=== PATIENT | female | born 1980 | race Caucasian/White ===

== ENCOUNTER 2020-03-31 10:48 | Emergency (ER) | payer MEDICARE, OTHER, SELFPAY ==
[2020-03-31 11:04] VITALS: BP 159/91; PULSE 77; RESP 16; TEMP 36.6; O2SAT 94; BMI 44.2
--- NOTE | 2020-03-31 11:07 | XR_ITS ---
EXAMINATION: XR KNEE, RIGHT CLINICAL INFORMATION: Pain COMPARISON: February 18, 2012 TECHNIQUE: Four views of the right knee. FINDINGS: There is no evidence of acute fracture or dislocation of the right knee. No right knee effusion. Right knee joint spaces are maintained. There is mild marginal spurring seen about the patellofemoral joint. XR/XR knee RT 4V IMPRESSION: Mild degenerative change patellofemoral joint.
--- NOTE | 2020-03-31 11:44 | ED.LOWEXIN ---
HPI - Extremity Injury (Lower) General Chief Complaint: Extremity Problem Stated Complaint: knee pain Time Seen by Provider: 03/31/20 11:07 Source: patient Mode of arrival: ambulatory Limitations: no limitations History of Present Illness HPI Narrative: Right knee pain for past couple of days denies any injury, redness or swelling. States it feels like an ?pebble in there? She called her primary care doctor has an appointment however the pain got worse so she came to emergency room. complaint: knee injury Injury: Right: knee Severity: mild Relieving factors: nothing Exacerbating factors: nothing Related Data Previous Rx's Medication Instructions Recorded ibuprofen 800 mg PO BID PRN #30 tab 03/31/20 Allergies Allergy/AdvReac Type Severity Reaction Status Date / Time gadobutrol [GADOBUTROL] Allergy Severe RASH, Verified 03/31/20 10:51 TONGUE SWELLING, SOB amoxicillin [Amoxicillin] Allergy Unknown RASH Verified 03/31/20 11:04 cinnamon [CINNAMON] Allergy Unknown TONGUE Verified 03/31/20 11:04 SWELLING Iodinated Contrast Media Allergy Unknown DIFFICULTY Verified 03/31/20 11:04 [IV CONTRAST] BREATHING peanut [PEANUT] Allergy Unknown ANAPHYLAXIS Verified 03/31/20 11:04 cinnamon and peanuts Allergy Unknown Unknown Uncoded 03/31/20 10:51 constrast dye Allergy Unknown Unknown Uncoded 03/31/20 10:51 Review of Systems Review of Systems: Constitutional: No Weight loss, No Fever, No Chills, No Night Sweats, No Fatigue, No Malaise ENT/Mouth: No Hearing loss, No Ear Pain, No Nasal Congestion Eyes: No Discharge Cardiovascular: No Chest Pain, No SOB, No Dyspnea on Exertion Respiratory: No Cough, No Sputum, No Wheezing, No Smoke Exposure, No Dyspnea Musculoskeletal: No joint pain, No Myalgias, No Joint Swelling Skin: No Skin Lesions, No rash Neuro: No Weakness, No Numbness Psych: No Anxiety/Panic, No Social Issues Heme/Lymph: No Bruising, No Bleeding,No Lymphadenopathy Endocrine: No Polyuria, No Polydipsia, No Temperature Intolerance Yes all other systems are reviewed and are negative [facility] Past Medical History Attestation statement: The following information was validated with the patient. Medical History (Updated 03/31/20 @ 12:06 by Andrew Melendez NP) Anxiety Back pain Brain lesion Depression Intercostal neuralgia Migraines Social History Social History Alcohol intake: never Smoking Status: Never smoker Smoked in Last 30 Days: No Use of substances other than those prescribed or required for medical reasons: No Advance Directives: No Advance Directives Information Provided: Yes Physical Exam Vital Signs: Vital Signs: Last Vital Signs Temp 97.8 F 03/31/20 11:04 Pulse 77 03/31/20 11:04 Resp 16 03/31/20 11:04 BP 159/91 H 03/31/20 11:04 Pulse Ox 94 03/31/20 11:04 Body Mass Index 44.2 Reviewed Const: General: cooperative and healthy appearing; No acute distress or intoxicated appearing Nutritional Appearance: average body habitus Orientation/consciousness: patient oriented x3 HENMT: Head: Yes normal to inspection Ears: hearing grossly normal bilaterally Chest: Chest palpation & inspection: normal inspection of the chest Resp: Effort & Inspection: normal respiratory effort Cardio: Jugular venous distension: no JVD Neuro: General: patient oriented x3 Extrem: Other: Right knee without effusion, negative Homans No erythema or swelling. Full range of motion. Negative drawer test. General: Yes normal to inspection MDM - Extremity Injury (Lower) Imaging Data Right knee x-ray: Radiologist's impression: [address] [address] XRay Report Signed Patient: Avain Velazquez#: [id number] : 1980Acct:[id number] Age/Sex: 39 / FADM Date: 03/31/20 Loc: HO.ED Attending Dr: Ordering Physician: Andrew Melendez NP Date of Service: 03/31/20 Procedure(s): XR knee RT 4V Accession Number(s): [id number] cc: Andrew Melendez INSTRUMENTATION AND CONTROLS TECHNICIAN~ EXAMINATION: XR KNEE, RIGHT CLINICAL INFORMATION: Pain COMPARISON: February 18, 2012 TECHNIQUE: Four views of the right knee. FINDINGS: There is no evidence of acute fracture or dislocation of the right knee. No right knee effusion. Right knee joint spaces are maintained. There is mild marginal spurring seen about the patellofemoral joint. XR/XR knee RT 4V IMPRESSION: Mild degenerative change patellofemoral joint. Dictated By:JA LITTLE MD Signed By:<Electronically signed by JA LITTLE MD in OV>03/31/20 1200 DD/ 1107 TD/TT: Counter Hand: KATERINA Discharge Plan Discharge Clinical Impression: Arthralgia of knee Qualifiers: Laterality: right Qualified Code(s): M25.561 - Pain in right knee Patient Disposition: Home, Self-Care Instructions: Knee Pain (ED), Arthralgia (ED) Prescriptions: New ibuprofen 800 mg tablet 800 mg PO BID PRN (Reason: pain) Qty: 30 RF: 0 Referrals: Radha Perez NP [Primary Care Provider] - 1 week
== END 2020-03-31 12:18 | disposition home or self-care (01) ==
PROVIDERS: Emergency Provider Emergency Medicine; PCP Emergency Medicine
DX: M25.561 Pain in right knee (principal)
CPT/HCPCS: 73564; 99283; 99284

== ENCOUNTER 2020-04-07 13:53 | Emergency (ER) | payer MEDICARE, OTHER, SELFPAY ==
--- NOTE | 2020-04-07 | XR_ITS ---
EXAMINATION: XR CHEST CLINICAL INFORMATION: Chest pain and dyspnea on exertion. COMPARISON: None TECHNIQUE: 2 views of the chest were obtained. FINDINGS: No significant abnormality is noted involving the heart, lungs, mediastinum, bony thorax or soft tissues. XR/XR chest 2V IMPRESSION: Unremarkable examination.
[2020-04-07 15:19] VITALS: BP 140/85; PULSE 77; RESP 18; TEMP 36.6; O2SAT 99; BMI 40.7
--- NOTE | 2020-04-07 16:03 | ECG_ITS ---
Test Reason : CHEST PAIN Blood Pressure : / mmHG Vent. Rate : 090 BPM Atrial Rate : 090 BPM P-R Int : 148 ms QRS Dur : 092 ms QT Int : 364 ms P-R-T Axes : 037 -13 038 degrees QTc Int : 445 ms Normal sinus rhythm Left axis deviation Otherwise normal ECG When compared with ECG of 11-DEC-2017 03:23, No significant changes seen Referred By: Dulce Mejia Electronically Signed By:ANAMARIA HERNANDEZ MD
--- NOTE | 2020-04-07 16:06 | ED_ITS ---
HPI - Chest Pain General Chief Complaint: Chest Pain Stated Complaint: chest pain Time Seen by Provider: 04/07/20 15:51 Source: patient Mode of arrival: ambulatory Limitations: no limitations History of Present Illness HPI narrative: Patient comes to emergency room complaining of substernal chest pain that started this morning while she was laying in bed. Patient states it hurts more with deep inspirations. Patient states she cannot lay flat because it hurts, she has to be sitting up, movement also makes The chest pain worse. Patient denies any cardiac history. Patient states she has had lung surgery in the past due to a nodule she had in her lungs. Related Data Previous Rx's Medication Instructions Recorded ibuprofen 800 mg PO BID PRN #30 tab 03/31/20 Allergies Allergy/AdvReac Type Severity Reaction Status Date / Time gadobutrol [GADOBUTROL] Allergy Severe RASH, Verified 03/31/20 10:51 TONGUE SWELLING, SOB amoxicillin [Amoxicillin] Allergy Unknown RASH Verified 03/31/20 11:04 cinnamon [CINNAMON] Allergy Unknown TONGUE Verified 03/31/20 11:04 SWELLING Iodinated Contrast Media Allergy Unknown DIFFICULTY Verified 03/31/20 11:04 [IV CONTRAST] BREATHING peanut [PEANUT] Allergy Unknown ANAPHYLAXIS Verified 03/31/20 11:04 cinnamon and peanuts Allergy Unknown Unknown Uncoded 03/31/20 10:51 constrast dye Allergy Unknown Unknown Uncoded 03/31/20 10:51 Review of Systems Review of Systems: Constitutional : No Weight loss, No Fever, No Chills, No Night Sweats, No Fatigue, No Malaise ENT/Mouth : No Hearing loss, No Ear Pain, No Nasal Congestion, No Sinus Pain, No Hoarseness, No sore throat, No Rhinorrhea, No Swallowing Difficulty Eyes: No Eye Pain, No Swelling, No Redness, No Foreign Body, No Discharge, No Vision Changes Cardiovascular : Substernal chest pain worse with lying flat deep inspirations Respiratory : No Cough, No Sputum, No Wheezing, No Smoke Exposure, No Dyspnea Gastrointestinal : No Nausea, No Vomiting, No Diarrhea, No Constipation, No abdominal Pain, No Hematochezia, No Melena Genitourinary : no irregular bleeding, No Dysuria, No Urinary Frequency, No Hematuria, No Urinary Incontinence, No Urgency, No Flank Pain, No Urinary Flow Changes, No Hesitancy Musculoskeletal : No joint pain, No Myalgias, No Joint Swelling Skin : No Skin Lesions, No rash Neuro : No Weakness, No Numbness, No Paresthesias, No Loss of Consciousness, No Dizziness, No Headache Psych : No Anxiety/Panic, No Depression, No SI/HI/AH/VH, No Social Issues, Heme/Lymph: No Bruising, No Bleeding,No Lymphadenopathy Endocrine : No Polyuria, No Polydipsia, No Temperature Intolerance PMFSH Past Medical History Medical History Anxiety Back pain Brain lesion Depression Intercostal neuralgia Migraines Social History Social History Alcohol intake: unknown Smoking Status: Never smoker Use of substances other than those prescribed or required for medical reasons: Unknown Advance Directives: No Advance Directives Information Provided: No Physical Exam Vital Signs: Vital Signs: Last Vital Signs Temp 98.5 F 04/07/20 20:00 Pulse 79 04/07/20 20:00 Resp 18 04/07/20 20:00 BP 138/84 04/07/20 20:00 Pulse Ox 97 04/07/20 20:00 Body Mass Index 40.7 Appearance: Alert. Oriented X3. No acute distress. Eyes: Pupils equal, round and reactive to light. ENT: Pharynx normal. Neck: Normal inspection. Neck supple. No lymph nodes noted. No crepitus CVS: Normal heart rate and rhythm. Pulses normal. Normal S1 and S2, reprodu cible chest pain with palpation over the sternum Respiratory: No respiratory distress. Breath sounds normal. No Wheezing. No rales Abdomen: Soft and nontender. No rigidity. No distention. good BS x4 Skin: Skin warm and dry. Normal skin color. Normal skin turgor. Extremities: No lower extremity edema. No lower extremity edema. No Lacerations. No Rash Neuro: Oriented X 3. No motor deficit. No sensory deficit. Moving all extermities. No slurred speech. Course Course Course Narrative: I discussed the labs with the patient, patient complaining of a headache, no longer having chest pain. Headache likely secondary to the sublingual nitroglycerin. labs were obtained for a 2nd troponin, there was no increase greater than 50 and a troponin. No EKG changes, patient is stable to go home. MDM - Chest Pain Lab Data Result diagrams: 04/07/20 16:38 04/07/20 17:27 Labs: Lab Results 04/07/20 04/07/20 04/07/20 Range/Units 16:38 16:38 16:38 WBC 10.7 (4.8-10.8) X10*3/uL RBC 4.94 (4.20-5.50) X10*6/uL Hgb 14.7 (12.0-16.0) g/dl Hct 44.9 (37-47) % MCV 90.9 (80-98) fL MCH 29.8 (27.0-33.0) pg MCHC 32.7 (31.0-35.0) g/dl RDW 14.1 (11.0-16.0) % Plt Count 365 (160-400) X10*3/uL MPV 9.3 L (9.4-12.3) fL Immature Gran % (Auto) 0.2 (0.0-0.4) % Neut % (Auto) 74.7 H (45-73) % Lymph % (Auto) 15.9 L (20-40) % [place] % (Auto) 7.8 (2-11) % Eos % (Auto) 1.1 (0-4) % Baso % (Auto) 0.3 (0-2) % Lymph # (Auto) 1.7 (1.2-4.9) X10*3/uL [place] # (Auto) 0.8 (0.1-1.2) X10*3/uL Eos # (Auto) 0.1 (0.0-0.4) X10*3/uL Baso # (Auto) 0.0 (0.0-0.2) X10*3/uL Abs Immat Gran (auto) 0.02 (0.00-0.03) X10*3/uL Absolute Neuts (auto) 8.0 (2.0-8.3) X10*3/uL Absolute Nucleated RBC 0.000 (0.0-0.012) X10*3/uL Nucleated RBC % (auto) 0.0 (0.0-0.2) /100WBC Sodium Cancelled Potassium Cancelled Chloride Cancelled Carbon Dioxide Cancelled Anion Gap Cancelled BUN Cancelled Creatinine Cancelled Estim Creat Clear Calc Cancelled Estimated GFR Cancelled Random Glucose Cancelled Calcium Cancelled Total Bilirubin Cancelled Direct Bilirubin Cancelled AST Cancelled ALT Cancelled Alkaline Phosphatase Cancelled Troponin I High Sens 10.7 (<3.5-17.0) ng/L Total Protein Cancelled Albumin Cancelled 04/07/20 04/07/20 Range/Units 17:27 20:05 WBC (4.8-10.8) X10*3/uL RBC (4.20-5.50) X10*6/uL Hgb (12.0-16.0) g/dl Hct (37-47) % MCV (80-98) fL MCH (27.0-33.0) pg MCHC (31.0-35.0) g/dl RDW (11.0-16.0) % Plt Count (160-400) X10*3/uL MPV (9.4-12.3) fL Immature Gran % (Auto) (0.0-0.4) % Neut % (Auto) (45-73) % Lymph % (Auto) (20-40) % [place] % (Auto) (2-11) % Eos % (Auto) (0-4) % Baso % (Auto) (0-2) % Lymph # (Auto) (1.2-4.9) X10*3/uL [place] # (Auto) (0.1-1.2) X10*3/uL Eos # (Auto) (0.0-0.4) X10*3/uL Baso # (Auto) (0.0-0.2) X10*3/uL Abs Immat Gran (auto) (0.00-0.03) X10*3/uL Absolute Neuts (auto) (2.0-8.3) X10*3/uL Absolute Nucleated RBC (0.0-0.012) X10*3/uL Nucleated RBC % (auto) (0.0-0.2) /100WBC Sodium 137 Potassium 3.9 Chloride 102 Carbon Dioxide 25 Anion Gap 14 BUN 11 Creatinine 0.73 Estim Creat Clear Calc 118.3 Estimated GFR > 60 Random Glucose 92 Calcium 8.8 Total Bilirubin 0.7 Direct Bilirubin 0.3 AST 13 ALT 26 Alkaline Phosphatase 83 Troponin I High Sens 10.0 (<3.5-17.0) ng/L Total Protein 7.2 Albumin 3.9 ECG Data ECG #1: Attestation: I personally reviewed and interpreted this ECG as follows: ( Heart rate 90, no ST segment depressions or elevations, no T-wave inversions, QTC 445) Scores Heart Score History: -0- slightly suspicious ECG: -0- normal Age: -1- >45 - <65 Risk factory: -1- 1 or 2 risk factors Troponin: -0- < or = normal limit Score: 2 Risk: 1.7% Discharge Plan Discharge Clinical Impression: Atypical chest pain Patient Disposition: Home, Self-Care Instructions: Chest Pain (ED) Additional Instructions: Please follow-up with your primary care physician tomorrow. If you have any worsening or new symptoms, please return to the emergency room or call 911 Prescriptions: No Action ibuprofen 800 mg tablet 800 mg PO BID PRN (Reason: pain) Qty: 30 RF: 0
[2020-04-07 16:44] LABS: MANUAL DIFF FLAG NO
[2020-04-07 16:45] LABS: Basophils Percent Auto 0.3 % (0-2); Eosinophils Absolute Auto 0.1 X10*3/uL (0.0-0.4); Eosinophils Percent Auto 1.1 % (0-4); Hematocrit 44.9 % (37-47); Hemoglobin 14.7 g/dl (12.0-16.0); Imm Gran Abs Auto 0.02 X10*3/uL (0.00-0.03); Imm Gran Pct Auto 0.2 % (0.0-0.4); Lymphocytes Absolute Auto 1.7 X10*3/uL (1.2-4.9); Lymphocytes Percent Auto 15.9 % (20-40); Mean Corpuscular HGB Conc 32.7 g/dl (31.0-35.0); Mean Corpuscular Hemoglobin 29.8 pg (27.0-33.0); Mean Corpuscular Volume 90.9 fL (80-98); Mean Platelet Volume 9.3 fL (9.4-12.3); Monocytes Absolute Auto 0.8 X10*3/uL (0.1-1.2); Monocytes Percent Auto 7.8 % (2-11); Neutrophils Percent Auto 74.7 % (45-73); Platelet Count 365 X10*3/uL (160-400); Red Blood Count 4.94 X10*6/uL (4.20-5.50); Red Cell Distribution Width 14.1 % (11.0-16.0); White Blood Count 10.7 X10*3/uL (4.8-10.8)
[2020-04-07 17:12] LABS: Troponin-I High Sensitivity 10.7 ng/L (<3.5-17.0)
[2020-04-07] MEDS: Nitroglycerin 0.4 MG TAB.SUBL SUBLINGUAL (17:32)
[2020-04-07] MEDS: Aspirin Enteric Coated 325 MG TABLET.DR PO (17:32)
[2020-04-07 17:34] VITALS: PULSE 77; RESP 12; O2SAT 7
[2020-04-07 17:36] VITALS: BP 123/69
[2020-04-07 17:56] LABS: Alanine Aminotransferase 26 U/L (0-31); Albumin Level 3.9 g/dL (3.5-5.0); Alkaline Phosphatase 83 U/L (39-117); Anion Gap 14 (12-20); Aspartate Amino Transferase 13 U/L (5-31); Bilirubin Direct 0.3 mg/dL (0.0-0.5); Bilirubin Total 0.7 mg/dL (0.0-1.0); Blood Urea Nitrogen 11 mg/dL (9-16); Calcium 8.8 mg/dL (8.4-10.2); Carbon Dioxide 25 mmol/L (22-29); Chloride 102 mmol/L (96-108); Creatinine Clr Calc Pharmacy 118.3; Estimated Glomerular Filt Rate > 60; Glucose Random 92 mg/dL (60-115); Potassium 3.9 mmol/l (3.3-5.1); Sodium 137 mmol/L (135-145); Total Protein 7.2 g/dL (6.5-8.0)
--- NOTE | 2020-04-07 18:28 | PC.NURSE ---
Asked patient if she would want me to ask provider for pain medication, pt states she does not wish to take any at this time. Pt informed of plan to repeat troponin at 1930. Agreeable to plan.
[2020-04-07 20:00] VITALS: BP 138/84; PULSE 79; RESP 18; TEMP 36.9; O2SAT 97
[2020-04-07] MEDS: Acetaminophen 325 MG TABLET 650 MG PO (21:27)
== END 2020-04-07 21:33 | disposition home or self-care (01) ==
PROVIDERS: Emergency Provider Emergency Medicine
DX: R07.89 Other chest pain (principal); Z79.899 Other long term (current) drug therapy
CPT/HCPCS: 36415; 71046; 80048; 80076; 84484; 85025; 93005; 99284

== ENCOUNTER → 2020-05-23 08:18 | Outpatient (BNVA) | payer MEDICARE, OTHER, SELFPAY | PROVIDERS: Visit Provider Anesthesiology | DX: M79.18 Myalgia, other site (principal); L40.50 Arthropathic psoriasis, unspecified; E66.01 Morbid (severe) obesity due to excess calories | CPT/HCPCS: 99202 ==

== ENCOUNTER 2020-10-02 17:39 | Emergency (ER) | payer MEDICARE, OTHER, SELFPAY ==
--- NOTE | ~2020-10-02 | US_ITS ---
EXAMINATION: US ABDOMEN LIMITED CLINICAL INFORMATION: Right upper quadrant pain with question of cholecystitis. COMPARISON: CT abdomen pelvis 10/25/2017 TECHNIQUE: Real-time imaging of the right upper quadrant abdominal viscera. FINDINGS: PANCREAS: Normal. LIVER: The liver is enlarged measuring over 17 cm in length The liver contour is normal. There is diffuse increased liver parenchymal echogenicity, consistent with hepatic steatosis. No focal hepatic lesion. There is no intrahepatic biliary duct dilatation seen. GALLBLADDER: The gallbladder is physiologically distended without evidence of stones, sludge, polyps, wall thickening or pericholecystic fluid. COMMON BILE DUCT: Normal in caliber measuring 0.3 cm in diameter. RIGHT KIDNEY: Normal. No hydronephrosis. No renal calculi or focal parenchymal lesions. The kidney measures 10.1 cm in maximum dimension. FREE FLUID: None. US/US abdomen limited IMPRESSION: Hepatic steatosis No evidence of gallstones or cholecystitis
[2020-10-02 18:08] VITALS: BP 166/84; PULSE 77; RESP 18; TEMP 36.6; O2SAT 99; BMI 46.0
--- NOTE | 2020-10-02 22:31 | ED.BACK ---
HPI - Back Pain/Injury General Chief Complaint: Back Pain/Injury Stated Complaint: R SIDE PAIN Time Seen by Provider: 10/02/20 22:31 Source: patient Mode of arrival: ambulatory Limitations: no limitations History of Present Illness HPI Narrative: Patient history of chronic back pain complaining of pain in the right upper quadrant and right flank area for last 4 days which is not usual for her see usually gets pain in the left side. Pain is sharp in character increases on movements noticed with the food no nausea no vomiting no abdominal bloatedness no urinary complaints no injury no fever or chills no urinary complaints Related Data Home Medications Medication Instructions Recorded Confirmed amlodipine 10 mg tablet 10 mg PO DAILY 05/23/20 05/23/20 carvedilol 25 mg tablet 25 mg PO BID 05/23/20 05/23/20 chlorthalidone 25 mg tablet 25 mg PO DAILY 05/23/20 05/23/20 nystatin 100,000 unit/gram topical TOPICAL 05/23/20 05/23/20 powder quetiapine 25 mg tablet 25 mg PO BEDTIME 05/23/20 05/23/20 Previous Rx's Medication Instructions Recorded gabapentin 800 mg tablet 800 mg PO TID 30 Days #90 tab 05/23/20 nortriptyline 10 mg capsule 10 mg PO BEDTIME 30 Days #30 cap 05/23/20 tramadol 50 mg PO Q6H PRN #20 tab 10/03/20 Allergies Allergy/AdvReac Type Severity Reaction Status Date / Time gadobutrol [GADOBUTROL] Allergy Severe RASH, Verified 10/02/20 23:14 TONGUE SWELLING, SOB amoxicillin [Amoxicillin] Allergy Unknown RASH Verified 10/02/20 23:14 cinnamon [CINNAMON] Allergy Unknown TONGUE Verified 10/02/20 23:14 SWELLING Iodinated Contrast Media Allergy Unknown DIFFICULTY Verified 10/02/20 23:14 [IV CONTRAST] BREATHING peanut [PEANUT] Allergy Unknown ANAPHYLAXIS Verified 10/02/20 23:14 morphine Allergy Anaphylaxis Verified 10/02/20 23:14 constrast dye Allergy Unknown Unknown Uncoded 10/02/20 23:14 Review of Systems Review of Systems: Constitutional : No Weight loss, No Fever, No Chills ENT/Mouth : No sore throat, No Rhinorrhea Eyes: No Eye Pain, No Swelling Cardiovascular : No Chest Pain, no palpitations Respiratory : No Cough, No Sputum, no shortness of breath Gastrointestinal : no Nausea, No Vomiting, No Diarrhea, No abdominal Pain, no black stools Genitourinary : No Dysuria, No Urinary Frequency Musculoskeletal : No joint pain, No Myalgias, No Joint Swelling Skin : No Skin Lesions, No rash Neuro : No Weakness, No Numbness, No Dizziness, No Headache Psych : No Anxiety/Panic, No Depression Heme/Lymph: No Bruising, No Lymphadenopathy Endocrine : No Polyuria, No Polydipsia All other systems reviewed and are negative [facility] Past Medical History Medical History Anxiety Back pain Brain lesion Depression Intercostal neuralgia Migraines Morbid obesity Myofascial pain on left side Psoriatic arthritis Social History Social History Alcohol intake: unknown Smoking Status: Never smoker Advance Directives: No Advance Directives Information Provided: No Patient : No Physical Exam Vital Signs: Vital Signs: Last Vital Signs Temp 98.1 F 10/02/20 23:09 Pulse 69 10/02/20 23:09 Resp 17 10/02/20 23:09 BP 146/86 H 10/02/20 23:09 Pulse Ox 98 10/02/20 23:09 Body Mass Index 46.0 Appearance: Alert. Oriented X3. No acute distress. Eyes: PERRLA, No Nystagmus ENT: Pharynx normal. Oral Mucosa moist Neck: Normal inspection. Neck supple. CVS: Normal heart rate and rhythm. Pulses normal. Respiratory: No respiratory distress. Equal air entry bilateral, no wheezing/rales/rhonchi Abdomen: Soft , deep tenderness right upper quadrant and right flank area no rebound tenderness or guarding. Bowel sounds are present, no mass palpable, Skin: Skin warm and dry. Normal skin color. Normal skin turgor. Extremities: No lower extremity edema. No calf tenderness no spinal tenderness SLR negative both sites Neuro: Oriented X 3. No motor deficit. No sensory deficit.No cerebellar signs , cranial nerves II-XII intact MDM - Back Pain/Injury MDM Narrative Medical decision making narrative: Patient nonspecific right upper quadrant pain right flank pain upper back pain no nausea no vomiting ultrasound negative lab stable no UTI will discharge patient home for likely musculoskeletal pain Differential Diagnosis Differential diagnosis: Likely strain of lumbar region Medical Records Attestation: I reviewed the patient's medical records. Lab Data Attestation: I reviewed the patient's lab results. Result diagrams: 10/02/20 23:04 10/02/20 23:51 Labs: Lab Results 10/02/20 10/02/20 10/02/20 Range/Units 22:56 23:04 23:51 WBC 9.0 (4.8-10.8) X10*3/uL RBC 4.80 (4.20-5.50) X10*6/uL Hgb 14.8 (12.0-16.0) g/dl Hct 43.2 (37-47) % MCV 90.0 (80-98) fL MCH 30.8 (27.0-33.0) pg MCHC 34.3 (31.0-35.0) g/dl RDW 13.5 (11.0-16.0) % Plt Count 341 (160-400) X10*3/uL MPV 9.6 (9.4-12.3) fL Immature Gran % (Auto) 0.3 (0.0-0.4) % Neut % (Auto) 52.3 (45-73) % Lymph % (Auto) 34.7 (20-40) % [place] % (Auto) 9.8 (2-11) % Eos % (Auto) 2.3 (0-4) % Baso % (Auto) 0.6 (0-2) % Lymph # (Auto) 3.1 (1.2-4.9) X10*3/uL [place] # (Auto) 0.9 (0.1-1.2) X10*3/uL Eos # (Auto) 0.2 (0.0-0.4) X10*3/uL Baso # (Auto) 0.1 (0.0-0.2) X10*3/uL Abs Immat Gran (auto) 0.03 (0.00-0.03) X10*3/uL Absolute Neuts (auto) 4.7 (2.0-8.3) X10*3/uL Absolute Nucleated RBC 0.000 (0.0-0.012) X10*3/uL Nucleated RBC % (auto) 0.0 (0.0-0.2) /100WBC Sodium 136 (135-145) mmol/L Potassium 3.3 (3.3-5.1) mmol/L Chloride 100 (96-108) mmol/L Carbon Dioxide 25 (22-29) mmol/L Anion Gap 14 (12-20) BUN 15 (9-16) mg/dL Creatinine 0.75 (0.5-1.4) mg/dL Estim Creat Clear Calc 122.5 Estimated GFR > 60 Random Glucose 113 (60-115) mg/dL Calcium 9.0 (8.4-10.2) mg/dL Total Bilirubin 0.3 (0.0-1.0) mg/dL Direct Bilirubin < 0.2 (0.0-0.5) mg/dL AST 15 (5-31) U/L ALT 28 (0-31) U/L Alkaline Phosphatase 66 D (39-117) U/L Total Protein 6.9 (6.5-8.0) g/dL Albumin 3.8 (3.5-5.0) g/dL Lipase (8-78) U/L Urine Color YELLOW Urine Appearance HAZY Urine pH 6.0 (5.0-8.0) Ur Specific [place] >= 1.030 H (1.005-1.025) Urine Protein NEG (NEG-TRACE) MG/DL Urine Glucose (UA) NEG (NEG) MG/DL Urine Ketones NEG (NEG) MG/DL Urine Blood NEG (NEG) Urine Nitrite NEG (NEG) Ur Leukocyte Esterase NEG (NEG) 10/02/20 Range/Units 23:51 WBC (4.8-10.8) X10*3/uL RBC (4.20-5.50) X10*6/uL Hgb (12.0-16.0) g/dl Hct (37-47) % MCV (80-98) fL MCH (27.0-33.0) pg MCHC (31.0-35.0) g/dl RDW (11.0-16.0) % Plt Count (160-400) X10*3/uL MPV (9.4-12.3) fL Immature Gran % (Auto) (0.0-0.4) % Neut % (Auto) (45-73) % Lymph % (Auto) (20-40) % [place] % (Auto) (2-11) % Eos % (Auto) (0-4) % Baso % (Auto) (0-2) % Lymph # (Auto) (1.2-4.9) X10*3/uL [place] # (Auto) (0.1-1.2) X10*3/uL Eos # (Auto) (0.0-0.4) X10*3/uL Baso # (Auto) (0.0-0.2) X10*3/uL Abs Immat Gran (auto) (0.00-0.03) X10*3/uL Absolute Neuts (auto) (2.0-8.3) X10*3/uL Absolute Nucleated RBC (0.0-0.012) X10*3/uL Nucleated RBC % (auto) (0.0-0.2) /100WBC Sodium (135-145) mmol/L Potassium (3.3-5.1) mmol/L Chloride (96-108) mmol/L Carbon Dioxide (22-29) mmol/L Anion Gap (12-20) BUN (9-16) mg/dL Creatinine (0.5-1.4) mg/dL Estim Creat Clear Calc Estimated GFR Random Glucose (60-115) mg/dL Calcium (8.4-10.2) mg/dL Total Bilirubin (0.0-1.0) mg/dL Direct Bilirubin (0.0-0.5) mg/dL AST (5-31) U/L ALT (0-31) U/L Alkaline Phosphatase (39-117) U/L Total Protein (6.5-8.0) g/dL Albumin (3.5-5.0) g/dL Lipase 18 (8-78) U/L Urine Color Urine Appearance Urine pH (5.0-8.0) Ur Specific [place] (1.005-1.025) Urine Protein (NEG-TRACE) MG/DL Urine Glucose (UA) (NEG) MG/DL Urine Ketones (NEG) MG/DL Urine Blood (NEG) Urine Nitrite (NEG) Ur Leukocyte Esterase (NEG) Discharge Plan Discharge Clinical Impression: Abdominal pain Qualifiers: Abdominal location: right upper quadrant Qualified Code(s): R10.11 - Right upper quadrant pain Patient Disposition: Home, Self-Care Instructions: Abdominal Pain (ED) Additional Instructions: the cause of abdominal pain is not very clear likely musculoskeletal. Her ultrasound of gallbladder is negative for stones, Take pain medication as advised. Follow with PCP if not better. Report to the ER if vomiting/fever/worsening of pain Prescriptions: New tramadol 50 mg tablet 50 mg PO Q6H PRN (Reason: pain) Qty: 20 RF: 0 No Action amlodipine 10 mg tablet 10 mg PO DAILY RF: 0 chlorthalidone 25 mg tablet 25 mg PO DAILY RF: 0 quetiapine 25 mg tablet 25 mg PO BEDTIME RF: 0 carvedilol 25 mg tablet 25 mg PO BID RF: 0 nystatin 100,000 unit/gram powder topical RF: 0 nortriptyline 10 mg capsule 10 mg PO BEDTIME 30 Days Qty: 30 RF: 10 gabapentin 800 mg tablet 800 mg PO TID 30 Days Qty: 90 RF: 11
[2020-10-02 23:09] VITALS: BP 146/86; PULSE 69; RESP 17; TEMP 36.7; O2SAT 98
[2020-10-02] MEDS: Ketorolac Tromethamine 30 MG/ML VIAL IVPUSH (23:11)
[2020-10-02 23:23] LABS: MANUAL DIFF FLAG NO
[2020-10-02 23:25] LABS: Glucose Urine UA NEG (NEG); Leukocyte Esterase Urine NEG (NEG); Nitrite Urine NEG (NEG); Specific Gravity - Urine >= 1.030 (1.005-1.025); Urine Blood NEG (NEG); Urine Ketones NEG (NEG); Urine Protein NEG (NEG-TRACE)
[2020-10-02 23:26] LABS: Basophils Absolute Auto 0.1 X10*3/uL (0.0-0.2); Basophils Percent Auto 0.6 % (0-2); Eosinophils Absolute Auto 0.2 X10*3/uL (0.0-0.4); Eosinophils Percent Auto 2.3 % (0-4); Hematocrit 43.2 % (37-47); Hemoglobin 14.8 g/dl (12.0-16.0); Imm Gran Abs Auto 0.03 X10*3/uL (0.00-0.03); Imm Gran Pct Auto 0.3 % (0.0-0.4); Lymphocytes Absolute Auto 3.1 X10*3/uL (1.2-4.9); Lymphocytes Percent Auto 34.7 % (20-40); Mean Corpuscular HGB Conc 34.3 g/dl (31.0-35.0); Mean Corpuscular Hemoglobin 30.8 pg (27.0-33.0); Mean Platelet Volume 9.6 fL (9.4-12.3); Monocytes Absolute Auto 0.9 X10*3/uL (0.1-1.2); Monocytes Percent Auto 9.8 % (2-11); Neutrophils Absolute Auto 4.7 X10*3/uL (2.0-8.3); Neutrophils Percent Auto 52.3 % (45-73); Platelet Count 341 X10*3/uL (160-400); Red Cell Distribution Width 13.5 % (11.0-16.0)
[2020-10-02 23:28] LABS: Appearance Urine HAZY; Color Urine YELLOW; UACC Culture Trigger NO
[2020-10-03 00:33] LABS: Lipase 18 U/L (8-78)
[2020-10-03 00:34] LABS: Alanine Aminotransferase 28 U/L (0-31); Albumin Level 3.8 g/dL (3.5-5.0); Alkaline Phosphatase 66 U/L (39-117); Anion Gap 14 (12-20); Aspartate Amino Transferase 15 U/L (5-31); Bilirubin Direct < 0.2 mg/dL (0.0-0.5); Bilirubin Total 0.3 mg/dL (0.0-1.0); Blood Urea Nitrogen 15 mg/dL (9-16); Carbon Dioxide 25 mmol/L (22-29); Chloride 100 mmol/L (96-108); Creatinine Clr Calc Pharmacy 122.5; Estimated Glomerular Filt Rate > 60; Glucose Random 113 mg/dL (60-115); Potassium 3.3 mmol/L (3.3-5.1); Sodium 136 mmol/L (135-145); Total Protein 6.9 g/dL (6.5-8.0)
[2020-10-03 01:10] VITALS: BP 126/61; PULSE 69; RESP 13; O2SAT 99
== END 2020-10-03 01:19 | disposition home or self-care (01) ==
PROVIDERS: Emergency Provider Internal Medicine
DX: R10.11 Right upper quadrant pain (principal); E66.01 Morbid (severe) obesity due to excess calories
CPT/HCPCS: 36415; 76705; 80048; 80076; 81003; 83690; 85025; 96374; 99284; J1885

== ENCOUNTER 2021-07-07 08:03 | Outpatient (REF) | payer OTHER, SELFPAY ==
[2021-07-07 09:46] LABS: COVID-19 Test Negative (Negative); IDNOW Serial# 16C4AD1C
== END 2021-07-07 08:04 | disposition home or self-care (01) ==
LOC: HO.LAB 08:03
PROVIDERS: Visit Provider Internal Medicine
DX: Z20.822 Contact with and (suspected) exposure to COVID-19 (principal)
CPT/HCPCS: 87635; C9803

== ENCOUNTER → 2021-10-02 09:57 | Outpatient (BNVA) | payer OTHER, SELFPAY | PROVIDERS: PCP Nurse Practitioner Family; Referring Provider Nurse Practitioner Family; Visit Provider Physician Assistant | DX: Z13.89 Encounter for screening for other disorder (principal) ==

== ENCOUNTER → 2021-10-16 17:00 | Outpatient (BNVA) | payer OTHER, SELFPAY | PROVIDERS: PCP Nurse Practitioner Family; Visit Provider Physician Assistant | DX: E66.01 Morbid (severe) obesity due to excess calories (principal); I10 Essential (primary) hypertension; G43.909 Migraine, unspecified, not intractable, without status migrainosus; F32.9 Major depressive disorder, single episode, unspecified; F41.9 Anxiety disorder, unspecified; Z68.43 Body mass index [BMI] 50.0-59.9, adult; Z79.899 Other long term (current) drug therapy; Z71.3 Dietary counseling and surveillance | CPT/HCPCS: 99215; Q3014 ==

== ENCOUNTER 2021-10-17 08:00 | Outpatient (REF) | payer OTHER, SELFPAY ==
--- NOTE | ~2021-10-17 | XR_ITS ---
EXAMINATION: XR CHEST CLINICAL INFORMATION: Essential hypertension COMPARISON: 04/07/2020 TECHNIQUE: 2 views of the chest were obtained. FINDINGS: The lungs are well expanded. There is no focal consolidation, edema, or effusion. No pneumothorax. The cardiomediastinal silhouette is within normal limits. No acute osseous abnormality. XR/XR chest 2V IMPRESSION: Clear lungs.
--- NOTE | ~2021-10-17 | MM_ITS ---
EXAMINATION: MM SCREENING DIGITAL BREAST TOMOSYNTHESIS, BILATERAL CLINICAL INFORMATION: Screening. Asymptomatic. No prior breast imaging. Age 41. No known family history breast cancer. The lifetime risk of breast cancer based on the Tyrer-Cuzick Model is 6%. COMPARISON: None (current study represents initial baseline exam). TECHNIQUE: Digital breast tomosynthesis is performed in both the craniocaudal and mediolateral oblique views along with computer-aided detection (CAD). Synthesized 2D images are generated from the tomosynthesis. Additional bilateral CC and additional bilateral MLO views are provided. FINDINGS: The breasts are almost entirely fatty (ACR BI-RADS breast composition Category a). There are no significant masses, abnormal calcifications, or other abnormalities. No architectural abnormality. The axilla and skin contours are unremarkable. MM/MM tomosynthesis screening BI IMPRESSION: No mammographic evidence of malignancy. ASSESSMENT: BI-RADS 1: Negative RECOMMENDATION: Routine annual mammography screening. This patient's information was entered into a reminder system with a target due date for their next mammogram.
[2021-10-17 08:26] LABS: MANUAL DIFF FLAG NO
--- NOTE | 2021-10-17 08:31 | ECG_ITS ---
Test Reason : htn Blood Pressure : / mmHG Vent. Rate : 079 BPM Atrial Rate : 079 BPM P-R Int : 160 ms QRS Dur : 094 ms QT Int : 400 ms P-R-T Axes : 040 -09 032 degrees QTc Int : 458 ms Normal sinus rhythm Minimal voltage criteria for LVH, may be normal variant ( Claude product ) Borderline ECG When compared with ECG of 07-APR-2020 13:57, No significant change was found Referred By: Shanika Schrader Electronically Signed By:Cristobal Coleman
[2021-10-17 08:39] LABS: Basophils Percent Auto 0.6 % (0-2); Eosinophils Absolute Auto 0.2 X10*3/uL (0.0-0.4); Eosinophils Percent Auto 3.3 % (0-4); Hematocrit 43.1 % (37.0-47.0); Hemoglobin 14.2 g/dl (12.0-16.0); Imm Gran Abs Auto 0.02 X10*3/uL (0.00-0.03); Imm Gran Pct Auto 0.3 % (0.0-0.4); Mean Corpuscular HGB Conc 32.9 g/dl (31.0-35.0); Mean Corpuscular Hemoglobin 29.5 pg (27.0-33.0); Mean Corpuscular Volume 89.4 fL (80.0-98.0); Mean Platelet Volume 9.5 fL (9.4-12.3); Monocytes Absolute Auto 0.5 X10*3/uL (0.1-1.2); Monocytes Percent Auto 8.2 % (2-11); Neutrophils Absolute Auto 3.6 x10*3/uL (2.0-8.3); Neutrophils Percent Auto 56.6 % (45-73); Platelet Count 336 X10*3/uL (160-400); Red Blood Count 4.82 X10*6/uL (4.20-5.50); Red Cell Distribution Width 13.9 % (11.0-16.0); White Blood Count 6.4 X10*3/uL (4.8-10.8)
[2021-10-17 09:07] LABS: Estimated Average Glucose 134 mg/dL; Hemoglobin A1c % 6.3 %
[2021-10-17 09:16] LABS: Alanine Aminotransferase 36 U/L (0-31); Albumin Level 3.7 g/dL (3.5-5.0); Alkaline Phosphatase 79 U/L (39-117); Anion Gap 13 (12-20); Aspartate Amino Transferase 19 U/L (5-31); Bilirubin Total 0.6 mg/dL (0.0-1.0); Blood Urea Nitrogen 13 mg/dL (9-16); C Reactive Protein 1.03 mg/dL (< or = 0.50); Calcium 9.5 mg/dL (8.4-10.2); Carbon Dioxide 26 mmol/L (22-29); Chloride 102 mmol/L (96-108); Cholesterol 188 mg/dL; Estimated Glomerular Filt Rate > 60; Glucose Random 173 mg/dL (60-115); HDL Cholesterol 39 mg/dL; Iron 83 mcg/dL (30-160); LDL Cholesterol Calculated 128 mg/dl; Percent Iron Saturation 28 % (15-50); Potassium 3.5 mmol/L (3.3-5.1); Sodium 137 mmol/L (135-145); Total Iron Binding Capacity 299 mcg/dL (228-428); Triglycerides 106 mg/dL; Unsaturated Iron Binding 216 ug/dL
[2021-10-17 09:42] LABS: Ferritin 117 ng/mL (10-250); Vitamin D 25-OH Total 15.2 ng/mL (>30)
[2021-10-17 09:45] LABS: Insulin 55 uU/mL (2-29)
[2021-10-17 09:52] LABS: Folate 15.2 ng/mL (> or = 4.0); Vitamin B12 443 pg/mL (200-900)
[2021-10-21 13:41] LABS: Calcium (PTHI) 9.3 mg/dL (8.6-10.2); PTHI 114 pg/mL (16-77)
[2021-10-22 06:05] LABS: Zinc 80 mcg/dL (60-130)
[2021-10-22 20:42] LABS: Vitamin A 27 mcg/dL (38-98)
[2021-10-23 14:55] LABS: Vitamin B1 14 nmol/L (8-30)
== END 2021-10-17 08:01 | disposition home or self-care (01) ==
LOC: HO.MAMMO 08:00
PROVIDERS: Absent Provider Physician Assistant; PCP Nurse Practitioner; Visit Provider Nurse Practitioner
DX: Z12.31 Encounter for screening mammogram for malignant neoplasm of breast (principal); I10 Essential (primary) hypertension; E66.01 Morbid (severe) obesity due to excess calories; Z68.43 Body mass index [BMI] 50.0-59.9, adult
CPT/HCPCS: 36415; 71046; 77063; 77067; 80053; 80061; 82306; 82607; 82728; 82746; 83036; 83525; 83540; 83970; 84425; 84590; 84630; 85025; 86140; 93005

== ENCOUNTER → 2021-10-22 13:05 | Outpatient (BNVA) | payer OTHER, SELFPAY | PROVIDERS: PCP Nurse Practitioner; Visit Provider Internal Medicine | DX: R06.02 Shortness of breath (principal); R06.00 Dyspnea, unspecified; E66.01 Morbid (severe) obesity due to excess calories; Z68.43 Body mass index [BMI] 50.0-59.9, adult; G47.33 Obstructive sleep apnea (adult) (pediatric) | CPT/HCPCS: 99202 ==

== ENCOUNTER → 2021-10-27 08:00 | Outpatient (BNVA) | payer OTHER, SELFPAY | PROVIDERS: PCP Nurse Practitioner Family; Visit Provider Counselor Mental Health | DX: F33.1 Major depressive disorder, recurrent, moderate (principal); E66.01 Morbid (severe) obesity due to excess calories; Z68.43 Body mass index [BMI] 50.0-59.9, adult | CPT/HCPCS: 90791 ==

== ENCOUNTER → 2021-11-10 08:06 | Outpatient (BNVA) | payer OTHER, SELFPAY | PROVIDERS: PCP Nurse Practitioner Family; Visit Provider Counselor Mental Health | DX: F33.1 Major depressive disorder, recurrent, moderate (principal); E66.01 Morbid (severe) obesity due to excess calories; Z68.43 Body mass index [BMI] 50.0-59.9, adult | CPT/HCPCS: 90834 ==

== ENCOUNTER → 2021-11-14 09:39 | Outpatient (BNVA) | payer OTHER, SELFPAY | PROVIDERS: PCP Nurse Practitioner Family; Visit Provider Physician Assistant | DX: E66.01 Morbid (severe) obesity due to excess calories (principal); Z68.43 Body mass index [BMI] 50.0-59.9, adult | CPT/HCPCS: 99211; 99212 ==

== ENCOUNTER 2021-11-14 14:07 | Outpatient (REF) | payer OTHER, SELFPAY ==
[2021-11-16 15:45] LABS: H Pylori Breath Test Negative (Negative)
== END 2021-11-14 14:08 | disposition home or self-care (01) ==
LOC: HO.LNP 14:07
PROVIDERS: Visit Provider Physician Assistant
DX: E66.01 Morbid (severe) obesity due to excess calories (principal); Z68.43 Body mass index [BMI] 50.0-59.9, adult; I10 Essential (primary) hypertension
CPT/HCPCS: 83013

== ENCOUNTER 2021-11-26 12:56 | Outpatient (REF) | payer OTHER, SELFPAY ==
--- NOTE | 2021-11-26 13:50 | PFT_ITS ---
FLOWS: FEV1 86% of predicted at 2.49 L. FVC 83% of predicted at 2.89 L. FEV1 to FVC ratio of 0.86. No bronchodilator response. LUNG VOLUMES: Total lung capacity 90% of predicted at 4.46 L. Residual volume 84% of predicted at 1.34 L. Slow vital capacity 93% of predicted at 3.12 L. Expiratory reserve volume 41% predicted at 0.46 L. Diffusion capacity is normal. IMPRESSION: No obstructive or restrictive ventilatory defect. No bronchodilator response. Decreased expiratory reserve volume suggests extrathoracic restriction likely secondary to abdominal obesity. Randy Edwards MD AP/MODL / [id number]
== END 2021-11-26 12:57 | disposition home or self-care (01) ==
LOC: HO.RESP 12:56
PROVIDERS: Visit Provider Internal Medicine
DX: R06.00 Dyspnea, unspecified (principal); E66.01 Morbid (severe) obesity due to excess calories; Z68.43 Body mass index [BMI] 50.0-59.9, adult
CPT/HCPCS: 90834; 94060; 94727; 94729

== ENCOUNTER → 2021-11-28 08:21 | Outpatient (BNVA) | payer OTHER, SELFPAY | PROVIDERS: PCP Nurse Practitioner Family; Visit Provider Dietitian, Registered | DX: E66.01 Morbid (severe) obesity due to excess calories (principal); Z68.42 Body mass index [BMI] 45.0-49.9, adult | CPT/HCPCS: 97802 ==

== ENCOUNTER → 2021-12-01 08:21 | Outpatient (BNVA) | payer OTHER, SELFPAY | PROVIDERS: PCP Nurse Practitioner Family; Visit Provider Physician Assistant | DX: E66.01 Morbid (severe) obesity due to excess calories (principal); Z68.43 Body mass index [BMI] 50.0-59.9, adult | CPT/HCPCS: 99212 ==

== ENCOUNTER 2021-12-02 08:23 | Outpatient (REF) | payer OTHER, SELFPAY ==
--- NOTE | ~2021-12-02 | US_ITS ---
EXAMINATION: US COMPLETE ABDOMEN WITH LIVER ELASTOGRAPHY CLINICAL INFORMATION: Primary hypertension. COMPARISON: None. TECHNIQUE: Real-time imaging of the abdominal viscera. Noninvasive ultrasound liver fibrosis assessment is performed using Gregorio ElastPQ point quantification shear wave elastography (2D-SWE) with a C5-2 MHz transducer. Multiple elastography samples are obtained. FINDINGS: PANCREAS: The visualized pancreatic head and body are normal in appearance. The remainder of the pancreas is obscured from visualization by the overlying bowel gas. ABDOMINAL AORTA: The proximal, middle, and distal aortic segments are normal in caliber. INFERIOR VENA CAVA: Visualized portions are normal. LIVER: Normal. The liver demonstrates normal size, contour and echogenicity. No focal lesion or intrahepatic biliary duct dilatation. The right lobe measures 18.8 cm in length. The left lobe measures 11.4 cm in length. Portal flow is hepatopedal Shear wave liver elastography median stiffness is 1.33 m/s (reference: normal median stiffness is 1.3 m/s or less). IQR/median stiffness to assess sampling precision is 0.15 (reference: good quality data set is IQR/median stiffness of 0.15 or less). GALLBLADDER: The bladder wall thickness measures 0.2 cm. The gallbladder is physiologically distended without evidence of stones, sludge, polyps, wall thickening or pericholecystic fluid. COMMON BILE DUCT: Normal in caliber measuring 0.3 cm in diameter. RIGHT KIDNEY: Normal. No hydronephrosis. No renal calculi or focal parenchymal lesions. The kidney measures 12.0 cm in maximum dimension. LEFT KIDNEY: Normal. No hydronephrosis. No renal calculi or focal parenchymal lesions. The kidney measures 12.5 cm in maximum dimension. SPLEEN: Normal. The spleen measures 9.6 cm in maximum dimension. FREE FLUID: None. US/US abdomen comp w elastography IMPRESSION: 1. Hepatic steatosis without focal lesion. Rest of the abdominal ultrasound is unremarkable. 2. Liver elastography: Median liver stiffness 1.33 m/s suggestive of high probability normal. REFERENCE: Society of Radiologists in Ultrasound Liver Stiffness Thresholds (2019): LIVER STIFFNESS THRESHOLDS: *Liver Stiffness equal or less than 1.3 m/s: High probability of being normal. *Liver Stiffness less than 1.7 m/s: In the absence of other known clinical signs, rules out compensated advanced chronic liver disease. *Liver Stiffness 1.7-2.1 m/s: Suggestive of compensated advanced chronic liver disease but need further test for confirmation. *Liver Stiffness over 2.1 m/s: Rules in compensated advanced chronic liver disease. *Liver Stiffness over 2.4 m/s: Suggestive of clinically significant portal hypertension. QUALITY OF DATA SET: *IQR/Median value equal or less than 0.15 implies a quality data set. *IQR/Median value over 0.15 implies a poor quality data set. SIGNIFICANT CHANGE FROM PRIOR EXAM: Significant change if liver stiffness measurement is 10% or greater from prior exam. OTHER CONSIDERATIONS: The stage of liver fibrosis may be overestimated in the setting of acute hepatitis, liver inflammation, elevated liver function tests, hepatic vascular congestion, obstructive cholestasis, non-fasting state, and infiltrative diseases such as amyloidosis and lymphoma. In some patients with NAFLD, the liver stiffness thresholds for compensated advanced chronic liver disease may be lower. In causes other than viral hepatitis and NAFLD, liver stiffness thresholds are not well established.
--- NOTE | ~2021-12-02 | FL_ITS ---
EXAMINATION: XR FLUOROSCOPY UPPER GI WITH AIR CLINICAL INFORMATION: Obesity. Preop. COMPARISON: None TECHNIQUE: Upper GI was performed using thin and thick barium and effervescent granules. FINDINGS: Esophageal motility is normal. No hernia or reflux is seen. The stomach and duodenum are normal-appearing. No fold thickening, mass, stricture or ulcer is seen. FLUOROSCOPY TIME: 0.6 minutes DOSE AREA PRODUCT: 10 verduzco per centimeter squared. 22 saved fluoroscopic images. FL/FL upper GI w air IMPRESSION: Unremarkable examination.
== END 2021-12-02 08:24 | disposition home or self-care (01) ==
LOC: HO.US 08:23
PROVIDERS: Visit Provider Physician Assistant
DX: E66.01 Morbid (severe) obesity due to excess calories (principal); I10 Essential (primary) hypertension; Z68.43 Body mass index [BMI] 50.0-59.9, adult
CPT/HCPCS: 74246; 76705; 76981

== ENCOUNTER → 2021-12-29 10:04 | Outpatient (BNVA) | payer OTHER, SELFPAY | PROVIDERS: PCP Nurse Practitioner Family; Referring Provider Nurse Practitioner Family; Visit Provider Physician Assistant | DX: E66.01 Morbid (severe) obesity due to excess calories (principal); I10 Essential (primary) hypertension; G43.909 Migraine, unspecified, not intractable, without status migrainosus; G47.33 Obstructive sleep apnea (adult) (pediatric); Z68.42 Body mass index [BMI] 45.0-49.9, adult; Z98.890 Other specified postprocedural states | CPT/HCPCS: 99212 ==

== ENCOUNTER → 2022-01-21 13:46 | Outpatient (BNVA) | payer OTHER, SELFPAY | PROVIDERS: PCP Nurse Practitioner Family; Visit Provider Physician Assistant | DX: E66.01 Morbid (severe) obesity due to excess calories (principal); Z68.41 Body mass index [BMI] 40.0-44.9, adult | CPT/HCPCS: 99212 ==

== ENCOUNTER → 2022-01-30 15:06 | Outpatient (BNVA) | payer OTHER, SELFPAY | PROVIDERS: PCP Nurse Practitioner Family; Visit Provider Surgery | DX: E66.01 Morbid (severe) obesity due to excess calories (principal); Z68.41 Body mass index [BMI] 40.0-44.9, adult; R73.03 Prediabetes; R79.89 Other specified abnormal findings of blood chemistry; R06.00 Dyspnea, unspecified; I10 Essential (primary) hypertension | CPT/HCPCS: 99202 ==

== ENCOUNTER → 2022-02-02 15:19 | Outpatient (BNVA) | payer OTHER, SELFPAY | PROVIDERS: PCP Nurse Practitioner Family; Visit Provider Internal Medicine | DX: Z01.818 Encounter for other preprocedural examination (principal); E66.01 Morbid (severe) obesity due to excess calories; R06.00 Dyspnea, unspecified; G47.33 Obstructive sleep apnea (adult) (pediatric); Z68.41 Body mass index [BMI] 40.0-44.9, adult | CPT/HCPCS: 99212 ==

== ENCOUNTER 2022-02-04 | Outpatient (REF) | payer OTHER, SELFPAY ==
[2022-01-27 09:08] VITALS: BMI 43.5
[2022-02-02 13:04] LABS: MANUAL DIFF FLAG NO
[2022-02-02 13:18] LABS: Basophils Absolute Auto 0.1 X10*3/uL (0.0-0.2); Basophils Percent Auto 0.9 % (0-2); Eosinophils Absolute Auto 0.3 X10*3/uL (0.0-0.4); Eosinophils Percent Auto 4.3 % (0-4); Hematocrit 40.7 % (37.0-47.0); Hemoglobin 14.5 g/dl (12.0-16.0); Imm Gran Abs Auto 0.01 X10*3/uL (0.00-0.03); Imm Gran Pct Auto 0.2 % (0.0-0.4); Lymphocytes Absolute Auto 2.2 X10*3/uL (1.2-4.9); Lymphocytes Percent Auto 37.9 % (20-40); Mean Corpuscular HGB Conc 35.6 g/dl (31.0-35.0); Mean Corpuscular Hemoglobin 29.4 pg (27.0-33.0); Mean Corpuscular Volume 82.6 fL (80.0-98.0); Mean Platelet Volume 10.5 fL (9.4-12.3); Monocytes Absolute Auto 0.8 X10*3/uL (0.1-1.2); Neutrophils Absolute Auto 2.5 x10*3/uL (2.0-8.3); Neutrophils Percent Auto 42.7 % (45-73); Platelet Count 347 X10*3/uL (160-400); Red Blood Count 4.93 X10*6/uL (4.20-5.50); Red Cell Distribution Width 14.1 % (11.0-16.0); White Blood Count 5.9 X10*3/uL (4.8-10.8)
[2022-02-02 13:39] LABS: INTERNATIONAL NORM RATIO 1.2 (0.9-1.1); Prothrombin Time 13.4 SEC (10.0-13.1)
[2022-02-02 13:42] LABS: Partial Thromboplastin Time 29.2 SEC (26.0-36.4)
[2022-02-02 13:50] LABS: Alanine Aminotransferase 21 U/L (0-31); Albumin Level 4.1 g/dL (3.5-5.0); Alkaline Phosphatase 64 U/L (39-117); Anion Gap 21 (12-20); Aspartate Amino Transferase 15 U/L (5-31); Bilirubin Total 0.7 mg/dL (0.0-1.0); Blood Urea Nitrogen 8 mg/dL (9-16); C Reactive Protein 1.49 mg/dL (< or = 0.50); Calcium 9.4 mg/dL (8.4-10.2); Carbon Dioxide 21 mmol/L (22-29); Chloride 100 mmol/L (96-108); Cholesterol 202 mg/dL; Creatinine Clr Calc Pharmacy 93.1; Estimated Glomerular Filt Rate > 60; Glucose Random 96 mg/dL (60-115); HDL Cholesterol 24 mg/dL; LDL Cholesterol Calculated 159 mg/dl; Sodium 139 mmol/L (135-145); Total Protein 7.4 g/dL (6.5-8.0); Triglycerides 98 mg/dL
[2022-02-02 13:52] LABS: Estimated Average Glucose 94 mg/dL; Hemoglobin A1c % 4.9 %
[2022-02-02 14:11] LABS: TSH reflex Free T4 1.28 uIU/mL (0.32-4.0)
[2022-02-03 12:49] LABS: COVID-19 Test Positive (Negative)
== END 2022-02-04 00:01 | disposition home or self-care (01) ==
LOC: HO.PAT
PROVIDERS: Physician Assistant Surgical; PCP Nurse Practitioner Family; Visit Provider Surgery
DX: Z01.818 Encounter for other preprocedural examination (principal); Z20.822 Contact with and (suspected) exposure to COVID-19; E66.01 Morbid (severe) obesity due to excess calories; Z68.41 Body mass index [BMI] 40.0-44.9, adult; R73.03 Prediabetes; I10 Essential (primary) hypertension; G47.33 Obstructive sleep apnea (adult) (pediatric); R79.1 Abnormal coagulation profile; K75.81 Nonalcoholic steatohepatitis (NASH)
CPT/HCPCS: 36415; 80053; 80061; 83036; 84443; 85025; 85610; 85730; 86140; 86850; 87635

== ENCOUNTER 2022-02-18 06:02 | Inpatient (IN) | payer OTHER, SELFPAY ==
--- NOTE | 2022-02-17 10:32 | HO.ANESPROP2 ---
Documented by User: Zakiya Horton NP 02/17/22 10:35 HPI - Anesthesia Eval Consult details Narrative: 41yo F for Gastrectomy Sleeve, EGD, Poss Diaphragmatic hernia, poss ventral hernia, poss open Pulmo cleared PMFSH Active Problems Active Problems: All Active Problems (Updated 02/02/22 @ 15:46 by Colin Bocanegra MD) Morbid obesity (Acute) Hypertension (Acute) Psoriasis (Acute) Intercostal neuralgia (Acute) Prediabetes (Acute) Low vitamin D level (Acute) Adult general medical exam (Acute) Major depressive disorder, recurrent, moderate (Acute) Neck pain (Acute) Morbid obesity with BMI of 40.0-44.9, adult (Acute) MICHAEL (obstructive sleep apnea) (Acute) DEGROOT (dyspnea on exertion) (Acute) History of lung surgery (Acute) Migraines (Acute) Depression (Acute) Brain lesion (Acute) Anxiety (Acute) Psoriatic arthritis (Acute) Myofascial pain on left side (Acute) Past Medical History Medical History Anxiety Back pain Brain lesion Depression DEGROOT (dyspnea on exertion) Encounter to establish care Intercostal neuralgia Migraines Morbid obesity with body mass index (BMI) of 50.0 to 59.9 in adult Myofascial pain on left side MICHAEL (obstructive sleep apnea) Psoriatic arthritis Family History Family History Mother Hypertension Osteoporosis Back problem Father Hypertension Anxiety Depression Back problem Brother No problems noted. Sister Depression Anxiety Son Anxiety Depression Tourette syndrome Son Depression Anxiety ADHD Daughter Anxiety Depression Surgical History Surgical History H/O total hysterectomy History of carpal tunnel surgery History of endometrial ablation History of lung surgery Hx of tubal ligation Social History Social History Housing: House Are you a primary health care marketing specialist to a significant other at home: No Do you presently have visiting nurse or other home services: No Alcohol intake: never Patient Tobacco Use Status: Never used Tobacco e-Cigarette/Vaping Use: Never Used Second Hand Smoke Exposure: No Use of substances other than those prescribed or required for medical reasons: No Are you DNR?: No Advance Directives: No Patient : No (hysterectomy) service: No Current occupational status: disabled Cognitive needs: No Hearing needs: No Vision needs: No Meds Allergies Allergy/AdvReac Type Severity Reaction Status Date / Time gadobutrol [GADOBUTROL] Allergy Severe RASH, Verified 02/02/22 15:32 TONGUE SWELLING, SOB Iodinated Contrast Media Allergy Severe DIFFICULTY Verified 02/02/22 15:32 [IV CONTRAST] BREATHING morphine Allergy Severe Anaphylaxis Verified 02/02/22 15:32 peanut [PEANUT] Allergy Severe ANAPHYLAXIS Verified 02/02/22 15:32 amoxicillin [Amoxicillin] Allergy Intermediate RASH Verified 02/02/22 15:32 cinnamon [CINNAMON] Allergy Intermediate TONGUE Verified 02/02/22 15:32 SWELLING Home Medications Medication Instructions Recorded Confirmed Last Taken Type amlodipine 10 mg tablet 10 mg PO DAILY 05/23/20 01/30/22 10/02/20 History carvedilol 25 mg tablet 25 mg PO BID 05/23/20 01/30/22 10/02/20 History chlorthalidone 25 mg tablet 25 mg PO DAILY 05/23/20 01/30/22 10/02/20 History nystatin 100,000 unit/gram topical topical 05/23/20 01/30/22 10/02/20 History powder gabapentin 600 mg tablet 600 mg PO BID 01/21/22 01/30/22 Unknown History Exam Exam Date and Time: February 17, 2022 1032 Pertinent Lab Results Pertinent Lab Results: Laboratory Tests 02/02/22 02/02/22 12:55 12:55 WBC 5.9 Hgb 14.5 Hct 40.7 Plt Count 347 Sodium 139 Potassium 3.0 L Chloride 100 Carbon Dioxide 21 L BUN 8 L Creatinine 0.91 Narrative Narrative: EKG 09/2021 Vent. Rate : 079 BPM ? ? Atrial Rate : 079 BPM ?? P-R Int : 160 ms? QRS Dur : 094 ms ? ? QT Int : 400 ms ? ? ? P-R-T Axes : 040 -09 032 degrees ?? QTc Int : 458 ms ? Normal sinus rhythm Minimal voltage criteria for LVH, may be normal variant ( Claude product ) Borderline ECG When compared with ECG of 07-APR-2020 13:57, No significant change was found PFT 11/2021 IMPRESSION:? No obstructive or restrictive ventilatory defect.? No bronchodilator response. Decreased expiratory reserve volume suggests extrathoracic restriction likely secondary to abdominal obesity. Assessment and Plan Assessment Anesthesia Assessment: Chart Reviewed Documented by User: Ileana Méndez MD 02/18/22 07:09 [facility] Past Medical History Medical History Anxiety Back pain Brain lesion Depression DEGROOT (dyspnea on exertion) Encounter to establish care Intercostal neuralgia Migraines Morbid obesity with body mass index (BMI) of 50.0 to 59.9 in adult Myofascial pain on left side MICHAEL (obstructive sleep apnea) Psoriatic arthritis Family History Family History Mother Hypertension Osteoporosis Back problem Father Hypertension Anxiety Depression Back problem Brother No problems noted. Sister Depression Anxiety Son Anxiety Depression Tourette syndrome Son Depression Anxiety ADHD Daughter Anxiety Depression Family history of problems with anesthesia: No Surgical History Surgical History H/O total hysterectomy History of carpal tunnel surgery History of endometrial ablation History of lung surgery Hx of tubal ligation History of Problems with Anesthesia: No Social History Social History Housing: House Are you a primary health care marketing specialist to a significant other at home: No Do you presently have visiting nurse or other home services: No Alcohol intake: never Patient Tobacco Use Status: Never used Tobacco e-Cigarette/Vaping Use: Never Used Second Hand Smoke Exposure: No Use of substances other than those prescribed or required for medical reasons: No Are you DNR?: No Advance Directives: No Patient : No (hysterectomy) service: No Current occupational status: disabled Cognitive needs: No Hearing needs: No Vision needs: No Meds Allergies Allergy/AdvReac Type Severity Reaction Status Date / Time gadobutrol [GADOBUTROL] Allergy Severe RASH, Verified 02/02/22 15:32 TONGUE SWELLING, SOB Iodinated Contrast Media Allergy Severe DIFFICULTY Verified 02/02/22 15:32 [IV CONTRAST] BREATHING morphine Allergy Severe Anaphylaxis Verified 02/02/22 15:32 peanut [PEANUT] Allergy Severe ANAPHYLAXIS Verified 02/02/22 15:32 amoxicillin [Amoxicillin] Allergy Intermediate RASH Verified 02/02/22 15:32 cinnamon [CINNAMON] Allergy Intermediate TONGUE Verified 02/02/22 15:32 SWELLING Home Medications Medication Instructions Recorded Confirmed Last Taken Type amlodipine 10 mg tablet 10 mg PO DAILY 05/23/20 01/30/22 10/02/20 History carvedilol 25 mg tablet 25 mg PO BID 05/23/20 01/30/22 10/02/20 History chlorthalidone 25 mg tablet 25 mg PO DAILY 05/23/20 01/30/22 10/02/20 History nystatin 100,000 unit/gram topical topical 05/23/20 01/30/22 10/02/20 History powder gabapentin 600 mg tablet 600 mg PO BID 01/21/22 01/30/22 Unknown History Exam Airway Mallampati Class: II (Chipped upper tooth on right) TM Dist: >3cm Neck ROM: Full Heart: rrr Lungs: cta Assessment and Plan Assessment Anesthesia Assessment: Anesthesia Plan Discussed Final Anesthetic Review Family History of Problems with Anesthesia: No History of Problems with Anesthesia: No NPO: Yes ASA Class: III Final Preanesthetic Review: No Changes in Pt Med Stat, Meds/Allgs Chart Reviewed and Consent Obtained/Reviewed Patient Risk: Intermediate Procedure Risk: Intermediate Anesthetic Plan Anesthetic Plan: GA Disposition: Standard PACU
[2022-02-17 11:23] LABS: COVID-19 Test Negative (Negative); IDNOW Serial# 55D5AD1C
[2022-02-18] VITALS (21 sets, daily range): BP systolic 122–170; BP diastolic 62–107; PULSE 65–85; RESP 16–19; TEMP 36.1–37; O2SAT 98–100; BMI 40.6
--- NOTE | 2022-02-18 07:03 | MHC.SHP ---
Pre-Procedural Eval Section A Date of Service: 02/18/22 The patient is an INPATIENT: Yes The History & Physical has been completed within 30 days and I have reviewed it.: Yes Section B Chief Complaint: Obesity Allergies: Allergies Allergy/AdvReac Type Severity Reaction Status Date / Time gadobutrol [GADOBUTROL] Allergy Severe RASH, Verified 02/02/22 15:32 TONGUE SWELLING, SOB Iodinated Contrast Media Allergy Severe DIFFICULTY Verified 02/02/22 15:32 [IV CONTRAST] BREATHING morphine Allergy Severe Anaphylaxis Verified 02/02/22 15:32 peanut [PEANUT] Allergy Severe ANAPHYLAXIS Verified 02/02/22 15:32 amoxicillin [Amoxicillin] Allergy Intermediate RASH Verified 02/02/22 15:32 cinnamon [CINNAMON] Allergy Intermediate TONGUE Verified 02/02/22 15:32 SWELLING Plan I have reviewed the history and physical and performed a pertinent physical examination on my patient. No changes have occurred unless specified.
[2022-02-18] MEDS: Lactated Ringers 1,000 ML 100 ML IVCONT ×4 (07:11→17:46)
[2022-02-18] MEDS: Scopolamine 1.5 MG PATCH.TD.3 TRANSDERMA (07:12)
[2022-02-18 07:23] LABS: Anion Gap 27 (12-20); Carbon Dioxide 13 mmol/L (22-29); Chloride 102 mmol/L (96-108); Potassium 3.7 mmol/L (3.3-5.1); Sodium 138 mmol/L (135-145)
--- NOTE | 2022-02-18 07:40 | PC.NURSE ---
Surgical consent with incorrect surgeon (Dr Catalan) listed as provider, signed/verified at office visit by both patient & provider Dr Kelley. DOS - patient prepped, verified own signature on consent form with LOPEZ Lemus, medicated by Anesthesia with IV Versed. Patient alert, oriented & verbally confirmed surgeon doing procedure today was Dr Kelley. Dario Wilkes wallpaper scraper, made aware, per her instructions name to be amended with single line cross out and Dr Kelley's name to be added and initialled by the patient prior to procedure. Antoine Lemus & Sandra & Dr Kelley aware of amendment, okay to proceed with such correction.
--- NOTE | 2022-02-18 10:19 | W.PM.OPN ---
Operative Note Operative Note Date of Service: 02/18/22 Narrative: Preop diagnosis: [Morbid obesity, obstructive sleep apnea, hypertension, prediabetes] Postop diagnosis: [Same] Procedure: Laparoscopic sleeve gastrectomy, intraoperative upper endoscopy, gastropexy Surgeon: Lex Kelley MD Assist: [Shanika Schrader PA-C] Anesthesia: [General endotracheal] Estimated blood loss: [3cc] Specimen: [Portion of stomach with fundal] Intraoperative findings: [FERRELL, grossly normal liver, stomach and spleen] Indications: [The patient is a 41-year-old woman with a lifelong struggle with obesity in the related comorbidities of obstructive sleep apnea, hypertension and prediabetes. After failing medical management on multiple occasions, she joined our surgical weight loss program and on learned healthy lifestyle changes to optimize her for surgical weight loss. After medical clearance and demonstration of healthy lifestyle changes and weight loss, the patient was consented for laparoscopic sleeve gastrectomy, intraoperative upper endoscopy and gastropexy with a possible hiatal hernia repair. The inherent risks of this procedure which include, but are not limited to: Bleeding that could require another operation or blood transfusion; the inherent risks of transfusion reaction infectious disease from blood transfusions; the risk of staple line leaks that could cause sepsis, multi-system organ failure and ; the risk of mesenteric or deep vein thrombosis of the lower extremities that could cause a fatal pulmonary embolism was reviewed; the risk of GERD that could require conversion to gastric bypass was discussed; the risk of recurrent hiatal hernia, especially in the setting of weight regain was reviewed. The risk of weight regain if maladaptive eating and sedentary behavior continue was discussed. The importance of proper diet and increased activity to augment surgical weight loss and the fact that no operation would result in weight loss of poor dietary decisions and sedentary behavior are resumed were discussed at length and apparently understood. The patient had the option of having a director of real estate present and declined this option. The option of a 2nd opinion or continued medical management was offered but declined. Procedure: [The patient was identified in the preoperative holding area by myself and again in the operating suite by myself and the team. Patient was placed supine on the operating table. Safety straps were utilized and a footboard utilized. The patient was induced in general endotracheal anesthesia administered with excellent effect. An appropriate time-out was performed. The patient's abdomen was then widely prepped and draped in the usual manner for surgery using chlorhexidine. Antibiotics (Levaquin, 500 mg IV due to her penicillin allergy) per protocol were administered by Anesthesia. After infiltrating preemptive local in the skin and subcutaneous tissues in the epigastrium approximately 10cm from the xiphoid and the midline of the epigastrium, a stab incision was made sharply in the left subcostal abdomen and the Veress needle inserted without incident. An appropriate drop test was performed then a pneumoperitoneum of 15 mmHg was obtained using carbon dioxide. Opening pressures were 7 mmHg. Next, a 5 mm 0 degree scope over a 5 mm Optiview trocar was used to access the abdomen via the epigastric incision in the midline. Once the abdomen was entered, the the trocar obturator was removed and the laparoscope was used to confirm there was no injury from the Veress needle nor trocar insertion injury to the bowel or mesentery, then the scope was switched to a 5 mm 45 degree laparoscope. Next, using preemptive local, additional 5 mm trocars were placed under direct laparoscopic vision on the patient's left abdomen, then right and the 5 mm midline trocar upsized to a 12 mm to accommodate the stapler. The patient was then positioned in reverse Trendelenburg and the liver retractor deployed through the right lateral 5 mm trocar and secured. A 40 [place]ese ViSiGi bougie was inserted by Anesthesia per os and advanced to the stomach to decompress. It was then withdrawn to the GE junction all under direct laparoscopic vision. Dissection was begun along the greater curvature using the 5 mm [place] LigaSure for hemostasis and continued to the left audra of the diaphragm. Dissection was then carried towards the pylorus to 3-4 cm from the pylorus and retro gastric adhesions lysed. The gastroesophageal fat pad was carefully mobilized taking care to avoid injury to the esophagus and stomach and dissection carried towards the short gastrics taking care to avoid injury to the spleen and splenic artery. The diaphragmatic hiatus was carefully examined for a hernia. Next, the 40 Fr ViSiGi bougie was advanced by anesthesia under direct vision and laparoscopic guidance and positioned in the antrum using laparoscopic graspers to serve as a guide for a stapled sleeve gastrectomy. Stapling was performed with [employer] End[employer]-ROBERTO CARLOS stapler with a purple 45 and then orange 45 and 60 loads. The bougie served as a guide to maintain the same sleeve caliber to avoid stricture & sleeve istortion. The 10 mm clip dispatch lead was used to apply additional clips to the staple line. Care was taken to be sure that the sleeve laid flat and was without stricture. Once the sleeve was complete, the portion of stomach was placed in the lower abdomen to be sent for permanent section. The staple line, gastrocolic omentum, spleen and short gastric areas were all inspected for hemostasis which was found to be good. The 40 Fr ViSiGi bougie was then used to demonstrate a leak test by 1 L of oxygen as per Anesthesia while the patient was in supine position and sterile normal saline was instilled to assess the staple line. Once this was completed in the was no evidence of leak, the bougie was withdrawn under laparoscopic vision. Next, I broke scrub perform an on-table upper endoscopy to assess the sleeve and the esophagus and stomach. The patient was returned to neutral position and the Olympus 160 gastroscope was advanced taking care to preserve the endotracheal tube. The esophagus was intubated without incident. Minimal air was insufflated and the scope advanced into the newly formed sleeve. The staple line was inspected for hemostasis and the morphology of the sleeve appeared straight with a uniform diameter. Intraoperatively, there was no evidence of staple line leak seen during laparoscopy as air was insufflated via endoscope. The scope was then used to aspirate the air from the sleeve withdrawn and removed. I then rescrubbed to return to the operative field and again inspected the field for hemostasis. The patient was again placed in reverse Trendelenburg. A gastropexy was performed using 2-0 Polysorb suture to secure the sleeve gastrectomy to the gastrocolic omentum. After final assessment for hemostasis, the patient was returned to neutral position, a Sumeet used to withdraw the stomach which was sent for permanent section. The fascia of the 12 mm midline was closed using an 0 Polysorb on a suture Passer under direct laparoscopic vision. The abdomen was then deflated and all trocars removed. The suture was then tied and the skin closed with 4-0 Monocryl subcuticular sutures. The abdomen was then washed and dried, benzoin and Steri-Strips applied followed by Band-Aids. The patient tolerated the procedure well was then extubated the recover in stable condition. All sponge needle and instrument counts were correct x2. At the patient's request, I contacted her son, Bertrand at [phone] by telephone to apprise him of the operation, findings and plan. His questions seemed to be satisfactorily answered.]
[2022-02-18] MEDS: Famotidine/PF 20 MG/2 ML VIAL IVPUSH ×2 (10:41→20:08)
[2022-02-18] MEDS: fentaNYL citrate/PF 100 MCG/2 ML VIAL 50 MCG IVPUSH ×2 (10:43→12:51)
[2022-02-18 10:56] LABS: Hematocrit 44.5 % (37.0-47.0); Hemoglobin 14.7 g/dl (12.0-16.0)
[2022-02-18 11:13] LABS: Anion Gap 24 (12-20); Blood Urea Nitrogen 5 mg/dL (9-16); Calcium 8.9 mg/dL (8.4-10.2); Carbon Dioxide 13 mmol/L (22-29); Chloride 104 mmol/L (96-108); Creatinine Clr Calc Pharmacy 99.2; Estimated Glomerular Filt Rate > 60; Glucose Random 132 mg/dL (60-115); Potassium 3.7 mmol/L (3.3-5.1); Sodium 137 mmol/L (135-145)
--- NOTE | 2022-02-18 11:59 | P.PNGS_ITS ---
Subjective Subjective Date of Service: 02/18/22 Patient reports: still having pain and nausea Interval history: The patient is just received some fentanyl and Raglan and is more comfortable. She has been up to urinate and is been having a fair amount of belching and nausea but no vomiting. Her pain is adequately controlled with the current regime. Physical Exam Vital Signs: Vital Signs: Last Vital Signs Temp 97.7 F 02/18/22 10:20 Pulse 74 02/18/22 11:35 Resp 16 02/18/22 11:35 BP 162/89 H 02/18/22 11:35 Pulse Ox 100 02/18/22 11:35 O2 Del Method 02/18/22 11:35 O2 Flow Rate 2 02/18/22 11:35 BMI result Body Mass Index 40.6 The patient is resting comfortably Per nursing staff, dressings are C/D/I Objective Data Active Medications Famotidine (Famotidine/Pf 20 Mg/2 Ml Vial) 20 mg IVPUSH BID [facility] Last Admin: 02/18/22 10:41 Dose: 20 mg Documented By: KHOA Fentanyl (Fentanyl Citrate/Pf 100 Mcg/2 Ml Vial) 50 mcg IVPUSH Q5M PRN; Protocol PRN Reason: Pain, Severe (Pain Scale 7-10) Last Admin: 02/18/22 10:43 Dose: 50 mcg Documented By: KHOA Lactated Ringer's (Lr) 1,000 mls @ 100 mls/hr IVCONT .Q10H [facility] Last Infusion: 02/18/22 10:56 Dose: 100 mls/hr Documented By: BAM Lactated Ringer's (Lr) 1,000 mls @ 150 mls/hr IVCONT .Q6H40M [facility] Lactated Ringer's (Lr) 1,000 mls @ 100 mls/hr IVCONT .Q10H [facility] Last Admin: 02/18/22 10:55 Dose: 100 mls/hr Documented By: BAM Metoclopramide HCl (Metoclopramide Hcl 10 Mg/2 Ml Vial) 10 mg IVPUSH Q6H PRN PRN Reason: Nausea Labs CBC & Chem 7: 02/18/22 10:43 02/18/22 10:43 Labs: Laboratory Results - last 24 hr 02/18/22 02/18/22 02/18/22 06:27 06:27 10:43 Anion Gap 27 H 24 H Estim Creat Clear Calc 99.2 Estimated GFR > 60 Random Glucose 132 H Calcium 8.9 Blood Type A Positive Antibody Screen NEGATIVE Procedures Date of Service Date of Service: 02/18/22 Progress Note: A&P Assessment and plan (1) S/P laparoscopic sleeve gastrectomy: Status: Acute (2) Morbid obesity: Status: Acute (3) Hypertension: Status: Acute (4) Prediabetes: Status: Acute (5) Major depressive disorder, recurrent, moderate: Status: Acute (6) Morbid obesity with BMI of 40.0-44.9, adult: Status: Acute (7) MICHAEL (obstructive sleep apnea): Status: Acute Plan Bariatric phase 1 when nausea resolves Out of bed/ambulate See orders Time Spent With Patient Time: Total time spent is greater than 50% in coordination of care (as documented) at patient's floor/unit and/or counseling patient: Quality Stroke Does the patient have a stroke diagnosis?: No VTE Prior VTE?: No VTE Risk Level:: Surgical - low VTE Device Contraindication: N/A - Device Ordered VTE Drug Contraindication: Treatment Not Indicated
[2022-02-18] MEDS: Metoclopramide HCl 10 MG/2 ML VIAL IVPUSH (12:51)
--- NOTE | 2022-02-18 13:09 | PHA.MEDREC ---
Pharmacy Consult ? Medication Reconciliation Pharmacy has completed the medication reconciliation. Patient confirmed all medications. Reports she was told to stop the vitamin d3 tablets. Mary Donaldson, LoboD
[2022-02-18] MEDS: Lactated Ringers 1,000 ML 150 ML IVCONT (13:55)
[2022-02-18] MEDS: ondansetron HCL 4 MG/2 ML VIAL IVPUSH ×2 (14:51→20:10)
[2022-02-18] MEDS: HYDROmorphone HCl 0.5 MG/0.5 ML SYRINGE 0.25 MG IVPUSH (15:34)
[2022-02-18] MEDS: Gabapentin 600 MG TABLET PO ×2 (15:34→20:08)
[2022-02-18] MEDS: PARoxetine HCL 20 MG TABLET PO (20:08)
[2022-02-18] MEDS: carvediloL 25 MG TABLET PO (20:08)
[2022-02-18] MEDS: 0.9 % Sodium Chloride Flush 3 ML SYRINGE IVFLUSH (20:10)
[2022-02-19] VITALS: BP 113/61; PULSE 63; RESP 18; TEMP 36.6; O2SAT 96
[2022-02-19 03:27] VITALS: BP 102/62; PULSE 71; RESP 18; TEMP 36.3; O2SAT 97
[2022-02-19] MEDS: ondansetron HCL 4 MG/2 ML VIAL IVPUSH (05:33)
[2022-02-19] MEDS: Lactated Ringers 1,000 ML 100 ML IVCONT (05:34)
[2022-02-19 06:13] LABS: MANUAL DIFF FLAG NO
[2022-02-19 06:21] LABS: Basophils Percent Auto 0.1 % (0-2); Hematocrit 38.6 % (37.0-47.0); Hemoglobin 13.1 g/dl (12.0-16.0); Imm Gran Abs Auto 0.04 X10*3/uL (0.00-0.03); Imm Gran Pct Auto 0.4 % (0.0-0.4); Mean Corpuscular HGB Conc 33.9 g/dl (31.0-35.0); Mean Corpuscular Hemoglobin 30.3 pg (27.0-33.0); Mean Corpuscular Volume 89.4 fL (80.0-98.0); Mean Platelet Volume 10.6 fL (9.4-12.3); Monocytes Absolute Auto 0.7 X10*3/uL (0.1-1.2); Monocytes Percent Auto 7.9 % (2-11); Neutrophils Absolute Auto 7.2 x10*3/uL (2.0-8.3); Neutrophils Percent Auto 80.6 % (45-73); Platelet Count 334 X10*3/uL (160-400); Red Blood Count 4.32 X10*6/uL (4.20-5.50); Red Cell Distribution Width 15.8 % (11.0-16.0); White Blood Count 8.9 X10*3/uL (4.8-10.8)
[2022-02-19 06:36] LABS: Anion Gap 20 (12-20); Blood Urea Nitrogen 4 mg/dL (9-16); Calcium 9.3 mg/dL (8.4-10.2); Carbon Dioxide 14 mmol/L (22-29); Chloride 107 mmol/L (96-108); Creatinine Clr Calc Pharmacy 85.6; Estimated Glomerular Filt Rate > 60; Glucose Random 106 mg/dL (60-115); Potassium 3.6 mmol/L (3.3-5.1); Sodium 137 mmol/L (135-145)
--- NOTE | 2022-02-19 06:50 | PM.PNGS ---
Subjective Subjective Date of Service: 02/19/22 Patient reports: no new complaints, feels better, pain is less, tolerating liquids well and voiding w/o difficulty Interval history: The patient is pleased with how she feels at this point. She reports some mild incisional pain and pain in her shoulders but denies any dysphagia, odynophagia, regurgitation, hematemesis or unexplained weight loss. She is tolerating phase 1 diet and hopeful for discharge later. She otherwise denies interval change. Physical Exam Vital Signs: Vital Signs: Last Vital Signs Temp 97.4 F 02/19/22 03:27 Pulse 71 02/19/22 03:27 Resp 18 02/19/22 03:27 BP 102/62 02/19/22 03:27 Pulse Ox 97 02/19/22 03:27 O2 Del Method 02/19/22 03:27 O2 Flow Rate 98 02/18/22 16:00 BMI result Body Mass Index 40.6 Patient is is nontoxic and is in good spirits Sclera anicteric Abdomen is obese and soft with appropriate incisional tenderness Dressings are clean dry and intact Lower extremities are free of tenderness, edema or palpable cords Objective Data Active Medications Amlodipine Besylate (Amlodipine Besylate 10 Mg Tablet) 10 mg PO DAILY [facility]; Protocol Carvedilol (Carvedilol 25 Mg Tablet) 25 mg PO BID [facility]; Protocol Last Admin: 02/18/22 20:08 Dose: 25 mg Documented By: DIANA Famotidine (Famotidine/Pf 20 Mg/2 Ml Vial) 20 mg IVPUSH BID [facility] Last Admin: 02/18/22 20:08 Dose: 20 mg Documented By: DIANA Fentanyl (Fentanyl Citrate/Pf 100 Mcg/2 Ml Vial) 50 mcg IVPUSH Q5M PRN; Protocol PRN Reason: Pain, Severe (Pain Scale 7-10) Last Admin: 02/18/22 12:51 Dose: 50 mcg Documented By: KHOA Gabapentin (Gabapentin 600 Mg Tablet) 600 mg PO TID [facility] Last Admin: 02/18/22 20:08 Dose: 600 mg Documented By: DIANA Hydromorphone HCl (Hydromorphone Hcl 0.5 Mg/0.5 Ml Syringe) 0.25 mg IVPUSH Q4H PRN; Protocol PRN Reason: Pain, Moderate (Pain Scale 4-6 Last Admin: 02/18/22 15:34 Dose: 0.25 mg Documented By: PALLAVI Lactated Ringer's (Lr) 1,000 mls @ 100 mls/hr IVCONT .Q10H [facility] Last Admin: 02/19/22 05:34 Dose: 100 mls/hr Documented By: DIANA Acetaminophen (Ofirmev) 1,000 mg in 100 mls @ 16.7 mls/hr IV .Q6H [facility] Last Admin: 02/19/22 02:33 Dose: 16.7 mls/hr Documented By: DIANA Metoclopramide HCl (Metoclopramide Hcl 10 Mg/2 Ml Vial) 10 mg IVPUSH Q6H PRN PRN Reason: Nausea Last Admin: 02/18/22 12:51 Dose: 10 mg Documented By: KHOA Ondansetron HCl (Ondansetron Hcl 4 Mg/2 Ml Vial) 4 mg IVPUSH Q8H [facility] Last Admin: 02/19/22 05:33 Dose: 4 mg Documented By: DIANA Paroxetine HCl (Paroxetine Hcl 20 Mg Tablet) 20 mg PO BEDTIME [facility] Last Admin: 02/18/22 20:08 Dose: 20 mg Documented By: DIANA Sodium Chloride (0.9 % Sodium Chloride Flush 3 Ml Syringe) 3 ml IVFLUSH QSHIFT [facility] Last Admin: 02/18/22 20:10 Dose: 3 ml Documented By: DIANA Labs CBC & Chem 7: 02/19/22 05:31 02/19/22 05:31 Labs: Laboratory Results - last 24 hr 02/18/22 02/18/22 02/18/22 06:27 06:27 10:43 MCV MCH MCHC RDW Plt Count MPV Immature Gran % (Auto) Neut % (Auto) Lymph % (Auto) [place] % (Auto) Eos % (Auto) Baso % (Auto) Lymph # (Auto) [place] # (Auto) Eos # (Auto) Baso # (Auto) Abs Immat Gran (auto) Absolute Neuts (auto) Absolute Nucleated RBC Nucleated RBC % (auto) Anion Gap 27 H 24 H Estim Creat Clear Calc 99.2 Estimated GFR > 60 Random Glucose 132 H Calcium 8.9 Blood Type A Positive Antibody Screen NEGATIVE 02/19/22 02/19/22 05:31 05:31 MCV 89.4 MCH 30.3 MCHC 33.9 RDW 15.8 Plt Count 334 MPV 10.6 Immature Gran % (Auto) 0.4 Neut % (Auto) 80.6 H Lymph % (Auto) 11.0 L [place] % (Auto) 7.9 Eos % (Auto) 0.0 Baso % (Auto) 0.1 Lymph # (Auto) 1.0 L [place] # (Auto) 0.7 Eos # (Auto) 0.0 Baso # (Auto) 0.0 Abs Immat Gran (auto) 0.04 H Absolute Neuts (auto) 7.2 Absolute Nucleated RBC 0.000 Nucleated RBC % (auto) 0.0 Anion Gap 20 Estim Creat Clear Calc 85.6 Estimated GFR > 60 Random Glucose 106 Calcium 9.3 Blood Type Antibody Screen Procedures Date of Service Date of Service: 02/19/22 Progress Note: A&P Assessment and plan (1) S/P laparoscopic sleeve gastrectomy: Status: Acute (2) Morbid obesity: Status: Acute (3) Hypertension: Status: Acute (4) Prediabetes: Status: Acute (5) Low vitamin D level: Status: Acute (6) Morbid obesity with BMI of 40.0-44.9, adult: Status: Acute (7) MICHAEL (obstructive sleep apnea): Status: Acute Plan Hemoglobin is stable Advanced to bariatric phase 2 Plan for discharge later this morning when the patient is ready. See discharge instructions Follow-up in Bariatric Clinic in 1 week. Time Spent With Patient Time: Total time spent is greater than 50% in coordination of care (as documented) at patient's floor/unit and/or counseling patient: Quality Stroke Does the patient have a stroke diagnosis?: No VTE Prior VTE?: No VTE Risk Level:: Surgical - low VTE Device Contraindication: N/A - Device Ordered VTE Drug Contraindication: Treatment Not Indicated
[2022-02-19 06:52] VITALS: BP 135/73; PULSE 64; RESP 18; TEMP 36.1; O2SAT 97
[2022-02-19] MEDS: carvediloL 25 MG TABLET PO (08:02)
[2022-02-19] MEDS: amLODIPine Besylate 10 MG TABLET PO (08:02)
[2022-02-19] MEDS: Gabapentin 600 MG TABLET PO (08:02)
[2022-02-19] MEDS: Famotidine/PF 20 MG/2 ML VIAL IVPUSH (08:02)
--- NOTE | 2022-02-19 08:46 | P.DS_ITS ---
DS: Providers Provider Date of Service: 02/19/22 Date of admission: 02/18/22 06:02 Primary care physician: JOMAR Romero DS: Diagnosis Discharge Diagnosis (1) S/P laparoscopic sleeve gastrectomy: Status: Acute (2) Morbid obesity: Status: Acute (3) Hypertension: Status: Acute (4) Prediabetes: Status: Acute (5) Low vitamin D level: Status: Acute (6) Morbid obesity with BMI of 40.0-44.9, adult: Status: Acute (7) MICHAEL (obstructive sleep apnea): Status: Acute DS: Summary Hospital Course Hospital Course: ADMITTING DIAGNOSIS: morbid obesity, MICHAEL, HTN DISCHARGE DIAGNOSIS: same, s/p laparoscopic sleeve gastrectomy PAST SURGICAL HISTORY: none PROCEDURE: upper endoscopy, laparoscopic sleeve gastrectomy DISCHARGE SUMMARY: History of Present Illness: The patient is a 41 year-old woman with a BMI of 52.7 kg/m2 and associated co- morbidities as described above. The patient had extensive work-up,lost 61 lbs preoperatively and was electively scheduled for laparoscopic, possible open sleeve gastrectomy and gastropexy. Risks and complications of the surgery were discussed with the patient in advance, particularly the possibility of , pulmonary embolism, anastomotic leak, bleeding, bowel injury, GERD, cardiac, renal or pulmonary complications. The patient understood all the risks and was in agreement with the surgical plan. Hospital Course: The patient underwent an uneventful laparoscopic sleeve gastrectomy with gastropexy and repair of diaphragmatic hernia on the day of admission. Postoperatively, the patient was transferred to the surgical floor. The patient received IV Acetaminophen and IV dilaudid for pain control. Patient was started on bariatric phase 1 diet POD #0. On postoperative day one, the patient was feeling well without nausea, vomiting, fevers, or tachycardia. The patient had some mild incisional pain and the abdomen was soft. On the morning of postoperative day one, the patient was continued on 1 ounce of water or ice every half hour. During the day, the patient did fairly well, having some incisional pain, but able to ambulate adequately and to tolerate liquids well. Since the patient is doing well, we decided that the patient was ready to be discharged. The patient was given instructions to follow-up with me next week and to call my office for any fever over 101, persistent abdominal pain, nausea, vomiting, GERD, symptoms of DVT such as calf tenderness, or leg swelling, or pulmonary embolism such as chest pain or shortness of breath. The patient was also instructed to drink 40-60 ounces of liquids per day using the 1-ounce cups. The patient had been given prescriptions for Tylenol for pain, Zofran prn for nausea, and pantoprazole and carafate previously. The patient was encouraged to ambulate and use the incentive spirometer. The patient was allowed to shower, but no baths, and encouraged to stay active at home. All of these instructions were given to the patient personally. All questions were answered and the patient understood all instructions, the instructions were also given to the patient in print. Time Spent with Patient Time attestation: Total time spent providing and/or coordinating discharge services: Discharge coordination time: Less than 30 minutes Quality: Safe Use of Opioids Does Pt have an Active Cancer Diagnosis on the Problem List?: No Quality: Stroke Does the patient have a stroke diagnosis?: No Physical Exam Vital Signs: Vital Signs: Last Vital Signs Temp 97 F 02/19/22 06:52 Pulse 64 02/19/22 06:52 Resp 18 02/19/22 06:52 BP 135/73 02/19/22 06:52 Pulse Ox 97 02/19/22 06:52 O2 Del Method 02/19/22 06:52 O2 Flow Rate 98 02/18/22 16:00 BMI result Body Mass Index 40.6 DS: Data Data Completed and Pending Pending studies at discharge: Pending at discharge 02/18/22 09:48 Surgical [PTH] Routine Labs on day of discharge: Laboratory Results - last 24 hr 02/18/22 02/18/22 02/19/22 10:43 10:43 05:31 WBC 8.9 RBC 4.32 Hgb 14.7 13.1 Hct 44.5 38.6 MCV 89.4 MCH 30.3 MCHC 33.9 RDW 15.8 Plt Count 334 MPV 10.6 Immature Gran % (Auto) 0.4 Neut % (Auto) 80.6 H Lymph % (Auto) 11.0 L [place] % (Auto) 7.9 Eos % (Auto) 0.0 Baso % (Auto) 0.1 Lymph # (Auto) 1.0 L [place] # (Auto) 0.7 Eos # (Auto) 0.0 Baso # (Auto) 0.0 Abs Immat Gran (auto) 0.04 H Absolute Neuts (auto) 7.2 Absolute Nucleated RBC 0.000 Nucleated RBC % (auto) 0.0 Sodium 137 Potassium 3.7 Chloride 104 Carbon Dioxide 13 L Anion Gap 24 H BUN 5 L Creatinine 0.82 Estim Creat Clear Calc 99.2 Estimated GFR > 60 Random Glucose 132 H Calcium 8.9 02/19/22 05:31 WBC RBC Hgb Hct MCV MCH MCHC RDW Plt Count MPV Immature Gran % (Auto) Neut % (Auto) Lymph % (Auto) [place] % (Auto) Eos % (Auto) Baso % (Auto) Lymph # (Auto) [place] # (Auto) Eos # (Auto) Baso # (Auto) Abs Immat Gran (auto) Absolute Neuts (auto) Absolute Nucleated RBC Nucleated RBC % (auto) Sodium 137 Potassium 3.6 Chloride 107 Carbon Dioxide 14 L Anion Gap 20 BUN 4 L Creatinine 0.95 Estim Creat Clear Calc 85.6 Estimated GFR > 60 Random Glucose 106 Calcium 9.3 Discharge Plan Discharge Anticipated Discharge Date/Time: 02/19/22 10:22 Patient Disposition: Home, Self-Care Discharge Diagnosis: s/p sleeve gastrectomy Referrals: Rosemarie Yeung FNP [Primary Care Provider] - 1 Week Lex Kelley MD [Physician] - 1 Week Discharge Medications: Continued triamcinolone acetonide 0.1 % cream 1 appl topical DAILY 14 Days Qty: 15 0RF paroxetine HCl 20 mg tablet 1 tab PO QPM amlodipine 10 mg tablet 10 mg PO DAILY carvedilol 25 mg tablet 25 mg PO BID nystatin 100,000 unit/gram powder 1 appl topical BID PRN (Reason: Rash) gabapentin 600 mg tablet 600 mg PO TID pantoprazole 40 mg tablet,delayed release (DR/EC) 40 mg PO DAILY Qty: 30 2RF sucralfate [Carafate] 100 mg/mL suspension 10 ml PO BID Qty: 414 0RF ondansetron HCl 4 mg tablet 4 mg PO Q6-8H PRN (Reason: nausea and vomiting) Qty: 20 0RF Discontinued vitamin A palmitate 10,000 unit tablet 10,000 unit PO DAILY Qty: 30 5RF polyethylene glycol 3350 [Miralax] 17 gram powder in packet 17 g PO DAILY Qty: 14 0RF Rx Instructions: Mix each packet with 8oz of water and drink 7 packets 2 days before surgery; Mix and drink the other another 7 packets the day before surgery diclofenac sodium [Arthritis Pain (diclofenac)] 1 % gel 2 g topical QID PRN (Reason: pain) Qty: 100 0RF Rx Instructions: apply to single elbow, wrist or hand; for hand includes palm/fingers/back of hand chlorthalidone 25 mg tablet 25 mg PO DAILY Discharge Orders: Discharge Order (Routine); Ordered 02/19/22 Ordered By: Lex Kelley Diet: bariatric phase 2 Activity on Discharge: No heavy lifting Stand Alone Forms: Patient Portal Discharge page Care Plan Goals: weight loss Health Concerns: morbid obesity Plan of Treatment: No tub baths, sex or returning to work until discussed at first post op appointment. No exercise, alcohol, tobacco or illegal drug use. Continue to use incentive spirometer hourly while awake. Walk in home for 5- 10 minutes every 2 hours during the first week. Continue phase 1 diet today and start phase 2 diet tomorrow morning. Follow all instructions in the bariatric handbook and call with any questions. 1. Please call your doctor or come back to the emergency room should any new symptoms arise. 2. You will receive a courtesy call from [facility] 24-48 hours after discharge. 3. Activity: abstain from alcohol, practice limited stair climbing, no bending, no driving, no exercise, no illicit substances, no lifting, no sex, no tub bath, no work. 4. Diet: continue as discussed with bariatric team.. 5. Dressing Change/Wound Care: Do not change or remove surgical dressings unless they are wet or soiled. 6. Call your doctor if: - Your temperature exceeds 101.5 F - You experience excessive pain or swelling - You have an unexpected reaction to medication - You have excessive bleeding - You experience continued vomiting/nausea - Your incision begins to separate - Your incision shows signs of infection such as increased redness, swelling, excessive pain, heat, or drainage (light blood or clear fluid is normal) 7. General instructions: No lifting greater than 5 lbs for the next 4 weeks[address] within 24 hours of taking narcotic pain medications. If you do not move your bowels in the next 2 days, please take milk of magnesia over the counter. Please follow the post op diet and do not advance your diet until you are seen in the office in about 2 weeks. Please walk around your home every hour or two to prevent blood clots from forming in your legs. You do not need to wake from sleeping to walk. Please sleep in a bed or couch to prevent kinking at the hips and knees. Please take your incentive spirometer (your lung re dye hand) home with you and use it for the next few days to prevent pneumonias. You may shower, no hot tubs, baths or swimming pools. Please call the office with any questions or concerns such as increasing abdominal pain, fever, chills, shortness of breath, chest pain, leg pain or swelling, or redness or drainage from your incisions. Do not hesitate to contact the office with any questions at . The patient's medical history has been reviewed and they are considered low risk for post op DVT and therefore DVT prophylaxis is not considered necessary. Travel after surgery was reviewed. The patient has not disclosed any travel plans during the first 30 days after surgery and they have been advised that within the first 30 days after surgery any bus, plane, train or car travel over 2 hours in duration is contraindicated due to the possibility of developing blood clots from immobility. Any travel, needs to include periods of ambulation of 10 minutes in duration every 2 hours. The patient was instructed to discuss any plans for travel during this period with their bariatric surgeon. Assessment: stable post op sleeve gastrectomy
[2022-02-19 10:26] VITALS: O2SAT 97
[2022-02-19 11:08] VITALS: BP 122/64; PULSE 68; RESP 18; TEMP 36.6; O2SAT 98
--- NOTE | 2022-02-19 11:28 | MHC.CM.PN ---
IMM DELIVERED 02/19 CM MET WITH PATIENT WHO WILL BE STAYING AT PATENTS HOME WHILE SHE RECOVERS A ONE LEVEL HOME. INDEPENDENT AT BASELINE, NO DME OR SERVICES. NO HCP AND DECLINES TO COMPLETE ONE AT THIS TIME. LINDA ESTEBAN X 2 WITH [employer] DC PLAN: PATIENT MEDICALLY CLEARED FOR DC TODAY, NO SERVICES. PARENTS WILL TRANSPORT HOME.
== END 2022-02-19 13:47 | disposition home or self-care (01) | DRG 620 ==
LOC: HO.SSSA 10:25 → HO.S3 13:03
PROVIDERS: Nurse Practitioner; Physician Assistant; Physician Assistant Surgical; Admitting Provider Surgery; PCP Nurse Practitioner Family; Visit Provider Surgery
PROC: 0DB64Z3 Excision of Stomach, Percutaneous Endoscopic Approach, Vertical (ICD-10-PCS; CPT 43845; principal; 2022-02-18 07:30)
DX: E66.01 Morbid (severe) obesity due to excess calories (principal); F33.1 Major depressive disorder, recurrent, moderate; G47.33 Obstructive sleep apnea (adult) (pediatric); G43.909 Migraine, unspecified, not intractable, without status migrainosus; Z20.822 Contact with and (suspected) exposure to COVID-19; I10 Essential (primary) hypertension; R73.03 Prediabetes; E55.9 Vitamin D deficiency, unspecified; Z98.51 Tubal ligation status; Z90.2 Acquired absence of lung [part of]; Z68.41 Body mass index [BMI] 40.0-44.9, adult; Z90.710 Acquired absence of both cervix and uterus; Z91.041 Radiographic dye allergy status; Z91.010 Allergy to peanuts; Z88.0 Allergy status to penicillin; Z88.5 Allergy status to narcotic agent; Z79.899 Other long term (current) drug therapy
CPT/HCPCS: 36415; 80048; 80051; 85014; 85018; 85025; 86850; 86900; 86901; 87635; 88307; 88342; C9088; J0131; J0330; J1100; J1170; J1956; J2250; J2405; J2550; J2765; J2795; J3010

== ENCOUNTER 2022-03-01 10:46 | Inpatient (IN) | payer OTHER, SELFPAY ==
--- NOTE | ~2022-03-01 | CT_ITS ---
EXAMINATION: CT ABDOMEN AND PELVIS WITHOUT CONTRAST CLINICAL INFORMATION: Nausea and vomiting status post gastric surgery COMPARISON: CT abdomen pelvis 10/25/2017 TECHNIQUE: Multidetector volumetric imaging was performed from the superior aspect of the liver through the pubic symphysis. Sagittal and coronal reformatted images were obtained on the technologist's workstation. Oral contrast was administered. This CT examination was performed using dose optimization techniques as appropriate, variously including the following: *Automated exposure control *Adjustment of mA and/or kV according to patient size (this includes techniques or standardized protocols for targeted exams where dose is matched to indication/reason for exam; i.e. extremities or head) *Use of iterative reconstruction technique DLP: 817 mGy-cm FINDINGS: LUNG BASES: Minimal lingular subsegmental atelectasis. LIVER, GALLBLADDER, AND BILIARY TREE: Diffuse hepatic hypoattenuation consistent with steatosis. No liver lesion. No biliary ductal dilation. The gallbladder is unremarkable with no evidence of radiopaque
[2022-03-01 11:20] VITALS: BP 144/91; PULSE 90; RESP 18; TEMP 37.2; O2SAT 99; BMI 37.0
[2022-03-01 11:40] LABS: MANUAL DIFF FLAG NO
[2022-03-01 11:41] LABS: Basophils Absolute Auto 0.1 X10*3/uL (0.0-0.2); Basophils Percent Auto 0.6 % (0-2); Eosinophils Percent Auto 0.5 % (0-4); Hematocrit 45.3 % (37.0-47.0); Hemoglobin 16.1 g/dl (12.0-16.0); Imm Gran Abs Auto 0.01 X10*3/uL (0.00-0.03); Imm Gran Pct Auto 0.1 % (0.0-0.4); Lymphocytes Absolute Auto 1.7 X10*3/uL (1.2-4.9); Lymphocytes Percent Auto 19.5 % (20-40); Mean Corpuscular HGB Conc 35.5 g/dl (31.0-35.0); Mean Corpuscular Hemoglobin 30.7 pg (27.0-33.0); Mean Corpuscular Volume 86.3 fL (80.0-98.0); Mean Platelet Volume 10.5 fL (9.4-12.3); Monocytes Absolute Auto 1.1 X10*3/uL (0.1-1.2); Monocytes Percent Auto 12.2 % (2-11); Neutrophils Absolute Auto 5.8 x10*3/uL (2.0-8.3); Neutrophils Percent Auto 67.1 % (45-73); Platelet Count 409 X10*3/uL (160-400); Red Blood Count 5.25 X10*6/uL (4.20-5.50); Red Cell Distribution Width 16.6 % (11.0-16.0); White Blood Count 8.6 X10*3/uL (4.8-10.8)
--- NOTE | 2022-03-01 12:21 | ED.ABDPAIN ---
HPI - Abdominal Pain General Chief Complaint: Abdominal Pain <WESLEY Moreno Last Filed: 03/01/22 22:19> Stated Complaint: Dehydrated/Gastric Surg 02/18 <WESLEY Moreno - Last Filed: 03/01/22 22:19> Time Seen by Provider: 03/01/22 12:17 <WESLEY Moreno Last Filed: 03/01/22 22:19> Source: patient <WESLEY Moreno Last Filed: 03/01/22 22:19> Mode of arrival: ambulatory <WESLEY Moreno Last Filed: 03/01/22 22:19> Limitations: other (poor historian ) <WESLEY Moreno Last Filed: 03/01/22 22:19> History of Present Illness HPI narrative: 41-year-old female history of anxiety, brain lesion, depression, intercostal neuralgia, migraines, morbid obesity, myofascial pain, psoriatic arthritis presenting to the emergency department complaints of nausea, vomiting, abdominal discomfort x2 weeks. Patient had a laparoscopic sleeve gastrectomy done by on 02/10/2022, patient reports that she went to his office afterwards for postop were she was given a diet, patient tells me she has not been following the diet as prescribed, she tells me she has not been able to tolerate anything by mouth, she tells me she is continuously having nausea, vomiting and is dry heaving. Patient tells me she feels weak. Denies chest pain, shortness of breath, fevers, chills, headache, dizziness, vision changes. <WESLEY Moreno Last Filed: 03/01/22 22:19> Related Data Home Medications: Home Medications Medication Instructions Recorded Confirmed amlodipine 10 mg tablet 10 mg PO DAILY 05/23/20 02/24/22 carvedilol 25 mg tablet 25 mg PO BID 05/23/20 02/24/22 nystatin 100,000 unit/gram topical 1 appl topical BID PRN Rash 05/23/20 02/24/22 powder gabapentin 600 mg tablet 600 mg PO TID 01/21/22 02/24/22 paroxetine HCl 20 mg tablet 1 tab PO QPM depressive disorder 02/18/22 02/24/22 Previous Rx's Medication Instructions Recorded triamcinolone acetonide 0.1 % 1 appl topical DAILY 14 days #15 12/16/21 topical cream grams pantoprazole 40 mg tablet,delayed 40 mg PO DAILY #30 tabs 01/30/22 release sucralfate 100 mg/mL oral 10 ml PO BID #414 mL 01/30/22 suspension (Carafate) ondansetron HCl 4 mg tablet 4 mg PO Q6-8H PRN nausea and 02/28/22 vomiting #20 tabs scopolamine base 1 mg over 3 days 1 patch transdermal Q72H PRN 02/28/22 transdermal patch nausea and vomiting #4 ea <WESLEY Moreno - Last Filed: 03/01/22 22:19> Allergies/Adverse Reactions: Allergies Allergy/AdvReac Type Severity Reaction Status Date / Time gadobutrol [GADOBUTROL] Allergy Severe RASH, Verified 02/24/22 08:16 TONGUE SWELLING, SOB Iodinated Contrast Media Allergy Severe DIFFICULTY Verified 02/24/22 08:16 [IV CONTRAST] BREATHING morphine Allergy Severe Anaphylaxis Verified 02/24/22 08:16 peanut [PEANUT] Allergy Severe ANAPHYLAXIS Verified 02/24/22 08:16 amoxicillin [Amoxicillin] Allergy Intermediate RASH Verified 02/24/22 08:16 cinnamon [CINNAMON] Allergy Intermediate TONGUE Verified 02/24/22 08:16 SWELLING <WESLEY Moreno - Last Filed: 03/01/22 22:19> Review of Systems Review of Systems Constitutional : No Weight loss, No Fever, No Chills, + Fatigue, + Malaise ENT/Mouth : No sore throat, No Rhinorrhea Eyes: No Eye Pain, No Swelling, No Redness Cardiovascular : No Chest Pain, No SOB, No Dyspnea on Exertion, No Orthopnea, No Edema, No Palpitations Respiratory : No Cough, No Sputum, No Wheezing Gastrointestinal : + Nausea, + Vomiting, No Diarrhea, No Constipation, No abdominal Pain, No Hematochezia, No Melena Genitourinary : No Dysuria, No Urinary Frequency, No Hematuria, Musculoskeletal : No joint pain, No Myalgias, No Joint Swelling Skin : No Skin Lesions, No rash Neuro : No Weakness, No Numbness, No Dizziness, No Headache Psych : No Anxiety/Panic, No Depression All other systems reviewed and are negative <WESLEY Moreno - Last Filed: 03/01/22 22:19> Yes all other systems are reviewed and are negative <WESLEY Moreno - Last Filed: 03/01/22 22:19> [facility] Past Medical History Attestation statement: The following information was validated with the patient. <WESLEY Moreno - Last Filed: 03/01/22 22:19> Source: old records reviewed and nursing notes reviewed <WESLEY Moreno - Last Filed: 03/01/22 22:19> Medical History: Medical History Adult general medical exam Anxiety Back pain Brain lesion Depression DEGROOT (dyspnea on exertion) Encounter to establish care Intercostal neuralgia Intercostal neuralgia Migraines Morbid obesity with body mass index (BMI) of 50.0 to 59.9 in adult Myofascial pain on left side Neck pain MICHAEL (obstructive sleep apnea) Psoriasis Psoriatic arthritis <WESLEY Moreno - Last Filed: 03/01/22 22:19> Surgical History: Surgical History H/O total hysterectomy History of carpal tunnel surgery History of endometrial ablation History of lung surgery Hx of tubal ligation S/P laparoscopic sleeve gastrectomy <WESLEY Moreno - Last Filed: 03/01/22 22:19> Family History Family History: Family History Mother Hypertension Osteoporosis Back problem Father Hypertension Anxiety Depression Back problem Brother No problems noted. Sister Depression Anxiety Son Anxiety Depression Tourette syndrome Son Depression Anxiety ADHD Daughter Anxiety Depression Other S/P laparoscopic sleeve gastrectomy <WESLEY Moreno - Last Filed: 03/01/22 22:19> Social History Social History: Social History Housing: House Are you a primary skin care instructor to a significant other at home: No Do you presently have visiting nurse or other home services: No Alcohol intake: never Patient Tobacco Use Status: Never used Tobacco Smoked in Last 30 Days: No e-Cigarette/Vaping Use: Never Used Second Hand Smoke Exposure: No Use of substances other than those prescribed or required for medical reasons: No Advance Directives: No Advance Directives Information Provided: Yes Patient : No service: No Current occupational status: disabled Cognitive needs: No Hearing needs: No Vision needs: No <WESLEY Moreno - Last Filed: 03/01/22 22:19> Physical Exam ED Vital Signs: Vital Signs - 24 hr 03/01/22 11:20 03/01/22 12:23 03/01/22 13:06 Temperature 98.9 F 98.6 F 98.5 F Pulse Rate 90 98 86 Respiratory Rate 18 16 15 Blood Pressure 144/91 H 139/93 H 131/77 Pulse Oximetry 99 100 97 Oxygen Delivery Method Room Air Room Air Room Air 03/01/22 16:54 03/01/22 18:31 03/01/22 22:00 Temperature 98.7 F Pulse Rate 85 87 82 Respiratory Rate 16 16 Blood Pressure 139/80 145/92 H 145/92 H Pulse Oximetry 98 99 98 Oxygen Delivery Method Room Air Room Air Room Air BMI result Body Mass Index 37.0 Vital signs stable <WESLEY Moreno - Last Filed: 03/01/22 22:19> Vital Signs - 24 hr 03/01/22 11:20 03/01/22 12:23 03/01/22 13:06 Temperature 98.9 F 98.6 F 98.5 F Pulse Rate 90 98 86 Respiratory Rate 18 16 15 Blood Pressure 144/91 H 139/93 H 131/77 Pulse Oximetry 99 100 97 Oxygen Delivery Method Room Air Room Air Room Air 03/01/22 16:54 03/01/22 18:31 03/01/22 22:00 Temperature 98.7 F Pulse Rate 85 87 82 Respiratory Rate 16 16 Blood Pressure 139/80 145/92 H 145/92 H Pulse Oximetry 98 99 98 Oxygen Delivery Method Room Air Room Air Room Air BMI result Body Mass Index 37.0 <Dulce Mejia MD - Last Filed: 03/02/22 06:54> Appearance: Alert.? Oriented X3.? No acute distress.? Patient with rigors. Appears uncomfortable. Head: Normocephalic, atraumatic, no step-offs or deformities Eyes: Pupils equal, round and reactive to light.? ENT: Pharynx normal.? Neck: Normal inspection.? Neck supple.? CVS: Normal heart rate and rhythm.? Pulses normal.? Respiratory: No respiratory distress.? Breath sounds normal.? Abdomen: Soft and + tenderness to epigastric and LUQ + BS however hypoactive .? Skin: Skin warm and dry.? Normal skin color.? Normal skin turgor.? Extremities: No lower extremity edema.? No calf ttp. Global weakness Back: No midline tenderness, no C-spine tenderness, full range of motion, no CVA tenderness bilaterally Neuro: Oriented X 3.? No motor deficit.? No sensory deficit. CN 2-12 intact <WESLEY Moreno - Last Filed: 03/01/22 22:19> Course Course Course Narrative: I did speak initially to Dr. Stinson who wanted a CT of the abdomen and pelvis with oral contrast, wanted to 100 cc oral contrast administered just prior to the scan. This was done after patient was able to tolerate p.o.. Later touch base with his PA Arely Merritt, reports of patient is tolerating p.o. and her labs come back okay then she is comfortable with patient being discharged home, PA will call her to check in with her tomorrow. Imaging was reviewed by Dr. Kelley and according to his PA he stated there is no sleeve leak. Also on board with plan according to GERRI <WESLEY Moreno - Last Filed: 03/01/22 22:19> Reevaluation(s) Reevaluation #1: CBC with slightly elevated hemoglobin likely secondary to hemoconcentration, poor p.o. intake. Chemistry with a low potassium, currently being repleted at this time through IV, lactic acid negative, unlikely ischemic process, anion gap seems to be chronically elevated, lipase within normal limits. Urine without infection, likely contaminated. CT of the abdomen and pelvis with sleep gastrectomy and minimal fat stranding above the suture line and within the upper ventral abdominal wall that likely represents postsurgical changes. No evidence of bowel obstruction or other acute intra-abdominal processes, small hiatal hernia noted, hepatic steatosis. Patient continues to complain of nausea, will be given Reglan and Benadryl at this time. Abdominal pain slightly improved. <WESLEY Moreno - Last Filed: 03/01/22 22:19> Time: 17:53 <WESLEY Moreno - Last Filed: 03/01/22 22:19> Reevaluation #2: Upon re-evaluation patient no longer tender to palpation of abdomen. Tolerating sips of water. Appears better. Speaking in full sentences, not as sluggish as she was before. I did speak to bariatric stool feels comfortable with discharge home as long as repeat laboratory studies are okay and re-evaluation is all right. At this time patient will be signed out pending, repeat labs, reevaluation, ambulation. <WESLEY Moreno - Last Filed: 03/01/22 22:19> Time: 21:45 <WESLEY Moreno - Last Filed: 03/01/22 22:19> MDM - Abdominal Pain MDM Narrative Medical decision making narrative: 0024 41-year-old female status post laparoscopic sleeve gastrectomy done by Dr. Kelley presents with persistent N & V and abd discomfort at site of surgery X2 weeks. Not compliant with diet. According to chart review patient's diet is currently supposed to be: 10am - Celebrate 4:1 2 scoops? 16 oz almond milk - over 4 hours, 4pm - same shake, 8pm- third shake Premier shake with 8 oz almond milk. Physical examination significant for tenderness to epigastric, left upper quadrant region. Abdomen is noted to be soft, with hypoactive bowel sounds. No peritonitis. Patient with rigors. RRR. Lungs clear. Neuro nonfocal. Patient appears uncomfortable. Plan at this time is to obtain basic labs, imaging, urine. <WESLEY Moreno - Last Filed: 03/01/22 22:19> 0024 41-year-old female status post laparoscopic sleeve gastrectomy done by Dr. Kelley presents with persistent N & V and abd discomfort at site of surgery X2 weeks. Not compliant with diet. According to chart review patient's diet is currently supposed to be: 10am - Celebrate 4:1 2 scoops? 16 oz almond milk - over 4 hours, 4pm - same shake, 8pm- third shake Premier shake with 8 oz almond milk. Physical examination significant for tenderness to epigastric, left upper quadrant region. Abdomen is noted to be soft, with hypoactive bowel sounds. No peritonitis. Patient with rigors. RRR. Lungs clear. Neuro nonfocal. Patient appears uncomfortable. Plan at this time is to obtain basic labs, imaging, urine. I discussed the patient with nurse practitioner Arely Merritt from bariatric surgery. Per her request, potassium was repeated, which was 2.8. Patient was admitted. <Dulce Mejia MD - Last Filed: 03/02/22 06:54> Medical Records Attestation: I reviewed the patient's medical records. <WESLEY Moreno - Last Filed: 03/01/22 22:19> Lab Data Attestation: I reviewed the patient's lab results. <WESLEY Moreno - Last Filed: 03/01/22 22:19> Result diagrams: : 03/01/22 22:35 03/01/22 23:52 <WESLEY Moreno - Last Filed: 03/01/22 22:19> Labs: Lab Results 03/01/22 03/01/22 03/01/22 Range/Units 11:31 11:31 12:49 WBC 8.6 (4.8-10.8) X10*3/uL RBC 5.25 D (4.20-5.50) X10*6/uL Hgb 16.1 H D (12.0-16.0) g/dl Hct 45.3 (37.0-47.0) % MCV 86.3 (80.0-98.0) fL MCH 30.7 (27.0-33.0) pg MCHC 35.5 H (31.0-35.0) g/dl RDW 16.6 H (11.0-16.0) % Plt Count 409 H (160-400) X10*3/uL MPV 10.5 (9.4-12.3) fL Immature Gran % (Auto) 0.1 (0.0-0.4) % Neut % (Auto) 67.1 (45-73) % Lymph % (Auto) 19.5 L (20-40) % Harlan % (Auto) 12.2 H (2-11) % Eos % (Auto) 0.5 (0-4) % Baso % (Auto) 0.6 (0-2) % Lymph # (Auto) 1.7 (1.2-4.9) X10*3/uL Harlan # (Auto) 1.1 (0.1-1.2) X10*3/uL Eos # (Auto) 0.0 (0.0-0.4) X10*3/uL Baso # (Auto) 0.1 (0.0-0.2) X10*3/uL Abs Immat Gran (auto) 0.01 (0.00-0.03) X10*3/uL Absolute Neuts (auto) 5.8 (2.0-8.3) x10*3/uL Absolute Nucleated RBC 0.000 (0.0-0.012) X10*3/uL Nucleated RBC % (auto) 0.0 (0.0-0.2) /100WBC Sodium 139 (135-145) mmol/L Potassium 3.1 L (3.3-5.1) mmol/L Chloride 98 (96-108) mmol/L Carbon Dioxide 18 L (22-29) mmol/L Anion Gap 26 H (12-20) BUN 10 D (9-16) mg/dL Creatinine 1.11 (0.5-1.4) mg/dL Estim Creat Clear Calc 72.3 Estimated GFR 54 Random Glucose 110 (60-115) mg/dL Lactic Acid 1.1 (0.5-2.0) mmol/L Calcium 10.6 H D (8.4-10.2) mg/dL Total Bilirubin 0.8 (0.0-1.0) mg/dL AST 17 (5-31) U/L ALT 27 (0-31) U/L Alkaline Phosphatase 97 D (39-117) U/L Troponin I High Sens (<3.5-17.0) ng/L Total Protein 8.4 H (6.5-8.0) g/dL Albumin 4.6 (3.5-5.0) g/dL Lipase 71 (8-78) U/L Urine Color Urine Appearance Urine pH (5.0-9.0) Ur Specific [place] (1.005-1.025) Urine Protein (Neg-Trace) mg/dL Urine Glucose (UA) (Negative) mg/dL Urine Ketones (Negative) mg/dL Urine Blood (Negative) Urine Nitrite (Negative) Ur Leukocyte Esterase (Negative) Urine RBC (0-2) /HPF Urine WBC (0-5) /HPF Ur Squamous Epith Cells (0-2) /HPF Urine Bacteria (None Seen) Hyaline Casts (0-2) /LPF Urine Test (NEGATIVE) 03/01/22 03/01/22 03/01/22 Range/Units 13:29 13:29 22:35 WBC 7.7 (4.8-10.8) X10*3/uL RBC 4.66 (4.20-5.50) X10*6/uL Hgb 14.1 (12.0-16.0) g/dl Hct 39.7 (37.0-47.0) % MCV 85.2 (80.0-98.0) fL MCH 30.3 (27.0-33.0) pg MCHC 35.5 H (31.0-35.0) g/dl RDW 16.5 H (11.0-16.0) % Plt Count 384 (160-400) X10*3/uL MPV 10.6 (9.4-12.3) fL Immature Gran % (Auto) 0.1 (0.0-0.4) % Neut % (Auto) 60.4 (45-73) % Lymph % (Auto) 26.9 (20-40) % Harlan % (Auto) 11.2 H (2-11) % Eos % (Auto) 0.7 (0-4) % Baso % (Auto) 0.7 (0-2) % Lymph # (Auto) 2.1 (1.2-4.9) X10*3/uL Harlan # (Auto) 0.9 (0.1-1.2) X10*3/uL Eos # (Auto) 0.1 (0.0-0.4) X10*3/uL Baso # (Auto) 0.1 (0.0-0.2) X10*3/uL Abs Immat Gran (auto) 0.01 (0.00-0.03) X10*3/uL Absolute Neuts (auto) 4.6 (2.0-8.3) x10*3/uL Absolute Nucleated RBC 0.000 (0.0-0.012) X10*3/uL Nucleated RBC % (auto) 0.0 (0.0-0.2) /100WBC Sodium (135-145) mmol/L Potassium (3.3-5.1) mmol/L Chloride (96-108) mmol/L Carbon Dioxide (22-29) mmol/L Anion Gap (12-20) BUN (9-16) mg/dL Creatinine (0.5-1.4) mg/dL Estim Creat Clear Calc Estimated GFR Random Glucose (60-115) mg/dL Lactic Acid (0.5-2.0) mmol/L Calcium (8.4-10.2) mg/dL Total Bilirubin (0.0-1.0) mg/dL AST (5-31) U/L ALT (0-31) U/L Alkaline Phosphatase (39-117) U/L Troponin I High Sens (<3.5-17.0) ng/L Total Protein (6.5-8.0) g/dL Albumin (3.5-5.0) g/dL Lipase (8-78) U/L Urine Color Yellow Urine Appearance Cloudy Urine pH 6.0 (5.0-9.0) Ur Specific [place] 1.020 (1.005-1.025) Urine Protein 100 (2+) H (Neg-Trace) mg/dL Urine Glucose (UA) Negative (Negative) mg/dL Urine Ketones >=160 (Negative) mg/dL Urine Blood Negative (Negative) Urine Nitrite Negative (Negative) Ur Leukocyte Esterase Trace H (Negative) Urine RBC 0-2 (0-2) /HPF Urine WBC 0-5 (0-5) /HPF Ur Squamous Epith Cells >20 (0-2) /HPF Urine Bacteria 2+ (None Seen) Hyaline Casts 3-5 (0-2) /LPF Urine Test NEGATIVE (NEGATIVE) 03/01/22 03/01/22 03/01/22 Range/Units 22:35 22:35 23:52 WBC (4.8-10.8) X10*3/uL RBC (4.20-5.50) X10*6/uL Hgb (12.0-16.0) g/dl Hct (37.0-47.0) % MCV (80.0-98.0) fL MCH (27.0-33.0) pg MCHC (31.0-35.0) g/dl RDW (11.0-16.0) % Plt Count (160-400) X10*3/uL MPV (9.4-12.3) fL Immature Gran % (Auto) (0.0-0.4) % Neut % (Auto) (45-73) % Lymph % (Auto) (20-40) % Harlan % (Auto) (2-11) % Eos % (Auto) (0-4) % Baso % (Auto) (0-2) % Lymph # (Auto) (1.2-4.9) X10*3/uL Harlan # (Auto) (0.1-1.2) X10*3/uL Eos # (Auto) (0.0-0.4) X10*3/uL Baso # (Auto) (0.0-0.2) X10*3/uL Abs Immat Gran (auto) (0.00-0.03) X10*3/uL Absolute Neuts (auto) (2.0-8.3) x10*3/uL Absolute Nucleated RBC (0.0-0.012) X10*3/uL Nucleated RBC % (auto) (0.0-0.2) /100WBC Sodium 140 (135-145) mmol/L Potassium 2.8 L 2.8 L (3.3-5.1) mmol/L Chloride 103 (96-108) mmol/L Carbon Dioxide 16 L (22-29) mmol/L Anion Gap 24 H (12-20) BUN 8 L (9-16) mg/dL Creatinine 0.96 (0.5-1.4) mg/dL Estim Creat Clear Calc 83.6 Estimated GFR > 60 Random Glucose 93 (60-115) mg/dL Lactic Acid (0.5-2.0) mmol/L Calcium 9.4 D (8.4-10.2) mg/dL Total Bilirubin 1.1 H (0.0-1.0) mg/dL AST 17 (5-31) U/L ALT 23 (0-31) U/L Alkaline Phosphatase 83 (39-117) U/L Troponin I High Sens 24.0 H (<3.5-17.0) ng/L Total Protein 7.3 (6.5-8.0) g/dL Albumin 4.1 (3.5-5.0) g/dL Lipase (8-78) U/L Urine Color Urine Appearance Urine pH (5.0-9.0) Ur Specific [place] (1.005-1.025) Urine Protein (Neg-Trace) mg/dL Urine Glucose (UA) (Negative) mg/dL Urine Ketones (Negative) mg/dL Urine Blood (Negative) Urine Nitrite (Negative) Ur Leukocyte Esterase (Negative) Urine RBC (0-2) /HPF Urine WBC (0-5) /HPF Ur Squamous Epith Cells (0-2) /HPF Urine Bacteria (None Seen) Hyaline Casts (0-2) /LPF Urine Test (NEGATIVE) <WESLEY Moreno - Last Filed: 03/01/22 22:19> Lab Results 03/01/22 03/01/22 03/01/22 Range/Units 11:31 11:31 12:49 WBC 8.6 (4.8-10.8) X10*3/uL RBC 5.25 D (4.20-5.50) X10*6/uL Hgb 16.1 H D (12.0-16.0) g/dl Hct 45.3 (37.0-47.0) % MCV 86.3 (80.0-98.0) fL MCH 30.7 (27.0-33.0) pg MCHC 35.5 H (31.0-35.0) g/dl RDW 16.6 H (11.0-16.0) % Plt Count 409 H (160-400) X10*3/uL MPV 10.5 (9.4-12.3) fL Immature Gran % (Auto) 0.1 (0.0-0.4) % Neut % (Auto) 67.1 (45-73) % Lymph % (Auto) 19.5 L (20-40) % Harlan % (Auto) 12.2 H (2-11) % Eos % (Auto) 0.5 (0-4) % Baso % (Auto) 0.6 (0-2) % Lymph # (Auto) 1.7 (1.2-4.9) X10*3/uL Harlan # (Auto) 1.1 (0.1-1.2) X10*3/uL Eos # (Auto) 0.0 (0.0-0.4) X10*3/uL Baso # (Auto) 0.1 (0.0-0.2) X10*3/uL Abs Immat Gran (auto) 0.01 (0.00-0.03) X10*3/uL Absolute Neuts (auto) 5.8 (2.0-8.3) x10*3/uL Absolute Nucleated RBC 0.000 (0.0-0.012) X10*3/uL Nucleated RBC % (auto) 0.0 (0.0-0.2) /100WBC Sodium 139 (135-145) mmol/L Potassium 3.1 L (3.3-5.1) mmol/L Chloride 98 (96-108) mmol/L Carbon Dioxide 18 L (22-29) mmol/L Anion Gap 26 H (12-20) BUN 10 D (9-16) mg/dL Creatinine 1.11 (0.5-1.4) mg/dL Estim Creat Clear Calc 72.3 Estimated GFR 54 Random Glucose 110 (60-115) mg/dL Lactic Acid 1.1 (0.5-2.0) mmol/L Calcium 10.6 H D (8.4-10.2) mg/dL Total Bilirubin 0.8 (0.0-1.0) mg/dL AST 17 (5-31) U/L ALT 27 (0-31) U/L Alkaline Phosphatase 97 D (39-117) U/L Troponin I High Sens (<3.5-17.0) ng/L Total Protein 8.4 H (6.5-8.0) g/dL Albumin 4.6 (3.5-5.0) g/dL Lipase 71 (8-78) U/L Urine Color Urine Appearance Urine pH (5.0-9.0) Ur Specific [place] (1.005-1.025) Urine Protein (Neg-Trace) mg/dL Urine Glucose (UA) (Negative) mg/dL Urine Ketones (Negative) mg/dL Urine Blood (Negative) Urine Nitrite (Negative) Ur Leukocyte Esterase (Negative) Urine RBC (0-2) /HPF Urine WBC (0-5) /HPF Ur Squamous Epith Cells (0-2) /HPF Urine Bacteria (None Seen) Hyaline Casts (0-2) /LPF Urine Test (NEGATIVE) 03/01/22 03/01/22 03/01/22 Range/Units 13:29 13:29 22:35 WBC 7.7 (4.8-10.8) X10*3/uL RBC 4.66 (4.20-5.50) X10*6/uL Hgb 14.1 (12.0-16.0) g/dl Hct 39.7 (37.0-47.0) % MCV 85.2 (80.0-98.0) fL MCH 30.3 (27.0-33.0) pg MCHC 35.5 H (31.0-35.0) g/dl RDW 16.5 H (11.0-16.0) % Plt Count 384 (160-400) X10*3/uL MPV 10.6 (9.4-12.3) fL Immature Gran % (Auto) 0.1 (0.0-0.4) % Neut % (Auto) 60.4 (45-73) % Lymph % (Auto) 26.9 (20-40) % Harlan % (Auto) 11.2 H (2-11) % Eos % (Auto) 0.7 (0-4) % Baso % (Auto) 0.7 (0-2) % Lymph # (Auto) 2.1 (1.2-4.9) X10*3/uL Harlan # (Auto) 0.9 (0.1-1.2) X10*3/uL Eos # (Auto) 0.1 (0.0-0.4) X10*3/uL Baso # (Auto) 0.1 (0.0-0.2) X10*3/uL Abs Immat Gran (auto) 0.01 (0.00-0.03) X10*3/uL Absolute Neuts (auto) 4.6 (2.0-8.3) x10*3/uL Absolute Nucleated RBC 0.000 (0.0-0.012) X10*3/uL Nucleated RBC % (auto) 0.0 (0.0-0.2) /100WBC Sodium (135-145) mmol/L Potassium (3.3-5.1) mmol/L Chloride (96-108) mmol/L Carbon Dioxide (22-29) mmol/L Anion Gap (12-20) BUN (9-16) mg/dL Creatinine (0.5-1.4) mg/dL Estim Creat Clear Calc Estimated GFR Random Glucose (60-115) mg/dL Lactic Acid (0.5-2.0) mmol/L Calcium (8.4-10.2) mg/dL Total Bilirubin (0.0-1.0) mg/dL AST (5-31) U/L ALT (0-31) U/L Alkaline Phosphatase (39-117) U/L Troponin I High Sens (<3.5-17.0) ng/L Total Protein (6.5-8.0) g/dL Albumin (3.5-5.0) g/dL Lipase (8-78) U/L Urine Color Yellow Urine Appearance Cloudy Urine pH 6.0 (5.0-9.0) Ur Specific [place] 1.020 (1.005-1.025) Urine Protein 100 (2+) H (Neg-Trace) mg/dL Urine Glucose (UA) Negative (Negative) mg/dL Urine Ketones >=160 (Negative) mg/dL Urine Blood Negative (Negative) Urine Nitrite Negative (Negative) Ur Leukocyte Esterase Trace H (Negative) Urine RBC 0-2 (0-2) /HPF Urine WBC 0-5 (0-5) /HPF Ur Squamous Epith Cells >20 (0-2) /HPF Urine Bacteria 2+ (None Seen) Hyaline Casts 3-5 (0-2) /LPF Urine Test NEGATIVE (NEGATIVE) 03/01/22 03/01/22 03/01/22 Range/Units 22:35 22:35 23:52 WBC (4.8-10.8) X10*3/uL RBC (4.20-5.50) X10*6/uL Hgb (12.0-16.0) g/dl Hct (37.0-47.0) % MCV (80.0-98.0) fL MCH (27.0-33.0) pg MCHC (31.0-35.0) g/dl RDW (11.0-16.0) % Plt Count (160-400) X10*3/uL MPV (9.4-12.3) fL Immature Gran % (Auto) (0.0-0.4) % Neut % (Auto) (45-73) % Lymph % (Auto) (20-40) % [place] % (Auto) (2-11) % Eos % (Auto) (0-4) % Baso % (Auto) (0-2) % Lymph # (Auto) (1.2-4.9) X10*3/uL [place]lan # (Auto) (0.1-1.2) X10*3/uL Eos # (Auto) (0.0-0.4) X10*3/uL Baso # (Auto) (0.0-0.2) X10*3/uL Abs Immat Gran (auto) (0.00-0.03) X10*3/uL Absolute Neuts (auto) (2.0-8.3) x10*3/uL Absolute Nucleated RBC (0.0-0.012) X10*3/uL Nucleated RBC % (auto) (0.0-0.2) /100WBC Sodium 140 (135-145) mmol/L Potassium 2.8 L 2.8 L (3.3-5.1) mmol/L Chloride 103 (96-108) mmol/L Carbon Dioxide 16 L (22-29) mmol/L Anion Gap 24 H (12-20) BUN 8 L (9-16) mg/dL Creatinine 0.96 (0.5-1.4) mg/dL Estim Creat Clear Calc 83.6 Estimated GFR > 60 Random Glucose 93 (60-115) mg/dL Lactic Acid (0.5-2.0) mmol/L Calcium 9.4 D (8.4-10.2) mg/dL Total Bilirubin 1.1 H (0.0-1.0) mg/dL AST 17 (5-31) U/L ALT 23 (0-31) U/L Alkaline Phosphatase 83 (39-117) U/L Troponin I High Sens 24.0 H (<3.5-17.0) ng/L Total Protein 7.3 (6.5-8.0) g/dL Albumin 4.1 (3.5-5.0) g/dL Lipase (8-78) U/L Urine Color Urine Appearance Urine pH (5.0-9.0) Ur Specific [place] (1.005-1.025) Urine Protein (Neg-Trace) mg/dL Urine Glucose (UA) (Negative) mg/dL Urine Ketones (Negative) mg/dL Urine Blood (Negative) Urine Nitrite (Negative) Ur Leukocyte Esterase (Negative) Urine RBC (0-2) /HPF Urine WBC (0-5) /HPF Ur Squamous Epith Cells (0-2) /HPF Urine Bacteria (None Seen) Hyaline Casts (0-2) /LPF Urine Test (NEGATIVE) <Dulce Mejia MD - Last Filed: 03/02/22 06:54> Critical Care Time Critical Care Time Critical Care Time: Yes <WESLEY Moreno - Last Filed: 03/01/22 22:19> Total Critical Care Time: 35 <WESLEY Moreno - Last Filed: 03/01/22 22:19> Attestation: I attest to this time spent taking care of the patient, obtaining history, physical, reviewing labs, imaging, speaking to my attending, speaking to specialist. <WESLEY Moreno - Last Filed: 03/01/22 22:19> Discharge Plan Discharge Clinical Impression: Nausea & vomiting, Weakness, Hypokalemia <WESLEY Moreno - Last Filed: 03/01/22 22:19> Patient Disposition: Admitted As Inpatient <WESLEY Moreno - Last Filed: 03/01/22 22:19>
[2022-03-01 12:23] VITALS: BP 139/93; PULSE 98; RESP 16; TEMP 37; O2SAT 100
[2022-03-01 12:25] LABS: Alanine Aminotransferase 27 U/L (0-31); Albumin Level 4.6 g/dL (3.5-5.0); Alkaline Phosphatase 97 U/L (39-117); Anion Gap 26 (12-20); Aspartate Amino Transferase 17 U/L (5-31); Bilirubin Total 0.8 mg/dL (0.0-1.0); Blood Urea Nitrogen 10 mg/dL (9-16); Calcium 10.6 mg/dL (8.4-10.2); Carbon Dioxide 18 mmol/L (22-29); Chloride 98 mmol/L (96-108); Creatinine Clr Calc Pharmacy 72.3; Estimated Glomerular Filt Rate 54; Glucose Random 110 mg/dL (60-115); Lipase 71 U/L (8-78); Potassium 3.1 mmol/L (3.3-5.1); Sodium 139 mmol/L (135-145); Total Protein 8.4 g/dL (6.5-8.0)
[2022-03-01 13:04] LABS: Lactic Acid 1.1 mmol/L (0.5-2.0)
[2022-03-01 13:06] VITALS: BP 131/77; PULSE 86; RESP 15; TEMP 36.9; O2SAT 97
[2022-03-01] MEDS: 0.9 % Sodium Chloride 1,000 ML 999 ML IV (13:21)
[2022-03-01] MEDS: Potassium Chloride/H20 10 MEQ/100 ML PIGGYBACK 100 MEQ IV ×2 (13:21→16:21)
[2022-03-01] MEDS: ondansetron HCL 4 MG/2 ML VIAL IVPUSH (13:21)
[2022-03-01 13:36] LABS: Appearance Urine Cloudy; Color Urine Yellow; Glucose Urine UA Negative (Negative); Leukocyte Esterase Urine Trace (Negative); Nitrite Urine Negative (Negative); UMIC TRIGGER UACC YES; Urine Blood Negative (Negative); Urine Ketones >=160 mg/dL (Negative); Urine Protein 100 (2+) mg/dL (Neg-Trace)
[2022-03-01 13:38] LABS: UPreg QC Valid YES; Urine Pregnancy NEGATIVE (NEGATIVE)
[2022-03-01 13:40] LABS: Bacteria Urine 2+ (None Seen); RBC Urine 0-2 /HPF (0-2); Squamous Epithelial Cell Urine >20 /HPF (0-2); WBC Urine 0-5 /HPF (0-5)
[2022-03-01] MEDS: Diatrizoate Meglumine, Sodium 30 ML SOLUTION PO (16:04)
[2022-03-01 16:54] VITALS: BP 139/80; PULSE 85; RESP 16; O2SAT 98
[2022-03-01] MEDS: diphenhydrAMINE HCL 50 MG/ML VIAL 25 MG IVPUSH (18:29)
[2022-03-01] MEDS: Metoclopramide HCl 10 MG/2 ML VIAL IVPUSH (18:29)
[2022-03-01 18:31] VITALS: BP 145/92; PULSE 87; RESP 16; TEMP 37.1; O2SAT 99
--- NOTE | 2022-03-01 21:49 | ECG_ITS ---
Test Reason : ABDOMINAL PAIN Blood Pressure : / mmHG Vent. Rate : 081 BPM Atrial Rate : 081 BPM P-R Int : 166 ms QRS Dur : 096 ms QT Int : 384 ms P-R-T Axes : 012 -10 -44 degrees QTc Int : 446 ms Normal sinus rhythm Moderate voltage criteria for LVH, may be normal variant ( R in aVL , [place] product ) ST & T wave abnormality, consider inferolateral ischemia Abnormal ECG When compared with ECG of 17-OCT-2021 08:30, T wave inversion now evident in Inferior leads T wave inversion now evident in Lateral leads Referred By: Lucien William Electronically Signed By:ANAMARIA HERNANDEZ MD
[2022-03-01 22:00] VITALS: BP 145/92; PULSE 82; O2SAT 98
[2022-03-01 22:43] LABS: MANUAL DIFF FLAG NO
[2022-03-01 22:44] LABS: Basophils Absolute Auto 0.1 X10*3/uL (0.0-0.2); Basophils Percent Auto 0.7 % (0-2); Eosinophils Absolute Auto 0.1 X10*3/uL (0.0-0.4); Eosinophils Percent Auto 0.7 % (0-4); Hematocrit 39.7 % (37.0-47.0); Hemoglobin 14.1 g/dl (12.0-16.0); Imm Gran Abs Auto 0.01 X10*3/uL (0.00-0.03); Imm Gran Pct Auto 0.1 % (0.0-0.4); Lymphocytes Absolute Auto 2.1 X10*3/uL (1.2-4.9); Lymphocytes Percent Auto 26.9 % (20-40); Mean Corpuscular HGB Conc 35.5 g/dl (31.0-35.0); Mean Corpuscular Hemoglobin 30.3 pg (27.0-33.0); Mean Corpuscular Volume 85.2 fL (80.0-98.0); Mean Platelet Volume 10.6 fL (9.4-12.3); Monocytes Absolute Auto 0.9 X10*3/uL (0.1-1.2); Monocytes Percent Auto 11.2 % (2-11); Neutrophils Absolute Auto 4.6 x10*3/uL (2.0-8.3); Neutrophils Percent Auto 60.4 % (45-73); Platelet Count 384 X10*3/uL (160-400); Red Blood Count 4.66 X10*6/uL (4.20-5.50); Red Cell Distribution Width 16.5 % (11.0-16.0); White Blood Count 7.7 X10*3/uL (4.8-10.8)
[2022-03-01 23:01] LABS: Alanine Aminotransferase 23 U/L (0-31); Albumin Level 4.1 g/dL (3.5-5.0); Alkaline Phosphatase 83 U/L (39-117); Anion Gap 24 (12-20); Aspartate Amino Transferase 17 U/L (5-31); Bilirubin Total 1.1 mg/dL (0.0-1.0); Blood Urea Nitrogen 8 mg/dL (9-16); Calcium 9.4 mg/dL (8.4-10.2); Carbon Dioxide 16 mmol/L (22-29); Chloride 103 mmol/L (96-108); Creatinine Clr Calc Pharmacy 83.6; Estimated Glomerular Filt Rate > 60; Glucose Random 93 mg/dL (60-115); Potassium 2.8 mmol/L (3.3-5.1); Sodium 140 mmol/L (135-145); Total Protein 7.3 g/dL (6.5-8.0)
[2022-03-02 00:55] LABS: Potassium 2.8 mmol/L (3.3-5.1)
[2022-03-02] MEDS: Acetaminophen 325 MG TABLET 650 MG PO (02:05)
--- NOTE | 2022-03-02 02:09 | PC.NURSE ---
pt reporting 5/10 headache, medicated per provider order.
[2022-03-02] MEDS: Metoclopramide HCl 10 MG/2 ML VIAL IVPUSH (04:35)
[2022-03-02] MEDS: Lactated Ringers 1,000 ML 100 ML IVCONT ×3 (04:50→22:12)
[2022-03-02] MEDS: Potassium Chloride/H20 10 MEQ/100 ML PIGGYBACK 100 MEQ IV ×4 (04:51→22:12)
[2022-03-02 05:43] VITALS: BP 142/87; PULSE 73; RESP 17; O2SAT 97
--- NOTE | 2022-03-02 07:10 | PC.NURSE ---
Pt asleep. Reports relief s/p Reglan. Unable to tolerate KCL at 10MEQ/hr, d/t burning, Running over 2 hours. NSR on tele.
[2022-03-02 08:56] LABS: Magnesium 1.9 mg/dL (1.6-2.6)
[2022-03-02 09:00] LABS: Alanine Aminotransferase 22 U/L (0-31); Albumin Level 3.6 g/dL (3.5-5.0); Alkaline Phosphatase 77 U/L (39-117); Anion Gap 20 (12-20); Aspartate Amino Transferase 18 U/L (5-31); Bilirubin Total 1.1 mg/dL (0.0-1.0); Blood Urea Nitrogen 8 mg/dL (9-16); Calcium 9.1 mg/dL (8.4-10.2); Carbon Dioxide 18 mmol/L (22-29); Chloride 103 mmol/L (96-108); Creatinine Clr Calc Pharmacy 84.5; Estimated Glomerular Filt Rate > 60; Glucose Random 86 mg/dL (60-115); Potassium 2.7 mmol/L (3.3-5.1); Sodium 138 mmol/L (135-145); Total Protein 6.4 g/dL (6.5-8.0)
[2022-03-02] MEDS: Sucralfate Oral Suspension 1 GM/10 ML ORAL.SUSP PO ×2 (09:36→22:13)
[2022-03-02] MEDS: carvediloL 25 MG TABLET PO ×2 (09:37→21:30)
[2022-03-02] MEDS: Pantoprazole Sodium 40 MG/10 ML VIAL IVPUSH (09:38)
[2022-03-02] MEDS: amLODIPine Besylate 10 MG TABLET PO (09:38)
[2022-03-02] MEDS: ondansetron HCL 4 MG/2 ML VIAL IVPUSH ×2 (09:38→21:31)
[2022-03-02] MEDS: Potassium Chloride ER 20 MEQ TAB.ER.PRT PO (09:38)
[2022-03-02 09:41] VITALS: BP 139/83; PULSE 77; RESP 18; O2SAT 99
[2022-03-02] MEDS: Magnesium Sulfate/H2O 2 GM/50 ML PIGGYBACK IV (09:44)
--- NOTE | 2022-03-02 10:31 | PC.NURSE ---
Pt Mg and KCL infusing as ordered. Another 40MEQ IV ordered, however KCL from overnight ordered not completed d/t prolonged infusion time, WESLEY Merritt aware, plan to continue to infuse KCL until repeat labs at 1500 resulted.
--- NOTE | 2022-03-02 10:44 | PHA.MEDREC ---
Addendum entered by Radha Newton jeannine 03/02/22 10:46: patient prescribed scopolamine patch but has not picked up at pharmacy yet Original Note: Pharmacy Consult ? Medication Reconciliation Pharmacy has completed the medication reconciliation. Spoke with patient in the ED. Patient states chlorthalidone was stopped along with vitamin a and vitamin d. She takes her gabapentin BID (instead of TID). Last took medications 2 days ago.
--- NOTE | 2022-03-02 10:52 | PM.PNGS ---
Subjective Subjective Date of Service: 03/02/22 Patient reports: no new complaints, feels better and tolerating liquids well Interval history: Patient denies any pain, regurgitation, nausea or vomiting at this point. She has requested her diet be advanced to pureed. She otherwise denies chest pain, difficulty breathing, shortness of breath or lower extremity pain Physical Exam Vital Signs: Vital Signs: Last Vital Signs Temp 98.7 F 03/01/22 18:31 Pulse 77 03/02/22 09:41 Resp 18 03/02/22 09:41 BP 139/83 03/02/22 09:41 Pulse Ox 99 03/02/22 09:41 O2 Del Method 03/02/22 09:41 BMI result Body Mass Index 37.0 Patient is nontoxic and in good spirits Abdomen is obese, soft and nontender Objective Data Active Medications Acetaminophen (Acetaminophen 325 Mg Tablet) 650 mg PO Q4H PRN PRN Reason: Pain, Mild (Pain Scale 1-3) Amlodipine Besylate (Amlodipine Besylate 10 Mg Tablet) 10 mg PO DAILY [facility]; Protocol Last Admin: 03/02/22 09:38 Dose: 10 mg Documented By: VIJAY Carvedilol (Carvedilol 25 Mg Tablet) 25 mg PO BID [facility]; Protocol Last Admin: 03/02/22 09:37 Dose: 25 mg Documented By: VIJAY Lactated Ringer's (Lr) 1,000 mls @ 100 mls/hr IVCONT .Q10H [facility]UL Last Admin: 03/02/22 04:50 Dose: 100 mls/hr Documented By: CARMITA Magnesium Sulfate (Magnesium Sulfate/H2o) 2 gm in 50 mls @ 25 mls/hr IV ONCE ONE Stop: 03/02/22 11:05 Last Admin: 03/02/22 09:44 Dose: 25 mls/hr Documented By: VIJAY Potassium Chloride (Potassium Chloride/H20) 10 meq in 100 mls @ 100 mls/hr IV Q1H [facility] Stop: 03/02/22 13:14 Metoclopramide HCl (Metoclopramide Hcl 10 Mg/2 Ml Vial) 10 mg IVPUSH Q6H PRN PRN Reason: Nausea Last Admin: 03/02/22 04:35 Dose: 10 mg Documented By: CARMITA Ondansetron HCl (Ondansetron Hcl 4 Mg/2 Ml Vial) 4 mg IVPUSH Q8H [facility] Last Admin: 03/02/22 09:38 Dose: 4 mg Documented By: VIJAY Pantoprazole Sodium (Pantoprazole Sodium 40 Mg/10 Ml Vial) 40 mg IVPUSH DAILY [facility] Last Admin: 03/02/22 09:38 Dose: 40 mg Documented By: VIJAY Paroxetine HCl (Paroxetine Hcl 20 Mg Tablet) 20 mg PO DAILY [facility] Sodium Chloride (0.9 % Sodium Chloride Flush 3 Ml Syringe) 3 ml IVFLUSH QSHIFT [facility] Last Admin: 03/02/22 07:02 Dose: Not Given Documented By: PILO Non-Admin Reason: IV Running Sucralfate (Sucralfate Oral Suspension 1 Gm/10 Ml Oral.Susp) 1 gm PO BID [facility] Last Admin: 03/02/22 09:36 Dose: 1 gm Documented By: VIJAY Labs CBC & Chem 7: 03/01/22 22:35 03/02/22 07:57 Labs: Laboratory Results - last 24 hr 03/01/22 03/01/22 03/01/22 11:31 11:31 12:49 MCV 86.3 MCH 30.7 MCHC 35.5 H RDW 16.6 H Plt Count 409 H MPV 10.5 Immature Gran % (Auto) 0.1 Neut % (Auto) 67.1 Lymph % (Auto) 19.5 L Dane % (Auto) 12.2 H Eos % (Auto) 0.5 Baso % (Auto) 0.6 Lymph # (Auto) 1.7 Dane # (Auto) 1.1 Eos # (Auto) 0.0 Baso # (Auto) 0.1 Abs Immat Gran (auto) 0.01 Absolute Neuts (auto) 5.8 Absolute Nucleated RBC 0.000 Nucleated RBC % (auto) 0.0 Anion Gap 26 H Estim Creat Clear Calc 72.3 Estimated GFR 54 Random Glucose 110 Lactic Acid 1.1 Calcium 10.6 H D Magnesium Total Bilirubin 0.8 AST 17 ALT 27 Alkaline Phosphatase 97 D Troponin I High Sens Total Protein 8.4 H Albumin 4.6 Lipase 71 Urine Color Urine Appearance Urine pH Ur Specific [place] Urine Protein Urine Glucose (UA) Urine Ketones Urine Blood Urine Nitrite Ur Leukocyte Esterase Urine RBC Urine WBC Ur Squamous Epith Cells Urine Bacteria Hyaline Casts Urine Test 03/01/22 03/01/22 03/01/22 13:29 13:29 22:35 MCV 85.2 MCH 30.3 MCHC 35.5 H RDW 16.5 H Plt Count 384 MPV 10.6 Immature Gran % (Auto) 0.1 Neut % (Auto) 60.4 Lymph % (Auto) 26.9 Dane % (Auto) 11.2 H Eos % (Auto) 0.7 Baso % (Auto) 0.7 Lymph # (Auto) 2.1 Dane # (Auto) 0.9 Eos # (Auto) 0.1 Baso # (Auto) 0.1 Abs Immat Gran (auto) 0.01 Absolute Neuts (auto) 4.6 Absolute Nucleated RBC 0.000 Nucleated RBC % (auto) 0.0 Anion Gap Estim Creat Clear Calc Estimated GFR Random Glucose Lactic Acid Calcium Magnesium Total Bilirubin AST ALT Alkaline Phosphatase Troponin I High Sens Total Protein Albumin Lipase Urine Color Yellow Urine Appearance Cloudy Urine pH 6.0 Ur Specific [place] 1.020 Urine Protein 100 (2+) H Urine Glucose (UA) Negative Urine Ketones >=160 Urine Blood Negative Urine Nitrite Negative Ur Leukocyte Esterase Trace H Urine RBC 0-2 Urine WBC 0-5 Ur Squamous Epith Cells >20 Urine Bacteria 2+ Hyaline Casts 3-5 Urine Test NEGATIVE 03/01/22 03/01/22 03/02/22 22:35 22:35 07:57 MCV MCH MCHC RDW Plt Count MPV Immature Gran % (Auto) Neut % (Auto) Lymph % (Auto) Dane % (Auto) Eos % (Auto) Baso % (Auto) Lymph # (Auto) Dane # (Auto) Eos # (Auto) Baso # (Auto) Abs Immat Gran (auto) Absolute Neuts (auto) Absolute Nucleated RBC Nucleated RBC % (auto) Anion Gap 24 H 20 Estim Creat Clear Calc 83.6 84.5 Estimated GFR > 60 > 60 Random Glucose 93 86 Lactic Acid Calcium 9.4 D 9.1 Magnesium Total Bilirubin 1.1 H 1.1 H AST 17 18 ALT 23 22 Alkaline Phosphatase 83 77 Troponin I High Sens 24.0 H Total Protein 7.3 6.4 L Albumin 4.1 3.6 Lipase Urine Color Urine Appearance Urine pH Ur Specific [place] Urine Protein Urine Glucose (UA) Urine Ketones Urine Blood Urine Nitrite Ur Leukocyte Esterase Urine RBC Urine WBC Ur Squamous Epith Cells Urine Bacteria Hyaline Casts Urine Test 03/02/22 07:57 MCV MCH MCHC RDW Plt Count MPV Immature Gran % (Auto) Neut % (Auto) Lymph % (Auto) Dane % (Auto) Eos % (Auto) Baso % (Auto) Lymph # (Auto) Dane # (Auto) Eos # (Auto) Baso # (Auto) Abs Immat Gran (auto) Absolute Neuts (auto) Absolute Nucleated RBC Nucleated RBC % (auto) Anion Gap Estim Creat Clear Calc Estimated GFR Random Glucose Lactic Acid Calcium Magnesium 1.9 Total Bilirubin AST ALT Alkaline Phosphatase Troponin I High Sens Total Protein Albumin Lipase Urine Color Urine Appearance Urine pH Ur Specific [place] Urine Protein Urine Glucose (UA) Urine Ketones Urine Blood Urine Nitrite Ur Leukocyte Esterase Urine RBC Urine WBC Ur Squamous Epith Cells Urine Bacteria Hyaline Casts Urine Test Procedures Date of Service Date of Service: 03/02/22 Progress Note: A&P Assessment and plan (1) Nausea & vomiting: Status: Acute (2) Weakness: Status: Acute (3) Hypokalemia: Status: Acute (4) S/P laparoscopic sleeve gastrectomy: Status: Acute (5) Morbid obesity: Status: Acute (6) Hypertension: Status: Acute (7) Prediabetes: Status: Acute Plan Replace electrolytes IV fluid Continue clear liquids Arely Merritt, will continue to coordinate care. Plan reviewed with the patient and her questions seemed to be satisfactorily answered. Time Spent With Patient Time: Total time spent is greater than 50% in coordination of care (as documented) at patient's floor/unit and/or counseling patient: Quality Stroke Does the patient have a stroke diagnosis?: No VTE Prior VTE?: No VTE Risk Level:: Surgical - moderate VTE Device Contraindication: N/A - Device Ordered VTE Drug Contraindication: Treatment Not Indicated
[2022-03-02] MEDS: Potassium Chloride/H20 10 MEQ/100 ML PIGGYBACK 50 MEQ IV (11:56)
--- NOTE | 2022-03-02 13:05 | PC.NURSE ---
Report to overflow
[2022-03-02 14:20] LABS: COVID-19 Test Negative (Negative)
[2022-03-02 15:44] VITALS: BP 120/67; PULSE 64; RESP 16; TEMP 36.3; O2SAT 98
[2022-03-02 16:38] LABS: Alanine Aminotransferase 29 U/L (0-31); Albumin Level 3.6 g/dL (3.5-5.0); Alkaline Phosphatase 75 U/L (39-117); Anion Gap 21 (12-20); Aspartate Amino Transferase 23 U/L (5-31); Bilirubin Total 1.2 mg/dL (0.0-1.0); Blood Urea Nitrogen 8 mg/dL (9-16); Calcium 8.7 mg/dL (8.4-10.2); Carbon Dioxide 19 mmol/L (22-29); Chloride 101 mmol/L (96-108); Creatinine Clr Calc Pharmacy 92.2; Estimated Glomerular Filt Rate > 60; Glucose Random 97 mg/dL (60-115); Magnesium 2.1 mg/dL (1.6-2.6); Phosphorus 2.5 mg/dL (2.7-4.5); Potassium 2.8 mmol/L (3.3-5.1); Sodium 138 mmol/L (135-145); Total Protein 6.4 g/dL (6.5-8.0)
[2022-03-02] MEDS: Potassium Phosphate/NS 15 MMOL/250 ML PLAST..BAG 62.5 MMOL IV (17:43)
[2022-03-02 20:06] VITALS: BP 104/62; PULSE 69; RESP 16; TEMP 36.3; O2SAT 98
--- NOTE | 2022-03-02 21:01 | PC.NURSE ---
Verified orders for Potassium Chloride with Dr. Silverio, 4 bags of 10 meq of potassium should be administered after potassium Phosphate is infused
--- NOTE | 2022-03-02 21:49 | PC.NURSE ---
report given to LOPEZ Pleitez,patient will be transported to [id number]
[2022-03-02 22:12] LABS: Alanine Aminotransferase 27 U/L (0-31); Albumin Level 3.3 g/dL (3.5-5.0); Alkaline Phosphatase 70 U/L (39-117); Anion Gap 21 (12-20); Aspartate Amino Transferase 25 U/L (5-31); Blood Urea Nitrogen 8 mg/dL (9-16); Calcium 8.4 mg/dL (8.4-10.2); Carbon Dioxide 17 mmol/L (22-29); Chloride 103 mmol/L (96-108); Creatinine Clr Calc Pharmacy 101.6; Estimated Glomerular Filt Rate > 60; Glucose Random 84 mg/dL (60-115); Phosphorus 3.6 mg/dL (2.7-4.5); Potassium 3.3 mmol/L (3.3-5.1); Sodium 138 mmol/L (135-145)
[2022-03-02] MEDS: PARoxetine HCL 20 MG TABLET PO (22:13)
[2022-03-02 22:29] VITALS: BMI 38.5
[2022-03-02 22:59] VITALS: BP 129/76; PULSE 67; RESP 18; TEMP 36.3; O2SAT 99
--- NOTE | 2022-03-03 | ECG_ITS ---
Test Reason : ekg changes Blood Pressure : / mmHG Vent. Rate : 064 BPM Atrial Rate : 064 BPM P-R Int : 176 ms QRS Dur : 096 ms QT Int : 436 ms P-R-T Axes : 032 -05 002 degrees QTc Int : 449 ms Normal sinus rhythm Normal ECG When compared with ECG of 01-MAR-2022 22:04, ST no longer depressed in Lateral leads Referred By: Scott Alcantar Electronically Signed By:ANAMARIA HERNANDEZ MD
[2022-03-03] MEDS: Potassium Chloride/H20 10 MEQ/100 ML PIGGYBACK 100 MEQ IV ×7 (00:05→12:50)
[2022-03-03] MEDS: Potassium Chloride ER 20 MEQ TAB.ER.PRT PO (00:05)
[2022-03-03] MEDS: ondansetron HCL 4 MG/2 ML VIAL IVPUSH ×3 (00:05→18:11)
[2022-03-03 00:13] VITALS: BP 126/76; PULSE 65; RESP 16; TEMP 36.6; O2SAT 98
[2022-03-03 03:54] VITALS: BP 137/75; PULSE 71; RESP 16; TEMP 36.5; O2SAT 97
[2022-03-03 07:15] LABS: Alanine Aminotransferase 28 U/L (0-31); Albumin Level 3.7 g/dL (3.5-5.0); Alkaline Phosphatase 79 U/L (39-117); Anion Gap 20 (12-20); Aspartate Amino Transferase 21 U/L (5-31); Bilirubin Total 1.1 mg/dL (0.0-1.0); Blood Urea Nitrogen 6 mg/dL (9-16); Carbon Dioxide 19 mmol/L (22-29); Chloride 103 mmol/L (96-108); Creatinine Clr Calc Pharmacy 95.4; Estimated Glomerular Filt Rate > 60; Glucose Random 92 mg/dL (60-115); Phosphorus 3.2 mg/dL (2.7-4.5); Potassium 3.2 mmol/L (3.3-5.1); Sodium 139 mmol/L (135-145); Total Protein 6.5 g/dL (6.5-8.0)
[2022-03-03] MEDS: Lactated Ringers 1,000 ML 100 ML IVCONT (07:44)
[2022-03-03] MEDS: Metoclopramide HCl 10 MG/2 ML VIAL IVPUSH ×3 (07:44→22:55)
[2022-03-03 08:00] VITALS: BP 128/72; PULSE 65; RESP 18; TEMP 36.7; O2SAT 98
[2022-03-03] MEDS: Pantoprazole Sodium 40 MG/10 ML VIAL IVPUSH (08:36)
[2022-03-03] MEDS: carvediloL 25 MG TABLET PO ×2 (08:36→19:39)
[2022-03-03] MEDS: amLODIPine Besylate 10 MG TABLET PO (08:36)
[2022-03-03] MEDS: PARoxetine HCL 20 MG TABLET PO (08:38)
--- NOTE | 2022-03-03 09:41 | PM.PNGS ---
Subjective Subjective Date of Service: 03/03/22 <WESLEY Little - Last Filed: 03/03/22 09:52> 03/03/22 <Lex Kelley MD - Last Filed: 03/03/22 10:54> Interval history: Patient denies any pain this morning. She continues to have nausea which was made worse when trying PO potassium. Able to tolerate some sips of water, but does not want protein shakes. Ambulating to bathroom. Only able to run IV K+ at 10meq q2h due to burning at IV site. <WESLEY Little - Last Filed: 03/03/22 09:52> Physical Exam Vital Signs: Vital Signs: Last Vital Signs Temp 98.0 F 03/03/22 08:00 Pulse 65 03/03/22 08:00 Resp 18 03/03/22 08:00 BP 128/72 03/03/22 08:00 Pulse Ox 98 03/03/22 08:00 O2 Del Method 03/03/22 08:00 BMI result Body Mass Index 38.5 <WESLEY Little - Last Filed: 03/03/22 09:52> Const: General: cooperative and no acute distress <WESLEY Little - Last Filed: 03/03/22 09:52> GI: Other: soft, nontender, nondistended, incisions C/D/I without erythema or drainage <WESLEY Little - Last Filed: 03/03/22 09:52> Objective Data Active Medications Acetaminophen (Acetaminophen 325 Mg Tablet) 650 mg PO Q4H PRN PRN Reason: Pain, Mild (Pain Scale 1-3) Amlodipine Besylate (Amlodipine Besylate 10 Mg Tablet) 10 mg PO DAILY [facility]; Protocol Last Admin: 03/03/22 08:36 Dose: 10 mg Documented By: PALLAVI Carvedilol (Carvedilol 25 Mg Tablet) 25 mg PO BID [facility]; Protocol Last Admin: 03/03/22 08:36 Dose: 25 mg Documented By: PALLAVI Lactated Ringer's (Lr) 1,000 mls @ 100 mls/hr IVCONT .Q10H [facility] Last Admin: 03/03/22 07:44 Dose: 100 mls/hr Documented By: PALLAVI Potassium Chloride (Potassium Chloride/H20) 10 meq in 100 mls @ 100 mls/hr IV Q1H [facility] Stop: 03/03/22 11:59 Last Admin: 03/03/22 09:02 Dose: 100 mls/hr Documented By: PALLAVI Metoclopramide HCl (Metoclopramide Hcl 10 Mg/2 Ml Vial) 10 mg IVPUSH Q6H PRN PRN Reason: Nausea Last Admin: 03/03/22 07:44 Dose: 10 mg Documented By: PALLAVI Ondansetron HCl (Ondansetron Hcl 4 Mg/2 Ml Vial) 4 mg IVPUSH Q8H [facility] Last Admin: 03/03/22 00:05 Dose: 4 mg Documented By: LUCY Pantoprazole Sodium (Pantoprazole Sodium 40 Mg/10 Ml Vial) 40 mg IVPUSH DAILY [facility] Last Admin: 03/03/22 08:36 Dose: 40 mg Documented By: PALLAVI Paroxetine HCl (Paroxetine Hcl 20 Mg Tablet) 20 mg PO DAILY [facility] Last Admin: 03/03/22 08:38 Dose: 20 mg Documented By: PALLAVI Potassium Chloride (Potassium Chloride Er 20 Meq Tab.Er.Prt) 20 meq PO BID [facility] Last Admin: 03/03/22 08:52 Dose: Not Given Documented By: PALLAVI Non-Admin Reason: refused, unable to tolerate Sodium Chloride (0.9 % Sodium Chloride Flush 3 Ml Syringe) 3 ml IVFLUSH QSHIFT [facility] Last Admin: 03/03/22 07:32 Dose: Not Given Documented By: PALLAVI Non-Admin Reason: IV Running Sucralfate (Sucralfate Oral Suspension 1 Gm/10 Ml Oral.Susp) 1 gm PO BID [facility] Last Admin: 03/03/22 08:52 Dose: Not Given Documented By: PALLAVI Non-Admin Reason: refused, unable to tolerate PO <WESLEY Little - Last Filed: 03/03/22 09:52> Labs CBC & Chem 7: : 03/01/22 22:35 03/03/22 05:46 <WESLEY Little - Last Filed: 03/03/22 09:52> Labs: Laboratory Results - last 24 hr 03/02/22 03/02/2203/02/22 13:53 16:02 21:38 Anion Gap 21 H 21 H Estim Creat Clear Calc 92.2 101.6 Estimated GFR > 60 > 60 Random Glucose 97 84 Calcium 8.7 8.4 Phosphorus 2.5 L 3.6 Magnesium 2.1 2.0 Total Bilirubin 1.2 H 1.0 AST 23 25 ALT 29 27 Alkaline Phosphatase 75 70 Total Protein 6.4 L 6.0 L Albumin 3.6 3.3 L COVID-19 ([facility]) Negative COVID-19 Clin Com See Note 03/03/22 05:46 Anion Gap 20 Estim Creat Clear Calc 95.4 Estimated GFR > 60 Random Glucose 92 Calcium 9.0 D Phosphorus 3.2 Magnesium 2.0 Total Bilirubin 1.1 H AST 21 ALT 28 Alkaline Phosphatase 79 Total Protein 6.5 Albumin 3.7 COVID-19 ([facility]) COVID-19 Clin Com <WESLEY Little - Last Filed: 03/03/22 09:52> Procedures Date of Service Date of Service: 03/03/22 <WESLEY Little - Last Filed: 03/03/22 09:52> Progress Note: A&P Assessment and plan (1) Dehydration: Status: Acute <WESLEY Little - Last Filed: 03/03/22 09:52> (2) Hypokalemia: Status: Acute <WESLEY Little - Last Filed: 03/03/22 09:52> (3) Nausea & vomiting: Status: Acute <WESLEY Little - Last Filed: 03/03/22 09:52> (4) S/P laparoscopic sleeve gastrectomy: Status: Acute <WESLEY Little - Last Filed: 03/03/22 09:52> Assessment and Plan: Pt with persistent hypokalemia despite ongoing replacement. Likely related to excessive losses due to vomiting; pt is equilibrating very slowly, complicated by slow rate of replacement at only 10meq q2h. Will consult hospitalist service for assistance with management. Continue bariatric stage 3 diet (clear liquids and protein shakes, 1oz q15min) IVF resuscitation at 100cc/hr Nausea control- Zofran, Reglan, scopolamine PPI, carafate Home meds Pt encouraged to ambulate Discussed with Dr. Kelley <WESLEY Little - Last Filed: 03/03/22 09:52> Pt with persistent hypokalemia despite ongoing replacement. Likely related to excessive losses due to vomiting; pt is equilibrating very slowly, complicated by slow rate of replacement at only 10meq q2h. Will consult hospitalist service for assistance with management. Continue bariatric stage 3 diet (clear liquids and protein shakes, 1oz q15min) IVF resuscitation at 100cc/hr Nausea control- Zofran, Reglan, scopolamine PPI, carafate Home meds Pt encouraged to ambulate Discussed with Dr. Kelley Agree with above <Lex Kelley MD - Last Filed: 03/03/22 10:54> Time Spent With Patient Time: Total time spent is greater than 50% in coordination of care (as documented) at patient's floor/unit and/or counseling patient: <WESLEY Little - Last Filed: 03/03/22 09:52> Quality Stroke Does the patient have a stroke diagnosis?: No <WESLEY Little - Last Filed: 03/03/22 09:52> VTE Prior VTE?: No <WESLEY Little - Last Filed: 03/03/22 09:52> VTE Risk Level:: Surgical - moderate <WESLEY Little - Last Filed: 03/03/22 09:52> VTE Device Contraindication: N/A - Device Ordered <WESLEY Little - Last Filed: 03/03/22 09:52> VTE Drug Contraindication: Treatment Not Indicated <WESLEY Little - Last Filed: 03/03/22 09:52>
[2022-03-03] MEDS: KCl 20 mEq in 5 % Dex/Lact Rin 20 MEQ/1,000 ML IV.SOLN 100 MEQ IVCONT ×2 (11:24→22:56)
--- NOTE | 2022-03-03 11:26 | P.CONHOSP_ITS ---
History of Present Illness Data of Consult Service Date: 03/03/22 Primary Care Provider: JOMAR Romero HPI Reason for consult: persistent hypokalemia The patient is a 41 y/o F with a PMH as outlined below who is s/p LSG on 02/18/22. She presented to the ED on 03/01/2022 with complaints of nausea/vomiting and unable to keep anything PO down. She was noted to be hyopkalemic. She has been admitted by bariatric surgery. Medical consult was requested today due to persistent hypokalemia. D/w WESLEY Johnston about the case this AM. The patient has been intolerant to IV K due to pain and PO K due to nausea. The patient is seen and examined in her room. She reports persistent nausea worsening by KCl tabs. The patient has had her KCl run this AM wih saline and endorses less pain. The patient reports she follows up with Dr. Mendoza from nephrology for kidney disease. She reports no issues with hypoK in the past. Review of Systems Review of Systems: negative except [facility] Medical History Adult general medical exam Anxiety Back pain Brain lesion Depression DEGROOT (dyspnea on exertion) Encounter to establish care Intercostal neuralgia Intercostal neuralgia Migraines Morbid obesity with body mass index (BMI) of 50.0 to 59.9 in adult Myofascial pain on left side Neck pain MICHAEL (obstructive sleep apnea) Psoriasis Psoriatic arthritis Family History Mother Hypertension Osteoporosis Back problem Father Hypertension Anxiety Depression Back problem Brother No problems noted. Sister Depression Anxiety Son Anxiety Depression Tourette syndrome Son Depression Anxiety ADHD Daughter Anxiety Depression Other S/P laparoscopic sleeve gastrectomy Surgical History H/O total hysterectomy History of carpal tunnel surgery History of endometrial ablation History of lung surgery Hx of tubal ligation S/P laparoscopic sleeve gastrectomy Social History Household Members: Spouse, Family and Children Housing: House Are you a primary residential care facility manager to a significant other at home: No Do you presently have visiting nurse or other home services: No Alcohol intake: never Patient Tobacco Use Status: Never used Tobacco e-Cigarette/Vaping Use: Never Used Second Hand Smoke Exposure: No service: No Current occupational status: disabled Cognitive needs: No Hearing needs: No Vision needs: No Meds Allergies Allergy/AdvReac Type Severity Reaction Status Date / Time gadobutrol [GADOBUTROL] Allergy Severe RASH, Verified 02/24/22 08:16 TONGUE SWELLING, SOB Iodinated Contrast Media Allergy Severe DIFFICULTY Verified 02/24/22 08:16 [IV CONTRAST] BREATHING morphine Allergy Severe Anaphylaxis Verified 02/24/22 08:16 peanut [PEANUT] Allergy Severe ANAPHYLAXIS Verified 02/24/22 08:16 amoxicillin [Amoxicillin] Allergy Intermediate RASH Verified 02/24/22 08:16 cinnamon [CINNAMON] Allergy Intermediate TONGUE Verified 02/24/22 08:16 SWELLING Active Medications: Current Medications Acetaminophen (Acetaminophen 325 Mg Tablet) 650 mg PO Q4H PRN PRN Reason: Pain, Mild (Pain Scale 1-3) Amlodipine Besylate (Amlodipine Besylate 10 Mg Tablet) 10 mg PO DAILY [facility]; Protocol Last Admin: 03/03/22 08:36 Dose: 10 mg Carvedilol (Carvedilol 25 Mg Tablet) 25 mg PO BID [facility]; Protocol Last Admin: 03/03/22 08:36 Dose: 25 mg Potassium Chloride (Potassium Chloride/H20) 10 meq in 100 mls @ 100 mls/hr IV Q1H [facility] Stop: 03/03/22 11:59 Last Admin: 03/03/22 10:40 Dose: 100 mls/hr Potassium Cl/Dextrose/Lact Ringer's (Kcl 20 Meq In 5 % Dex/Lact Rin) 20 meq in 1,000 mls @ 100 mls/hr IVCONT .Q10H [facility] Last Admin: 03/03/22 11:24 Dose: 100 mls/hr Metoclopramide HCl (Metoclopramide Hcl 10 Mg/2 Ml Vial) 10 mg IVPUSH Q6H [facility] Last Admin: 03/03/22 11:25 Dose: Not Given Ondansetron HCl (Ondansetron Hcl 4 Mg/2 Ml Vial) 4 mg IVPUSH Q8H [facility] Last Admin: 03/03/22 11:24 Dose: 4 mg Pantoprazole Sodium (Pantoprazole Sodium 40 Mg/10 Ml Vial) 40 mg IVPUSH DAILY [facility] Last Admin: 03/03/22 08:36 Dose: 40 mg Paroxetine HCl (Paroxetine Hcl 20 Mg Tablet) 20 mg PO DAILY [facility] Last Admin: 03/03/22 08:38 Dose: 20 mg Sodium Chloride (0.9 % Sodium Chloride Flush 3 Ml Syringe) 3 ml IVFLUSH QSHIFT [facility] Last Admin: 03/03/22 07:32 Dose: Not Given Sucralfate (Sucralfate Oral Suspension 1 Gm/10 Ml Oral.Susp) 1 gm PO BID [facility] Last Admin: 03/03/22 08:52 Dose: Not Given Home Medications Medication Instructions Recorded Confirmed Last Taken Type amlodipine 10 mg tablet 10 mg PO DAILY 05/23/20 03/02/22 02/28/22 History carvedilol 25 mg tablet 25 mg PO BID 05/23/20 03/02/22 02/28/22 History gabapentin 600 mg tablet 600 mg PO BID 01/21/22 03/02/22 02/28/22 History paroxetine HCl 20 mg tablet 1 tab PO BEDTIME depressive 02/18/22 03/02/22 02/28/22 History disorder triamcinolone acetonide 0.1 % 1 appl topical DAILY PRN psoriasis 03/02/22 03/02/22 Unknown History topical cream Physical Exam Vital Signs and Narrative: Vital Signs: Last Vital Signs Temp 98.0 F 03/03/22 08:00 Pulse 65 03/03/22 08:00 Resp 18 03/03/22 08:00 BP 128/72 03/03/22 08:00 Pulse Ox 98 03/03/22 08:00 O2 Del Method 03/03/22 08:00 BMI result Body Mass Index 38.5 Const: Other: General - appears unwell, nauseous Cardiovascular - regular rate and rhythm, S1-S2 Lungs - normal respiratory effort, clear to auscultation bilaterally, no wheezing Extremities - no edema bilaterally Neuro - awake and alert, no focal deficits Results Labs CBC and Chem 7: 03/01/22 22:35 03/03/22 11:21 Labs: Laboratory Results - last 24 hr 03/02/22 03/02/22 03/02/22 13:53 16:02 21:38 Anion Gap 21 H 21 H Estim Creat Clear Calc 92.2 101.6 Estimated GFR > 60 > 60 Random Glucose 97 84 Calcium 8.7 8.4 Phosphorus 2.5 L 3.6 Magnesium 2.1 2.0 Total Bilirubin 1.2 H 1.0 AST 23 25 ALT 29 27 Alkaline Phosphatase 75 70 Total Protein 6.4 L 6.0 L Albumin 3.6 3.3 L COVID-19 (ALEJANDRO) Negative COVID-19 Clin Com See Note 03/03/22 05:46 Anion Gap 20 Estim Creat Clear Calc 95.4 Estimated GFR > 60 Random Glucose 92 Calcium 9.0 D Phosphorus 3.2 Magnesium 2.0 Total Bilirubin 1.1 H AST 21 ALT 28 Alkaline Phosphatase 79 Total Protein 6.5 Albumin 3.7 COVID-19 (ALEJANDRO) COVID-19 Clin Com Assessment and Plan (1) Hypokalemia: Status: Acute Plan The patient is a 41 y/o F with a PMH as outlined below who is s/p LSG on 02/18/22. She is admitted for intractable nausea and vomiting with resultant hypoK. Medical consult requested for mgmt of her hyopK. 1. Hypokalemia likely due to decreased oral intake; Mag is >2 EKG changes seen on initial EKG; will repeat EKG now and place on tele d/w the patient and primary team -- will attempt potassium chloride packet to see if she tolerates this better additionally -- IVF to include KCl in them (20meq KCL per bag); the patient also tolerated IV potassium better when running with saline, so this can also be used if we need to give IV K. Repeat K daily If continues to be problematic, may need to get nephrology involved (she follows with Dr. Mendoza as an outpatient). 2. EKG changes with elevated HS trop-I pt denying chest pain no repeat trop check, will check now repeat EKG and place on tele Will follow with you.
[2022-03-03 11:38] LABS: Potassium 3.2 mmol/L (3.3-5.1)
[2022-03-03 11:58] VITALS: BP 103/67; PULSE 68; RESP 18; TEMP 36.6; O2SAT 98
--- NOTE | 2022-03-03 12:48 | P.HPGS_ITS ---
History of Present Illness History of Present Illness Date of Service: 03/03/22 Chief complaint: postop dehydration Narrative: Darius Velazquez is a 41 year old female who recently underwent sleeve gastrectomy by Dr. Kelley 02/18/2022. She was seen in the office postoperatively where she reported frequent burping and difficulty tolerating protein shakes. She was instructed to slow the pace of her drinking. Over the weekend she reported vomiting and weakness so she was asked to come to the ED. In ED, she was resuscitated with IV fluids and had labs drawn which showed hypokalemia. She was given IV potassium but levels did not improve. Review of Systems Constitutional: Constitutional: Reports as per [facility] Past Medical History Medical History Adult general medical exam Anxiety Back pain Brain lesion Depression DEGROOT (dyspnea on exertion) Encounter to establish care Intercostal neuralgia Intercostal neuralgia Migraines Morbid obesity with body mass index (BMI) of 50.0 to 59.9 in adult Myofascial pain on left side Neck pain MICHAEL (obstructive sleep apnea) Psoriasis Psoriatic arthritis Family History Family History Mother Hypertension Osteoporosis Back problem Father Hypertension Anxiety Depression Back problem Brother No problems noted. Sister Depression Anxiety Son Anxiety Depression Tourette syndrome Son Depression Anxiety ADHD Daughter Anxiety Depression Other S/P laparoscopic sleeve gastrectomy Surgical History Surgical History H/O total hysterectomy History of carpal tunnel surgery History of endometrial ablation History of lung surgery Hx of tubal ligation S/P laparoscopic sleeve gastrectomy Social History Social History Household Members: Spouse, Family and Children Housing: House Are you a primary rn intensive care unit to a significant other at home: No Do you presently have visiting nurse or other home services: No Alcohol intake: never Patient Tobacco Use Status: Never used Tobacco e-Cigarette/Vaping Use: Never Used Second Hand Smoke Exposure: No service: No Current occupational status: disabled Cognitive needs: No Hearing needs: No Vision needs: No Meds Allergies Allergy/AdvReac Type Severity Reaction Status Date / Time gadobutrol [GADOBUTROL] Allergy Severe RASH, Verified 02/24/22 08:16 TONGUE SWELLING, SOB Iodinated Contrast Media Allergy Severe DIFFICULTY Verified 02/24/22 08:16 [IV CONTRAST] BREATHING morphine Allergy Severe Anaphylaxis Verified 02/24/22 08:16 peanut [PEANUT] Allergy Severe ANAPHYLAXIS Verified 02/24/22 08:16 amoxicillin [Amoxicillin] Allergy Intermediate RASH Verified 02/24/22 08:16 cinnamon [CINNAMON] Allergy Intermediate TONGUE Verified 02/24/22 08:16 SWELLING Active Medications: Current Medications Acetaminophen (Acetaminophen 325 Mg Tablet) 650 mg PO Q4H PRN PRN Reason: Pain, Mild (Pain Scale 1-3) Amlodipine Besylate (Amlodipine Besylate 10 Mg Tablet) 10 mg PO DAILY [facility]; Protocol Last Admin: 03/03/22 08:36 Dose: 10 mg Carvedilol (Carvedilol 25 Mg Tablet) 25 mg PO BID [facility]; Protocol Last Admin: 03/03/22 08:36 Dose: 25 mg Potassium Cl/Dextrose/Lact Ringer's (Kcl 20 Meq In 5 % Dex/Lact Rin) 20 meq in 1,000 mls @ 100 mls/hr IVCONT .Q10H [facility] Last Infusion: 03/03/22 11:26 Dose: 0 mls/hr Metoclopramide HCl (Metoclopramide Hcl 10 Mg/2 Ml Vial) 10 mg IVPUSH Q6H [facility] Last Admin: 03/03/22 11:25 Dose: Not Given Ondansetron HCl (Ondansetron Hcl 4 Mg/2 Ml Vial) 4 mg IVPUSH Q8H [facility] Last Admin: 03/03/22 11:24 Dose: 4 mg Pantoprazole Sodium (Pantoprazole Sodium 40 Mg/10 Ml Vial) 40 mg IVPUSH DAILY [facility] Last Admin: 03/03/22 08:36 Dose: 40 mg Paroxetine HCl (Paroxetine Hcl 20 Mg Tablet) 20 mg PO DAILY [facility] Last Admin: 03/03/22 08:38 Dose: 20 mg Sodium Chloride (0.9 % Sodium Chloride Flush 3 Ml Syringe) 3 ml IVFLUSH QSHIFT [facility] Last Admin: 03/03/22 07:32 Dose: Not Given Sucralfate (Sucralfate Oral Suspension 1 Gm/10 Ml Oral.Susp) 1 gm PO BID [facility] Last Admin: 03/03/22 08:52 Dose: Not Given Home Medications Medication Instructions Recorded Confirmed Last Taken Type amlodipine 10 mg tablet 10 mg PO DAILY 05/23/20 03/02/22 02/28/22 History carvedilol 25 mg tablet 25 mg PO BID 05/23/20 03/02/22 02/28/22 History gabapentin 600 mg tablet 600 mg PO BID 01/21/22 03/02/22 02/28/22 History paroxetine HCl 20 mg tablet 1 tab PO BEDTIME depressive 02/18/22 03/02/22 02/28/22 History disorder triamcinolone acetonide 0.1 % 1 appl topical DAILY PRN psoriasis 03/02/22 03/02/22 Unknown History topical cream Physical Exam Vital Signs: Vital Signs: Last Vital Signs Temp 97.9 F 03/03/22 11:58 Pulse 68 03/03/22 11:58 Resp 18 03/03/22 11:58 BP 103/67 03/03/22 11:58 Pulse Ox 98 03/03/22 11:58 O2 Del Method 03/03/22 11:58 BMI result Body Mass Index 38.5 Results Results Labs: BMP 03/02/22 03/02/22 03/03/22 16:02 21:38 05:46 Sodium 138 138 139 Potassium 2.8 L 3.3 3.2 L Chloride 101 103 103 Carbon Dioxide 19 L 17 L 19 L BUN 8 L 8 L 6 L Creatinine 0.87 0.79 0.86 Calcium 8.7 8.4 9.0 D 03/03/22 11:21 Sodium Potassium 3.2 L Chloride Carbon Dioxide BUN Creatinine Calcium Liver Function 03/02/22 03/02/22 03/03/22 Range/Units 16:02 21:38 05:46 Total Bilirubin 1.2 H 1.0 1.1 H (0.0-1.0) mg/dL AST 23 25 21 (5-31) U/L ALT 29 27 28 (0-31) U/L Alkaline Phosphatase 75 70 79 (39-117) U/L Albumin 3.6 3.3 L 3.7 (3.5-5.0) g/dL Urine 03/01/22 03/01/22 Range/Units 13:29 13:29 Urine Color Yellow Urine Appearance Cloudy Urine pH 6.0 (5.0-9.0) Ur Specific [place] 1.020 (1.005-1.025) Urine Protein 100 (2+) H (Neg-Trace) mg/dL Urine Glucose (UA) Negative (Negative) mg/dL Urine Test NEGATIVE (NEGATIVE) Assessment and Plan (1) Dehydration: Status: Acute (2) Nausea & vomiting: Status: Acute (3) Hypokalemia: Status: Acute (4) S/P laparoscopic sleeve gastrectomy: Status: Acute Plan Pt with persistent hypokalemia despite IV replacement. Labs redrawn to ensure accuracy and K+ remains low. Will admit pt for observation, IVF resuscitation, continue IV K+ and recheck labs in AM. Quality Stroke Does the patient have a stroke diagnosis?: No VTE Prior VTE?: No VTE Risk Level:: Surgical - moderate VTE Device Contraindication: N/A - Device Ordered VTE Drug Contraindication: Treatment Not Indicated Procedures Date of Service Date of Service: 03/02/22
--- NOTE | 2022-03-03 15:27 | MHC.CM.PN ---
GUALBERTO DELIVERED CM MET WITH PT, STAYING WITH HER PARENTS SINCE BARIATRIC SURGERY, SINGLE FAMILY HOME. NO SERVICES OR DME. NO HCP ON FILE, DECLINES TO FILL ONE OUT AT THIS TIME. COVJYOTHI VALENTE X2 PCP [place] NGUYỄN. CM TO FOLLOW FOR DC NEEDS. FAMILY WILL TRANSPORT HOME WHEN READY TO DC
[2022-03-03 15:42] LABS: Magnesium 1.8 mg/dL (1.6-2.6); Phosphorus 2.6 mg/dL (2.7-4.5)
[2022-03-03 16:00] VITALS: BP 115/71; PULSE 60; RESP 18; TEMP 36.6; O2SAT 99
[2022-03-03 19:37] VITALS: BP 141/85; PULSE 65
[2022-03-03] MEDS: Sucralfate Oral Suspension 1 GM/10 ML ORAL.SUSP PO (19:39)
[2022-03-04] VITALS: BP 128/79; PULSE 68; RESP 18; TEMP 36.7; O2SAT 97
[2022-03-04] MEDS: ondansetron HCL 4 MG/2 ML VIAL IVPUSH ×3 (02:28→18:50)
--- NOTE | 2022-03-04 03:00 | PC.NURSE ---
Pt has a new order for Phos IV x1 at start of shift, still with on gong IVF of D5LR with 20 meq KCL, irina CARDENAS if med can be given together, Dr. Silverio called and said to hold the Kphos IV order and just cont with the present IVF.
[2022-03-04 03:35] VITALS: BP 131/71; PULSE 66; RESP 18; TEMP 36.8; O2SAT 97
[2022-03-04] MEDS: Metoclopramide HCl 10 MG/2 ML VIAL IVPUSH ×4 (04:52→21:39)
[2022-03-04 07:04] LABS: Anion Gap 18 (12-20); Blood Urea Nitrogen 3 mg/dL (9-16); Calcium 9.3 mg/dL (8.4-10.2); Carbon Dioxide 23 mmol/L (22-29); Chloride 101 mmol/L (96-108); Creatinine Clr Calc Pharmacy 101.2; Estimated Glomerular Filt Rate > 60; Glucose Random 151 mg/dL (60-115); Potassium 3.1 mmol/L (3.3-5.1); Sodium 139 mmol/L (135-145)
[2022-03-04 07:23] VITALS: BP 164/93; PULSE 72; RESP 20; TEMP 36.2; O2SAT 97
--- NOTE | 2022-03-04 07:55 | P.PNGS_ITS ---
Subjective Subjective Date of Service: 03/04/22 Patient reports: tolerating liquids well Interval history: The patient seems a little down today. We reviewed the difficulties in adjusting her electrolyte anomalies due to her dehydration. We also reviewed her new anatomy and physiology and she continues to endorse that she is tolerating liquids, has no issues with regurgitation or odynophagia, there is no delayed swallowing that is occurring. She does voice some to stain at the dietary monotony but understands the dietary progression for safety reasons. Sh hallie otherwise denies pain in her chest, trouble breathing, nausea or vomiting. Overnight, there was a concern about tremulousness in the patient's hands, but in evaluating her this morning, she has no tremor. Physical Exam Vital Signs: Vital Signs: Last Vital Signs Temp 97.1 F 03/04/22 07:23 Pulse 72 03/04/22 07:23 Resp 20 03/04/22 07:23 BP 164/93 H 03/04/22 07:23 Pulse Ox 97 03/04/22 07:23 O2 Del Method 03/04/22 07:23 BMI result Body Mass Index 38.5 Patient appears tired but is nontoxic Sclera are anicteric Abdomen is obese and nontender. Incisions are clean dry and intact Objective Data Active Medications Acetaminophen (Acetaminophen 325 Mg Tablet) 650 mg PO Q4H PRN PRN Reason: Pain, Mild (Pain Scale 1-3) Amlodipine Besylate (Amlodipine Besylate 10 Mg Tablet) 10 mg PO DAILY [facility]; Protocol Last Admin: 03/03/22 08:36 Dose: 10 mg Documented By: PALLAVI Carvedilol (Carvedilol 25 Mg Tablet) 25 mg PO BID [facility]; Protocol Last Admin: 03/03/22 19:39 Dose: 25 mg Documented By: VIVEK Comments: OA=628/85 H=65 Potassium Cl/Dextrose/Lact Ringer's (Kcl 20 Meq In 5 % Dex/Lact Rin) 20 meq in 1,000 mls @ 50 mls/hr IVCONT .Q20H [facility] Last Admin: 03/03/22 22:56 Dose: 100 mls/hr Documented By: VIVEK Potassium Phosphate (Kphos) 15 mmol in 250 mls @ 62.5 mls/hr IV ONCE ONE Stop: 03/04/22 11:48 Metoclopramide HCl (Metoclopramide Hcl 10 Mg/2 Ml Vial) 10 mg IVPUSH Q6H [facility] Last Admin: 03/04/22 04:52 Dose: 10 mg Documented By: VIVEK Ondansetron HCl (Ondansetron Hcl 4 Mg/2 Ml Vial) 4 mg IVPUSH Q8H [facility] Last Admin: 03/04/22 02:28 Dose: 4 mg Documented By: VIVEK Pantoprazole Sodium (Pantoprazole Sodium 40 Mg/10 Ml Vial) 40 mg IVPUSH DAILY [facility] Last Admin: 03/03/22 08:36 Dose: 40 mg Documented By: PALLAVI Paroxetine HCl (Paroxetine Hcl 20 Mg Tablet) 20 mg PO DAILY [facility] Last Admin: 03/03/22 08:38 Dose: 20 mg Documented By: PALLAVI Sodium Chloride (0.9 % Sodium Chloride Flush 3 Ml Syringe) 3 ml IVFLUSH QSHIFT [facility] Last Admin: 03/04/22 07:11 Dose: Not Given Documented By: PALLAVI Non-Admin Reason: IV Running Sucralfate (Sucralfate Oral Suspension 1 Gm/10 Ml Oral.Susp) 1 gm PO BID [facility] Last Admin: 03/03/22 19:39 Dose: 1 gm Documented By: VIVEK Labs CBC & Chem 7: 03/01/22 22:35 03/04/22 05:24 Labs: Laboratory Results - last 24 hr 03/03/22 03/03/22 03/04/22 13:29 15:08 05:24 Anion Gap 18 Estim Creat Clear Calc 101.2 Estimated GFR > 60 Random Glucose 151 H Calcium 9.3 Phosphorus 2.6 L 2.0 L Magnesium 1.8 Troponin I High Sens 23.0 H Procedures Date of Service Date of Service: 03/04/22 Progress Note: A&P Assessment and plan (1) Dehydration: Status: Acute (2) Nausea & vomiting: Status: Acute (3) Weakness: Status: Acute (4) Hypokalemia: Status: Acute (5) S/P laparoscopic sleeve gastrectomy: Status: Acute (6) Morbid obesity: Status: Acute (7) Hypertension: Status: Acute (8) Prediabetes: Status: Acute (9) Major depressive disorder, recurrent, moderate: Status: Acute Plan The patient's BUN is dropped to 3, suggesting volume overload with water. This may be causing a dilutional hypokalemia. The discuss the case with our spitalist and he will review the chart and make recommendations later this morning. Continue present diet. Stop IV fluid for now. Will reassess patient psych/mental state later. She continues to deny any swallowing or abdominal pain symptoms that are worrisome for complication. The need to medically optimize before discharge. Time Spent With Patient Time: Total time spent is greater than 50% in coordination of care (as documented) at patient's floor/unit and/or counseling patient: Quality Stroke Does the patient have a stroke diagnosis?: No VTE Prior VTE?: No VTE Risk Level:: Surgical - moderate VTE Device Contraindication: N/A - Device Ordered VTE Drug Contraindication: Treatment Not Indicated
[2022-03-04 08:11] LABS: Magnesium 1.9 mg/dL (1.6-2.6)
--- NOTE | 2022-03-04 09:13 | HO.PM.IMPN ---
Subjective Subjective Date of Service: 03/04/22 Interval History: tolerating liquids + minimal clear protein shakes with some nausea diarrhea resolved no muscle weakness no chest pain Review of Systems Review of Systems: Yes all other systems are reviewed and are negative Physical Exam Vital Signs: Vital Signs: Last Vital Signs Temp 97.1 F 03/04/22 07:23 Pulse 72 03/04/22 07:23 Resp 20 03/04/22 07:23 BP 164/93 H 03/04/22 07:23 Pulse Ox 97 03/04/22 07:23 O2 Del Method 03/04/22 07:23 BMI result Body Mass Index 38.5 Gen: in no acute distress HEENT: sclera anicteric, moist mucus membranes Neck: supple Lungs: clear to auscultation bilaterally Heart: regular rate and rhythm, no murmurs Abd: soft, non-tender, non-distended, obese Ext: no edema Skin: warm/well-perfused Neuro: alert and oriented x3, no focal findings Psych: appropriate affect Objective Data Active Medications Acetaminophen (Acetaminophen 325 Mg Tablet) 650 mg PO Q4H PRN PRN Reason: Pain, Mild (Pain Scale 1-3) Amlodipine Besylate (Amlodipine Besylate 10 Mg Tablet) 10 mg PO DAILY [facility]; Protocol Last Admin: 03/03/22 08:36 Dose: 10 mg Documented By: PALLAVI Carvedilol (Carvedilol 25 Mg Tablet) 25 mg PO BID [facility]; Protocol Last Admin: 03/03/22 19:39 Dose: 25 mg Documented By: VIVEK Comments: BU=785/85 H=65 Potassium Cl/Dextrose/Lact Ringer's (Kcl 20 Meq In 5 % Dex/Lact Rin) 20 meq in 1,000 mls @ 50 mls/hr IVCONT .Q20H [facility] Last Admin: 03/03/22 22:56 Dose: 100 mls/hr Documented By: VIVEK Potassium Phosphate (Kphos) 15 mmol in 250 mls @ 62.5 mls/hr IV ONCE ONE Stop: 03/04/22 11:48 Metoclopramide HCl (Metoclopramide Hcl 10 Mg/2 Ml Vial) 10 mg IVPUSH Q6H [facility] Last Admin: 03/04/22 04:52 Dose: 10 mg Documented By: VIVEK Ondansetron HCl (Ondansetron Hcl 4 Mg/2 Ml Vial) 4 mg IVPUSH Q8H [facility] Last Admin: 03/04/22 02:28 Dose: 4 mg Documented By: VIVEK Pantoprazole Sodium (Pantoprazole Sodium 40 Mg/10 Ml Vial) 40 mg IVPUSH DAILY [facility] Last Admin: 03/03/22 08:36 Dose: 40 mg Documented By: PALLAVI Paroxetine HCl (Paroxetine Hcl 20 Mg Tablet) 20 mg PO DAILY [facility] Last Admin: 03/03/22 08:38 Dose: 20 mg Documented By: PALLAVI Sodium Chloride (0.9 % Sodium Chloride Flush 3 Ml Syringe) 3 ml IVFLUSH QSHIFT [facility] Last Admin: 03/04/22 07:11 Dose: Not Given Documented By: PALLAVI Non-Admin Reason: IV Running Sucralfate (Sucralfate Oral Suspension 1 Gm/10 Ml Oral.Susp) 1 gm PO BID [facility] Last Admin: 03/03/22 19:39 Dose: 1 gm Documented By: VIVEK Labs CBC & Chem 7: 03/01/22 22:35 03/04/22 05:24 Labs: Laboratory Results - last 24 hr 03/03/22 03/03/22 03/04/22 13:29 15:08 05:24 Anion Gap 18 Estim Creat Clear Calc 101.2 Estimated GFR > 60 Random Glucose 151 H Calcium 9.3 Phosphorus 2.6 L 2.0 L Magnesium 1.8 1.9 Troponin I High Sens 23.0 H Assessment and Plan (1) Hypokalemia: Status: Acute Plan hospital d#3 41yo F s/p LSG 02/18/22 admitted to Bariatrics service with intractable N/V causing hypoK, prompting hospitalist consultation # hypoK # hypoPO4 - replete with IV Kphos x 15 mmol + recheck levels in AM - d/c maintenance IV fluids; she is tolerating oral fluids and is not dehydrated - TWIs on EKG resolved - notably, pt seen by Dr Mendoza as outpt for hx HTN-related CKD though SCr now is normal # elevated hs-Tn-I - no angina and Tn-I flat; doubt ACS # HTN - continue carvedilol + amlodipine # mood disorder - continue paroxetine # VTE ppx: SCDs Quality Stroke Does the patient have a stroke diagnosis?: No VTE Prior VTE?: No VTE Risk Level:: Surgical - moderate VTE Device Contraindication: N/A - Device Ordered VTE Drug Contraindication: Treatment Not Indicated
[2022-03-04] MEDS: Pantoprazole Sodium 40 MG/10 ML VIAL IVPUSH (09:14)
[2022-03-04] MEDS: carvediloL 25 MG TABLET PO ×2 (09:14→21:39)
[2022-03-04] MEDS: amLODIPine Besylate 10 MG TABLET PO (09:14)
[2022-03-04] MEDS: Potassium Phosphate/NS 15 MMOL/250 ML PLAST..BAG 62.5 MMOL IV ×2 (09:14→15:24)
[2022-03-04] MEDS: PARoxetine HCL 20 MG TABLET PO (09:14)
[2022-03-04 11:12] VITALS: BP 126/74; PULSE 64; RESP 16; TEMP 36.9; O2SAT 98
[2022-03-04] MEDS: Multivitamin TABLET 1 TAB PO (15:24)
[2022-03-04] MEDS: Folic Acid 1 MG in 0.9 % Sodium Chloride 50 ML 100.4 MG IV (15:24)
[2022-03-04 16:00] VITALS: BP 126/69; PULSE 62; RESP 18; TEMP 36.5; O2SAT 95
[2022-03-04] MEDS: Thiamine HCL 100 MG in 0.9 % Sodium Chloride 100 ML 202 MG IV (16:56)
[2022-03-04 19:32] VITALS: BP 140/77; PULSE 69; RESP 18; TEMP 36.7; O2SAT 97
[2022-03-04] MEDS: Gabapentin 600 MG TABLET PO (21:38)
[2022-03-05] VITALS (7 sets, daily range): BP systolic 106–130; BP diastolic 58–76; PULSE 59–68; RESP 14–18; TEMP 35.8–37.2; O2SAT 96–97
[2022-03-05] MEDS: 0.9 % Sodium Chloride Flush 3 ML SYRINGE IVFLUSH ×4 (00:28→23:19)
[2022-03-05] MEDS: ondansetron HCL 4 MG/2 ML VIAL IVPUSH ×3 (04:27→18:54)
[2022-03-05] MEDS: Metoclopramide HCl 10 MG/2 ML VIAL IVPUSH ×4 (04:27→22:17)
[2022-03-05 05:57] LABS: Anion Gap 19 (12-20); Blood Urea Nitrogen 4 mg/dL (9-16); Carbon Dioxide 25 mmol/L (22-29); Chloride 100 mmol/L (96-108); Creatinine Clr Calc Pharmacy 105.1; Estimated Glomerular Filt Rate > 60; Glucose Random 92 mg/dL (60-115); Phosphorus 4.4 mg/dL (2.7-4.5); Potassium 2.7 mmol/L (3.3-5.1); Sodium 141 mmol/L (135-145)
[2022-03-05 08:14] LABS: Magnesium 1.6 mg/dL (1.6-2.6)
[2022-03-05] MEDS: Pantoprazole Sodium 40 MG/10 ML VIAL IVPUSH (09:09)
[2022-03-05] MEDS: Thiamine HCL 100 MG in 0.9 % Sodium Chloride 100 ML 202 MG IV (09:10)
[2022-03-05] MEDS: carvediloL 25 MG TABLET PO ×2 (09:11→20:46)
[2022-03-05] MEDS: amLODIPine Besylate 10 MG TABLET PO (09:11)
[2022-03-05] MEDS: Gabapentin 600 MG TABLET PO ×2 (09:11→20:46)
[2022-03-05] MEDS: Multivitamin TABLET 1 TAB PO (09:11)
[2022-03-05] MEDS: Folic Acid 1 MG in 0.9 % Sodium Chloride 50 ML 100.4 MG IV (09:11)
[2022-03-05] MEDS: PARoxetine HCL 20 MG TABLET PO (09:11)
[2022-03-05] MEDS: Potassium Chloride/H20 20 MEQ/100 ML PIGGYBACK 100 MEQ IV (10:35)
[2022-03-05] MEDS: Potassium Chloride/H20 10 MEQ/100 ML PIGGYBACK 100 MEQ IV ×4 (10:58→15:07)
--- NOTE | 2022-03-05 11:04 | PM.CNNEP ---
History of Present Illness Reason for Consult Consult date: 03/05/22 Reason for consult: Hypokalemia Chief Complaint Chief complaint: postop dehydration History of Present Illness Narrative: Darius is a pleasant 41-year-old woman with a history of morbid obesity and hypertension. She was on spironolactone and the blood pressure was reasonably well controlled. She had workup for secondary causes 2 years ago at which time serum aldosterone and plasma renin activity were normal with a normal PA/PRA ratio In January 2022 she underwent laparoscopic sleeve gastrectomy. she lost 61 lbs preoperatively Her renal function has been reasonably stable with a baseline creatinine of 0.7-0.8 mg/dL. The peak creatinine was 1.1 which improved with some hydration. She has been persistently hypokalemic for almost a month. Prior to the surgery she was on chlorthalidone and she has not taking chlorthalidone for the last few weeks. This consultation has been requested for the management of hypokalemia. Review of Systems Constitutional: Denies body ache(s), Denies fatigue and Denies weakness Eyes: Denies loss of vision Denies dizziness Cardiovascular: Denies Abdominal Cramping after Meds, Denies chest pain, Denies syncope, Denies leg edema and Denies dyspnea Respiratory: Denies chest congestion, Denies hemoptysis, Denies pain with cough and Denies dyspnea Gastrointestinal: Denies abdominal pain, Denies change in stool character, Denies GI cramping, Denies dyspepsia, Denies diarrhea and Denies vomiting Genitourinary: Denies urinary incontinence and Denies urinary urgency Musculoskeletal: Denies numbness and Denies tingling Denies confusion, Denies dizziness, Denies syncope, Denies loss of vision, Denies numbness, Denies tingling, Denies paresthesias and Denies weakness Psychiatric: Denies confusion Endocrine: Denies cold intolerance, Denies fatigue and Denies flushing PMFSH Past Medical History Medical History Adult general medical exam Anxiety Back pain Brain lesion Depression DEGROOT (dyspnea on exertion) Encounter to establish care Intercostal neuralgia Intercostal neuralgia Migraines Morbid obesity with body mass index (BMI) of 50.0 to 59.9 in adult Myofascial pain on left side Neck pain MICHAEL (obstructive sleep apnea) Psoriasis Psoriatic arthritis Family History Family History Mother Hypertension Osteoporosis Back problem Father Hypertension Anxiety Depression Back problem Brother No problems noted. Sister Depression Anxiety Son Anxiety Depression Tourette syndrome Son Depression Anxiety ADHD Daughter Anxiety Depression Other S/P laparoscopic sleeve gastrectomy Surgical History Surgical History H/O total hysterectomy History of carpal tunnel surgery History of endometrial ablation History of lung surgery Hx of tubal ligation S/P laparoscopic sleeve gastrectomy Social History Social History Household Members: Spouse, Family and Children Housing: House Are you a primary foster care therapist to a significant other at home: No Do you presently have visiting nurse or other home services: No Alcohol intake: never Patient Tobacco Use Status: Never used Tobacco e-Cigarette/Vaping Use: Never Used Second Hand Smoke Exposure: No service: No Current occupational status: disabled Cognitive needs: No Hearing needs: No Vision needs: No Meds Allergies Allergy/AdvReac Type Severity Reaction Status Date / Time gadobutrol [GADOBUTROL] Allergy Severe RASH, Verified 03/10/22 10:57 TONGUE SWELLING, SOB Iodinated Contrast Media Allergy Severe DIFFICULTY Verified 03/10/22 10:57 [IV CONTRAST] BREATHING morphine Allergy Severe Anaphylaxis Verified 03/10/22 10:57 peanut [PEANUT] Allergy Severe ANAPHYLAXIS Verified 03/10/22 10:57 amoxicillin [Amoxicillin] Allergy Intermediate RASH Verified 03/10/22 10:57 cinnamon [CINNAMON] Allergy Intermediate TONGUE Verified 03/10/22 10:57 SWELLING Active Medications: Current Medications Acetaminophen (Acetaminophen 325 Mg Tablet) 650 mg PO Q4H PRN PRN Reason: Pain, Mild (Pain Scale 1-3) Amlodipine Besylate (Amlodipine Besylate 10 Mg Tablet) 10 mg PO DAILY [facility]; Protocol Last Admin: 03/05/22 09:11 Dose: 10 mg Carvedilol (Carvedilol 25 Mg Tablet) 25 mg PO BID [facility]; Protocol Last Admin: 03/05/22 09:11 Dose: 25 mg Gabapentin (Gabapentin 600 Mg Tablet) 600 mg PO BID [facility] Last Admin: 03/05/22 09:11 Dose: 600 mg Thiamine HCl 100 mg/ Sodium (Chloride) 101 mls @ 202 mls/hr IV DAILY [facility] Last Infusion: 03/05/22 09:43 Dose: Infused Folic Acid 1 mg/ Sodium (Chloride) 50.2 mls @ 100.4 mls/hr IV DAILY [facility] Last Infusion: 03/05/22 10:22 Dose: Infused Potassium Chloride (Potassium Chloride/H20) 10 meq in 100 mls @ 100 mls/hr IV Q1H [facility] Stop: 03/05/22 11:59 Last Admin: 03/05/22 10:58 Dose: 100 mls/hr Metoclopramide HCl (Metoclopramide Hcl 10 Mg/2 Ml Vial) 10 mg IVPUSH Q6H [facility] Last Admin: 03/05/22 10:42 Dose: 10 mg Multivitamins/Vitamin C (Multivitamin Tablet) 1 tab PO DAILY [facility] Last Admin: 03/05/22 09:11 Dose: 1 tab Ondansetron HCl (Ondansetron Hcl 4 Mg/2 Ml Vial) 4 mg IVPUSH Q8H [facility] Last Admin: 03/05/22 09:11 Dose: 4 mg Paroxetine HCl (Paroxetine Hcl 20 Mg Tablet) 20 mg PO DAILY [facility] Last Admin: 03/05/22 09:11 Dose: 20 mg Potassium Bicarbonate (Potassium Bicarbonate/Cit Ac 25 Meq Tablet.Eff) 25 meq PO BID [facility] Sodium Chloride (0.9 % Sodium Chloride Flush 3 Ml Syringe) 3 ml IVFLUSH QSHIFT [facility] Last Admin: 03/05/22 09:12 Dose: 3 ml Sucralfate (Sucralfate Oral Suspension 1 Gm/10 Ml Oral.Susp) 1 gm PO BID [facility] Last Admin: 03/05/22 09:12 Dose: Not Given Home Medications Medication Instructions Recorded Confirmed Last Taken Type carvedilol 25 mg tablet 25 mg PO BID 05/23/20 03/10/22 02/28/22 History paroxetine HCl 20 mg tablet 1 tab PO BEDTIME depressive 02/18/22 03/10/22 02/28/22 History disorder triamcinolone acetonide 0.1 % 1 appl topical DAILY PRN psoriasis 03/02/22 03/10/22 Unknown History topical cream gabapentin 600 mg tablet 600 mg PO DAILY 03/10/22 03/10/22 Unknown History Physical Exam Vital Signs: Last Vital Signs Temp 96.4 F L 03/05/22 07:50 Pulse 64 03/05/22 07:50 Resp 18 03/05/22 07:50 BP 116/76 03/05/22 07:50 Pulse Ox 97 03/05/22 07:50 O2 Del Method 03/05/22 07:50 BMI result Body Mass Index 38.5 Const General: comfortable; No no acute distress or confusion Nutritional Appearance: obese Orientation/consciousness: oriented to person, oriented to place and No confusion HEENT Head: Yes normal to inspection Neck Neck: Yes full ROM, Yes supple and Yes no JVD Resp Effort & Inspection: normal respiratory effort Auscultation: clear to auscultation bilaterally, no crackles and no rales Percussion: no dullness to percussion Cardio Jugular venous distension: no JVD Palpation: no palpable S3 Heart sounds: S1 normal heart sound present, S2 normal heart sound present, no murmurs and no rubs GI Inspection: Yes normal to inspection Palpation (GI): Soft to palpation and nontender Auscultation: normal bowel sounds General: Yes no CVA tenderness Back/Spine/Pelvis Back: no CVA tenderness Skin General skin exam: elasticity normal and skin not dry Lesions: no lesions Neuro General: oriented to person, oriented to place and No confusion Motor exam (neuro): no asterixis and no tremors Extrem General: Yes normal to inspection and No edema Results Lab Results Result Diagrams: 03/01/22 22:35 03/07/22 07:43 Lab results: Chemistry 03/02/22 03/02/22 03/03/22 16:02 21:38 05:46 Sodium 138 138 139 Potassium 2.8 L 3.3 3.2 L Carbon Dioxide 19 L 17 L 19 L BUN 8 L 8 L 6 L Creatinine 0.87 0.79 0.86 Calcium 8.7 8.4 9.0 D Phosphorus 2.5 L 3.6 3.2 03/03/22 03/03/22 03/04/22 11:21 15:08 05:24 Sodium 139 Potassium 3.2 L 3.1 L Carbon Dioxide 23 BUN 3 L Creatinine 0.81 Calcium 9.3 Phosphorus 2.6 L 2.0 L 03/05/22 05:24 Sodium 141 Potassium 2.7 L Carbon Dioxide 25 BUN 4 L Creatinine 0.78 Calcium 9.0 Phosphorus 4.4 Assessment and Plan (1) Hypokalemia: Status: Acute Plan 41-year-old woman with morbid obesity and hypertension with persistent hypokalemia without alkalosis and essentially normal renal function. Hypokalemia is most likely due to GI versus urinary losses of potassium. Hyper aldosteronism is a remote possibility which needs to be ruled out. Recommendations Check urine for sodium, chloride, creatinine, osmolarity and potassium, serum osmolality. Replace potassium intravenously since she is unable to take p.o.. Continue to hold all diuretics. Watch for diarrhea. Check serum aldosterone, plasma renin activity.(ordered) Decrease amlodipine to 5 mg q.d. and watch blood pressure. If systolic blood pressure is above 140 mm I will restart spironolactone at 25 mg and watch blood pressure We will follow closely along with the team. Thank you Procedures Date of Service Date of Service: 03/05/22
--- NOTE | 2022-03-05 12:09 | P.PNGS_ITS ---
Subjective Subjective Date of Service: 03/05/22 Interval history: 41 yo woman HC # 6 for hypokalemia and dehydation 2 weeks s/p LSG. Pt states she slept better last night and feels more like her self today. She is not feeling nauseated this am and has no emesis. She is tolerating sips of wter Crystal Light and minimal protein water. She is ambulating in room only. Physical Exam Vital Signs: Vital Signs: Last Vital Signs Temp 96.4 F L 03/05/22 07:50 Pulse 64 03/05/22 07:50 Resp 18 03/05/22 07:50 BP 116/76 03/05/22 07:50 Pulse Ox 97 03/05/22 07:50 O2 Del Method 03/05/22 07:50 BMI result Body Mass Index 38.5 Const: General: cooperative, comfortable, no acute distress and alert GI: Inspection: Yes incision (c/d/i) Palpation (GI): Soft to palpation, nontender and no guarding Objective Data Active Medications Acetaminophen (Acetaminophen 325 Mg Tablet) 650 mg PO Q4H PRN PRN Reason: Pain, Mild (Pain Scale 1-3) Amlodipine Besylate (Amlodipine Besylate 10 Mg Tablet) 10 mg PO DAILY [facility]; Protocol Last Admin: 03/05/22 09:11 Dose: 10 mg Documented By: TAMAR Carvedilol (Carvedilol 25 Mg Tablet) 25 mg PO BID [facility]; Protocol Last Admin: 03/05/22 09:11 Dose: 25 mg Documented By: TAMAR Gabapentin (Gabapentin 600 Mg Tablet) 600 mg PO BID [facility] Last Admin: 03/05/22 09:11 Dose: 600 mg Documented By: TAMAR Thiamine HCl 100 mg/ Sodium (Chloride) 101 mls @ 202 mls/hr IV DAILY [facility] Last Infusion: 03/05/22 09:43 Dose: 0 mls/hr Documented By: TAMAR Folic Acid 1 mg/ Sodium (Chloride) 50.2 mls @ 100.4 mls/hr IV DAILY [facility] Last Infusion: 03/05/22 10:22 Dose: 0 mls/hr Documented By: TAMAR Metoclopramide HCl (Metoclopramide Hcl 10 Mg/2 Ml Vial) 10 mg IVPUSH Q6H [facility] Last Admin: 03/05/22 10:42 Dose: 10 mg Documented By: TAMAR Multivitamins/Vitamin C (Multivitamin Tablet) 1 tab PO DAILY [facility] Last Admin: 03/05/22 09:11 Dose: 1 tab Documented By: TAMAR Ondansetron HCl (Ondansetron Hcl 4 Mg/2 Ml Vial) 4 mg IVPUSH Q8H [facility] Last Admin: 03/05/22 09:11 Dose: 4 mg Documented By: TAMAR Paroxetine HCl (Paroxetine Hcl 20 Mg Tablet) 20 mg PO DAILY [facility] Last Admin: 03/05/22 09:11 Dose: 20 mg Documented By: TAMAR Potassium Bicarbonate (Potassium Bicarbonate/Cit Ac 25 Meq Tablet.Eff) 25 meq PO BID [facility] Sodium Chloride (0.9 % Sodium Chloride Flush 3 Ml Syringe) 3 ml IVFLUSH QSHIFT [facility] Last Admin: 03/05/22 09:12 Dose: 3 ml Documented By: TAMAR Sucralfate (Sucralfate Oral Suspension 1 Gm/10 Ml Oral.Susp) 1 gm PO BID [facility] Last Admin: 03/05/22 09:12 Dose: Not Given Documented By: TAMAR Non-Admin Reason: Patient Refused Labs CBC & Chem 7: 03/01/22 22:35 03/05/22 05:24 Labs: Laboratory Results - last 24 hr 03/05/22 05:24 Anion Gap 19 Estim Creat Clear Calc 105.1 Estimated GFR > 60 Random Glucose 92 Calcium 9.0 Phosphorus 4.4 Magnesium 1.6 Procedures Date of Service Date of Service: 03/05/22 Progress Note: A&P Assessment and plan (1) S/P laparoscopic sleeve gastrectomy: Status: Acute Assessment and Plan: Pt is still unable to tolerate bariatric diet, but today she feels better and is able to sip on protien water. She completed 1 bottle yesterday and will attempt to finish 2 bottles today. Will ambulate in hallways titd - qid. (2) Hypokalemia: Status: Acute Assessment and Plan: Potassium in once again 2.7 today despite aggressive supplementation. 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 She will once again receive po and IV potassium supplements today, will add bicarb potassium today. Discussed with Dr Kelley and Nephrology has been consulted to help us determine the etiology of her persistent hypokalemia. (3) Hypophosphatemia: Status: Acute Assessment and Plan: resolved (4) Morbid obesity: Status: Acute (5) Hypertension: Status: Acute Assessment and Plan: Continue home medications, in good control. Time Spent With Patient Time: Total time spent is greater than 50% in coordination of care (as documented) at patient's floor/unit and/or counseling patient: Quality Stroke Does the patient have a stroke diagnosis?: No VTE Prior VTE?: No VTE Risk Level:: Surgical - moderate VTE Device Contraindication: N/A - Device Ordered VTE Drug Contraindication: Treatment Not Indicated
--- NOTE | 2022-03-05 13:30 | PC.NURSE ---
to infuse a 20 meq potassium IV bag patient require to have a central line per pharmacy. Amt waisted, infusing 4 bags of 10 meq potassium at this time.
--- NOTE | 2022-03-05 13:48 | HO.PM.IMPN ---
Subjective Subjective Date of Service: 03/05/22 Interval History: seen and examined this morning follow up consult for hypokalemia, hypophosphatemia no other specific complaints this am Review of Systems Review of Systems: Yes all other systems are reviewed and are negative Constitutional Constitutional: Denies chills and Denies fever(s) ENT Ears, Nose, Mouth, and Throat: Denies dizziness Cardiovascular Cardiovascular: Denies chest pain, Denies palpitations and Denies dyspnea Respiratory Respiratory: Denies cough and Denies dyspnea Gastrointestinal Gastrointestinal: Denies abdominal pain, Denies nausea and Denies vomiting Neurologic Neurologic: Denies dizziness Endocrine Endocrine: Denies palpitations Physical Exam Vital Signs: Vital Signs: Last Vital Signs Temp 97.0 F 03/05/22 12:00 Pulse 60 03/05/22 12:00 Resp 18 03/05/22 12:00 BP 106/58 L 03/05/22 12:00 Pulse Ox 97 03/05/22 12:00 O2 Del Method 03/05/22 12:00 BMI result Body Mass Index 38.5 Const: General: cooperative, comfortable, alert and awake Resp: Effort & Inspection: normal respiratory effort and able to speak in complete sentences Auscultation: clear to auscultation bilaterally Cardio: Rate: regular rate Heart sounds: S1 normal heart sound present and S2 normal heart sound present GI: Inspection: No distended Palpation (GI): Soft to palpation Neuro: General: CN's II-XI intact bilaterally Extrem: General: Yes no pedal edema Objective Data Active Medications Acetaminophen (Acetaminophen 325 Mg Tablet) 650 mg PO Q4H PRN PRN Reason: Pain, Mild (Pain Scale 1-3) Amlodipine Besylate (Amlodipine Besylate 10 Mg Tablet) 10 mg PO DAILY [facility]; Protocol Last Admin: 03/05/22 09:11 Dose: 10 mg Documented By: TAMAR Carvedilol (Carvedilol 25 Mg Tablet) 25 mg PO BID [facility]; Protocol Last Admin: 03/05/22 09:11 Dose: 25 mg Documented By: TAMAR Gabapentin (Gabapentin 600 Mg Tablet) 600 mg PO BID [facility] Last Admin: 03/05/22 09:11 Dose: 600 mg Documented By: TAMAR Thiamine HCl 100 mg/ Sodium (Chloride) 101 mls @ 202 mls/hr IV DAILY [facility] Last Infusion: 03/05/22 09:43 Dose: 0 mls/hr Documented By: TAMAR Folic Acid 1 mg/ Sodium (Chloride) 50.2 mls @ 100.4 mls/hr IV DAILY [facility] Last Infusion: 03/05/22 10:22 Dose: 0 mls/hr Documented By: TAMAR Magnesium Sulfate (Magnesium Sulfate/H2o) 2 gm in 50 mls @ 25 mls/hr IV ONCE ONE Stop: 03/05/22 15:46 Metoclopramide HCl (Metoclopramide Hcl 10 Mg/2 Ml Vial) 10 mg IVPUSH Q6H [facility] Last Admin: 03/05/22 10:42 Dose: 10 mg Documented By: TAMAR Multivitamins/Vitamin C (Multivitamin Tablet) 1 tab PO DAILY [facility] Last Admin: 03/05/22 09:11 Dose: 1 tab Documented By: TAMAR Ondansetron HCl (Ondansetron Hcl 4 Mg/2 Ml Vial) 4 mg IVPUSH Q8H [facility] Last Admin: 03/05/22 09:11 Dose: 4 mg Documented By: TAMAR Paroxetine HCl (Paroxetine Hcl 20 Mg Tablet) 20 mg PO DAILY [facility] Last Admin: 03/05/22 09:11 Dose: 20 mg Documented By: TAMAR Potassium Bicarbonate (Potassium Bicarbonate/Cit Ac 25 Meq Tablet.Eff) 25 meq PO BID [facility] Sodium Chloride (0.9 % Sodium Chloride Flush 3 Ml Syringe) 3 ml IVFLUSH QSHIFT [facility] Last Admin: 03/05/22 09:12 Dose: 3 ml Documented By: TAMAR Sucralfate (Sucralfate Oral Suspension 1 Gm/10 Ml Oral.Susp) 1 gm PO BID [facility] Last Admin: 03/05/22 09:12 Dose: Not Given Documented By: TAMAR Non-Admin Reason: Patient Refused Labs CBC & Chem 7: 03/01/22 22:35 03/05/22 05:24 Labs: Laboratory Results - last 24 hr 03/05/22 05:24 Anion Gap 19 Estim Creat Clear Calc 105.1 Estimated GFR > 60 Random Glucose 92 Calcium 9.0 Phosphorus 4.4 Magnesium 1.6 Assessment and Plan (1) Hypokalemia: Status: Acute [facility] d#3 41yo F s/p LSG 02/18/22 admitted to Bariatrics service with intractable N/V causing hypoK, prompting hospitalist consultation # hypoK # hypoPO4 - phos level improved, K still low, mag 1.6, will replace - TWIs on EKG resolved - notably, pt seen by Dr Mendoza as outpt for hx HTN-related CKD though SCr now is normal - nephrology now consulted - would consider repeating K level this afternoon - follow k and mag daily # elevated hs-Tn-I - no angina and Tn-I flat; doubt ACS # HTN - continue carvedilol + amlodipine # mood disorder - continue paroxetine # VTE ppx: SCDs attending - dr. lui as nephrology has been consulted for low potassium, will sign off. Thank you for allowing us to participate in the care of this patient. Quality Stroke Does the patient have a stroke diagnosis?: No VTE Prior VTE?: No VTE Risk Level:: Surgical - moderate VTE Device Contraindication: N/A - Device Ordered VTE Drug Contraindication: Treatment Not Indicated
[2022-03-05] MEDS: Potassium Bicarbonate/Cit AC 25 MEQ TABLET.EFF PO (13:50)
--- NOTE | 2022-03-05 15:00 | MHC.CM.PN ---
STILL W/ ELECTROLYTE IMBALANCE. POSSIBLE DC WEDNESDAY TO PARENTS' HOME
[2022-03-05] MEDS: Magnesium Sulfate/H2O 2 GM/50 ML PIGGYBACK IV (16:29)
[2022-03-05] MEDS: Sucralfate Oral Suspension 1 GM/10 ML ORAL.SUSP PO (20:46)
--- NOTE | 2022-03-05 20:57 | PC.NURSE ---
Patient refused Potassium Bicarbonate,stating she is unable to tolerate it,Dr. Silverio made aware
--- NOTE | 2022-03-05 22:04 | PC.NURSE ---
patient bladder scanned at 1600 for 345 ml,bladder scanned 2100 for 410 ml,str cath 300 ml at 2130 ,DTV # 1 at 0330
[2022-03-05 23:48] LABS: Potassium Urine Random 7.4 mmol/L
[2022-03-06 00:01] LABS: Osmolality Urine 220 mosm/kg (373-1093)
[2022-03-06] MEDS: ondansetron HCL 4 MG/2 ML VIAL IVPUSH ×3 (01:49→17:19)
[2022-03-06 03:52] VITALS: BP 121/68; PULSE 67; RESP 18; TEMP 36.8; O2SAT 97
[2022-03-06] MEDS: Metoclopramide HCl 10 MG/2 ML VIAL IVPUSH ×4 (04:42→21:28)
[2022-03-06 07:21] LABS: Anion Gap 19 (12-20); Blood Urea Nitrogen 9 mg/dL (9-16); Calcium 8.8 mg/dL (8.4-10.2); Carbon Dioxide 24 mmol/L (22-29); Chloride 101 mmol/L (96-108); Creatinine Clr Calc Pharmacy 110.8; Estimated Glomerular Filt Rate > 60; Glucose Random 76 mg/dL (60-115); Magnesium 1.9 mg/dL (1.6-2.6); Phosphorus 4.3 mg/dL (2.7-4.5); Potassium 2.8 mmol/L (3.3-5.1); Sodium 141 mmol/L (135-145)
--- NOTE | 2022-03-06 07:55 | PM.PNGS ---
Subjective Subjective Date of Service: 03/06/22 Interval history: Pt states she feels much better today, nausea and emesis have resolved. She completed one bottle of 32 gram protein water yesterday withour complaints. Ambulating, slept well over night and voiding well. Physical Exam Vital Signs: Vital Signs: Last Vital Signs Temp 98.2 F 03/06/22 03:52 Pulse 67 03/06/22 03:52 Resp 18 03/06/22 03:52 BP 121/68 03/06/22 03:52 Pulse Ox 97 03/06/22 03:52 O2 Del Method 03/06/22 03:52 BMI result Body Mass Index 38.5 Const: General: cooperative, healthy appearing and no acute distress Nutritional Appearance: obese Orientation/consciousness: patient oriented x3 Limitations: no limitations GI: Inspection: Yes scar (healing well) Palpation (GI): Soft to palpation and nontender Neuro: General: patient oriented x3 Objective Data Active Medications Acetaminophen (Acetaminophen 325 Mg Tablet) 650 mg PO Q4H PRN PRN Reason: Pain, Mild (Pain Scale 1-3) Amlodipine Besylate (Amlodipine Besylate 10 Mg Tablet) 10 mg PO DAILY [facility]; Protocol Last Admin: 03/05/22 09:11 Dose: 10 mg Documented By: TAMAR Carvedilol (Carvedilol 25 Mg Tablet) 25 mg PO BID [facility]; Protocol Last Admin: 03/05/22 20:46 Dose: 25 mg Documented By: ORSY Gabapentin (Gabapentin 600 Mg Tablet) 600 mg PO BID [facility] Last Admin: 03/05/22 20:46 Dose: 600 mg Documented By: ROSY Thiamine HCl 100 mg/ Sodium (Chloride) 101 mls @ 202 mls/hr IV DAILY [facility] Last Infusion: 03/05/22 09:43 Dose: 0 mls/hr Documented By: TAMAR Folic Acid 1 mg/ Sodium (Chloride) 50.2 mls @ 100.4 mls/hr IV DAILY [facility] Last Infusion: 03/05/22 10:22 Dose: 0 mls/hr Documented By: TAMAR Metoclopramide HCl (Metoclopramide Hcl 10 Mg/2 Ml Vial) 10 mg IVPUSH Q6H [facility] Last Admin: 03/06/22 04:42 Dose: 10 mg Documented By: NICOLASAORALB Multivitamins/Vitamin C (Multivitamin Tablet) 1 tab PO DAILY [facility] Last Admin: 03/05/22 09:11 Dose: 1 tab Documented By: TAMAR Ondansetron HCl (Ondansetron Hcl 4 Mg/2 Ml Vial) 4 mg IVPUSH Q8H [facility] Last Admin: 03/06/22 01:49 Dose: 4 mg Documented By: WEST Paroxetine HCl (Paroxetine Hcl 20 Mg Tablet) 20 mg PO DAILY [facility] Last Admin: 03/05/22 09:11 Dose: 20 mg Documented By: TAMAR Potassium Bicarbonate (Potassium Bicarbonate/Cit Ac 25 Meq Tablet.Eff) 25 meq PO BID [facility] Last Admin: 03/05/22 20:47 Dose: Not Given Documented By: ROSY Non-Admin Reason: Patient Refused Sodium Chloride (0.9 % Sodium Chloride Flush 3 Ml Syringe) 3 ml IVFLUSH QSHIFT [facility] Last Admin: 03/05/22 23:19 Dose: 3 ml Documented By: WEST Sucralfate (Sucralfate Oral Suspension 1 Gm/10 Ml Oral.Susp) 1 gm PO BID [facility] Last Admin: 03/05/22 20:46 Dose: 1 gm Documented By: ROSY Labs CBC & Chem 7: 03/01/22 22:35 03/06/22 05:39 Labs: Laboratory Results - last 24 hr 03/02/22 03/05/22 03/05/22 16:02 05:24 23:29 Anion Gap Estim Creat Clear Calc Estimated GFR Random Glucose Calcium Ionized Calcium 5.0 Phosphorus Magnesium 1.6 Urine Osmolality 220 L Ur Random Sodium Ur Random Potassium Ur Random Chloride 03/05/22 03/06/22 23:29 05:39 Anion Gap 19 Estim Creat Clear Calc 110.8 Estimated GFR > 60 Random Glucose 76 Calcium 8.8 Ionized Calcium Phosphorus 4.3 Magnesium 1.9 Urine Osmolality Ur Random Sodium 28.0 Ur Random Potassium 7.4 Ur Random Chloride 34.0 Procedures Date of Service Date of Service: 03/06/22 Progress Note: A&P Assessment and plan (1) S/P laparoscopic sleeve gastrectomy: Status: Acute Assessment and Plan: Pt is now HD #7 16d s/p LSG who was admitted for hypokalemia with ECG changes and intolerance to bariatric diet. Her nausea and emesis have resolved and she is now tolerating her protein beach, she will drink at least 2 bottles today and is stable for discharge from this perspective. Will await recommendations form nephrology team. (2) Hypokalemia: Status: Acute Assessment and Plan: Hypokalemia persists despite aggressive supplementation and holding IVF. Nephrology was consulted yesterday and will follow up with lab results and recommendations today. (3) Hypophosphatemia: Status: Acute Assessment and Plan: resolved (4) Nausea & vomiting: Status: Acute Assessment and Plan: resolved Time Spent With Patient Time: Total time spent is greater than 50% in coordination of care (as documented) at patient's floor/unit and/or counseling patient: Quality Stroke Does the patient have a stroke diagnosis?: No VTE Prior VTE?: No VTE Risk Level:: Surgical - moderate VTE Device Contraindication: N/A - Device Ordered VTE Drug Contraindication: Treatment Not Indicated
[2022-03-06 08:00] VITALS: BP 114/70; PULSE 63; RESP 18; TEMP 36.8; O2SAT 97
[2022-03-06] MEDS: Thiamine HCL 100 MG in 0.9 % Sodium Chloride 100 ML 202 MG IV (08:33)
[2022-03-06] MEDS: 0.9 % Sodium Chloride Flush 3 ML SYRINGE IVFLUSH ×2 (08:34→16:20)
[2022-03-06] MEDS: PARoxetine HCL 20 MG TABLET PO (08:34)
[2022-03-06] MEDS: Sucralfate Oral Suspension 1 GM/10 ML ORAL.SUSP PO (08:34)
[2022-03-06] MEDS: Multivitamin TABLET 1 TAB PO (08:34)
[2022-03-06] MEDS: amLODIPine Besylate 10 MG TABLET PO (08:34)
[2022-03-06] MEDS: Gabapentin 600 MG TABLET PO ×2 (08:34→21:28)
[2022-03-06] MEDS: carvediloL 25 MG TABLET PO ×2 (08:34→21:28)
[2022-03-06] MEDS: Folic Acid 1 MG in 0.9 % Sodium Chloride 50 ML 100.4 MG IV (08:35)
[2022-03-06] MEDS: Potassium Chloride/H20 10 MEQ/100 ML PIGGYBACK 100 MEQ IV ×4 (09:40→14:07)
[2022-03-06] MEDS: Potassium Chloride ER 20 MEQ TAB.ER.PRT PO ×2 (09:40→21:28)
[2022-03-06] MEDS: KCl 40 mEq in 0.9 % Sodium Chl 40 MEQ/1,000 ML IV.SOLN 250 MEQ IV (10:51)
[2022-03-06 12:00] VITALS: BP 125/73; PULSE 59; RESP 18; TEMP 36.1; O2SAT 99
--- NOTE | 2022-03-06 13:11 | PM.PNNEP ---
Subjective Subjective Date of Service: 03/06/22 Interval history: seen and examined complains of diarrhea Physical Exam Vital Signs: Vital Signs: Last Vital Signs Temp 96.9 F 03/06/22 12:00 Pulse 59 03/06/22 12:00 Resp 18 03/06/22 12:00 BP 125/73 03/06/22 12:00 Pulse Ox 99 03/06/22 12:00 O2 Del Method 03/06/22 12:00 BMI result Body Mass Index 38.5 Const: General: no acute distress HEENT: Head: Yes normocephalic and Yes atraumatic Neck: Neck: Yes supple Resp: Auscultation: clear to auscultation bilaterally and diminished lung sounds Cardio: Heart sounds: S1 normal heart sound present and S2 normal heart sound present GI: Palpation (GI): Soft to palpation and nontender Extrem: General: No edema Objective Data Labs CBC & Chem 7: 03/01/22 22:35 03/06/22 05:39 Labs: Laboratory Results - last 24 hr 03/02/22 03/05/22 03/05/22 16:02 23:29 23:29 Sodium Potassium Chloride Carbon Dioxide Anion Gap BUN Creatinine Estim Creat Clear Calc Estimated GFR Random Glucose Calcium Ionized Calcium 5.0 Phosphorus Magnesium Urine Osmolality 220 L Ur Random Sodium 28.0 Ur Random Potassium 7.4 Ur Random Chloride 34.0 03/06/22 05:39 Sodium 141 Potassium 2.8 L Chloride 101 Carbon Dioxide 24 Anion Gap 19 BUN 9 D Creatinine 0.74 Estim Creat Clear Calc 110.8 Estimated GFR > 60 Random Glucose 76 Calcium 8.8 Ionized Calcium Phosphorus 4.3 Magnesium 1.9 Urine Osmolality Ur Random Sodium Ur Random Potassium Ur Random Chloride Procedures Date of Service Date of Service: 03/06/22 Assessment & Plan Assessment and plan (1) Hypokalemia: Status: Acute Assessment and Plan: probably due to GI losses normal magnesium low urine potassium suggests adequate renal handling of potassium in the setting of hypokalemia REC replace potassium follow electrolytes Time Spent With Patient Time: Total time spent is greater than 50% in coordination of care (as documented) at patient's floor/unit and/or counseling patient: Progress Note: Quality Stroke Does the patient have a stroke diagnosis?: No
[2022-03-06] MEDS: KCl 20 mEq in 5% Dex/0.45% Sod 20 MEQ/1,000 ML IV.SOLN 150 MEQ IVCONT ×2 (14:08→21:41)
[2022-03-06 15:53] VITALS: BP 107/63; PULSE 61; RESP 16; TEMP 36.3; O2SAT 98
[2022-03-06 19:03] LABS: Blood Urea Nitrogen 12 mg/dL (9-16); Calcium 8.5 mg/dL (8.4-10.2); Creatinine Clr Calc Pharmacy 109.4; Estimated Glomerular Filt Rate > 60; Glucose Random 120 mg/dL (60-115)
[2022-03-06 19:12] LABS: Anion Gap 19 (12-20); Carbon Dioxide 18 mmol/L (22-29); Chloride 105 mmol/L (96-108); Potassium 3.9 mmol/L (3.3-5.1); Sodium 138 mmol/L (135-145)
[2022-03-06 20:00] VITALS: BP 124/74; PULSE 61; RESP 16; TEMP 36.1; O2SAT 97
[2022-03-07] VITALS: BP 119/64; PULSE 63; RESP 16; TEMP 36.8; O2SAT 97
[2022-03-07 03:53] VITALS: BP 102/56; PULSE 60; RESP 16; TEMP 36.7; O2SAT 96
[2022-03-07] MEDS: Metoclopramide HCl 10 MG/2 ML VIAL IVPUSH (04:03)
[2022-03-07] MEDS: ondansetron HCL 4 MG/2 ML VIAL IVPUSH (04:03)
[2022-03-07] MEDS: KCl 20 mEq in 5% Dex/0.45% Sod 20 MEQ/1,000 ML IV.SOLN 150 MEQ IVCONT (04:03)
[2022-03-07 08:00] VITALS: BP 114/75; PULSE 69; RESP 16; TEMP 37.3; O2SAT 97
[2022-03-07 08:12] LABS: Potassium 3.7 mmol/L (3.3-5.1)
[2022-03-07] MEDS: Multivitamin TABLET 1 TAB PO (08:59)
[2022-03-07] MEDS: Potassium Chloride ER 20 MEQ TAB.ER.PRT PO (08:59)
[2022-03-07] MEDS: carvediloL 25 MG TABLET PO (08:59)
[2022-03-07] MEDS: PARoxetine HCL 20 MG TABLET PO (09:00)
[2022-03-07] MEDS: amLODIPine Besylate 5 MG TABLET PO (09:00)
[2022-03-07] MEDS: Thiamine HCL 100 MG in 0.9 % Sodium Chloride 100 ML 202 MG IV (09:00)
[2022-03-07] MEDS: Folic Acid 1 MG in 0.9 % Sodium Chloride 50 ML 100.4 MG IV (09:01)
--- NOTE | 2022-03-07 10:13 | P.PNGS_ITS ---
Subjective Subjective Date of Service: 03/07/22 Patient reports: no new complaints, feels better, tolerating liquids well and voiding w/o difficulty Interval history: 41 yo woman now now 2.5 weeks s/p sleeve gastrectomy. Pt was admitted 7 days ago for nasuea, emesis, intolerance to bariatric diet and significant hypokalemia with ECG changes. These signs and symptoms ahve all resolved and she is now tolerating 2 bottles of protein water yesterday and her potassium level has been normal since last pm. She agrees that she is ready for discharge home today. Physical Exam Vital Signs: Vital Signs: Last Vital Signs Temp 99.1 F 03/07/22 08:00 Pulse 69 03/07/22 08:00 Resp 16 03/07/22 08:00 BP 114/75 03/07/22 08:00 Pulse Ox 97 03/07/22 08:00 O2 Del Method 03/07/22 08:00 BMI result Body Mass Index 38.5 Const: General: cooperative, healthy appearing, comfortable and no acute distress Nutritional Appearance: obese GI: Inspection: Yes incision (all healing well, clean dry and intact) Palpation (GI): Soft to palpation, not firm, nontender and no guarding Objective Data Active Medications Acetaminophen (Acetaminophen 325 Mg Tablet) 650 mg PO Q4H PRN PRN Reason: Pain, Mild (Pain Scale 1-3) Amlodipine Besylate (Amlodipine Besylate 5 Mg Tablet) 5 mg PO DAILY [facility]; Protocol Last Admin: 03/07/22 09:00 Dose: 5 mg Documented By: NEELIMA Carvedilol (Carvedilol 25 Mg Tablet) 25 mg PO BID [facility]; Protocol Last Admin: 03/07/22 08:59 Dose: 25 mg Documented By: NEELIMA Gabapentin (Gabapentin 600 Mg Tablet) 600 mg PO BID [facility] Last Admin: 03/07/22 09:00 Dose: Not Given Documented By: NEELIMA Non-Admin Reason: Patient Refused Thiamine HCl 100 mg/ Sodium (Chloride) 101 mls @ 202 mls/hr IV DAILY [facility] Last Infusion: 03/07/22 09:54 Dose: 0 mls/hr Documented By: NEELIMA Folic Acid 1 mg/ Sodium (Chloride) 50.2 mls @ 100.4 mls/hr IV DAILY [facility] Last Admin: 03/07/22 09:01 Dose: 100.4 mls/hr Documented By: NEELIMA Potassium Chloride/Dextrose/Sod Cl (Kcl 20 Meq In 5% Dex/0.45% Sod) 20 meq in 1,000 mls @ 150 mls/hr IVCONT .Q6H40M [facility] Last Infusion: 03/07/22 09:11 Dose: 0 mls/hr Documented By: NEELIMA Metoclopramide HCl (Metoclopramide Hcl 10 Mg/2 Ml Vial) 10 mg IVPUSH Q6H [facility] Last Admin: 03/07/22 04:03 Dose: 10 mg Documented By: LUCY Multivitamins/Vitamin C (Multivitamin Tablet) 1 tab PO DAILY [facility] Last Admin: 03/07/22 08:59 Dose: 1 tab Documented By: NEELIMA Ondansetron HCl (Ondansetron Hcl 4 Mg/2 Ml Vial) 4 mg IVPUSH Q8H [facility] Last Admin: 03/07/22 04:03 Dose: 4 mg Documented By: LUCY Paroxetine HCl (Paroxetine Hcl 20 Mg Tablet) 20 mg PO DAILY [facility] Last Admin: 03/07/22 09:00 Dose: 20 mg Documented By: NEELIMA Potassium Chloride (Potassium Chloride Er 20 Meq Tab.Er.Prt) 20 meq PO BID [facility] Last Admin: 03/07/22 08:59 Dose: 20 meq Documented By: NEELIMA Sodium Chloride (0.9 % Sodium Chloride Flush 3 Ml Syringe) 3 ml IVFLUSH QSHIFT [facility] Last Admin: 03/07/22 08:59 Dose: Not Given Documented By: NEELIMA Non-Admin Reason: IV Running Sucralfate (Sucralfate Oral Suspension 1 Gm/10 Ml Oral.Susp) 1 gm PO BID [facility] Last Admin: 03/07/22 09:00 Dose: Not Given Documented By: NEELIMA Non-Admin Reason: Patient Refused Labs CBC & Chem 7: 03/01/22 22:35 03/07/22 07:43 Labs: Laboratory Results - last 24 hr 03/06/22 18:21 Anion Gap 19 Estim Creat Clear Calc 109.4 Estimated GFR > 60 Random Glucose 120 H Calcium 8.5 Procedures Date of Service Date of Service: 03/07/22 Progress Note: A&P Assessment and plan (1) Nausea & vomiting: Status: Acute Assessment and Plan: Resolved, now with adequate po intake (2) Hypokalemia: Status: Acute Assessment and Plan: Resolved, will have potassium level drawn on 03/11. (3) S/P laparoscopic sleeve gastrectomy: Status: Acute Assessment and Plan: HD # 7 for admission 10 d s/p LSG for dehydration, n/v with resultant hypok alemia and hypophosphatemia. Pt is now tolerating protien beach, potassium level has normalized after agressive supplementaion and she will be discharged home today. (4) Hypophosphatemia: Status: Acute Assessment and Plan: resolved Time Spent With Patient Time: Total time spent is greater than 50% in coordination of care (as documented) at patient's floor/unit and/or counseling patient: Quality Stroke Does the patient have a stroke diagnosis?: No VTE Prior VTE?: No VTE Risk Level:: Surgical - moderate VTE Device Contraindication: N/A - Device Ordered VTE Drug Contraindication: Treatment Not Indicated
--- NOTE | 2022-03-07 10:20 | PM.DS ---
DS: Providers Provider Date of Service: 03/07/22 Date of admission: 03/05/22 13:30 Primary care physician: JOMAR Romero Consults: 03/02/22 16:54 Consult to Hospitalist Routine Consulting Provider: Hospitalist Reason For Exam: persistent hypokalemia despite replacement 03/05/22 10:26 Consult to Nephrology Routine Consulting Provider: Casey Mendoza Reason for consultation: persistent hypokalemia despite agressive supplementaion Has provider been notified: Yes DS: Diagnosis Discharge Diagnosis (1) Nausea & vomiting: Status: Acute (2) Hypokalemia: Status: Acute (3) S/P laparoscopic sleeve gastrectomy: Status: Acute (4) Hypophosphatemia: Status: Acute DS: Summary Hospital Course Hospital Course: 41 yo woman s/p sleeve gastrectomy on 02/18/22 was admitted on 02/28/22 for nausea, emesis, intolerance to bariatric diet and significant hypokalemia with ECG changes. initial troponin was elevated and stabliized, ECG normalized after hydration and potassium, phos and magnesium replacements. Pt needed significant potassium replacements over 7 days to acheive stable levels. Nephrology was consulted and stated that her kidney function was normal and hypokalemia was most likely due to GI losses. Her amlodipine was decreased to 5 mg po daily. The above signs and symptoms have all resolved and she is now tolerating 2 bottles of protein water yesterday and her potassium level has been normal since last pm. She agrees that she is ready for discharge home today. She will have potassium level drawn on 03/11 and will be seen in bariatric office that day. Time spent discussing smoking cessation with patient: more than 10 minutes Status at Discharge Functional status at discharge: independent ambulation Overall status at discharge: patient is back to baseline Time Spent with Patient Time attestation: Total time spent providing and/or coordinating discharge services: Discharge coordination time: Less than 30 minutes Quality: Safe Use of Opioids Does Pt have an Active Cancer Diagnosis on the Problem List?: No Quality: Stroke Does the patient have a stroke diagnosis?: No Physical Exam Vital Signs: Vital Signs: Last Vital Signs Temp 99.1 F 03/07/22 08:00 Pulse 69 03/07/22 08:00 Resp 16 03/07/22 08:00 BP 114/75 03/07/22 08:00 Pulse Ox 97 03/07/22 08:00 O2 Del Method 03/07/22 08:00 BMI result Body Mass Index 38.5 DS: Data Data Completed and Pending Completed studies during hospitalization [Text1]: Procedures Excision of Stomach, Percutaneous Endoscopic Approach, Vertical (02/18/22) Labs on day of discharge: Laboratory Results - last 24 hr 03/06/22 03/07/22 18:21 07:43 Sodium 138 Potassium 3.9 D 3.7 Chloride 105 Carbon Dioxide 18 L Anion Gap 19 BUN 12 Creatinine 0.75 Estim Creat Clear Calc 109.4 Estimated GFR > 60 Random Glucose 120 H Calcium 8.5 Discharge Plan Discharge Anticipated Discharge Date/Time: 03/07/22 10:58 Patient Disposition: Home, Self-Care Discharge Diagnosis: s/p sleeve gastrectomy, nausea emesis resolved Referrals: Rosemarie Yeung FNP [Primary Care Provider] - 2 days Lex Kelley MD [Physician] - 1 day Discharge Medications: New amlodipine 5 mg Tablet 5 mg PO DAILY Qty: 30 3RF Protocol: Hold for SBP< HOLD for SBP < : 90 Continued triamcinolone acetonide 0.1 % cream 1 appl topical DAILY PRN (Reason: psoriasis) paroxetine HCl 20 mg tablet 1 tab PO BEDTIME carvedilol 25 mg tablet 25 mg PO BID gabapentin 600 mg tablet 600 mg PO BID ondansetron HCl 4 mg tablet 4 mg PO Q6-8H PRN (Reason: nausea and vomiting) Qty: 20 0RF pantoprazole 40 mg tablet,delayed release (DR/EC) 40 mg PO DAILY Qty: 30 2RF sucralfate [Carafate] 100 mg/mL suspension 10 ml PO BID Qty: 414 0RF Discontinued amlodipine 10 mg tablet 10 mg PO DAILY scopolamine base 1 mg over 3 days patch 3 day 1 patch transdermal Q72H PRN (Reason: nausea and vomiting) Qty: 4 1RF Discharge Orders: Discharge Order (Routine); Ordered 03/07/22 Ordered By: Shanika Schrader Activity on Discharge: No Restrictions Stand Alone Forms: Patient Portal Discharge page, Work/School Release Other Ambulatory Orders: Potassium (Routine) Timeframe: 3 Days Facility: [facility] - Location: Laboratory Ordered By: Shanika Schrader Activity Restrictions/Additional Instructions: Take your medications as prescribed. If you were prescribed antibiotics today, it is important that you take your medication to their entirety, do not skip any doses, do not finish them early. Follow-up with your primary care provider this week. Call bariatric and schedule an appointment with them tomorrow Return to the emergency department with new or worsening symptoms. Such as fevers, chills, chest pain, shortness of breath, nausea, vomiting, dizziness, headache, vision changes, lethargy In case of emergency call 911 Please follow the diet provided by bariatric. Care Plan Goals: weight loss Health Concerns: obesity Plan of Treatment: Follow all meal plan instructions for phase 3 diet. Will have 3 bottles of 32 gram protein water and 8 oz homemade unsalted chicken broth per day. Will have potassium level drawn on 03/11 before her next office visit in bariatric office. Assessment: hypokalemia resolved Patient Instructions: Hypokalemia (ED), Acute Nausea and Vomiting (ED), Weakness (ED)
--- NOTE | 2022-03-07 10:21 | MHC.CM.PN ---
PT WILL DC HOME TODAY WITH NO SERVICES PT TO ARRANGE TRANSPORT
[2022-03-16 10:37] LABS: Plasma Renin Activity 0.37 ng/mL/h (0.25-5.82)
--- NOTE | 2022-03-26 16:43 | CONS_ITS ---
DATE OF SERVICE: 03/26/2022 REASON FOR CONSULTATION: The patient is being seen on March 26 for evaluation and assistance in the management of her hypokalemia, which is a recurrent problem. HISTORY OF PRESENT ILLNESS: In summary, she is a 41-year-old patient with a history of multiple chronic medical problems including hypertension and episodes of hypokalemia in the past, who is status post gastric sleeve surgery on February 18 and has had recurrent hospitalizations for nausea, vomiting, unable to keep anything down. She now re-presented with the same nausea, vomiting, unable to keep anything down and was again very hypokalemic with potassium of 2.5. The patient was seen by my partner, Dr. Brand as an outpatient and was placed on spironolactone trying to keep her potassium in the normal range, but she has not started as of yet. On her last admission in February, she had a workup including a urine studies done, which showed low urine potassium and therefore it was felt that she did not have a urinary potassium leak problem, but rather was due to poor absorption of potassium. I do see some old records of hypokalemia that predated her gastric bypass surgery. The patient is being seen by the GI Surgical team in terms of management of her inability to take p.o. PAST MEDICAL HISTORY: Includes hypertension, anxiety disorder, chronic back pain, depression, migraines, morbid obesity, and now gastric sleeve bypass surgery in January, osteoarthritis. MEDICATIONS: Her medications on admission noted in the admitting notes. At one point, she was on amlodipine and she is supposed to be switched over to spironolactone. We are trying to get update of her current medications. FAMILY HISTORY: Known for hypertension. PAST SURGICAL HISTORY: In reviewing the records, there is mention made of prior surgeries including hysterectomy, carpal tunnel surgery. There is mention made of lung surgery. The details are unclear and again she had a gastric sleeve surgery. SOCIAL HISTORY: She is nonsmoker, nondrinker. No illicit drug use. ALLERGIES: SHE HAS MULTIPLE ALLERGIES LISTED IN THE ELECTRONIC MEDICAL RECORD. We are trying to get updated list of her medications as mentioned above. At one point, she was on amlodipine and then recently switched over to spironolactone, though she has not started as of yet. PHYSICAL EXAMINATION: VITAL SIGNS: Blood pressure of 130/80 with a heart rate in the 60s. HEENT: Head is atraumatic, normocephalic. Mucous membranes are dry. NECK: Supple. There is no JVD. LUNGS: Breath sounds bilaterally. CARDIAC: Regular rate and rhythm. ABDOMEN: Soft. EXTREMITIES: Shows no edema. LABORATORY DATA: Hemoglobin 14.6, hematocrit 41.8, white count of 4.6. On admission, her sodium was 135, potassium 3.1, chloride 95, bicarb 13, BUN 8, creatinine 1.14. This morning with IV bicarb infusion, her potassium gone down to 2.5. Sodium 135, chloride 95, bicarb 17, BUN 9, creatinine 1.14. On reviewing her potassiums back in February 02, her potassium of 3.0, and in February when she was hospitalized, potassium was low was 2.7. She had urine studies done during her February hospitalization showed urine potassium 7.4. IMPRESSION: A 41-YEAR-OLD HYPERTENSIVE PATIENT WITH RECENT GASTRIC BYPASS SURGERY, READMITTED TO THE HOSPITAL WITH NAUSEA, VOMITING, AND RECURRENCE OF HYPOKALEMIA, AND ANION GAP METABOLIC ACIDOSIS. 1. Hypokalemia. This is most likely due to poor gut absorption of her nutrition and perhaps inappropriate urinary potassium loss. Her metabolic acidosis and correction thereof with IV sodium bicarb is probably contributing a role of potassium moving into the cells. Other considerations such as a primary urinary leak seems unlikely given that she has underlying hypertension. 2. Anion gap metabolic acidosis. I suspect she has a ketosis from poor p.o. intake. The bicarb is improved. I would recommend checking ketones as she is likely has starvation ketosis. 3. Hypertension. Blood pressure is under adequate control presently. We will need to monitor this. SUGGESTIONS: At this time include continue with both IV and p.o. potassium replacement. We will place her on sodium bicarbonate orally if she can tolerate. Continue with IV hydration. Follow her potassium and bicarb. We will check ketones. We will follow the patient closely with the team. At some point, we can check an bob-renin ratio and also rule out renal artery stenosis as a cause of hypertension and hypokalemia, but this seems less likely. Lastly, we could consider checking her for genetic abnormality in the form of Gitelman's but again I find it unlikely given Gitelman's, patients have normotension with hypokalemia and she has history of hypertension. We will follow the patient with the team. MD ARGENIS Washburn/ANDRÉS / [phone]
== END 2022-03-07 12:04 | disposition home or self-care (01) | DRG 392 ==
LOC: HO.ED 20:31 → HO.EDOVER 03-02 06:29 → HO.S3 03-02 19:36
PROVIDERS: Emergency Medicine; Family Medicine; Internal Medicine Hypertension Specialist; Physician Assistant; Physician Assistant Medical; Surgery; Admitting Provider Physician Assistant Surgical; Emergency Provider Emergency Medicine; PCP Nurse Practitioner Family; Visit Provider Surgery
DX: K91.0 Vomiting following gastrointestinal surgery (principal); F33.1 Major depressive disorder, recurrent, moderate; E86.0 Dehydration; I10 Essential (primary) hypertension; E87.6 Hypokalemia; E83.42 Hypomagnesemia; E66.01 Morbid (severe) obesity due to excess calories; Z68.38 Body mass index [BMI] 38.0-38.9, adult; Z20.822 Contact with and (suspected) exposure to COVID-19; Z98.51 Tubal ligation status; Z79.899 Other long term (current) drug therapy
CPT/HCPCS: 36415; 74176; 80048; 80053; 81001; 81025; 82088; 82330; 82436; 83605; 83690; 83735; 83935; 84100; 84132; 84133; 84300; 84484; 85025; 87635; 93005; 99218; 99285; J1200; J2405; J2765; J3411; J3475

== ENCOUNTER 2022-03-10 10:28 | Outpatient (REF) | payer OTHER, SELFPAY ==
[2022-03-10 12:02] LABS: Potassium 3.3 mmol/L (3.3-5.1)
== END 2022-03-10 10:29 | disposition home or self-care (01) ==
LOC: HO.LAB 10:28
PROVIDERS: PCP Nurse Practitioner Family; Visit Provider Physician Assistant
DX: E87.6 Hypokalemia (principal)
CPT/HCPCS: 36415; 84132

== ENCOUNTER 2022-03-19 10:59 | Outpatient (REF) | payer OTHER, SELFPAY ==
[2022-03-19 11:41] LABS: Potassium 3.1 mmol/L (3.3-5.1)
== END 2022-03-19 11:00 | disposition home or self-care (01) ==
LOC: HO.LAB 10:59
PROVIDERS: Visit Provider Physician Assistant
DX: E87.6 Hypokalemia (principal)
CPT/HCPCS: 36415; 84132

== ENCOUNTER 2022-03-25 14:02 | Outpatient (REF) | payer OTHER, SELFPAY | END 2022-03-25 14:03 | disposition home or self-care (01) | LOC: HO.LAB 14:02 | PROVIDERS: Visit Provider Physician Assistant | DX: E87.6 Hypokalemia (principal) | CPT/HCPCS: 36415; 84132 ==

== ENCOUNTER 2022-03-25 16:45 | Inpatient (IN) | payer OTHER, SELFPAY ==
--- NOTE | ~2022-03-25 | CT_ITS ---
EXAMINATION: CT ABDOMEN AND PELVIS WITHOUT CONTRAST CLINICAL INFORMATION: Abdominal pain, history of gastric sleeve COMPARISON: 03/01/2022 TECHNIQUE: Multidetector volumetric imaging was performed from the superior aspect of the liver through the pubic symphysis. Sagittal and coronal reformatted images were obtained on the technologist's workstation. This CT examination was performed using dose optimization techniques as appropriate, variously including the following: *Automated exposure control *Adjustment of mA and/or kV according to patient size (this includes techniques or standardized protocols for targeted exams where dose is matched to indication/reason for exam; i.e. extremities or head) *Use of iterative reconstruction technique DLP: 741 mGy-cm FINDINGS: LUNG BASES: The visualized lung bases are unremarkable. LIVER, GALLBLADDER, AND BILIARY TREE: The liver demonstrates mild hypoattenuation suggesting steatosis. No focal hepatic lesion or biliary ductal dilatation is identified. The gallbladder is unremarkable with no evidence of radiopaque gallstones, gallbladder wall thickening, or obvious pericholecystic inflammatory changes. PANCREAS: Unremarkable. SPLEEN: Unremarkable. ADRENAL GLANDS: Unremarkable. KIDNEYS AND URETERS: The kidneys are normal in size, shape, and attenuation. No hydronephrosis, hydroureter, or calculi seen. No perinephric stranding. BLADDER: Unremarkable. GASTROINTESTINAL TRACT: Postoperative changes of the stomach from prior sleeve gastrectomy. No evidence of bowel obstruction. Oral contrast material is present in the stomach, small bowel, and proximal colon. No significant bowel wall thickening is seen. The appendix is unremarkable. No free fluid or free air is seen. ABDOMINAL WALL: No significant hernia is appreciated. LYMPH NODES: Normal. VASCULAR: Mild scattered atherosclerotic calcification. PELVIC VISCERA: Status post hysterectomy. OSSEOUS STRUCTURES: Unremarkable. CT/CT abdomen pelvis wo IV con IMPRESSION: No acute findings identified in the abdomen/pelvis. Postoperative changes from prior sleeve gastrectomy.
[2022-03-25 17:22] VITALS: BP 124/75; PULSE 59; RESP 16; TEMP 36.7; O2SAT 100; BMI 33.6
[2022-03-25 17:40] LABS: MANUAL DIFF FLAG NO
[2022-03-25 17:44] LABS: Basophils Percent Auto 0.4 % (0-2); Hematocrit 41.8 % (37.0-47.0); Hemoglobin 14.6 g/dl (12.0-16.0); Lymphocytes Absolute Auto 0.9 X10*3/uL (1.2-4.9); Lymphocytes Percent Auto 20.3 % (20-40); Mean Corpuscular HGB Conc 34.9 g/dl (31.0-35.0); Mean Corpuscular Volume 88.7 fL (80.0-98.0); Mean Platelet Volume 11.6 fL (9.4-12.3); Monocytes Absolute Auto 0.6 X10*3/uL (0.1-1.2); Monocytes Percent Auto 12.6 % (2-11); Neutrophils Absolute Auto 3.1 x10*3/uL (2.0-8.3); Neutrophils Percent Auto 66.7 % (45-73); Platelet Count 265 X10*3/uL (160-400); Red Blood Count 4.71 X10*6/uL (4.20-5.50); Red Cell Distribution Width 16.1 % (11.0-16.0); White Blood Count 4.6 X10*3/uL (4.8-10.8)
[2022-03-25 18:01] LABS: COVID-19 Test Negative (Negative); IDNOW Serial# 16C4AD1C
[2022-03-25 18:10] LABS: Alanine Aminotransferase 27 U/L (0-31); Albumin Level 4.1 g/dL (3.5-5.0); Alkaline Phosphatase 84 U/L (39-117); Anion Gap 30 (12-20); Aspartate Amino Transferase 25 U/L (5-31); Bilirubin Total 0.9 mg/dL (0.0-1.0); Blood Urea Nitrogen 8 mg/dL (9-16); Calcium 9.7 mg/dL (8.4-10.2); Carbon Dioxide 13 mmol/L (22-29); Chloride 95 mmol/L (96-108); Creatinine Clr Calc Pharmacy 66.8; Estimated Glomerular Filt Rate 52; Glucose Random 110 mg/dL (60-115); Magnesium 1.9 mg/dL (1.6-2.6); Potassium 3.1 mmol/L (3.3-5.1); Sodium 135 mmol/L (135-145); Total Protein 7.8 g/dL (6.5-8.0)
[2022-03-25 19:38] VITALS: BP 147/98; PULSE 85; TEMP 36.4; O2SAT 98
[2022-03-25 22:41] VITALS: BP 148/93; PULSE 61; RESP 18; TEMP 36.6; O2SAT 98
[2022-03-25 23:07] LABS: Appearance Urine Cloudy; Color Urine Dark Yellow; Glucose Urine UA Negative (Negative); Leukocyte Esterase Urine Trace (Negative); Nitrite Urine Negative (Negative); PH 6.5 (5.0-9.0); Specific Gravity - Urine 1.025 (1.005-1.025); UMIC TRIGGER UACC YES; Urine Blood Negative (Negative); Urine Ketones >=160 mg/dL (Negative); Urine Protein 100 (2+) mg/dL (Neg-Trace)
[2022-03-25 23:12] LABS: Bacteria Urine Trace (None Seen); RBC Urine 0-2 /HPF (0-2); WBC Urine 0-5 /HPF (0-5)
--- NOTE | 2022-03-26 02:01 | ED_ITS ---
HPI - General Adult General Chief complaint: Weakness Stated complaint: nausea, poor po intake,abnormal labs Time Seen by Provider: 03/26/22 01:51 History of Present Illness HPI narrative: This is a 41-year-old female with history of gastric sleeve surgery February 18, who has had dehydration and hypokalemia intermittently since then. The patient states that she is unable to tolerate much in the way of p.o. fluids including shakes. She has not had a bowel movement in a week. She denies any fever. She has some upper abdominal discomfort. She also suffers from anxiety and depression and has feeling more anxious recently. She denies any suicidal ideation. Related Data Home Medications Medication Instructions Recorded Confirmed carvedilol 25 mg tablet 25 mg PO BID 05/23/20 03/10/22 paroxetine HCl 20 mg tablet 1 tab PO BEDTIME depressive 02/18/22 03/10/22 disorder triamcinolone acetonide 0.1 % 1 appl topical DAILY PRN psoriasis 03/02/22 03/10/22 topical cream gabapentin 600 mg tablet 600 mg PO DAILY 03/10/22 03/10/22 Previous Rx's Medication Instructions Recorded pantoprazole 40 mg tablet,delayed 40 mg PO DAILY #30 tabs 01/30/22 release sucralfate 100 mg/mL oral 10 ml PO BID #414 mL 01/30/22 suspension (Carafate) amlodipine 5 mg tablet 5 mg PO DAILY #30 tabs 03/07/22 potassium chloride 20 mEq 20 meq PO DAILY #30 tabs 03/19/22 tablet,extended release inulin 2 gram chewable tablet 2 g PO BID #60 tabs 03/25/22 (Fiber Gummies) polyethylene glycol 3350 17 17 g PO DAILY #238 grams 03/25/22 gram/dose oral powder (Miralax) Allergies Allergy/AdvReac Type Severity Reaction Status Date / Time gadobutrol [GADOBUTROL] Allergy Severe RASH, Verified 03/25/22 15:35 TONGUE SWELLING, SOB Iodinated Contrast Media Allergy Severe DIFFICULTY Verified 03/25/22 15:35 [IV CONTRAST] BREATHING morphine Allergy Severe Anaphylaxis Verified 03/25/22 15:35 peanut [PEANUT] Allergy Severe ANAPHYLAXIS Verified 03/25/22 15:35 amoxicillin [Amoxicillin] Allergy Intermediate RASH Verified 03/25/22 15:35 cinnamon [CINNAMON] Allergy Intermediate TONGUE Verified 03/25/22 15:35 SWELLING Review of Systems Review of Systems: Yes all other systems are reviewed and are negative Constitutional: Constitutional: Reports as per HPI and Denies fever(s) Eyes: Eyes: Reports as per HPI and Reports no additional eye complaints ENT: Reports system reviewed and no additional complaints, except as documented, Reports as per HPI, Denies nasal congestion, Denies nasal discharge and Denies sore throat Cardiovascular: Cardiovascular: Reports as per HPI, Denies chest pain and Denies dyspnea Respiratory: Respiratory: Reports as per HPI, Denies cough and Denies dyspnea Gastrointestinal: Gastrointestinal: Reports as per HPI, Denies abdominal pain, Reports belching, Reports constipation (No bowel movement for a week), Denies diarrhea and Reports vomiting Genitourinary: Genitourinary: Reports as per HPI, Denies hematuria, Denies urinary frequency and Denies dysuria Musculoskeletal: Musculoskeletal: Reports no additional musculoskeletal complaints and Denies numbness Integumentary/Breasts: Skin/Breast: Reports as per HPI and Denies rash Neurologic: Reports as per HPI, Denies focal weakness and Denies numbness Psychiatric: Psychiatric: Reports no additional psychiatric complaints and Reports as per HPI Endocrine: Endocrine: Reports no additional endocrine complaints and Reports as per HPI Hematologic/Lymphatic: Hematologic/Lymphatic: Reports no additional hematologic/lymphatic complaints, Reports as per HPI and Reports other (No peripheral edema) [facility] Past Medical History Medical History Adult general medical exam Anxiety Back pain Brain lesion Depression DEGROOT (dyspnea on exertion) Encounter to establish care Intercostal neuralgia Intercostal neuralgia Major depressive disorder, recurrent, moderate Migraines Morbid obesity with body mass index (BMI) of 50.0 to 59.9 in adult Myofascial pain on left side Neck pain MICHAEL (obstructive sleep apnea) Prediabetes Psoriasis Psoriatic arthritis Surgical History H/O total hysterectomy History of carpal tunnel surgery History of endometrial ablation History of lung surgery Hx of tubal ligation S/P laparoscopic sleeve gastrectomy Family History Family History Mother Hypertension Osteoporosis Back problem Father Hypertension Anxiety Depression Back problem Brother No problems noted. Sister Depression Anxiety Son Anxiety Depression Tourette syndrome Son Depression Anxiety ADHD Daughter Anxiety Depression Other S/P laparoscopic sleeve gastrectomy Social History Social History Household Members: Spouse, Family and Children Housing: House Are you a primary director critical care to a significant other at home: No Do you presently have visiting nurse or other home services: No Alcohol intake: never Patient Tobacco Use Status: Never used Tobacco e-Cigarette/Vaping Use: Never Used Second Hand Smoke Exposure: No Advance Directives: No service: No Current occupational status: disabled Cognitive needs: No Hearing needs: No Vision needs: No Physical Exam ED Vital Signs: Vital Signs - 24 hr 03/25/22 17:22 03/25/22 19:38 03/25/22 22:41 Temperature 98.0 F 97.6 F 97.8 F Pulse Rate 59 85 61 Respiratory Rate 16 18 Blood Pressure 124/75 147/98 H 148/93 H Pulse Oximetry 100 98 98 Oxygen Delivery Method Room Air Room Air Room Air 03/26/22 02:43 Temperature 98.1 F Pulse Rate 72 Respiratory Rate 14 Blood Pressure 144/73 H Pulse Oximetry 100 Oxygen Delivery Method Room Air BMI result Body Mass Index 33.6 Const Other: Depressed affect General: no acute distress Orientation/consciousness: patient oriented x3 HENMT Head: Yes normal to inspection General nose exam: Normal external nose present Mouth: moist mucous membranes Throat: Yes posterior oropharynx normal, Yes tonsils normal and Yes uvula midline Eyes Eyelids: Yes eyelids normal Conjunctivae: conjunctivae normal Pupils: Equal, round and reactive pupils present Neck Neck: Yes supple Resp Effort & Inspection: normal respiratory effort Auscultation: clear to auscultation bilaterally Cardio Rate: regular rate Rhythm: regular rhythm Heart sounds: S1 normal heart sound present, S2 normal heart sound present, no gallops, no murmurs and no rubs GI Inspection: No distended Palpation (GI): Soft to palpation and nontender Auscultation: normal bowel sounds Skin General skin exam: other (Warm and dry) Neuro General: patient oriented x3 and CN's II-XI intact bilaterally Cranial nerves: Yes Equal, round and reactive pupils present Extrem General: Yes no pedal edema Psych Affect: normal affect Attitude: cooperative Medical Decision Making MDM Narrative Medical decision making narrative: Patient with a gastric sleeve procedure just over a month ago, has had difficulty holding down fluids and has had dehydration and hypokalemia. Labs reveal evidence of mild dehydration and and hypokalemia with a potassium of 3.0. Patient was sent in by bariatric PA Song boland. CT protocol to evaluate the gastric sleeve has been ordered and is pending. The patient does appear to have an element of depression anxiety, has a depressed affect. Patient was treated with potassium chloride 20 mEq in 1 L normal saline at 150 mL/hour, as well as 10 mEq IV over an hour. Patient is being signed out to Dr. Resendiz at 05:40 and Lab Data Lab results reviewed: Yes I reviewed the patient's lab results. Result diagrams: 03/25/22 17:35 03/25/22 17:35 Labs: Lab Results 03/25/22 03/25/22 03/25/22 Range/Units 17:35 17:35 17:35 WBC 4.6 L (4.8-10.8) X10*3/uL RBC 4.71 (4.20-5.50) X10*6/uL Hgb 14.6 (12.0-16.0) g/dl Hct 41.8 (37.0-47.0) % MCV 88.7 (80.0-98.0) fL MCH 31.0 (27.0-33.0) pg MCHC 34.9 (31.0-35.0) g/dl RDW 16.1 H (11.0-16.0) % Plt Count 265 D (160-400) X10*3/uL MPV 11.6 (9.4-12.3) fL Immature Gran % (Auto) 0.0 (0.0-0.4) % Neut % (Auto) 66.7 (45-73) % Lymph % (Auto) 20.3 (20-40) % [place] % (Auto) 12.6 H (2-11) % Eos % (Auto) 0.0 (0-4) % Baso % (Auto) 0.4 (0-2) % Lymph # (Auto) 0.9 L (1.2-4.9) X10*3/uL [place] # (Auto) 0.6 (0.1-1.2) X10*3/uL Eos # (Auto) 0.0 (0.0-0.4) X10*3/uL Baso # (Auto) 0.0 (0.0-0.2) X10*3/uL Abs Immat Gran (auto) 0.00 (0.00-0.03) X10*3/uL Absolute Neuts (auto) 3.1 (2.0-8.3) x10*3/uL Absolute Nucleated RBC 0.000 (0.0-0.012) X10*3/uL Nucleated RBC % (auto) 0.0 (0.0-0.2) /100WBC Sodium 135 (135-145) mmol/L Potassium 3.1 L (3.3-5.1) mmol/L Chloride 95 L (96-108) mmol/L Carbon Dioxide 13 L (22-29) mmol/L Anion Gap 30 H (12-20) BUN 8 L (9-16) mg/dL Creatinine 1.14 (0.5-1.4) mg/dL Estim Creat Clear Calc 66.8 Estimated GFR 52 Random Glucose 110 (60-115) mg/dL Calcium 9.7 D (8.4-10.2) mg/dL Phosphorus 2.0 L (2.7-4.5) mg/dL Magnesium 1.9 (1.6-2.6) mg/dL Total Bilirubin 0.9 (0.0-1.0) mg/dL AST 25 (5-31) U/L ALT 27 (0-31) U/L Alkaline Phosphatase 84 (39-117) U/L Total Protein 7.8 (6.5-8.0) g/dL Albumin 4.1 (3.5-5.0) g/dL Urine Color Urine Appearance Urine pH (5.0-9.0) Ur Specific [place] (1.005-1.025) Urine Protein (Neg-Trace) mg/dL Urine Glucose (UA) (Negative) mg/dL Urine Ketones (Negative) mg/dL Urine Blood (Negative) Urine Nitrite (Negative) Ur Leukocyte Esterase (Negative) Urine RBC (0-2) /HPF Urine WBC (0-5) /HPF Ur Squamous Epith Cells (0-2) /HPF Urine Bacteria (None Seen) Hyaline Casts (0-2) /LPF COVID-19 (ALEJANDRO) Negative (Negative) COVID-19 Clin Com See Note 03/25/22 Range/Units 22:56 WBC (4.8-10.8) X10*3/uL RBC (4.20-5.50) X10*6/uL Hgb (12.0-16.0) g/dl Hct (37.0-47.0) % MCV (80.0-98.0) fL MCH (27.0-33.0) pg MCHC (31.0-35.0) g/dl RDW (11.0-16.0) % Plt Count (160-400) X10*3/uL MPV (9.4-12.3) fL Immature Gran % (Auto) (0.0-0.4) % Neut % (Auto) (45-73) % Lymph % (Auto) (20-40) % [place] % (Auto) (2-11) % Eos % (Auto) (0-4) % Baso % (Auto) (0-2) % Lymph # (Auto) (1.2-4.9) X10*3/uL [place] # (Auto) (0.1-1.2) X10*3/uL Eos # (Auto) (0.0-0.4) X10*3/uL Baso # (Auto) (0.0-0.2) X10*3/uL Abs Immat Gran (auto) (0.00-0.03) X10*3/uL Absolute Neuts (auto) (2.0-8.3) x10*3/uL Absolute Nucleated RBC (0.0-0.012) X10*3/uL Nucleated RBC % (auto) (0.0-0.2) /100WBC Sodium (135-145) mmol/L Potassium (3.3-5.1) mmol/L Chloride (96-108) mmol/L Carbon Dioxide (22-29) mmol/L Anion Gap (12-20) BUN (9-16) mg/dL Creatinine (0.5-1.4) mg/dL Estim Creat Clear Calc Estimated GFR Random Glucose (60-115) mg/dL Calcium (8.4-10.2) mg/dL Phosphorus (2.7-4.5) mg/dL Magnesium (1.6-2.6) mg/dL Total Bilirubin (0.0-1.0) mg/dL AST (5-31) U/L ALT (0-31) U/L Alkaline Phosphatase (39-117) U/L Total Protein (6.5-8.0) g/dL Albumin (3.5-5.0) g/dL Urine Color Dark Yellow Urine Appearance Cloudy Urine pH 6.5 (5.0-9.0) Ur Specific [place] 1.025 (1.005-1.025) Urine Protein 100 (2+) H (Neg-Trace) mg/dL Urine Glucose (UA) Negative (Negative) mg/dL Urine Ketones >=160 (Negative) mg/dL Urine Blood Negative (Negative) Urine Nitrite Negative (Negative) Ur Leukocyte Esterase Trace H (Negative) Urine RBC 0-2 (0-2) /HPF Urine WBC 0-5 (0-5) /HPF Ur Squamous Epith Cells 11-20 (0-2) /HPF Urine Bacteria Trace (None Seen) Hyaline Casts 3-5 (0-2) /LPF COVID-19 (ALEJANDRO) (Negative) COVID-19 Clin Com Discharge Plan Discharge Clinical Impression: Hypokalemia, Nausea & vomiting, Dehydration Patient Disposition: Still a Patient Prescriptions: No Action potassium chloride 20 mEq tablet extended release 20 meq PO DAILY Qty: 30 1RF Fiber Gummies 2 gram tablet,chewable 2 g PO BID Qty: 60 5RF polyethylene glycol 3350 [Miralax] 17 gram/dose powder 17 g PO DAILY Qty: 238 2RF triamcinolone acetonide 0.1 % cream 1 appl topical DAILY PRN (Reason: psoriasis) amlodipine 5 mg Tablet 5 mg PO DAILY Qty: 30 3RF Protocol: Hold for SBP< HOLD for SBP < : 90 paroxetine HCl 20 mg tablet 1 tab PO BEDTIME carvedilol 25 mg tablet 25 mg PO BID gabapentin 600 mg tablet 600 mg PO DAILY pantoprazole 40 mg tablet,delayed release (DR/EC) 40 mg PO DAILY Qty: 30 2RF sucralfate [Carafate] 100 mg/mL suspension 10 ml PO BID Qty: 414 0RF
[2022-03-26 02:43] VITALS: BP 144/73; PULSE 72; RESP 14; TEMP 36.7; O2SAT 100
[2022-03-26] MEDS: LORazepam 1 MG TABLET PO (04:13)
[2022-03-26] MEDS: KCl 20 mEq in 0.9 % Sodium ChL 20 MEQ/1,000 ML IV.SOLN 150 MEQ IVCONT (04:13)
[2022-03-26] MEDS: ondansetron HCL 4 MG/2 ML VIAL IVPUSH (04:13)
--- NOTE | 2022-03-26 04:29 | PC.NURSE ---
pt complains of burping and denies pain. pt is drinking the contrast at this time.
--- NOTE | 2022-03-26 04:33 | PC.NURSE ---
pt is attempting to drink the contrast. she states it is hot when it is cold. pt encourage to drink. ativan given po. and zofran iv.
[2022-03-26] MEDS: Diatrizoate Meglumine, Sodium 30 ML SOLUTION PO (05:37)
[2022-03-26 05:47] VITALS: PULSE 71; RESP 14; TEMP 36.6; O2SAT 99
--- NOTE | 2022-03-26 07:34 | P.HPGS_ITS ---
History of Present Illness History of Present Illness Date of Service: 03/26/22 Chief complaint: Dehydration, anxiety Narrative: Darius Velazquez is a 41 year old female presented to the office 03/25/22 with intolerance to liquids and feeling unwell. She reported constipation of one week, belching and mild back pain. She alos reports sig increase in anxiety. She was hospitalized with hypokalemia early in February and seen in consultation w nephrology hwo follows the patient in th outpt setting. The patient reports that she is able to initiate swallowing, denies any hesitation of swallowing any type of solid or liquid food bolus but she is having foamy vomit when she drinks the protein shakes.? Given this, she and her family report that she has been up at night some vomiting, consequently, she has been avoiding this product.? She is tolerating a eggs and tuna.? There has been no hematemesis. In the patient notes a prior history of depression and anxiety and has noted that her anxiety is higher than usual.? She has been tearful and shaking and hyperventilating here in the office. As a result of her presentation and concern over dehydration, she was sent to the ER for further evaluatin. In the ER she was found to have significant electrolyte abnormality. Low K+, lo w Phos, normal Mag and mild JOSSELIN. Pos AG 30. CT was neg for acute pathology. SHe was given IVF w K+ and KCl with a decrease in her K. She is being admitted for further care, evaluation by Nephrology, Psychiatry, IV potassium replacement and IV Phosphorus replacement. Review of Systems Review of Systems: Yes all other systems are reviewed and are negative PMFSH Past Medical History Medical History Adult general medical exam Anxiety Back pain Brain lesion Depression DEGROOT (dyspnea on exertion) Encounter to establish care Intercostal neuralgia Intercostal neuralgia Major depressive disorder, recurrent, moderate Migraines Morbid obesity with body mass index (BMI) of 50.0 to 59.9 in adult Myofascial pain on left side Neck pain MICHAEL (obstructive sleep apnea) Prediabetes Psoriasis Psoriatic arthritis Family History Family History Mother Hypertension Osteoporosis Back problem Father Hypertension Anxiety Depression Back problem Brother No problems noted. Sister Depression Anxiety Son Anxiety Depression Tourette syndrome Son Depression Anxiety ADHD Daughter Anxiety Depression Other S/P laparoscopic sleeve gastrectomy Surgical History Surgical History H/O total hysterectomy History of carpal tunnel surgery History of endometrial ablation History of lung surgery Hx of tubal ligation S/P laparoscopic sleeve gastrectomy Social History Social History Household Members: Spouse, Family and Children Housing: House Are you a primary memory care director to a significant other at home: No Do you presently have visiting nurse or other home services: No Alcohol intake: never Patient Tobacco Use Status: Never used Tobacco e-Cigarette/Vaping Use: Never Used Second Hand Smoke Exposure: No Advance Directives: No service: No Current occupational status: disabled Cognitive needs: No Hearing needs: No Vision needs: No Meds Allergies Allergy/AdvReac Type Severity Reaction Status Date / Time gadobutrol [GADOBUTROL] Allergy Severe RASH, Verified 03/25/22 15:35 TONGUE SWELLING, SOB Iodinated Contrast Media Allergy Severe DIFFICULTY Verified 03/25/22 15:35 [IV CONTRAST] BREATHING morphine Allergy Severe Anaphylaxis Verified 03/25/22 15:35 peanut [PEANUT] Allergy Severe ANAPHYLAXIS Verified 03/25/22 15:35 amoxicillin [Amoxicillin] Allergy Intermediate RASH Verified 03/25/22 15:35 cinnamon [CINNAMON] Allergy Intermediate TONGUE Verified 03/25/22 15:35 SWELLING Active Medications: Current Medications Potassium Chloride/Sodium Chloride (Kcl 20 Meq In 0.9 % Sodium Chl) 20 meq in 1,000 mls @ 150 mls/hr IVCONT .[id number] LUL Last Admin: 03/26/22 04:13 Dose: 150 mls/hr Pharmacy Consult (Consult Rx Perform Med Rec) 1 each MISCELLANE ONCE PRN PRN Reason: Consult order Home Medications Medication Instructions Recorded Confirmed Last Taken Type carvedilol 25 mg tablet 25 mg PO BID 05/23/20 03/26/22 03/25/22 History paroxetine HCl 20 mg tablet 1 tab PO BEDTIME depressive 02/18/22 03/26/22 1 05/25/21 History disorder triamcinolone acetonide 0.1 % 1 appl topical DAILY PRN psoriasis 03/02/22 03/26/22 Unknown History topical cream gabapentin 600 mg tablet 600 mg PO DAILY@1300 03/10/22 03/26/22 03/25/22 History amlodipine 5 mg tablet 1 tab PO DAILY 03/26/22 03/26/22 03/25/22 History cholecalciferol (vitamin D3) 50 1 cap PO DAILY 03/26/22 03/26/22 03/25/22 History mcg (2,000 unit) capsule scopolamine base 1 mg over 3 days 1 patch transdermal Q3D PRN 03/26/22 03/26/22 03/23/22 History transdermal patch nausea/vomiting Physical Exam Vital Signs: Vital Signs: Last Vital Signs Temp 97.8 F 03/26/22 05:47 Pulse 71 03/26/22 05:47 Resp 14 03/26/22 05:47 BP 144/73 H 03/26/22 02:43 Pulse Ox 99 03/26/22 05:47 O2 Del Method 03/26/22 05:47 BMI result Body Mass Index 33.6 Const: General: cooperative, no acute distress, anxious and ill appearing Orientation/consciousness: patient oriented x3 Limitations: no limitations HEENT: Head: Yes normal to inspection Ears: hearing grossly normal bilaterally General nose exam: Normal external nose present Face and sinus: Yes normal facial exam Eyes: General: appearance normal, both eyes and all related structures Resp: Effort & Inspection: normal respiratory effort Auscultation: clear to auscultation bilaterally Cardio: Rate: regular rate Rhythm: regular rhythm Heart sounds: S1 normal heart sound present and S2 normal heart sound present GI: Inspection: Yes normal to inspection, No distended and Yes obesity Palpation (GI): Soft to palpation, nontender and no guarding Auscultation: normal bowel sounds Skin: General skin exam: no rashes or lesions noted Neuro: General: patient oriented x3 Extrem: General: No edema Psych: Appearance: grossly normal Mental Status: mental status grossly normal Speech and movement: Normal speech and movement present Affect: normal affect Attitude: cooperative Results Results Labs: Short CBC 03/25/22 Range/Units 17:35 WBC 4.6 L (4.8-10.8) X10*3/uL Hgb 14.6 (12.0-16.0) g/dl Hct 41.8 (37.0-47.0) % Plt Count 265 D (160-400) X10*3/uL BMP 03/25/22 17:35 Sodium 135 Potassium 3.1 L Chloride 95 L Carbon Dioxide 13 L BUN 8 L Creatinine 1.14 Calcium 9.7 D Liver Function 03/25/22 Range/Units 17:35 Total Bilirubin 0.9 (0.0-1.0) mg/dL AST 25 (5-31) U/L ALT 27 (0-31) U/L Alkaline Phosphatase 84 (39-117) U/L Albumin 4.1 (3.5-5.0) g/dL Urine 03/25/22 Range/Units 22:56 Urine Color Dark Yellow Urine Appearance Cloudy Urine pH 6.5 (5.0-9.0) Ur Specific [place] 1.025 (1.005-1.025) Urine Protein 100 (2+) H (Neg-Trace) mg/dL Urine Glucose (UA) Negative (Negative) mg/dL Assessment and Plan (1) S/P laparoscopic sleeve gastrectomy: Status: Acute s/p LSG, uneventfully 02/18/22. She has had postoperative dehydration and hypokalemia requiring hospitalization in early February. No identifiable surgical etiology for decompensation by CT in February and again today. She may be on Bariatric phase 4. (2) Dehydration: Status: Acute IVf, D5 NS w 40 K+, consult with nephrology given mild JOSSELIN, repeat labs in am. may have PO as tolerated as above (3) Acute anxiety: Status: Acute longstanding hx of anxiety and depression. Now on monotherapy w Paxil, consult to psychiatry given significant deterioration since surgery (4) Electrolyte abnormality: Status: Acute Replace K+ and Phos. D5 NS w 40 meq K added, add KPhos x one, repeat labs in am. Plan Discussed case in full with Dr Kelley Quality Stroke Does the patient have a stroke diagnosis?: No VTE Prior VTE?: No VTE Risk Level:: Medical - low VTE Device Contraindication: N/A - Device Ordered VTE Drug Contraindication: N/A - Med Ordered Procedures Date of Service Date of Service: 03/26/22
[2022-03-26 07:39] LABS: Anion Gap 25 (12-20); Blood Urea Nitrogen 9 mg/dL (9-16); Calcium 9.8 mg/dL (8.4-10.2); Carbon Dioxide 17 mmol/L (22-29); Chloride 95 mmol/L (96-108); Creatinine Clr Calc Pharmacy 66.8; Estimated Glomerular Filt Rate 52; Glucose Random 97 mg/dL (60-115); Magnesium 1.9 mg/dL (1.6-2.6); Phosphorus 2.9 mg/dL (2.7-4.5); Potassium 2.5 mmol/L (3.3-5.1); Sodium 135 mmol/L (135-145)
[2022-03-26 08:02] LABS: VBG Base Excess -4.5 mmol/L; VBG HCO3 17 mmol/L (22-26); VBG pCO2 23 mmHg; VBG pH 7.46 (7.32-7.43); VBG pO2 88 mmHg
[2022-03-26 08:03] LABS: Venous Blood Gas Refer to POC result
[2022-03-26 08:08] VITALS: BP 130/78; PULSE 60; RESP 16; O2SAT 99
[2022-03-26] MEDS: Potassium Phosphate/NS 15 MMOL/250 ML PLAST..BAG 62.5 MMOL IV (08:47)
[2022-03-26] MEDS: 0.9 % Sodium Chloride Flush 3 ML SYRINGE IVFLUSH (08:49)
[2022-03-26] MEDS: Potassium Chloride ER 20 MEQ TAB.ER.PRT PO (09:05)
--- NOTE | 2022-03-26 09:09 | PHA.MEDREC ---
Pharmacy Consult ? Medication Reconciliation Pharmacy has completed the medication reconciliation.
--- NOTE | 2022-03-26 10:52 | PC.NURSE ---
pt a difficult poke, another RN took a look and attempted to place a second line - unable to obtain a second access point to run Kcl 40 mEq. med late administered due to limited access.
[2022-03-26] MEDS: KCl 40 mEq in 5% Dex/0.9% Sod 40 MEQ/1,000 ML IV.SOLN 125 MEQ IVCONT ×2 (11:19→19:42)
--- NOTE | 2022-03-26 13:30 | PM.PSYCN ---
History of Present Illness Date of Service: 03/26/2022 Chief Complaint: Dehydration, anxiety Reason for Consult: Significant increase in anxiety. Requesting physician: Song Palencia Discussed with referring provider: Yes Sources of Information: patient interviewed and chart reviewed HPI Narrative: Patient is a 41-year-old female with history of gastric sleeve surgery 02/18/2022. Has had dehydration and hypokalemia intermittently since that time. Patient has been admitted for further care and treatment. Psychiatry consult placed due to increased anxiety. I met with patient today in the ED. She was resting in bed, appeared comfortable. At that time patient was minimizing any sx. I later returned to see her again several hours later, and she was much more open to discussing sx. She reports that she has a long history of anxiety and depression. Symptoms have appeared to increase in frequency and duration since gastric sleeve surgery 6 weeks ago. Received care at [facility] outpatient clinic in past, when her children were little. Has 3 children, all now adults in their 20's. Was in hospital several times as a child, due to history of epileptic symptoms. Denies any symptoms of epilepsy as an adult. No current psych providers. Paxil prescribed through a medical provider. Reports continued nightmares at times, of . Says she was prescribed medication in past for this, but does not recall name of it. Denies any SI/HI, says feels safe. Reports that Paxil works well and help managing the anxiety. Stated that she was anxious when she came into the ER due to concern for her health. She states that today she feels much less anxious, and that describes her mood as ?calm ?. Reports that she does have moods that go up and down, but not in relation to bipolar sx, but more in the moment , which she describes more as symptoms of feeling overwhelmed, panic. She has taken seroquel in the past for mood, but describes an adverse reaction to the med, as having no strength in my body . Reports she took lamotrigine in the past, as an adult, for mood. States she believes it was effective, and does not recall any adverse reactions / side effects. she does not recall why she stopped taking it. She is agreeable at this time to trying this medication again. She is also open to a referral to [facility]. Past Psychiatric History: Carries diagnosis of depression and anxiety. Previous providers through [facility] (years ago) No current providers Med trials: seroquel (adv reaction), a med for nightmares, does not recall Medical Evaluation Reviewed: Yes Personal & Social History: has spouse, 3 adult children, house. Review of Systems Review of Systems A full review of systems was completed and was negative with the exception of pertinent positives noted in history of the presenting illness (HPI). Constitutional: Reports as per HPI [facility] Medical History Adult general medical exam Anxiety Back pain Brain lesion Depression DEGROOT (dyspnea on exertion) Encounter to establish care Intercostal neuralgia Intercostal neuralgia Major depressive disorder, recurrent, moderate Migraines Morbid obesity with body mass index (BMI) of 50.0 to 59.9 in adult Myofascial pain on left side Neck pain MICHAEL (obstructive sleep apnea) Prediabetes Psoriasis Psoriatic arthritis Surgical History H/O total hysterectomy History of carpal tunnel surgery History of endometrial ablation History of lung surgery Hx of tubal ligation S/P laparoscopic sleeve gastrectomy Family History: Father: anxiety, depression Sister: anxiety, depression Substance History: none reported Trauma History: none reported, states she was hospitalized several times as a child r/t epileptic symtoms (seizure?) Diagnostics Vital Signs (24Hr): Vital Signs - 24 hr 03/25/22 17:22 03/25/22 19:38 03/25/22 22:41 Temperature 98.0 F 97.6 F 97.8 F Pulse Rate 59 85 61 Respiratory Rate 16 18 Blood Pressure 124/75 147/98 H 148/93 H Pulse Oximetry 100 98 98 Oxygen Delivery Method Room Air Room Air Room Air 03/26/22 02:43 03/26/22 05:47 03/26/22 08:08 Temperature 98.1 F 97.8 F Pulse Rate 72 71 60 Respiratory Rate 14 14 16 Blood Pressure 144/73 H 130/78 Pulse Oximetry 100 99 99 Oxygen Delivery Method Room Air Room Air Room Air BMI result Body Mass Index 33.6 Labs Results: 03/25/22 17:35 03/26/22 14:10 Labs: Laboratory Results - last 48 hr 03/25/22 03/25/22 03/25/22 17:35 17:35 17:35 WBC 4.6 L RBC 4.71 Hgb 14.6 Hct 41.8 MCV 88.7 MCH 31.0 MCHC 34.9 RDW 16.1 H Plt Count 265 D MPV 11.6 Immature Gran % (Auto) 0.0 Neut % (Auto) 66.7 Lymph % (Auto) 20.3 O'Brien % (Auto) 12.6 H Eos % (Auto) 0.0 Baso % (Auto) 0.4 Lymph # (Auto) 0.9 L O'Brien # (Auto) 0.6 Eos # (Auto) 0.0 Baso # (Auto) 0.0 Abs Immat Gran (auto) 0.00 Absolute Neuts (auto) 3.1 Absolute Nucleated RBC 0.000 Nucleated RBC % (auto) 0.0 VBG pH VBG pCO2 VBG pO2 VBG HCO3 VBG O2 Saturation VBG Base Excess Sodium 135 Potassium 3.1 L Chloride 95 L Carbon Dioxide 13 L Anion Gap 30 H BUN 8 L Creatinine 1.14 Estim Creat Clear Calc 66.8 Estimated GFR 52 Random Glucose 110 Calcium 9.7 D Phosphorus 2.0 L Magnesium 1.9 Total Bilirubin 0.9 AST 25 ALT 27 Alkaline Phosphatase 84 Total Protein 7.8 Albumin 4.1 Urine Color Urine Appearance Urine pH Ur Specific [place] Urine Protein Urine Glucose (UA) Urine Ketones Urine Blood Urine Nitrite Ur Leukocyte Esterase Urine RBC Urine WBC Ur Squamous Epith Cells Urine Bacteria Hyaline Casts COVID-19 (ALEJANDRO) Negative COVID-19 Clin Com See Note 03/25/22 03/26/22 03/26/22 22:56 07:04 07:56 WBC RBC Hgb Hct MCV MCH MCHC RDW Plt Count MPV Immature Gran % (Auto) Neut % (Auto) Lymph % (Auto) O'Brien % (Auto) Eos % (Auto) Baso % (Auto) Lymph # (Auto) O'Brien # (Auto) Eos # (Auto) Baso # (Auto) Abs Immat Gran (auto) Absolute Neuts (auto) Absolute Nucleated RBC Nucleated RBC % (auto) VBG pH 7.46 H VBG pCO2 23 VBG pO2 88 VBG HCO3 17 L VBG O2 Saturation 98.0 VBG Base Excess -4.5 Sodium 135 Potassium 2.5 L* Chloride 95 L Carbon Dioxide 17 L Anion Gap 25 H BUN 9 Creatinine 1.14 Estim Creat Clear Calc 66.8 Estimated GFR 52 Random Glucose 97 Calcium 9.8 Phosphorus 2.9 Magnesium 1.9 Total Bilirubin AST ALT Alkaline Phosphatase Total Protein Albumin Urine Color Dark Yellow Urine Appearance Cloudy Urine pH 6.5 Ur Specific [place] 1.025 Urine Protein 100 (2+) H Urine Glucose (UA) Negative Urine Ketones >=160 Urine Blood Negative Urine Nitrite Negative Ur Leukocyte Esterase Trace H Urine RBC 0-2 Urine WBC 0-5 Ur Squamous Epith Cells 11-20 Urine Bacteria Trace Hyaline Casts 3-5 COVID-19 (ALEJANDRO) COVID-19 Clin Com Imaging Radiology Impressions: ITS Impressions Abdomen/Pelvis CT 03/26/22 05:48 IMPRESSION: No acute findings identified in the abdomen/pelvis. Postoperative changes from prior sleeve gastrectomy. Mental Status Exam Mental Status Exam Narrative: Well-developed, well-nourished, in NAD. General appearance, well groomed, wearing hospital garb. Musculoskeletal: No involuntary movements noted, motor activity calm. Manner/behavior: Calm, cooperative. Speech: Fluent, unimpaired, normal rate volume and rhythm. Mood: slightly anxious. Affect: Mood congruent. Thought process/associations: Linear, goal directed. Thought content: Normal, future oriented. Delusions: None. Hallucinations: None. Suicidality/self destructive behavior: None. Homicidality/violence: none. Reliability: Good Judgment: good Insight: good MSK exam: ambulation not observed Patient Appearance: Appropriate Medications Medications Current Medications Amlodipine Besylate (Amlodipine Besylate 5 Mg Tablet) 5 mg PO DAILY [facility]; Protocol Carvedilol (Carvedilol 25 Mg Tablet) 25 mg PO BID [facility]; Protocol Gabapentin (Gabapentin 600 Mg Tablet) 600 mg PO BEDTIME [facility] Potassium Chloride/Dextrose/Sod Cl (Kcl 40 Meq In 5% Dex/0.9% Sod) 40 meq in 1,000 mls @ 125 mls/hr IVCONT .Q8H [facility] Last Admin: 03/26/22 11:19 Dose: 125 mls/hr Magnesium Hydroxide (Milk Of Magnesia 30 Ml Oral.Susp) 30 ml PO DAILY PRN PRN Reason: Constipation Pharmacy Consult (Consult Rx Perform Med Rec) 1 each MISCELLANE ONCE PRN PRN Reason: Consult order Polyethylene Glycol (Polyethylene Glycol 3350 17 Gm Powd.Pack) 17 gm PO DAILY [facility] Potassium Chloride (Potassium Chloride Er 20 Meq Tab.Er.Prt) 20 meq PO DAILY [facility] Scopolamine (Scopolamine 1.5 Mg Patch.Td.3) 1.5 mg TRANSDERMA Q3D PRN PRN Reason: nausea/vomiting Sodium Chloride (0.9 % Sodium Chloride Flush 3 Ml Syringe) 3 ml IVFLUSH QSHIFT [facility] Last Admin: 03/26/22 08:49 Dose: 3 ml Sucralfate (Sucralfate Oral Suspension 1 Gm/10 Ml Oral.Susp) 1 gm PO BID [facility] Vitamin D (Cholecalciferol (Vitamin D3) 25 Mcg Tablet) 50 mcg PO DAILY [facility] Allergies Allergies Allergy/AdvReac Type Severity Reaction Status Date / Time gadobutrol [GADOBUTROL] Allergy Severe RASH, Verified 03/25/22 15:35 TONGUE SWELLING, SOB Iodinated Contrast Media Allergy Severe DIFFICULTY Verified 03/25/22 15:35 [IV CONTRAST] BREATHING morphine Allergy Severe Anaphylaxis Verified 03/25/22 15:35 peanut [PEANUT] Allergy Severe ANAPHYLAXIS Verified 03/25/22 15:35 amoxicillin [Amoxicillin] Allergy Intermediate RASH Verified 03/25/22 15:35 cinnamon [CINNAMON] Allergy Intermediate TONGUE Verified 03/25/22 15:35 SWELLING Assessment & Plan Assessment & Plan (1) Major depressive disorder: Status: Acute Code(s): F32.9 - Major depressive disorder, single episode, unspecified Assessment and Plan: patient states that she was diagnosed with MDD and anxiety years ago , when her children were young (over 20 years ago). first sought out treatment at that time, and was treated with medications as well as worked with a therapist. Denies any sx or history of bipolar disorder. No manic / hypomanic sx reported. currently prescribed paxil, which she reports works well. Endorses increased sx of anxiety since gastric sleeve surgery 6 weeks ago. Has taken lamotrigine in the past with positive effect for mood stabilization, willing to restart. Interested in referral to [facility], as she believes the structure and groups will be helpful. Also interested in referral to psychiatric provider and therapist. (2) ERNESTO (generalized anxiety disorder): Status: Acute Code(s): F41.1 - Generalized anxiety disorder Plan Recommendations as follows: 1. Consider adding lamotrigine 25mg daily X 14 days, with plan to increase dose after 14 days to 50mg daily X 14 days. Ultimate goal is to titrate up to 100mg daily after 4 weeks. 2. Continue with paroxetine as prescribed. 3. Use lorazepam prn for anxiety while here. 4. Consider referral to [facility] program, outpatient therapy. I have shared these with providers Song OLSON, and WESLEY Vo. Thank you for this consultation. I spent minutes with the patient and/or on the patient floor today, greater than?50% of which was spent counseling/coordinating care. Patient educated on: diagnosis and medication risk/benefits Informed Consent: understands
--- NOTE | 2022-03-26 14:02 | P.CONHOSP_ITS ---
History of Present Illness Data of Consult Service Date: 03/26/22 Requesting physician: Christen Gutierrez Primary Care Provider: Unknown Physician HPI Reason for consult: hypokalemia 41-year-old female with history of hypertension, intercostal neuralgia, migraines, occipital neuralgia, lumbar herniated discs, and multiple benign brain lesions initially admitted to bariatric surgery service due to hypokalemia. However patient is not experiencing any vomiting or diarrhea, so consult placed to change to hospitalist service for management of hypokalemia. The patient underwent [place]18. She reports she felt well for about 2 weeks after which she developed persistent nausea with decreased oral intake. She also had been having diarrhea but has not had any e pisodes of diarrhea in 8 days, which was last stay she moved her bowels. She denies any vomiting, fevers, chills. There has been intermittent abdominal pain. Reports yesterday had diffuse abdominal pain with bloating that has resolved. She also reports feeling fatigued and is quite constipated. No myalgia, muscle spasm, palpitations. She has had dehydration and hypokalemia since the surgery, has been hospitalized twice for hypokalemia, follows with nephrology outpt and is on 20meq daily KCl outpt. On arrival to the ED found to have low potassium 3.0, 3.1 on repeat. Ag 30 with CO2 13, chloride 95, sodium 135, phosphorus 2.0, Mag 1.9. Creatinine 1.41, BUN 8, no JOSSELIN. Potassium initially repleted with 20 mEq in 1 L NS. Potassium on recheck fell to 2.5. Then given 20 meq KCl ER, 15mmol KPhos in 250mL. Now on KCl 40meq drip in D5/NS @125ml/hr. CT negative for any acute intra abdominal abnormality. Review of Systems Review of Systems: General: +generalzied weakness, +fatigue. No fevers, malaise, unintentional weight loss HEENT: No blurred vision, diplopia. No sore throat, nasal congestion, rhinorrhea, sinus pain, ear pain Cardiovascular: No chest pain, palpitations, or leg edema Respiratory: No shortness of breath, wheezing, cough GI: +constipation, +abdominal pain, +nausea. No vomiting, diarrhea, melena, hematochezia : No dysuria, hematuria, increased urinary frequency, decreased urinary output MSK: No myalgia, back pain Neuro: No headaches, weakness, paresthesias Skin: No rashes or lesions [facility] Medical History Adult general medical exam Anxiety Back pain Brain lesion Depression DEGROOT (dyspnea on exertion) Encounter to establish care Intercostal neuralgia Intercostal neuralgia Major depressive disorder, recurrent, moderate Migraines Morbid obesity with body mass index (BMI) of 50.0 to 59.9 in adult Myofascial pain on left side Neck pain MICHAEL (obstructive sleep apnea) Prediabetes Psoriasis Psoriatic arthritis Family History Mother Hypertension Osteoporosis Back problem Father Hypertension Anxiety Depression Back problem Brother No problems noted. Sister Depression Anxiety Son Anxiety Depression Tourette syndrome Son Depression Anxiety ADHD Daughter Anxiety Depression Other S/P laparoscopic sleeve gastrectomy Surgical History H/O total hysterectomy History of carpal tunnel surgery History of endometrial ablation History of lung surgery Hx of tubal ligation S/P laparoscopic sleeve gastrectomy Social History Household Members: Spouse, Family and Children Housing: House Are you a primary childcare center director to a significant other at home: No Do you presently have visiting nurse or other home services: No Alcohol intake: never Patient Tobacco Use Status: Never used Tobacco e-Cigarette/Vaping Use: Never Used Second Hand Smoke Exposure: No Advance Directives: No service: No Current occupational status: disabled Cognitive needs: No Hearing needs: No Vision needs: No Meds Allergies Allergy/AdvReac Type Severity Reaction Status Date / Time gadobutrol [GADOBUTROL] Allergy Severe RASH, Verified 03/25/22 15:35 TONGUE SWELLING, SOB Iodinated Contrast Media Allergy Severe DIFFICULTY Verified 03/25/22 15:35 [IV CONTRAST] BREATHING morphine Allergy Severe Anaphylaxis Verified 03/25/22 15:35 peanut [PEANUT] Allergy Severe ANAPHYLAXIS Verified 03/25/22 15:35 amoxicillin [Amoxicillin] Allergy Intermediate RASH Verified 03/25/22 15:35 cinnamon [CINNAMON] Allergy Intermediate TONGUE Verified 03/25/22 15:35 SWELLING Active Medications: Current Medications Amlodipine Besylate (Amlodipine Besylate 5 Mg Tablet) 5 mg PO DAILY [facility]; Protocol Carvedilol (Carvedilol 25 Mg Tablet) 25 mg PO BID [facility]; Protocol Gabapentin (Gabapentin 600 Mg Tablet) 600 mg PO BEDTIME [facility] Potassium Chloride/Dextrose/Sod Cl (Kcl 40 Meq In 5% Dex/0.9% Sod) 40 meq in 1,000 mls @ 125 mls/hr IVCONT .Q8H [facility] Last Admin: 03/26/22 11:19 Dose: 125 mls/hr Magnesium Hydroxide (Milk Of Magnesia 30 Ml Oral.Susp) 30 ml PO DAILY PRN PRN Reason: Constipation Pharmacy Consult (Consult Rx Perform Med Rec) 1 each MISCELLANE ONCE PRN PRN Reason: Consult order Polyethylene Glycol (Polyethylene Glycol 3350 17 Gm Powd.Pack) 17 gm PO DAILY [facility] Potassium Chloride (Potassium Chloride Er 20 Meq Tab.Er.Prt) 20 meq PO DAILY [facility] Scopolamine (Scopolamine 1.5 Mg Patch.Td.3) 1.5 mg TRANSDERMA Q3D PRN PRN Reason: nausea/vomiting Sodium Chloride (0.9 % Sodium Chloride Flush 3 Ml Syringe) 3 ml IVFLUSH QSHIFT [facility] Last Admin: 03/26/22 08:49 Dose: 3 ml Sucralfate (Sucralfate Oral Suspension 1 Gm/10 Ml Oral.Susp) 1 gm PO BID [facility] Vitamin D (Cholecalciferol (Vitamin D3) 25 Mcg Tablet) 50 mcg PO DAILY [facility] Home Medications Medication Instructions Recorded Confirmed Last Taken Type carvedilol 25 mg tablet 25 mg PO BID 05/23/20 03/26/22 03/25/22 History paroxetine HCl 20 mg tablet 1 tab PO BEDTIME depressive 02/18/22 03/26/22 03/25/22 History disorder triamcinolone acetonide 0.1 % 1 appl topical DAILY PRN psoriasis 03/02/22 03/26/22 Unknown History topical cream gabapentin 600 mg tablet 600 mg PO DAILY@1300 03/10/22 03/26/22 03/25/22 History amlodipine 5 mg tablet 1 tab PO DAILY 03/26/22 03/26/22 03/25/22 History cholecalciferol (vitamin D3) 50 1 cap PO DAILY 03/26/22 03/26/22 03/25/22 History mcg (2,000 unit) capsule scopolamine base 1 mg over 3 days 1 patch transdermal Q3D PRN 03/26/22 03/26/22 03/23/22 History transdermal patch nausea/vomiting Physical Exam Vital Signs and Narrative: Vital Signs: Last Vital Signs Temp 97.8 F 03/26/22 05:47 Pulse 60 03/26/22 08:08 Resp 16 03/26/22 08:08 BP 130/78 03/26/22 08:08 Pulse Ox 99 03/26/22 08:08 O2 Del Method 03/26/22 08:08 BMI result Body Mass Index 33.6 Constitutional - Awake but drowsy, No apparent distress Eyes - PERRLA, EOMI Cardiovascular - S1S2, RRR, No edema Respiratory - Normal lung expansion, Normal respiratory effort, No respiratory distress, CTA bilaterally Gastrointestinal - NT / ND; +BS; No rebound or guarding Extremities - no calf tenderness bilaterally, no swelling Musculoskeletal - Normal inspection, normal ROM Skin - Warm/Dry Neurological - Drowsy & oriented x3, CN II-XII in tact, 5/5 strength BUE and BLE Psychological - Appropriate affect Results Labs CBC and Chem 7: 03/25/22 17:35 03/26/22 07:04 Labs: Laboratory Results - last 24 hr 03/25/22 03/25/22 03/25/22 17:35 17:35 17:35 MCV 88.7 MCH 31.0 MCHC 34.9 RDW 16.1 H Plt Count 265 D MPV 11.6 Immature Gran % (Auto) 0.0 Neut % (Auto) 66.7 Lymph % (Auto) 20.3 [place] % (Auto) 12.6 H Eos % (Auto) 0.0 Baso % (Auto) 0.4 Lymph # (Auto) 0.9 L [place] # (Auto) 0.6 Eos # (Auto) 0.0 Baso # (Auto) 0.0 Abs Immat Gran (auto) 0.00 Absolute Neuts (auto) 3.1 Absolute Nucleated RBC 0.000 Nucleated RBC % (auto) 0.0 VBG pH VBG pCO2 VBG pO2 VBG HCO3 VBG O2 Saturation VBG Base Excess Anion Gap 30 H Estim Creat Clear Calc 66.8 Estimated GFR 52 Random Glucose 110 Calcium 9.7 D Phosphorus 2.0 L Magnesium 1.9 Total Bilirubin 0.9 AST 25 ALT 27 Alkaline Phosphatase 84 Total Protein 7.8 Albumin 4.1 Urine Color Urine Appearance Urine pH Ur Specific [place] Urine Protein Urine Glucose (UA) Urine Ketones Urine Blood Urine Nitrite Ur Leukocyte Esterase Urine RBC Urine WBC Ur Squamous Epith Cells Urine Bacteria Hyaline Casts COVID-19 (ALEJANDRO) Negative COVID-19 Clin Com See Note 03/25/22 03/26/22 03/26/22 22:56 07:04 07:56 MCV MCH MCHC RDW Plt Count MPV Immature Gran % (Auto) Neut % (Auto) Lymph % (Auto) [place] % (Auto) Eos % (Auto) Baso % (Auto) Lymph # (Auto) [place] # (Auto) Eos # (Auto) Baso # (Auto) Abs Immat Gran (auto) Absolute Neuts (auto) Absolute Nucleated RBC Nucleated RBC % (auto) VBG pH 7.46 H VBG pCO2 23 VBG pO2 88 VBG HCO3 17 L VBG O2 Saturation 98.0 VBG Base Excess -4.5 Anion Gap 25 H Estim Creat Clear Calc 66.8 Estimated GFR 52 Random Glucose 97 Calcium 9.8 Phosphorus 2.9 Magnesium 1.9 Total Bilirubin AST ALT Alkaline Phosphatase Total Protein Albumin Urine Color Dark Yellow Urine Appearance Cloudy Urine pH 6.5 Ur Specific [place] 1.025 Urine Protein 100 (2+) H Urine Glucose (UA) Negative Urine Ketones >=160 Urine Blood Negative Urine Nitrite Negative Ur Leukocyte Esterase Trace H Urine RBC 0-2 Urine WBC 0-5 Ur Squamous Epith Cells 11-20 Urine Bacteria Trace Hyaline Casts 3-5 COVID-19 (ALEJANDRO) COVID-19 Clin Com Imaging Radiologist's Impressions: Impressions Abdomen/Pelvis CT 03/26/22 05:48 IMPRESSION: No acute findings identified in the abdomen/pelvis. Postoperative changes from prior sleeve gastrectomy. Assessment and Plan (1) Hypokalemia: Status: Acute (2) Dehydration: Status: Acute (3) Weakness: Status: Acute Plan 41-year-old female with history of hypertension, intercostal neuralgia, migraines, occipital neuralgia, lumbar herniated discs, and multiple benign brain lesions initially admitted to bariatric surgery service due to hypokalemia but now being transferrred to hospitalist service for further management. # acute hypokalemia -likely secondary to decreased oral intake and decreased absorption following gastric sleeve back to [place] -potassium initially 3.1, down to 2.5 -Renal function stable -has received 20meq KCl IV in NS, 20 mEq KCL ER, K-Phos 15 mmol in IV. Continue KCl 40 mEq in 1L D5/NS @125ml/hr -Recheck BMP now -Nephrology input appreciated -Bariatric surgery to continue following -Admit to telemetry #Constipation -likely related to hypokalemia -Miralax and senna. Milk of mag prn # s/p gastric sleeve ectomy 02/18 -bariatric surgery to continue following -continue bariatric diet -ondansetron p.r.n. for nausea -continue Carafate #depression/anxiety -Has been on paroxetine for about 1 year. Less likely to be contributing to low K -Continue home meds # hypertension-controlled -continue home meds # occipital neuralgia and intercostal neuralgia -continue gabapentin DVT prophylaxis-mechanical Full code Patient requires ongoing inpatient stay due to persistent hypokalemia requiring potassium drip and close monitoring for any cardiac dysrhythmia and electrolyte levels.
[2022-03-26 15:02] LABS: Anion Gap 21 (12-20); Blood Urea Nitrogen 10 mg/dL (9-16); Calcium 8.8 mg/dL (8.4-10.2); Carbon Dioxide 20 mmol/L (22-29); Chloride 99 mmol/L (96-108); Creatinine Clr Calc Pharmacy 72.6; Estimated Glomerular Filt Rate 57; Glucose Random 127 mg/dL (60-115); Magnesium 1.7 mg/dL (1.6-2.6); Potassium 2.8 mmol/L (3.3-5.1); Sodium 137 mmol/L (135-145)
[2022-03-26 15:40] VITALS: BP 131/86; PULSE 65; RESP 15; TEMP 36.6; O2SAT 99
[2022-03-26] MEDS: Sennosides 8.6 MG TABLET 17.2 MG PO (15:45)
--- NOTE | 2022-03-26 16:57 | PM.PNGS ---
Subjective Subjective Date of Service: 03/26/22 Interval history: Patient seen this am in ED. She states no nausea or emesis, thirsty. She feels much calmer after receviing lorazepam in ED, no further panic attacks . She is amenable to having psychiatric team consult and does not have her own therapist. She understands that her CT abd was normal and that she is being admitted for persistent hypokalemia and debilitating anxiety. Physical Exam Vital Signs: Vital Signs: Last Vital Signs Temp 97.9 F 03/26/22 15:40 Pulse 65 03/26/22 15:40 Resp 15 03/26/22 15:40 BP 131/86 03/26/22 15:40 Pulse Ox 99 03/26/22 15:40 O2 Del Method 03/26/22 15:40 BMI result Body Mass Index 33.6 Const: General: cooperative, comfortable, no acute distress, alert, awake and tired appearing GI: Inspection: Yes normal to inspection Palpation (GI): Soft to palpation, nontender and no guarding Objective Data Active Medications Amlodipine Besylate (Amlodipine Besylate 5 Mg Tablet) 5 mg PO DAILY LUL; Protocol Carvedilol (Carvedilol 25 Mg Tablet) 25 mg PO BID LUL; Protocol Gabapentin (Gabapentin 600 Mg Tablet) 600 mg PO BEDTIME [facility]UL Potassium Chloride/Dextrose/Sod Cl (Kcl 40 Meq In 5% Dex/0.9% Sod) 40 meq in 1,000 mls @ 125 mls/hr IVCONT .Q8H LUL Last Admin: 03/26/22 16:21 Dose: Not Given Documented By: KIMBERLY Non-Admin Reason: IV Running Lamotrigine (Lamotrigine 25 Mg Tablet) 25 mg PO BEDTIME [facility]UL Magnesium Hydroxide (Milk Of Magnesia 30 Ml Oral.Susp) 30 ml PO DAILY PRN PRN Reason: Constipation Pharmacy Consult (Consult Rx Perform Med Rec) 1 each MISCELLANE ONCE PRN PRN Reason: Consult order Polyethylene Glycol (Polyethylene Glycol 3350 17 Gm Powd.Pack) 17 gm PO DAILY LUL Potassium Chloride (Potassium Chloride Er 20 Meq Tab.Er.Prt) 20 meq PO DAILY LUL Scopolamine (Scopolamine 1.5 Mg Patch.Td.3) 1.5 mg TRANSDERMA Q3D PRN PRN Reason: nausea/vomiting Senna (Senna [place] Extract Oral Syrup 15 Ml Syrup) 7.5 ml PO BEDTIME [facility] Senna (Sennosides 8.6 Mg Tablet) 17.2 mg PO DAILY [facility] Last Admin: 03/26/22 15:45 Dose: 17.2 mg Documented By: MANUEL Sodium Chloride (0.9 % Sodium Chloride Flush 3 Ml Syringe) 3 ml IVFLUSH QSHIFT [facility] Last Admin: 03/26/22 16:20 Dose: Not Given Documented By: KIMBERLY Non-Admin Reason: IV Running Sucralfate (Sucralfate Oral Suspension 1 Gm/10 Ml Oral.Susp) 1 gm PO BID [facility] Vitamin D (Cholecalciferol (Vitamin D3) 25 Mcg Tablet) 50 mcg PO DAILY [facility] Labs CBC & Chem 7: 03/25/22 17:35 03/26/22 14:10 Labs: Laboratory Results - last 24 hr 03/25/22 03/25/22 03/25/22 17:35 17:35 17:35 MCV 88.7 MCH 31.0 MCHC 34.9 RDW 16.1 H Plt Count 265 D MPV 11.6 Immature Gran % (Auto) 0.0 Neut % (Auto) 66.7 Lymph % (Auto) 20.3 [place] % (Auto) 12.6 H Eos % (Auto) 0.0 Baso % (Auto) 0.4 Lymph # (Auto) 0.9 L [place] # (Auto) 0.6 Eos # (Auto) 0.0 Baso # (Auto) 0.0 Abs Immat Gran (auto) 0.00 Absolute Neuts (auto) 3.1 Absolute Nucleated RBC 0.000 Nucleated RBC % (auto) 0.0 VBG pH VBG pCO2 VBG pO2 VBG HCO3 VBG O2 Saturation VBG Base Excess Anion Gap 30 H Estim Creat Clear Calc 66.8 Estimated GFR 52 Random Glucose 110 Calcium 9.7 D Phosphorus 2.0 L Magnesium 1.9 Total Bilirubin 0.9 AST 25 ALT 27 Alkaline Phosphatase 84 Total Protein 7.8 Albumin 4.1 Urine Color Urine Appearance Urine pH Ur Specific [place] Urine Protein Urine Glucose (UA) Urine Ketones Urine Blood Urine Nitrite Ur Leukocyte Esterase Urine RBC Urine WBC Ur Squamous Epith Cells Urine Bacteria Hyaline Casts COVID-19 (ALEJANDRO) Negative COVID-19 Clin Com See Note 03/25/22 03/26/22 03/26/22 22:56 07:04 07:56 MCV MCH MCHC RDW Plt Count MPV Immature Gran % (Auto) Neut % (Auto) Lymph % (Auto) [place] % (Auto) Eos % (Auto) Baso % (Auto) Lymph # (Auto) [place] # (Auto) Eos # (Auto) Baso # (Auto) Abs Immat Gran (auto) Absolute Neuts (auto) Absolute Nucleated RBC Nucleated RBC % (auto) VBG pH 7.46 H VBG pCO2 23 VBG pO2 88 VBG HCO3 17 L VBG O2 Saturation 98.0 VBG Base Excess -4.5 Anion Gap 25 H Estim Creat Clear Calc 66.8 Estimated GFR 52 Random Glucose 97 Calcium 9.8 Phosphorus 2.9 Magnesium 1.9 Total Bilirubin AST ALT Alkaline Phosphatase Total Protein Albumin Urine Color Dark Yellow Urine Appearance Cloudy Urine pH 6.5 Ur Specific [place] 1.025 Urine Protein 100 (2+) H Urine Glucose (UA) Negative Urine Ketones >=160 Urine Blood Negative Urine Nitrite Negative Ur Leukocyte Esterase Trace H Urine RBC 0-2 Urine WBC 0-5 Ur Squamous Epith Cells 11-20 Urine Bacteria Trace Hyaline Casts 3-5 COVID-19 (ALEJANDRO) COVID-19 Shared Performance Com 03/26/22 14:10 MCV MCH MCHC RDW Plt Count MPV Immature Gran % (Auto) Neut % (Auto) Lymph % (Auto) [place] % (Auto) Eos % (Auto) Baso % (Auto) Lymph # (Auto) [place] # (Auto) Eos # (Auto) Baso # (Auto) Abs Immat Gran (auto) Absolute Neuts (auto) Absolute Nucleated RBC Nucleated RBC % (auto) VBG pH VBG pCO2 VBG pO2 VBG HCO3 VBG O2 Saturation VBG Base Excess Anion Gap 21 H Estim Creat Clear Calc 72.6 Estimated GFR 57 Random Glucose 127 H Calcium 8.8 D Phosphorus Magnesium 1.7 Total Bilirubin AST ALT Alkaline Phosphatase Total Protein Albumin Urine Color Urine Appearance Urine pH Ur Specific [place] Urine Protein Urine Glucose (UA) Urine Ketones Urine Blood Urine Nitrite Ur Leukocyte Esterase Urine RBC Urine WBC Ur Squamous Epith Cells Urine Bacteria Hyaline Casts COVID-19 (ALEJANDRO) COVID-[address] scan - abdomen: Radiologist's impression: Impressions Abdomen/Pelvis CT 03/26/22 05:48 IMPRESSION: No acute findings identified in the abdomen/pelvis. Postoperative changes from prior sleeve gastrectomy. Procedures Date of Service Date of Service: 03/26/22 Progress Note: A&P Assessment and plan (1) Hypokalemia: Status: Acute (2) Acute anxiety: Status: Acute (3) S/P laparoscopic sleeve gastrectomy: Status: Acute Plan 41 yo woman s/p LSg by Dr Kelley on 02/18/22, now 6 weeks of persistent hypokalemis despite previous admission for same and po supplements outpatient. Earlier this week Dr Graves stopped amlodipine and started spironolactone for this reason. Her K+ increased from 2.5 ->2.8 today after po, IV and IVF supplementation. Patient has no acute surgical symptoms, and is tolerating a bariatirc phase 4 diet. She does better with solid, soft foods and should have them at every meal with protein shake supplements. Patient was seen by pyschiatry today and patient agreed to starting lamictal and attending outpatient day program. Discussion this am with Dr Kelley and Dr Samaniego - all parties agreed that she is better served on the hosptialist service with renal and psychiatry consultations. We are happy to follow the patient for dietary needs. Will add daily MVI. Time Spent With Patient Time: Total time spent is greater than 50% in coordination of care (as documented) at patient's floor/unit and/or counseling patient: No Severe Sepsis: No Severe Sepsis Quality Stroke Does the patient have a stroke diagnosis?: No VTE Prior VTE?: No VTE Risk Level:: Medical - low VTE Device Contraindication: N/A - Device Ordered VTE Drug Contraindication: N/A - Med Ordered
[2022-03-26 17:06] LABS: Creatinine Urine 190.77 mg/dL; Sodium Urine Random < 20.0 mmol/L
--- NOTE | 2022-03-26 18:47 | MHC.CM.PN ---
CM met with admitted patient in ED overflow with bed assignment pending. Pt quiet and withdrawn. Answers all questions. S/P gastric sleeve on 02/18. Was admitted to [facility] on 03/05-03/07 with post op dehydration and electrolyte imbalance. Admitted today with dehydration and electrolyte imbalance. Lives with . No DME/services. Pfizer x2 (01/30/21 & 02/20/21). PCP is Rosemarie Yeung. No HCP on file. [facility] has one at [facility]. HCP reviewed, completed and signed. Copies given. Uploaded into [facility] and [facility] Expanse. Long standing history of MDD and anxiety. Seen by psych. Recommends PHP and/or outpatient therapy. Pt willing. D/c plan: Home with psych services per psych. Family to transport. CM to follow for d/c needs.
[2022-03-26 18:48] VITALS: BP 135/89; PULSE 66; RESP 18; TEMP 36.2; O2SAT 100
[2022-03-26 19:18] VITALS: BMI 36.9
[2022-03-26] MEDS: Multivitamin TABLET 1 TAB PO (21:40)
[2022-03-26] MEDS: carvediloL 25 MG TABLET PO (21:40)
[2022-03-26] MEDS: lamoTRIgine 25 MG TABLET PO (21:41)
[2022-03-26] MEDS: Sucralfate Oral Suspension 1 GM/10 ML ORAL.SUSP PO (21:41)
[2022-03-26] MEDS: Gabapentin 600 MG TABLET PO (21:41)
[2022-03-27] VITALS (7 sets, daily range): BP systolic 101–132; BP diastolic 56–89; PULSE 56–72; RESP 17–20; TEMP 36–36.4; O2SAT 97–100
[2022-03-27] MEDS: 0.9 % Sodium Chloride Flush 3 ML SYRINGE IVFLUSH ×3 (00:53→16:31)
[2022-03-27] MEDS: KCl 40 mEq in 5% Dex/0.9% Sod 40 MEQ/1,000 ML IV.SOLN 125 MEQ IVCONT (03:38)
[2022-03-27 05:59] LABS: MANUAL DIFF FLAG NO
[2022-03-27 06:23] LABS: Basophils Percent Auto 0.4 % (0-2); Eosinophils Absolute Auto 0.1 X10*3/uL (0.0-0.4); Hematocrit 35.2 % (37.0-47.0); Hemoglobin 12.2 g/dl (12.0-16.0); Imm Gran Abs Auto 0.01 X10*3/uL (0.00-0.03); Imm Gran Pct Auto 0.2 % (0.0-0.4); Lymphocytes Absolute Auto 1.4 X10*3/uL (1.2-4.9); Lymphocytes Percent Auto 30.4 % (20-40); Mean Corpuscular HGB Conc 34.7 g/dl (31.0-35.0); Mean Corpuscular Volume 89.3 fL (80.0-98.0); Mean Platelet Volume 11.8 fL (9.4-12.3); Monocytes Absolute Auto 0.7 X10*3/uL (0.1-1.2); Monocytes Percent Auto 16.3 % (2-11); Neutrophils Absolute Auto 2.3 x10*3/uL (2.0-8.3); Neutrophils Percent Auto 50.7 % (45-73); Platelet Count 222 X10*3/uL (160-400); Red Blood Count 3.94 X10*6/uL (4.20-5.50); Red Cell Distribution Width 16.3 % (11.0-16.0); White Blood Count 4.5 X10*3/uL (4.8-10.8)
[2022-03-27 06:38] LABS: Anion Gap 15 (12-20); Blood Urea Nitrogen 6 mg/dL (9-16); Calcium 8.5 mg/dL (8.4-10.2); Carbon Dioxide 21 mmol/L (22-29); Chloride 109 mmol/L (96-108); Estimated Glomerular Filt Rate > 60; Glucose Random 130 mg/dL (60-115); Potassium 3.1 mmol/L (3.3-5.1); Sodium 142 mmol/L (135-145)
--- NOTE | 2022-03-27 07:43 | PC.NURSE ---
Newly admitted patient, alert and oriented and independent. Denies any pain during shift.. Reported having a big BM around 9pm 03/26. Tolerated scheduled meds and IV continuos fluids with no complaints. Pt slept for the most part of the night.
[2022-03-27] MEDS: Sennosides 8.6 MG TABLET 17.2 MG PO (08:30)
[2022-03-27] MEDS: amLODIPine Besylate 5 MG TABLET PO (08:30)
[2022-03-27] MEDS: carvediloL 25 MG TABLET PO ×2 (08:30→21:54)
[2022-03-27] MEDS: Potassium Chloride ER 20 MEQ TAB.ER.PRT 40 MEQ PO ×2 (08:30→16:24)
[2022-03-27] MEDS: Multivitamin TABLET 1 TAB PO ×2 (08:31→20:06)
[2022-03-27] MEDS: Cholecalciferol (Vitamin D3) 25 MCG TABLET 50 MCG PO (08:31)
[2022-03-27] MEDS: Sucralfate Oral Suspension 1 GM/10 ML ORAL.SUSP PO ×2 (08:39→20:06)
[2022-03-27 09:35] LABS: Anion Gap 15 (12-20); Blood Urea Nitrogen 5 mg/dL (9-16); Calcium 8.9 mg/dL (8.4-10.2); Carbon Dioxide 19 mmol/L (22-29); Chloride 110 mmol/L (96-108); Creatinine Clr Calc Pharmacy 86.1; Estimated Glomerular Filt Rate > 60; Glucose Random 121 mg/dL (60-115); Potassium 3.2 mmol/L (3.3-5.1); Sodium 141 mmol/L (135-145)
--- NOTE | 2022-03-27 09:53 | PM.PNGS ---
Subjective Subjective Date of Service: 03/27/22 Interval history: Pt seen to discuss tolerance of bariatric diet. Hypokalemia is correcting and is managed by hospitalist team and nephrology. Anxiety has improved greatly with hospitalization and prn ativan. Patient was seen by psychiatry team and is amenable to starting Lamcital and outpatient partial hospitalization program. I spoke with Erna Pride from their department and she will have her intake appt on Apr 01 at 1 pm. Patient states she is tolerating soft food that her family brings from home - scrambled eggs and cottage cheese, but does not like the hospital food texture and/or odor. She is not having nausea or emesis, she does spit up and gag on protein water at home. Physical Exam Vital Signs: Vital Signs: Last Vital Signs Temp 97.6 F 03/27/22 08:00 Pulse 67 03/27/22 08:00 Resp 18 03/27/22 08:00 BP 132/89 03/27/22 08:00 Pulse Ox 100 03/27/22 08:00 O2 Del Method 03/27/22 08:00 BMI result Body Mass Index 36.9 Const: General: cooperative, healthy appearing, comfortable and no acute distress Objective Data Active Medications Amlodipine Besylate (Amlodipine Besylate 5 Mg Tablet) 5 mg PO DAILY LUL; Protocol Last Admin: 03/27/22 08:30 Dose: 5 mg Documented By: RUTHIE Carvedilol (Carvedilol 25 Mg Tablet) 25 mg PO BID LUL; Protocol Last Admin: 03/27/22 08:30 Dose: 25 mg Documented By: RUTHIE Gabapentin (Gabapentin 600 Mg Tablet) 600 mg PO BEDTIME LUL Last Admin: 03/26/22 21:41 Dose: 600 mg Documented By: NIKKIE Lamotrigine (Lamotrigine 25 Mg Tablet) 25 mg PO BEDTIME LUL Last Admin: 03/26/22 21:41 Dose: 25 mg Documented By: NIKKIE Magnesium Hydroxide (Milk Of Magnesia 30 Ml Oral.Susp) 30 ml PO DAILY PRN PRN Reason: Constipation Multivitamins/Vitamin C (Multivitamin Tablet) 1 tab PO BID LUL Last Admin: 03/27/22 08:31 Dose: 1 tab Documented By: RUTHIE Pharmacy Consult (Consult Rx Perform Med Rec) 1 each MISCELLANE ONCE PRN PRN Reason: Consult order Polyethylene Glycol (Polyethylene Glycol 3350 17 Gm Powd.Pack) 17 gm PO DAILY [facility] Last Admin: 03/27/22 08:33 Dose: Not Given Documented By: RUTHIE Non-Admin Reason: patient has looose stools Potassium Chloride (Potassium Chloride Er 20 Meq Tab.Er.Prt) 40 meq PO DAILY [facility] Last Admin: 03/27/22 08:30 Dose: 40 meq Documented By: RUTHIE Scopolamine (Scopolamine 1.5 Mg Patch.Td.3) 1.5 mg TRANSDERMA Q3D PRN PRN Reason: nausea/vomiting Senna (Senna [place] Extract Oral Syrup 15 Ml Syrup) 7.5 ml PO BEDTIME [facility] Last Admin: 03/26/22 21:41 Dose: 7.5 ml Documented By: NIKKIE Senna (Sennosides 8.6 Mg Tablet) 17.2 mg PO DAILY [facility] Last Admin: 03/27/22 08:30 Dose: 17.2 mg Documented By: RUTHIE Sodium Chloride (0.9 % Sodium Chloride Flush 3 Ml Syringe) 3 ml IVFLUSH QSHIFT [facility] Last Admin: 03/27/22 08:32 Dose: 3 ml Documented By: RUTHIE Sucralfate (Sucralfate Oral Suspension 1 Gm/10 Ml Oral.Susp) 1 gm PO BID [facility] Last Admin: 03/27/22 08:39 Dose: 1 gm Documented By: RUTHIE Vitamin D (Cholecalciferol (Vitamin D3) 25 Mcg Tablet) 50 mcg PO DAILY [facility] Last Admin: 03/27/22 08:31 Dose: 50 mcg Documented By: RUTHIE Labs CBC & Chem 7: 03/27/22 05:34 03/27/22 09:04 Labs: Laboratory Results - last 24 hr 03/26/22 03/26/22 03/27/22 14:10 16:36 05:34 MCV 89.3 MCH 31.0 MCHC 34.7 RDW 16.3 H Plt Count 222 MPV 11.8 Immature Gran % (Auto) 0.2 Neut % (Auto) 50.7 Lymph % (Auto) 30.4 [place] % (Auto) 16.3 H Eos % (Auto) 2.0 Baso % (Auto) 0.4 Lymph # (Auto) 1.4 [place] # (Auto) 0.7 Eos # (Auto) 0.1 Baso # (Auto) 0.0 Abs Immat Gran (auto) 0.01 Absolute Neuts (auto) 2.3 Absolute Nucleated RBC 0.000 Nucleated RBC % (auto) 0.0 Anion Gap 21 H Estim Creat Clear Calc 72.6 Estimated GFR 57 Random Glucose 127 H Calcium 8.8 D Magnesium 1.7 Ur Random Sodium < 20.0 Ur Random Potassium 20.0 Urine Creatinine 190.77 03/27/22 03/27/22 05:34 09:04 MCV MCH MCHC RDW Plt Count MPV Immature Gran % (Auto) Neut % (Auto) Lymph % (Auto) [place] % (Auto) Eos % (Auto) Baso % (Auto) Lymph # (Auto) [place] # (Auto) Eos # (Auto) Baso # (Auto) Abs Immat Gran (auto) Absolute Neuts (auto) Absolute Nucleated RBC Nucleated RBC % (auto) Anion Gap 15 15 Estim Creat Clear Calc 90.0 86.1 Estimated GFR > 60 > 60 Random Glucose 130 H 121 H Calcium 8.5 8.9 Magnesium Ur Random Sodium Ur Random Potassium Urine Creatinine Procedures Date of Service Date of Service: 03/27/22 Progress Note: A&P Assessment and plan (1) S/P laparoscopic sleeve gastrectomy: Status: Acute Assessment and Plan: I have encouraged patient to have her family birng in food from home for her that she likes, specifically homemade chicken soup, scrambled eggs, tuna, chicken, cottage cheese. I have increased her diet to bariatric phase 4, and she needs to have at least 1 protein shake per day for adequate nutrition. Patient is aware of the meal plan that she needs to follow, if she is discharged over the weekend, we will arrange for follow up with her next week. (2) Nausea & vomiting: Status: Acute Assessment and Plan: No symptoms presently Time Spent With Patient Time: Total time spent is greater than 50% in coordination of care (as documented) at patient's floor/unit and/or counseling patient: Quality Stroke Does the patient have a stroke diagnosis?: No VTE Prior VTE?: No VTE Risk Level:: Medical - low VTE Device Contraindication: N/A - Device Ordered VTE Drug Contraindication: N/A - Med Ordered
[2022-03-27] MEDS: lisinopriL 20 MG TABLET PO (12:13)
--- NOTE | 2022-03-27 15:44 | PM.PNNEP ---
Subjective Subjective Date of Service: 03/27/22 Interval history: POtassium trending better Cr at baseline Physical Exam Vital Signs: Vital Signs: Last Vital Signs Temp 97.3 F 03/27/22 11:47 Pulse 64 03/27/22 11:47 Resp 18 03/27/22 11:47 BP 115/70 03/27/22 11:47 Pulse Ox 98 03/27/22 11:47 O2 Del Method 03/27/22 11:47 BMI result Body Mass Index 36.9 Const: General: alert and awake Resp: Effort & Inspection: normal respiratory effort Auscultation: clear to auscultation bilaterally Cardio: Rate: regular rate Rhythm: regular rhythm Heart sounds: S1 normal heart sound present, S2 normal heart sound present, no gallops, no murmurs and no rubs GI: Inspection: Yes normal to inspection, No distended and Yes obesity Palpation (GI): Soft to palpation, nontender and no guarding Auscultation: normal bowel sounds Neuro: General: CN's II-XI intact bilaterally Extrem: General: No edema Objective Data Labs CBC & Chem 7: 03/27/22 05:34 03/27/22 09:04 Labs: Laboratory Results - last 24 hr 03/26/22 03/27/22 03/27/22 16:36 05:34 05:34 WBC 4.5 L RBC 3.94 L Hgb 12.2 Hct 35.2 L MCV 89.3 MCH 31.0 MCHC 34.7 RDW 16.3 H Plt Count 222 MPV 11.8 Immature Gran % (Auto) 0.2 Neut % (Auto) 50.7 Lymph % (Auto) 30.4 [place] % (Auto) 16.3 H Eos % (Auto) 2.0 Baso % (Auto) 0.4 Lymph # (Auto) 1.4 [place] # (Auto) 0.7 Eos # (Auto) 0.1 Baso # (Auto) 0.0 Abs Immat Gran (auto) 0.01 Absolute Neuts (auto) 2.3 Absolute Nucleated RBC 0.000 Nucleated RBC % (auto) 0.0 Sodium 142 Potassium 3.1 L Chloride 109 H Carbon Dioxide 21 L Anion Gap 15 BUN 6 L Creatinine 0.89 Estim Creat Clear Calc 90.0 Estimated GFR > 60 Random Glucose 130 H Calcium 8.5 Ur Random Sodium < 20.0 Ur Random Potassium 20.0 Urine Creatinine 190.77 03/27/22 09:04 WBC RBC Hgb Hct MCV MCH MCHC RDW Plt Count MPV Immature Gran % (Auto) Neut % (Auto) Lymph % (Auto) [place] % (Auto) Eos % (Auto) Baso % (Auto) Lymph # (Auto) [place] # (Auto) Eos # (Auto) Baso # (Auto) Abs Immat Gran (auto) Absolute Neuts (auto) Absolute Nucleated RBC Nucleated RBC % (auto) Sodium 141 Potassium 3.2 L Chloride 110 H Carbon Dioxide 19 L Anion Gap 15 BUN 5 L Creatinine 0.93 Estim Creat Clear Calc 86.1 Estimated GFR > 60 Random Glucose 121 H Calcium 8.9 Ur Random Sodium Ur Random Potassium Urine Creatinine Procedures Date of Service Date of Service: 03/27/22 Assessment & Plan Assessment and plan (1) S/P laparoscopic sleeve gastrectomy: Status: Acute (2) Nausea & vomiting: Status: Acute (3) Electrolyte abnormality: Status: Acute (4) Hypokalemia: Status: Acute (5) Dehydration: Status: Acute (6) Hypertension: Status: Acute Plan 41-year-old patient with a history of multiple chronic medical problems including hypertension and episodes of hypokalemia in the past, who is status post gastric sleeve surgery on February 18 and has had recurrent hospitalizations for nausea, vomiting, unable to keep anything down. She now re-presented with the same nausea, vomiting, unable to keep anything down and was again very hypokalemic with potassium of 2.5.? 1. Hypokalemia 2/2 GI losses malabsorption poor PO intake 2. Hypovolemia Esthela <20 GI losses / Poor PO intake Plan: - start lisinopril for both HTN and K-retention - 40meq PO KCL daily - monitor Magnesium and ensure properly repleted, low Mag will lead to low K - Time Spent With Patient Time: Total time spent is greater than 50% in coordination of care (as documented) at patient's floor/unit and/or counseling patient: Progress Note: Quality Stroke Does the patient have a stroke diagnosis?: No
--- NOTE | 2022-03-27 15:59 | P.PNIM_ITS ---
Subjective Subjective Date of Service: 03/27/22 Interval History: the patient was seen and evaluated this morning Laying in bed, feels better this morning Potassium Still the lower end of 3.1 Denies any fever, chills or shortness of breath No reported other overnight events. Systemic review: No fever, chills but reports generalized weakness No chest pain, palpitation No shortness of breath or coughing No abdominal pain, nausea or vomiting No urinary symptoms No reported rash Physical Exam Vital Signs: Vital Signs: Last Vital Signs Temp 97.4 F 03/27/22 15:46 Pulse 62 03/27/22 15:46 Resp 20 03/27/22 15:46 BP 102/60 03/27/22 15:46 Pulse Ox 98 03/27/22 15:46 O2 Del Method 03/27/22 15:46 BMI result Body Mass Index 36.9 Const: Other: Constitutional : Awake, interactive, mildly anxious Neck : Normal inspection, Supple Cardiovascular : RRR, no JVP, no lower extremity edema Respiratory : good bilateral air entry, no crackles, wheezes or rhonchi Gastrointestinal: soft, lax, Normal bowel sounds, mild generalized in a S with palpation, no surgical signs, surgical wound looks clean Skin : Warm, Dry Neurological : Alert & oriented x3, No focal deficit Objective Data Active Medications Carvedilol (Carvedilol 25 Mg Tablet) 25 mg PO BID [facility]; Protocol Last Admin: 03/27/22 08:30 Dose: 25 mg Documented By: RUTHIE Gabapentin (Gabapentin 600 Mg Tablet) 600 mg PO BEDTIME [facility] Last Admin: 03/26/22 21:41 Dose: 600 mg Documented By: NIKKIE Lamotrigine (Lamotrigine 25 Mg Tablet) 25 mg PO BEDTIME [facility] Last Admin: 03/26/22 21:41 Dose: 25 mg Documented By: NIKKIE Lisinopril (Lisinopril 20 Mg Tablet) 20 mg PO DAILY [facility]; Protocol Last Admin: 03/27/22 12:13 Dose: 20 mg Documented By: RUTHIE Magnesium Hydroxide (Milk Of Magnesia 30 Ml Oral.Susp) 30 ml PO DAILY PRN PRN Reason: Constipation Multivitamins/Vitamin C (Multivitamin Tablet) 1 tab PO BID [facility] Last Admin: 03/27/22 08:31 Dose: 1 tab Documented By: RUTHIE Pharmacy Consult (Consult Rx Perform Med Rec) 1 each MISCELLANE ONCE PRN PRN Reason: Consult order Polyethylene Glycol (Polyethylene Glycol 3350 17 Gm Powd.Pack) 17 gm PO DAILY [facility] Last Admin: 03/27/22 08:33 Dose: Not Given Documented By: RUTHIE Non-Admin Reason: patient has looose stools Potassium Chloride (Potassium Chloride Er 20 Meq Tab.Er.Prt) 40 meq PO DAILY [facility] Last Admin: 03/27/22 08:30 Dose: 40 meq Documented By: RUTHIE Scopolamine (Scopolamine 1.5 Mg Patch.Td.3) 1.5 mg TRANSDERMA Q3D PRN PRN Reason: nausea/vomiting Senna (Senna [place] Extract Oral Syrup 15 Ml Syrup) 7.5 ml PO BEDTIME [facility] Last Admin: 03/26/22 21:41 Dose: 7.5 ml Documented By: NIKKIE Senna (Sennosides 8.6 Mg Tablet) 17.2 mg PO DAILY [facility] Last Admin: 03/27/22 08:30 Dose: 17.2 mg Documented By: RUTHIE Sodium Chloride (0.9 % Sodium Chloride Flush 3 Ml Syringe) 3 ml IVFLUSH QSHIFT [facility] Last Admin: 03/27/22 08:32 Dose: 3 ml Documented By: RUTHIE Sucralfate (Sucralfate Oral Suspension 1 Gm/10 Ml Oral.Susp) 1 gm PO BID [facility] Last Admin: 03/27/22 08:39 Dose: 1 gm Documented By: RUTHIE Vitamin D (Cholecalciferol (Vitamin D3) 25 Mcg Tablet) 50 mcg PO DAILY [facility] Last Admin: 03/27/22 08:31 Dose: 50 mcg Documented By: RUTHIE Labs CBC & Chem 7: 03/27/22 05:34 03/27/22 09:04 Labs: Laboratory Results - last 24 hr 03/26/22 03/27/22 03/27/22 16:36 05:34 05:34 MCV 89.3 MCH 31.0 MCHC 34.7 RDW 16.3 H Plt Count 222 MPV 11.8 Immature Gran % (Auto) 0.2 Neut % (Auto) 50.7 Lymph % (Auto) 30.4 Rabun % (Auto) 16.3 H Eos % (Auto) 2.0 Baso % (Auto) 0.4 Lymph # (Auto) 1.4 Rabun # (Auto) 0.7 Eos # (Auto) 0.1 Baso # (Auto) 0.0 Abs Immat Gran (auto) 0.01 Absolute Neuts (auto) 2.3 Absolute Nucleated RBC 0.000 Nucleated RBC % (auto) 0.0 Anion Gap 15 Estim Creat Clear Calc 90.0 Estimated GFR > 60 Random Glucose 130 H Calcium 8.5 Ur Random Sodium < 20.0 Ur Random Potassium 20.0 Urine Creatinine 190.77 03/27/22 09:04 MCV MCH MCHC RDW Plt Count MPV Immature Gran % (Auto) Neut % (Auto) Lymph % (Auto) Rabun % (Auto) Eos % (Auto) Baso % (Auto) Lymph # (Auto) Rabun # (Auto) Eos # (Auto) Baso # (Auto) Abs Immat Gran (auto) Absolute Neuts (auto) Absolute Nucleated RBC Nucleated RBC % (auto) Anion Gap 15 Estim Creat Clear Calc 86.1 Estimated GFR > 60 Random Glucose 121 H Calcium 8.9 Ur Random Sodium Ur Random Potassium Urine Creatinine Assessment and Plan (1) ERNESTO (generalized anxiety disorder): Status: Acute (2) Hypokalemia: Status: Acute (3) Nausea & vomiting: Status: Acute Plan 41-year-old female with history of hypertension, intercostal neuralgia, migraines, occipital neuralgia, lumbar herniated discs, and multiple benign brain lesions initially admitted to bariatric surgery service due to hypokalemia but now being transferrred to hospitalist service for further management. # acute hypokalemia likely secondary to decreased oral intake and decreased absorption following gastric sleeve Potassium of 3.1 this morning, repeated 3.2 Discontinue IV fluid Continue KCl 40 mEq p.o. daily Nephrology input appreciated Bariatric surgery following #Constipation Having bowel movement likely related to hypokalemia -Miralax and senna. Milk of mag prn # s/p gastric sleeve ectomy 02/18 bariatric surgery to continue following continue bariatric diet ondansetron p.r.n. for nausea continue Carafate #depression/anxiety Has been on paroxetine for about 1 year. Less likely to be contributing to low K Continue home meds Seen by psychiatry team, started on Lamictal with a plan to follow-up as outpatient # hypertension continue home meds # occipital neuralgia and intercostal neuralgia continue gabapentin DVT prophylaxis-mechanical Full code Patient requires overnight inpatient stay due to persistent hypokalemia requiring potassium supplement and close monitoring for any cardiac dysrhythmia and electrolyte levels. Quality Stroke Does the patient have a stroke diagnosis?: No VTE Prior VTE?: No VTE Risk Level:: Medical - low VTE Device Contraindication: N/A - Device Ordered VTE Drug Contraindication: N/A - Med Ordered
[2022-03-27] MEDS: Gabapentin 600 MG TABLET PO (20:07)
[2022-03-27] MEDS: lamoTRIgine 25 MG TABLET PO (20:07)
[2022-03-28] MEDS: 0.9 % Sodium Chloride Flush 3 ML SYRINGE IVFLUSH ×2 (00:42→08:36)
[2022-03-28] MEDS: Acetaminophen 325 MG TABLET 650 MG PO (03:14)
[2022-03-28 04:00] VITALS: BP 122/68; PULSE 59; RESP 18; TEMP 36.4; O2SAT 98
[2022-03-28 05:54] LABS: Magnesium 1.6 mg/dL (1.6-2.6)
[2022-03-28 05:55] LABS: Anion Gap 14 (12-20); Blood Urea Nitrogen 8 mg/dL (9-16); Calcium 8.8 mg/dL (8.4-10.2); Carbon Dioxide 21 mmol/L (22-29); Chloride 108 mmol/L (96-108); Creatinine Clr Calc Pharmacy 100.1; Estimated Glomerular Filt Rate > 60; Glucose Random 85 mg/dL (60-115); Potassium 3.1 mmol/L (3.3-5.1); Sodium 140 mmol/L (135-145)
[2022-03-28 08:00] VITALS: BP 127/74; PULSE 60; RESP 18; TEMP 36.5; O2SAT 98
[2022-03-28] MEDS: Sucralfate Oral Suspension 1 GM/10 ML ORAL.SUSP PO (08:35)
[2022-03-28] MEDS: Potassium Chloride ER 20 MEQ TAB.ER.PRT 40 MEQ PO (08:35)
[2022-03-28] MEDS: Magnesium Sulfate/H2O 2 GM/50 ML PIGGYBACK IV (08:35)
[2022-03-28] MEDS: Cholecalciferol (Vitamin D3) 25 MCG TABLET 50 MCG PO (08:35)
[2022-03-28] MEDS: Magnesium Oxide 400 MG TABLET PO (08:36)
[2022-03-28] MEDS: Multivitamin TABLET 1 TAB PO (08:36)
[2022-03-28] MEDS: lisinopriL 20 MG TABLET PO (08:36)
[2022-03-28] MEDS: carvediloL 25 MG TABLET PO (08:36)
[2022-03-28] MEDS: Ibuprofen 400 MG TABLET PO (10:46)
--- NOTE | 2022-03-28 11:21 | P.DS_ITS ---
DS: Providers Provider Date of Service: 03/28/22 Date of admission: 03/26/22 07:23 Primary care physician: Unknown Physician Consults: 03/26/22 07:28 Consult to Psychiatry Routine Consulting Provider: Psych Covering Reason for consultation: sig incr in anxiety 03/26/22 08:01 Consult to Nephrology Routine Consulting Provider: Gerald Graves Reason for consultation: severe hypokalemia - known to you DS: Diagnosis Discharge Diagnosis (1) ERNESTO (generalized anxiety disorder): Status: Acute (2) Hypokalemia: Status: Acute (3) Nausea & vomiting: Status: Acute (4) Electrolyte abnormality: Status: Acute (5) Dehydration: Status: Acute DS: Summary Hospital Course Hospital Course: Admission note HPI 41-year-old female with history of hypertension, intercostal neuralgia, migraines, occipital neuralgia, lumbar herniated discs, and multiple benign brain lesions initially admitted to bariatric surgery service due to hypokalemia.? However patient is not experiencing any vomiting or diarrhea, so consult placed to change to hospitalist service for management of hypokalemia.? The patient underwent gastric sleeve back to sc on 02/18.? She reports she felt well for about 2 weeks after which she developed persistent nausea with decreased oral intake.? She also had been having diarrhea but has not had any episodes of diarrhea in 8 days, which was last stay she moved her bowels. She denies any vomiting, fevers, chills.? There has been intermittent abdominal pain.? Reports yesterday had diffuse abdominal pain with bloating that has resolved.? She also reports feeling fatigued and is quite constipated. No myalgia, muscle spasm, palpitations. She has had dehydration and hypokalemia since the surgery, has been hospitalized twice for hypokalemia, follows with nephrology outpt and is on 20meq daily KCl outpt.? On arrival to the ED found to have low potassium 3.0, 3.1 on repeat.? Ag 30 with CO2 13, chloride 95, sodium 135, phosphorus 2.0, Mag 1.9.? Creatinine 1.41, BUN 8, no JOSSELIN.? Potassium initially repleted with 20 mEq in 1 L NS. Potassium on recheck fell to 2.5. Then given 20 meq KCl ER, 15mmol KPhos in 250mL. Now on KCl 40meq ip in D5/NS @125ml/hr. CT negative for any acute intra abdominal abnormality. Hospital course The patient was admitted to the hospital for reported decreased oral intake and evidence of hypokalemia. Potassium dropped to 2.6 at time of admission requiring IV and on alert replacement. Believed to be secondary to decreased oral intake and decreased absorption following gastric sleeve. Replaced well with potassium level of 3.1 as the patient was followed by Nephrology team who recommended to increase home dose of potassium replacement of 40 in the morning and 20 mEq in the evening with supplement of magnesium to keep it above 2. Plan to follow-up as outpatient with her certified adaptive physical educator. Reported nausea and vomiting few days prior to admission but generally having Constipation at time of presentation responded well to MiraLax and senna. Followed by bariatric surgery team given recent s/p gastric sleeve ectomy 02/18 with bariatric diet tolerated well. Evaluated by psychiatry team for generalized anxiety disorder who recommended to start the patient on Lamictal with good response as anxiety level decreased. with a plan to follow-up as outpatient. Amlodipine was discontinued and replaced by lisinopril 20 mg as it might help keeping her potassium level little bit higher. Discontinue amlodipine, start lisinopril instead for blood pressure control Increase potassium to 40 in the morning and 20 in the evening Repeat electrolytes in 3 days and follow up with Nephrology as outpatient Imitrex as needed for migraine Lamotrigine was prescribed by psychiatry team for anxiety control, to follow with your psychiatrist as outpatient Time Spent with Patient Time attestation: Total time spent providing and/or coordinating discharge services: Discharge coordination time: Greater than 30 minutes Quality: Safe Use of Opioids Does Pt have an Active Cancer Diagnosis on the Problem List?: No Quality: Stroke Does the patient have a stroke diagnosis?: No Physical Exam Vital Signs: Vital Signs: Last Vital Signs Temp 97.7 F 03/28/22 08:00 Pulse 60 03/28/22 08:00 Resp 18 03/28/22 08:00 BP 127/74 03/28/22 08:00 Pulse Ox 98 03/28/22 08:00 O2 Del Method 03/28/22 08:00 BMI result Body Mass Index 36.9 Const: Other: Constitutional : Awake, interactive, not in distress Neck : Normal inspection, Supple Cardiovascular : RRR, no JVP, no lower extremity edema Respiratory : good bilateral air entry, no crackles, wheezes or rhonchi Gastrointestinal: soft, lax, Normal bowel sounds, no tenderness, no surgical signs, surgical wound looks clean Skin : Warm, Dry Neurological : Alert & oriented x3, No focal deficit DS: Data Data Completed and Pending Completed studies during hospitalization [Text1]: Procedures Excision of Stomach, Percutaneous Endoscopic Approach, Vertical (02/18/22) Labs on day of discharge: Laboratory Results - last 24 hr 03/28/22 03/28/22 05:12 05:12 Sodium 140 Potassium 3.1 L Chloride 108 Carbon Dioxide 21 L Anion Gap 14 BUN 8 L D Creatinine 0.80 Estim Creat Clear Calc 100.1 Estimated GFR > 60 Random Glucose 85 Calcium 8.[address] scan - abdomen: Radiologist's impression: ITS Impressions Abdomen/Pelvis CT 03/26/22 05:48 IMPRESSION: No acute findings identified in the abdomen/pelvis. Postoperative changes from prior sleeve gastrectomy. Discharge Plan Discharge Anticipated Discharge Date/Time: 03/28/22 11:03 Patient Disposition: Home, Self-Care Discharge Diagnosis: Low potassium level Anxiety attacks Referrals: Physician,Unknown J [Primary Care Provider] - 1 Week Discharge Medications: New multivitamin [Daily-Kilo] Tablet 1 tab PO BID Qty: 60 0RF lisinopril 20 mg Tablet 20 mg PO DAILY Qty: 30 0RF Protocol: Hold for SBP< HOLD for SBP < : 90 sumatriptan succinate 50 mg Tablet 50 mg PO DAILY PRN (Reason: Migraine Headache) Qty: 9 0RF lamotrigine 25 mg Tablet 25 mg PO BEDTIME Qty: 30 0RF potassium chloride 20 mEq Tablet,Er Particles/Crystals 40 meq PO DAILY Qty: 30 0RF magnesium oxide 400 mg (241.3 mg magnesium) Tablet 400 mg PO BIDPC Qty: 60 0RF ondansetron 4 mg Tablet,Disintegrating 4 mg translingual Q8H PRN (Reason: Nausea And Vomiting) Qty: 15 1RF Continued polyethylene glycol 3350 [Miralax] 17 gram/dose powder 17 g PO DAILY Qty: 238 2RF triamcinolone acetonide 0.1 % cream 1 appl topical DAILY PRN (Reason: psoriasis) scopolamine base 1 mg over 3 days patch 3 day 1 patch transdermal Q3D PRN (Reason: nausea/vomiting) cholecalciferol (vitamin D3) 50 mcg (2,000 unit) capsule 1 cap PO DAILY paroxetine HCl 20 mg tablet 1 tab PO BEDTIME carvedilol 25 mg tablet 25 mg PO BID gabapentin 600 mg tablet 600 mg PO DAILY@1300 pantoprazole 40 mg tablet,delayed release (DR/EC) 40 mg PO DAILY Qty: 30 2RF sucralfate [Carafate] 100 mg/mL suspension 10 ml PO BID Qty: 414 0RF Changed potassium chloride 20 mEq tablet extended release 20 meq PO DAILY@1700 Qty: 30 1RF Discontinued amlodipine 5 mg tablet 1 tab PO DAILY Discharge Orders: Discharge Order (Routine); Ordered 03/28/22 Ordered By: Christen Gutierrez Diet: Advance to usual diet Activity on Discharge: As tolerated Stand Alone Forms: Patient Portal Discharge page Other Ambulatory Orders: Basic Metabolic Panel (Routine) Timeframe: 3 Days Facility: [facility] - Location: Laboratory Ordered By: Christen Gutierrez Magnesium (Routine) Timeframe: 3 Days Facility: [facility] - Location: Laboratory Ordered By: Christen Gutierrez Care Plan Goals: Read below Health Concerns: Read below Plan of Treatment: Read below Assessment: You were admitted to the hospital for evaluation of weakness and decreased oral intake. Found to have an evidence of low potassium level requiring IV and oral replacement with good response over the course of hospital stay as you were evaluated by kidney doctor with recommendation to increase amount of potassium replacement and avoid dehydration. Discontinue amlodipine, start lisinopril instead for blood pressure control Increase potassium to 40 in the morning and 20 in the evening Repeat electrolytes in 3 days and follow up with Nephrology as outpatient Imitrex as needed for migraine Lamotrigine was prescribed by psychiatry team for anxiety control, to follow with your psychiatrist as outpatient
--- NOTE | 2022-03-28 11:39 | MHC.CM.PN ---
PT TO [facility] HOME TODAY WITH NO SERVICES ORDERED FAMILY TO TRANSPORT
[2022-03-28 11:54] VITALS: BP 99/64; PULSE 57; RESP 18; TEMP 36.4; O2SAT 99
== END 2022-03-28 14:04 | disposition home or self-care (01) | DRG 641 ==
LOC: HO.ED 03-26 07:06 → HO.EDOVER 03-26 07:39 → HO.S3 03-26 17:45
PROVIDERS: Emergency Medicine; Physician Assistant; Admitting Provider Physician Assistant Surgical; Emergency Provider Emergency Medicine; PCP Nurse Practitioner Family; Visit Provider Student in an Organized Health Care Education/Training Program
DX: E87.6 Hypokalemia (principal); L40.50 Arthropathic psoriasis, unspecified; E86.0 Dehydration; F32.9 Major depressive disorder, single episode, unspecified; I10 Essential (primary) hypertension; M54.81 Occipital neuralgia; K59.00 Constipation, unspecified; E86.1 Hypovolemia; F41.1 Generalized anxiety disorder; Z20.822 Contact with and (suspected) exposure to COVID-19; Z98.84 Bariatric surgery status; Z98.51 Tubal ligation status; Z91.041 Radiographic dye allergy status; Z91.010 Allergy to peanuts; Z87.892 Personal history of anaphylaxis; Z88.0 Allergy status to penicillin; Z79.899 Other long term (current) drug therapy
CPT/HCPCS: 36415; 74176; 80048; 80053; 81001; 82803; 83735; 84100; 84133; 84300; 85025; 87635; 99218; 99285; J2405; J3475

== ENCOUNTER 2022-03-31 09:44 | Outpatient (REF) | payer OTHER, SELFPAY ==
[2022-03-31 11:12] LABS: Alanine Aminotransferase 53 U/L (0-31); Albumin Level 3.5 g/dL (3.5-5.0); Alkaline Phosphatase 67 U/L (39-117); Anion Gap 12 (12-20); Aspartate Amino Transferase 34 U/L (5-31); Bilirubin Total 0.5 mg/dL (0.0-1.0); Blood Urea Nitrogen 12 mg/dL (9-16); Calcium 9.4 mg/dL (8.4-10.2); Carbon Dioxide 26 mmol/L (22-29); Chloride 105 mmol/L (96-108); Cholesterol 196 mg/dL; Estimated Glomerular Filt Rate > 60; Glucose Random 100 mg/dL (60-115); HDL Cholesterol 26 mg/dL; LDL Cholesterol Calculated 142 mg/dl; Magnesium 1.8 mg/dL (1.6-2.6); Potassium 3.7 mmol/L (3.3-5.1); Sodium 139 mmol/L (135-145); Total Protein 6.2 g/dL (6.5-8.0); Triglycerides 141 mg/dL
[2022-03-31 11:13] LABS: Estimated Average Glucose 80 mg/dL; Hemoglobin A1c % 4.4 %
[2022-03-31 11:26] LABS: Vitamin D 25-OH Total 28.3 ng/mL (>30)
== END 2022-03-31 09:45 | disposition home or self-care (01) ==
LOC: HO.LAB 09:44
PROVIDERS: PCP Nurse Practitioner Family; Visit Provider Student in an Organized Health Care Education/Training Program
DX: E87.6 Hypokalemia (principal); R73.03 Prediabetes; R79.89 Other specified abnormal findings of blood chemistry
CPT/HCPCS: 36415; 80053; 80061; 82306; 83036; 83735

== ENCOUNTER → 2022-04-01 12:18 | Outpatient (BNVA) | payer OTHER, SELFPAY | PROVIDERS: Visit Provider Counselor Mental Health | DX: F41.1 Generalized anxiety disorder (principal); F33.1 Major depressive disorder, recurrent, moderate | CPT/HCPCS: 90834; 97803 ==

== ENCOUNTER → 2022-04-15 16:19 | Outpatient (BNVA) | payer OTHER, SELFPAY | PROVIDERS: PCP Nurse Practitioner Family; Visit Provider Counselor Mental Health | DX: F33.1 Major depressive disorder, recurrent, moderate (principal); F41.1 Generalized anxiety disorder; Z98.84 Bariatric surgery status | CPT/HCPCS: 90834 ==

== ENCOUNTER → 2022-04-27 12:30 | Outpatient (BNVA) | payer OTHER, SELFPAY | PROVIDERS: PCP Nurse Practitioner Family; Visit Provider Counselor Mental Health | DX: F41.1 Generalized anxiety disorder (principal); F33.1 Major depressive disorder, recurrent, moderate | CPT/HCPCS: 90834 ==

== ENCOUNTER → 2022-05-11 11:23 | Outpatient (BNVA) | payer OTHER, SELFPAY | PROVIDERS: PCP Nurse Practitioner Family; Visit Provider Counselor Mental Health | DX: F41.1 Generalized anxiety disorder (principal); F33.1 Major depressive disorder, recurrent, moderate | CPT/HCPCS: 90834 ==

== ENCOUNTER → 2022-06-04 13:23 | Outpatient (BNVA) | payer OTHER, SELFPAY | PROVIDERS: PCP Nurse Practitioner Family; Visit Provider Physician Assistant | DX: Z98.84 Bariatric surgery status (principal) | CPT/HCPCS: 99212 ==

== ENCOUNTER → 2022-07-23 13:35 | Outpatient (BNVA) | payer OTHER, SELFPAY | PROVIDERS: PCP Nurse Practitioner Family; Visit Provider Counselor Mental Health | DX: F41.1 Generalized anxiety disorder (principal); F33.1 Major depressive disorder, recurrent, moderate | CPT/HCPCS: 90834 ==

== ENCOUNTER → 2022-08-12 10:30 | Outpatient (BNVA) | payer OTHER, SELFPAY | PROVIDERS: PCP Nurse Practitioner Family; Visit Provider Counselor Mental Health ==

== ENCOUNTER → 2022-08-24 11:30 | Outpatient (BNVA) | payer OTHER, SELFPAY | PROVIDERS: PCP Nurse Practitioner Family; Visit Provider Physician Assistant | DX: E66.9 Obesity, unspecified (principal); E87.6 Hypokalemia; Z98.84 Bariatric surgery status; Z68.29 Body mass index [BMI] 29.0-29.9, adult | CPT/HCPCS: Q3014 ==

== ENCOUNTER 2022-11-10 08:03 | Outpatient (REF) | payer OTHER, SELFPAY ==
[2022-11-10 08:26] LABS: MANUAL DIFF FLAG NO
[2022-11-10 09:03] LABS: Basophils Percent Auto 0.5 % (0-2); Eosinophils Absolute Auto 0.2 X10*3/uL (0.0-0.4); Eosinophils Percent Auto 3.1 % (0-4); Hematocrit 42.2 % (37.0-47.0); Hemoglobin 14.2 g/dl (12.0-16.0); Imm Gran Abs Auto 0.01 X10*3/uL (0.00-0.03); Imm Gran Pct Auto 0.2 % (0.0-0.4); Lymphocytes Absolute Auto 1.8 X10*3/uL (1.2-4.9); Mean Corpuscular HGB Conc 33.6 g/dl (31.0-35.0); Mean Corpuscular Hemoglobin 30.5 pg (27.0-33.0); Mean Corpuscular Volume 90.6 fL (80.0-98.0); Mean Platelet Volume 10.1 fL (9.4-12.3); Monocytes Absolute Auto 0.5 X10*3/uL (0.1-1.2); Monocytes Percent Auto 8.3 % (2-11); Neutrophils Absolute Auto 3.1 x10*3/uL (2.0-8.3); Neutrophils Percent Auto 55.9 % (45-73); Platelet Count 323 X10*3/uL (160-400); Red Blood Count 4.66 X10*6/uL (4.20-5.50); Red Cell Distribution Width 13.2 % (11.0-16.0); White Blood Count 5.5 X10*3/uL (4.8-10.8)
[2022-11-10 09:32] LABS: Estimated Average Glucose 85 mg/dL; Hemoglobin A1c % 4.6 %
[2022-11-10 09:46] LABS: Alanine Aminotransferase 32 U/L (0-31); Albumin Level 3.9 g/dL (3.5-5.0); Alkaline Phosphatase 72 U/L (39-117); Anion Gap 12 (12-20); Aspartate Amino Transferase 18 U/L (5-31); Bilirubin Total 0.6 mg/dL (0.0-1.0); Blood Urea Nitrogen 28 mg/dL (9-16); C Reactive Protein 0.96 mg/dL (< or = 0.50); Calcium 9.7 mg/dL (8.4-10.2); Carbon Dioxide 29 mmol/L (22-29); Chloride 102 mmol/L (96-108); Cholesterol 269 mg/dL; Estimated Glomerular Filt Rate > 60; Glucose Random 85 mg/dL (60-115); HDL Cholesterol 49 mg/dL; Iron 79 mcg/dL (30-160); LDL Cholesterol Calculated 208 mg/dl; Magnesium 2.2 mg/dL (1.6-2.6); Percent Iron Saturation 35 % (15-50); Potassium 2.8 mmol/L (3.3-5.1); Sodium 140 mmol/L (135-145); Total Iron Binding Capacity 226 mcg/dL (228-428); Total Protein 7.2 g/dL (6.5-8.0); Triglycerides 61 mg/dL; Unsaturated Iron Binding 147 ug/dL
[2022-11-10 10:06] LABS: Ferritin 192 ng/mL (10-250); Insulin 8 uU/mL (2-29); Vitamin D 25-OH Total 39.1 ng/mL (>30)
[2022-11-10 10:10] LABS: Folate > 20.0 ng/mL (> or = 4.0); Vitamin B12 500 pg/mL (200-900)
[2022-11-12 13:19] LABS: Calcium (PTHI) 9.7 mg/dL (8.6-10.2); PTHI 31 pg/mL (16-77)
[2022-11-14 06:09] LABS: Zinc 89 mcg/dL (60-130)
[2022-11-16 00:18] LABS: Vitamin B1 7 nmol/L (8-30)
[2022-11-18 00:53] LABS: Vitamin A 33 mcg/dL (38-98)
== END 2022-11-10 08:04 | disposition home or self-care (01) ==
LOC: HO.LAB 08:03
PROVIDERS: PCP Nurse Practitioner Family; Visit Provider Physician Assistant
DX: E66.9 Obesity, unspecified (principal); E83.42 Hypomagnesemia; E87.6 Hypokalemia; Z98.84 Bariatric surgery status
CPT/HCPCS: 36415; 80053; 80061; 82306; 82607; 82728; 82746; 83036; 83525; 83540; 83735; 83970; 84425; 84443; 84590; 84630; 85025; 86140

== ENCOUNTER 2023-04-02 09:30 | Outpatient (AMB) | payer OTHER, SELFPAY ==
--- NOTE | 2023-04-02 08:43 | A.OFFVIS_ITS ---
Intake VS Expanded 04/02/23 09:42 Height 5 ft 3 in Weight 156 lb BMI 27.6 Intake Visit Reasons: VIDEO PO LSG 02/18/22 Allergies gadobutrol [GADOBUTROL] Allergy (Severe, Verified 06/04/22 13:27) RASH, TONGUE SWELLING, SOB Iodinated Contrast Media [IV CONTRAST] Allergy (Severe, Verified 06/04/22 13:27) DIFFICULTY BREATHING morphine Allergy (Severe, Verified 06/04/22 13:27) Anaphylaxis peanut [PEANUT] Allergy (Severe, Verified 06/04/22 13:27) ANAPHYLAXIS amoxicillin [Amoxicillin] Allergy (Intermediate, Verified 06/04/22 13:27) RASH cinnamon [CINNAMON] Allergy (Intermediate, Verified 06/04/22 13:27) TONGUE SWELLING Medication List - Last Reconciled 04/02/23 by Shanika Schrader PA-C cholecalciferol (vitamin D3) 50 mcg PO DAILY docusate sodium (Colace) 100 mg PO BID PRN gabapentin 600 mg PO DAILY@1300 PRN inulin (Fiber Gummies) 2 grams PO BID lisinopril 20 mg See Protocol PO DAILY multivitamin (Daily-Kilo tablet) 1 tab PO BID paroxetine HCl 20 mg PO BEDTIME sumatriptan succinate 50 mg PO DAILY PRN triamcinolone acetonide 0.1% 1 appl topical DAILY PRN HPI HPI Comments History of Present Illness Details 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 Post op labs done in October with low vitamin levels. Last appt with Caren in July 2022. TBWL is 131 lbs or 46%. No nausea or vomiting or abd pain. Feels bloated and has reflux with any cooked vegtetables and steak. started about 5 months ago and never let us know. Lots of personal stressors, 2 children suicicdal, over the past few months. Does not have her own therapist. Feels very depressed - looks herself inthe bathroom and cries a all the time . Exercises treadmill everyday. Also walks outside often with her . Meal plan: has not eaten any vegetables for 3 months. 8am - 2eggs with turkey ham and cottage cheese 1pm - 3 oz tuna with raw celery or apple with cottage cheese 6pm - 3o z chicken or salmon and cottage cheese 1/4 cup and then apples or berries Post op complications: none MICHAEL: resolved DM: never HTN: still on meds Hyperlipidemia: never GERD: 0-5 scale 0 = no symptoms 1 = symptoms noticeable but not bothersome 2 =symptoms bothersome but not daily 3 = symptoms bothersome and daily 4 = symptoms affect daily activities 5 = symptoms are incapacitating, unable to do daily activities Satisfaction with present condition - satisfied ___ Not satisfied ___ [facility] Medical History Adult general medical exam Anxiety Back pain Brain lesion Depression DEGROOT (dyspnea on exertion) Encounter to establish care ERNESTO (generalized anxiety disorder) Hypertension Intercostal neuralgia Intercostal neuralgia Major depressive disorder Major depressive disorder, recurrent, moderate Migraines Morbid obesity with body mass index (BMI) of 50.0 to 59.9 in adult Myofascial pain on left side Neck pain MICHAEL (obstructive sleep apnea) Prediabetes Psoriasis Psoriatic arthritis Surgical History H/O total hysterectomy History of carpal tunnel surgery History of endometrial ablation History of lung surgery Hx of tubal ligation S/P laparoscopic sleeve gastrectomy Family History Mother Hypertension Osteoporosis Back problem Father Hypertension Anxiety Depression Back problem Brother No problems noted. Sister Depression Anxiety Son Anxiety Depression Tourette syndrome Son Depression Anxiety ADHD Daughter Anxiety Depression Other S/P laparoscopic sleeve gastrectomy Social History Household Members: Spouse and Children Household Members Other:: and 3 kids. Housing: House Are you a primary specialist wound care to a significant other at home: No Do you presently have visiting nurse or other home services: No Alcohol intake: never Patient Tobacco Use Status: Never used Tobacco e-Cigarette/Vaping Use: Never Used Second Hand Smoke Exposure: No service: No Current occupational status: disabled Cognitive needs: No Hearing needs: No Vision needs: No Assessment & Plan Assessment & Plan (1) Overweight (BMI 25.0-29.9): Code(s): E66.3 - Overweight Plan: Now 1 year s/p LSG and with TBWL of 131 lbs or 45%. She stopped eating vegetables due to reflux- but this does not seem anatomical due to her sleeve as she tolerates raw celery. I suspect an emotional reason for this intolerance and needs to restart them. Meal plan- add 1 oz of raw vegetable sto each meal, if tolerated increase to 2 oz then 3 oz. If tolerates - try cooked vegetables also. I have encouraged her to let me know if this persists. Will have follow up with Nevin in 4-6 weeks. Will be scheduled with Caren chavez. in July for 18 month appt. Post op labs ordered now. I spent 30 minutes in total speaking with the patient via video conference counseling , reviewing records and charting in patients chart. . Decrease lisinopril to 10 mg and follow up with PCP. (2) S/P laparoscopic sleeve gastrectomy: Code(s): Z98.84 - Bariatric surgery status Orders: Orders Insulin Today E66.3 - Overweight, Z98.84 - Bariatric surgery status IRON PROFILE Today E66.3 - Overweight, Z98.84 - Bariatric surgery status Vitamin B1 Today E66.3 - Overweight, Z98.84 - Bariatric surgery status Vitamin A Today E66.3 - Overweight, Z98.84 - Bariatric surgery status C Reactive Protein Today E66.3 - Overweight, Z98.84 - Bariatric surgery status PTHI Today E66.3 - Overweight, Z98.84 - Bariatric surgery status Vitamin D 25-OH Total Today E66.3 - Overweight, Z98.84 - Bariatric surgery status Hemoglobin A1c Today E66.3 - Overweight, Z98.84 - Bariatric surgery status Lipid Panel Today E66.3 - Overweight, Z98.84 - Bariatric surgery status Complete Blood Count Auto Diff Today E66.3 - Overweight, Z98.84 - Bariatric surgery status Vitamin B12 and Folate Today E66.3 - Overweight, Z98.84 - Bariatric surgery status Zinc Today E66.3 - Overweight, Z98.84 - Bariatric surgery status Comprehensive Met. Panel Today E66.3 - Overweight, Z98.84 - Bariatric surgery status Ferritin Today E66.3 - Overweight, Z98.84 - Bariatric surgery status TSH reflex Free T4 Today E66.3 - Overweight, Z98.84 - Bariatric surgery status Telehealth Telehealth Location of provider rendering services: practice address Location of patient: address on file Patient Identification confirmed using: Name, : Yes Telehealth method: video Patient verbally consented to treatment: Yes Patient verbally consented to billing insurance company: Yes Patient informed of any privacy concerns related to visit: Yes Coding Level of Care Code Tele Est Pt Level 4 (26606) Diagnoses Overweight (BMI 25.0-29.9) E66.3 S/P laparoscopic sleeve gastrectomy Z98.84
[2023-04-02 09:42] VITALS: BMI 27.6
== END 2023-04-02 10:01 | disposition home or self-care (01) ==
LOC: HO.HBS 09:59
PROVIDERS: PCP Nurse Practitioner Family; Visit Provider Physician Assistant
DX: E66.3 Overweight (principal); Z98.84 Bariatric surgery status
CPT/HCPCS: 99214

== ENCOUNTER → 2023-04-02 09:30 | Outpatient (BNVA) | payer OTHER, SELFPAY | PROVIDERS: PCP Nurse Practitioner Family; Visit Provider Physician Assistant | DX: E66.3 Overweight (principal); Z98.84 Bariatric surgery status ==

== ENCOUNTER 2023-04-06 14:10 | Outpatient (AMB) | payer OTHER, SELFPAY ==
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
== END 2023-04-06 15:06 | disposition home or self-care (01) ==
LOC: HO.HBST 14:11
PROVIDERS: PCP Nurse Practitioner Family; Visit Provider Counselor Mental Health
DX: F41.1 Generalized anxiety disorder (principal); F33.1 Major depressive disorder, recurrent, moderate
CPT/HCPCS: 90834

== ENCOUNTER → 2023-04-06 14:10 | Outpatient (BNVA) | payer OTHER, SELFPAY | PROVIDERS: PCP Nurse Practitioner Family; Visit Provider Counselor Mental Health ==

== ENCOUNTER 2023-04-30 15:16 | Outpatient (AMB) | payer OTHER, SELFPAY ==
--- NOTE | 2023-04-30 14:58 | A.OFFVIS_ITS ---
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 Allergies gadobutrol [GADOBUTROL] Allergy (Severe, Verified 06/04/22 13:27) RASH, TONGUE SWELLING, SOB Iodinated Contrast Media [IV CONTRAST] Allergy (Severe, Verified 06/04/22 13:27) DIFFICULTY BREATHING morphine Allergy (Severe, Verified 06/04/22 13:27) Anaphylaxis peanut [PEANUT] Allergy (Severe, Verified 06/04/22 13:27) ANAPHYLAXIS amoxicillin [Amoxicillin] Allergy (Intermediate, Verified 06/04/22 13:27) RASH cinnamon [CINNAMON] Allergy (Intermediate, Verified 06/04/22 13:27) TONGUE SWELLING HPI Nutrition Presentation Details LSG DOS 02/18/22 Reason for consult elevated BMI Diet Assmnt Details breakfast: 2 eggs and about 1oz ham Lunch tuna about 3oz dinner pork chops and cottage cheese ; doesn't like the way vegetables make her stomach feel Occasionally pure protein unflavored 1 scoop Hydration: 64oz Vitamins: taking a standard vitamin chewable She reprots hair loss still Patient reports she has been having lot stress at home with her 2 children Dietary counseling reduction Diagnosis Nutrition problem #1 overweight/obesity As related to (etiology) #1 excess energy intake and physical inactivity As evidenced by (sign/symptom) #1 high BMI Monitoring/Goals Nutrition problem monitoring total energy intake, level of knowledge/skill, total PRO intake, total CHO intake and weight Outcome progress progressing Learning/Education Readiness to learn good Stages of change action Educational materials provided Yes Most Recent Diabetes Results: Cholesterol 269 mg/dL 11/10/22 HDL Cholesterol 49 mg/dL 11/10/22 Triglycerides 61 mg/dL 11/10/22 Creatinine 0.72 mg/dL (0.5-1.4) 11/10/22 Blood Urea Nitrogen 28 mg/dL (9-16) H 11/10/22 Sodium 140 mmol/L (135-145) 11/10/22 Potassium 2.8 mmol/L (3.3-5.1) L 11/10/22 Chloride 102 mmol/L (96-108) 11/10/22 Carbon Dioxide 29 mmol/L (22-29) 11/10/22 Calcium 9.7 mg/dL (8.4-10.2) 11/10/22 AST 18 U/L (5-31) 11/10/22 ALT 32 U/L (0-31) H 11/10/22 Total Protein 7.2 g/dL (6.5-8.0) 11/10/22 Albumin 3.9 g/dL (3.5-5.0) 11/10/22 [facility] Medical History Adult general medical exam Anxiety Back pain Brain lesion Depression DEGROOT (dyspnea on exertion) Encounter to establish care ERNESTO (generalized anxiety disorder) Hypertension Intercostal neuralgia Intercostal neuralgia Major depressive disorder Major depressive disorder, recurrent, moderate Migraines Morbid obesity with body mass index (BMI) of 50.0 to 59.9 in adult Myofascial pain on left side Neck pain MICHAEL (obstructive sleep apnea) Prediabetes Psoriasis Psoriatic arthritis Surgical History H/O total hysterectomy History of carpal tunnel surgery History of endometrial ablation History of lung surgery Hx of tubal ligation S/P laparoscopic sleeve gastrectomy Family History Mother Hypertension Osteoporosis Back problem Father Hypertension Anxiety Depression Back problem Brother No problems noted. Sister Depression Anxiety Son Anxiety Depression Tourette syndrome Son Depression Anxiety ADHD Daughter Anxiety Depression Other S/P laparoscopic sleeve gastrectomy Social History Household Members: Spouse and Children Household Members Other:: and 3 kids. Housing: House Are you a primary healthcare management to a significant other at home: No Do you presently have visiting nurse or other home services: No Alcohol intake: never Patient Tobacco Use Status: Never used Tobacco e-Cigarette/Vaping Use: Never Used Second Hand Smoke Exposure: No service: No Current occupational status: disabled Cognitive needs: No Hearing needs: No Vision needs: No Assessment & Plan Assessment & Plan (1) Overweight (BMI 25.0-29.9): Code(s): E66.3 - Overweight Plan next follow up as scheduled with Shanika in July Patient Instructions: 80g protein daily goal. have shake daily to supplement protein. get labs done, order is in still. Telehealth Telehealth Location of provider rendering services: practice address Location of patient: address on file Patient Identification confirmed using: Name, : Yes Telehealth method: voice only Patient verbally consented to treatment: Yes Patient verbally consented to billing insurance company: Yes Patient informed of any privacy concerns related to visit: Yes Minutes spent on Phone/Video with Pt.: 25 Coding Level of Care Code Nutr Indiv Subseq ([id number]) Diagnoses Overweight (BMI 25.0-29.9) E66.3 Time Spent (min) 25
[2023-04-30 14:59] VITALS: BMI 27.8
== END 2023-04-30 15:16 | disposition home or self-care (01) ==
LOC: HO.HBS 15:16
PROVIDERS: PCP Nurse Practitioner Family; Visit Provider Dietitian, Registered
DX: E66.3 Overweight (principal)

== ENCOUNTER → 2023-04-30 15:16 | Outpatient (BNVA) | payer OTHER, SELFPAY | PROVIDERS: PCP Nurse Practitioner Family; Visit Provider Dietitian, Registered | DX: E66.3 Overweight (principal); Z68.27 Body mass index [BMI] 27.0-27.9, adult | CPT/HCPCS: 97803 ==

== ENCOUNTER 2024-07-24 13:11 | Outpatient (AMB) | payer OTHER, SELFPAY ==
[2024-07-24 13:18] VITALS: BP 130/82; PULSE 62; O2SAT 98; BMI 35.3
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
--- OUTSIDE RECORDS SUMMARY | 2024-07-24 15:27 | XMS_ITS | Clinical Summary ---
Author Organization [employer] Address [address] [place] [address] [address] [place] [address] Care Team Providers Care Software Development Analyst Name Role Phone Unavailable Primary Care Provider Unavailabl e Social History Tobacco Use Types Packs/Day Years Used Date Smoking Tobacco: Never Assessed Comments Unknown Sex and Gender Information Value Date Recorded Sex Assigned at Female 03/23/2022 10:15 AM EDT Legal Sex Female 10:15 AM EDT Gender Identity Female 03/23/2022 10:15 AM EDT Sexual Orientation Straight 03/23/2022 10 :15 AM EDT Last Filed Vital Signs Vital Sign Reading Time Taken Comments Blood Pressure 140/90 12/11/2020 12:07 AM EDT Pulse 72 11/27/2020 12:07 AM EDT Temperature - - Respiratory Rate - - Oxygen Saturation - - Inhaled Oxygen Concentration - - Weight 126 kg (277 lb 9.6 oz) 11/27/2020 12:07 A M EDT Height 160 cm (5' 3 ) 11/27/2020 12:07 AM EDT Body Mass Index 49.17 11/27/2020 12:07 AM EDT Plan of Treatment Health Maintenance Due Date Last Done Comments CT Colonography 1979 Colonoscopy 1979 Colorectal Cancer Screening 1979 Depression Screening 1979 FIT DNA/Cologuard 1979 FIT 1979 FOBT 1979 Sigmoidoscopy 1979 Alcohol/Substance Use Screening 1991 Tobacco Screening 1991 Family Planning (PISQ) 1994 DTaP/Tdap/Td Vaccines (1 - Tdap) 1998 Hepatitis B Vaccines (1 of 3 - 19+ 3-dose series) 1998 Pap Smear 2000 Cervical Cancer Screening 2009 HPV/Cotest 2009 Mammogram 10/18/2023 10/17/2021 COVID-19 Vaccine (2 - 2023-2 5 season) 2024 01/30/2021 Influenza Vaccine (#1) 2024 02/18/2012 Zoster Vaccines (1 of 2) 2029 RSV Patients and Pa tients Aged 60 years or older (1 - 1-dose 75+ series) 2054 HIB Vaccines Aged Out No longer eligi ble based on patient's age to complete this topic HPV Vaccines Aged Out No longer eligi ble based on patient's age to complete this topic Hepatitis A Vaccines Aged Out No long er eligible based on patient's age to complete this topic IPV Vaccines Aged Out No longer eligi ble based on patient's age to complete this topic Meningococcal Vaccine Aged Out No ha rony eligible based on patient's age to complete this topic Pneumococcal Vaccine: Pediat rics (0 to 5 Years) and At-Risk Patients (6 to 49) Years) Aged Out No longer elig ible based on patient's age to complete this topic RSV under 20 months Aged Out No longe r eligible based on patient's age to complete this topic Rotavirus Vaccines Aged Out No longer eligible based on patient's age to complete this topic Procedures Procedure Name Priority Date/Time Associated Diagnosis Comments MAMMOGRAM GENERIC Routine 10/17/2021 11: 25 AM EDT from Last 3 Months or Most Recently Relevant to Health Maintenance Results * Mammography Report 1 (10/17/2021 11:25 AM EDT) Anatomical Region Laterality Modality Breast Bilateral Mammography 10/17/2021 11:2 5 AM EDT Narrative 10/21/2021 9:19 AM EDT Refer to the Notes tab for result details [facility] Procedure: Mammography Report 1 Procedure Note Provider, MD Salvador - 08/16/2022 Refer to the Notes tab for result details [facility] Procedure: Mammography Report 1 us Nola Donovan PANTRY WORKER IMG BI PROCEDURES Final Result from Last 3 Months or Most Recently Relevant to Health Maintenance
--- OUTSIDE RECORDS SUMMARY | 2024-07-24 15:27 | XMS_ITS | Clinical Summary ---
Author Organization [facility] Address [address] [place] [address] Phone Care Team Providers Care Reimbursement Liaison Name Role Phone Rosemarie Yeung JOMAR Primary Care Provider [phone] Allergies Active Allergy Reactions Criticality Noted Date Comments Cinnamon Other (see comments) High 06/02/2019 Iodinated Contrast Media Anaphylaxis,Oth er (see comments) High 06/02/2019 Lamotrigine Shortness of breath High 10/18/2019 Morphine Hives,Other (see comments) 06/02/2019 Peanut-Containing Drug Products Other (see comments) High 06/02/2019 Penicillin V Other (see comments) 10/04/2020 Medications betamethasone dipropionate (DIPROLENE) 0.05 % ointment Apply 1 application topically 9 Active butalbital-aceta minophen-caffein e (FIORICET, ESGIC) 50-325-40 MG per tablet Take 2 tablets by mouth Active carvedilol (COREG) 25 MG tablet Comments: Filled Date: May 20 2018 3:27PM Patient Notes: TAKE 1 TABLET BY MOUTH TWICE A DAY Duration: 90 8 Active fluocinolone (DERMA-SMOOTHE) 0.01 % external oil Apply topically Acti ve gabapentin (NEURONTIN) 400 MG capsule Take 1.5 capsules by mouth 1 (one) time each day Active lamoTRIgine (LaMICtal) 25 MG tablet Take 2 tablets by mouth 1 (one) time each day Active amLODIPine (NORVASC) 5 MG tablet Take 5 mg by mouth 1 (one) time each day 3 Active Active Problems Problem Noted Date Diagnosed Date Anxiety 12/30/2022 12/30/2022 Depressive disorder 12/30/2022 12/30/2022 Lung cyst 12/30/2022 12/30/2022 Overview (12/30/2022): Removed 2014 Menorrhagia 12/30/2022 12/30/2022 Migraine 12/30/2022 12/30/2022 Numbness of upper limb 12/30/2022 Obesity 12/30/2022 12/30/2022 Obstructive sleep apnea syndrome 12/30/2022 12/30/2022 Overview (12/30/2022): Does not use CPAP Peripheral neuritis 12/30/2022 12/30/2022 Uterine leiomyoma 12/30/2022 12/30/2022 Essential hypertension 10/04/2020 Hypertensive renal disease 10/04/2020 Magnetic resonance imaging of brain abnormal 02/2020 Transient neurological symptoms 06/02/2019 Family History Medical History Relation Comments Hypertension Father Hypertension Mother Hypertension Sibling Relation Status Comments Father Unknown Mother Unknown Sibling Social History Tobacco Use Types Packs/Day Years Used Date Smoking Tobacco: Never Smokeless Tobacco: Never Tobacco Cessation:Counseling Given: Not Answered Alcohol Use Standard Drinks/Week Comments No 0 (1 standard drink = 0.6 oz pur e alcohol) Comments Unknown Sex and Gender Information Value Date Recorded Sex Assigned at Not on file Legal Sex Female 4:42 PM EST Gender Identity Not on file Sexual Orientation Not on file Last Filed Vital Signs Vital Sign Reading Time Taken Comments Blood Pressure 100/80 11/09/2022 3:16 PM EDT Pulse 69 11/09/2022 3:16 PM EDT Temperature - - Respiratory Rate - - Oxygen Saturation 97% 11/09/2022 3:16 PM EDT Inhaled Oxygen Concentration - - Weight 90 kg (198 lb 6.4 oz) 03/23/2022 2:48 PM EDT Height 160 cm (5' 3 ) 03/02/2019 12:01 PM EDT Body Mass Index 35.14 03/02/2019 12:01 PM EDT Plan of Treatment Health Maintenance Due Date Last Done Comments Pneumococcal Vaccine: Pediat rics (0 to 5 Years) and At-Risk Patients (6 to 64 Years) (1 of 2 - PCV) 1985 Hepatitis B Vaccine (1 of 3 - 19+ 3-dose series) 06/27 Influenza Vaccine (#1) 2024 Insurance [facility] [facility] Care Teams Reimbursement Liaison Relationship Specialty Start Date End Date Rosemarie Yeung FNP [address] [place] [address] PCP - General 03/09/22
== END 2024-07-24 14:06 | disposition home or self-care (01) ==
DX: G47.33 Obstructive sleep apnea (adult) (pediatric) (principal); G43.909 Migraine, unspecified, not intractable, without status migrainosus; E66.9 Obesity, unspecified; Z68.35 Body mass index [BMI] 35.0-35.9, adult; R79.89 Other specified abnormal findings of blood chemistry; K59.00 Constipation, unspecified; Z98.84 Bariatric surgery status; G58.8 Other specified mononeuropathies; F41.1 Generalized anxiety disorder; F32.9 Major depressive disorder, single episode, unspecified; Z88.9 Allergy status to unspecified drugs, medicaments and biological substances; H53.8 Other visual disturbances

== ENCOUNTER → 2024-07-24 13:11 | Outpatient (BNVA) | payer OTHER, SELFPAY | DX: G47.33 Obstructive sleep apnea (adult) (pediatric) (principal); G43.909 Migraine, unspecified, not intractable, without status migrainosus; E55.9 Vitamin D deficiency, unspecified; K59.00 Constipation, unspecified; E66.9 Obesity, unspecified; G58.8 Other specified mononeuropathies; F41.1 Generalized anxiety disorder; F32.9 Major depressive disorder, single episode, unspecified; H53.8 Other visual disturbances; L65.9 Nonscarring hair loss, unspecified; Z98.84 Bariatric surgery status; Z88.9 Allergy status to unspecified drugs, medicaments and biological substances | CPT/HCPCS: 96127 ==

== ENCOUNTER 2025-04-27 08:28 | Outpatient (AMB) | payer OTHER, SELFPAY ==
[2025-04-27 08:33] VITALS: BP 118/74; PULSE 64; O2SAT 97; BMI 38.7
--- NOTE | 2025-04-27 08:33 | MHC.PC.OV ---
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 Accompanied by: Self / Same As Patient Allergies gadobutrol (GADOBUTROL) Allergy (Severe, Verified 04/27/25 08:43) RASH, TONGUE SWELLING, SOB Iodinated Contrast Media (IV CONTRAST) Allergy (Severe, Verified 04/27/25 08:43) DIFFICULTY BREATHING morphine Allergy (Severe, Verified 04/27/25 08:43) Anaphylaxis peanut (PEANUT) Allergy (Severe, Verified 04/27/25 08:43) ANAPHYLAXIS amoxicillin (Amoxicillin) Allergy (Intermediate, Verified 04/27/25 08:43) RASH cinnamon (CINNAMON) Allergy (Intermediate, Verified 04/27/25 08:43) TONGUE SWELLING Medication List - Last Reconciled 04/27/25 by Kristin Cabrera PA-C cholecalciferol (vitamin D3) 50 mcg PO DAILY docusate sodium (Colace) 100 mg PO BID PRN gabapentin 600 mg PO DAILY PRN inulin 2 grams PO BID multivitamin (Daily-Kilo tablet) 1 tab PO BID paroxetine HCl 20 mg PO BEDTIME sumatriptan succinate 50 mg PO DAILY PRN triamcinolone acetonide 0.1% 1 appl topical DAILY PRN Tobacco use date assessed: 04/27/25 Dental Screening Dental Screen Date: 04/27/25 Did you have a dental visit in the last 12 months?: Yes Did you have a dental problem in the last 6 months where you did not have access to dental care?: No Was dental information given to patient?: Patient has dentist HPI Biyatric sugery and pain in her lower back HPI Details 44-year-old female with past medical history of depression, low vitamin-D, prediabetes, psoriasis, hypertension, migraines, anxiety and obesity last seen 07/2024 coming in for acute problem. Presenting with concerns about weight gain, right hip pain, hair loss, and stress. She reports having had a gastric sleeve surgery in 2021 and has since experienced significant weight regain, with a gain of approximately 20 pounds in the last nine months and 40 pounds since 2022. She has an uncontrollable urge to eat, with dietary patterns including eating eggs for breakfast, skipping lunch, and having a very late dinner. The patient has been experiencing right hip pain for several months, which began insidiously without a specific injury. The pain is exacerbated by prolonged driving or standing, making it difficult for her to straighten up quickly, and also affects her ability to sleep on her right side. The pain radiates to her back and the inside of her thigh. She manages the pain with Tylenol and lidocaine patches. She reports worsening hair loss, a concern that was also discussed at her last visit. She takes a daily multivitamin but no other supplements for her hair. The patient has been under significant stress for the past few months, which she attributes to being a sponge for her family's problems, including her son's depression, her daughter's work schedule and relationship issues, and her 's constant complaining. She experiences significant anxiety related to doctor appointments, which has previously prevented her from attending them. She has not been taking her prescribed paroxetine 20 mg. [facility] Medical History ERNESTO (generalized anxiety disorder) Major depressive disorder Intercostal neuralgia Neck pain Major depressive disorder, recurrent, moderate Adult general medical exam Prediabetes MICHAEL (obstructive sleep apnea) DEGROOT (dyspnea on exertion) Morbid obesity with body mass index (BMI) of 50.0 to 59.9 in adult Encounter to establish care Psoriasis Hypertension Psoriatic arthritis Myofascial pain on left side Brain lesion Migraines Anxiety Depression Back pain Intercostal neuralgia Surgical History S/P laparoscopic sleeve gastrectomy History of endometrial ablation Hx of tubal ligation H/O total hysterectomy History of lung surgery History of carpal tunnel surgery Family History Mother Hypertension Osteoporosis Back problem Father Hypertension Anxiety Depression Back problem Brother No problems noted. Sister Depression Anxiety Son Anxiety Depression Tourette syndrome Son Depression Anxiety ADHD Daughter Anxiety Depression Other S/P laparoscopic sleeve gastrectomy Social History Household Members: Spouse and Children Household Members Other:: and 3 kids. Housing: House Are you a primary career services representative to a significant other at home: No Do you presently have visiting nurse or other home services: No Alcohol intake: never Patient Tobacco Use Status: Never used Tobacco e-Cigarette/Vaping Use: Never Used Second Hand Smoke Exposure: No service: No Current occupational status: disabled Cognitive needs: No Hearing needs: No Vision needs: No Questionnaire PHQ-9 Over the last 2 weeks, how often have you been bothered by any of the following problems? 1. Little interest or pleasure in doing things: several days 2. Feeling down, depressed, or hopeless: several days 3. Trouble falling or staying asleep, or sleeping too much: several days 4. Feeling tired or having little energy: several days 5. Poor appetite or overeating: nearly every day 6. Feeling bad about yourself - or that you are a failure or have let yourself or your family down: several days 7. Trouble concentrating on things, such as reading the newspaper or watching television: several days 8. Moving or speaking so slowly that other people could have noticed. Or the opposite - being so fidgety or restless that you have been moving around a lot more than usual: not at all 9. Thoughts that you would be better off or of hurting yourself in some way: not at all Total score: 9 Source: Developed by Drs. Sanjeev Mcdermott, Hetal Longo, Ramy Ko and colleagues, with an educational catalina from [employer]. Thrive Questionnaire Date Thrive assessed: 04/27/25 I am a: Patient What is your living situation today?: I have a steady place to live Within the past 12 months, did the food you bought not last and you didn't have the money to get more?: Never true Within the past 12 months, did you worry whether your food would run out before you got money to buy more?: Sometimes True Do you have trouble paying for medicines?: No Do you have trouble getting transportation to medical appointments?: No Do you have trouble paying your heating and electricity bill?: I choose not to answer this question Do you have trouble taking care of your child, family member or friend?: No Do you have trouble with day-to-day activities such as bathing, preparing meals, shopping, managing finances, etc.?: No Are you currently unemployed and looking for a job?: No Are you interested in more education?: No Please select the resources that you would like help with: None Currently or been in a relationship where the following occur: No concerns reported THRIVE Score: 1 AUDIT C Alcohol Use Questionnaire (AUDIT-C) 1. How often do you have a drink containing alcohol?: Never 3. How often do you have six or more drinks on one occasion?: Never Total Score: 0 ERNESTO-7 AMB Questionnaire ERNESTO-7 Date ERNESTO - 7 assessed: 04/27/25 Feeling nervous, anxious, or on edge: 1 = Several days Not being able to stop or control worryin = More than half the days Worrying too much about different things: 3 = Nearly every day Trouble relaxin = Nearly every day Being so restless that it is hard to sit still: 1 = Several days Becoming easily annoyed or irritable: 1 = Several days Feeling afraid as if something awful might happen: 3 = Nearly every day Total ERNESTO-7 score (0-4 normal; 5-9 mild; 10-14 moderate; 15-21 severe): 14 Source: Developed by Drs. Sanjeev Mcdermott, Hetal Longo, Ramy Ko and colleagues, with an educational catalina from [employer]. ERNESTO-7 Assessment Billing ERNESTO-7 Assessment Tool: ERNESTO-7 Assessment 97808 Review of Systems Const Denies body aches, Denies chills, Denies fever(s), Denies headache(s) and Denies poor appetite Eyes Reports no additional complaints ENT Denies dizziness and Denies headache(s) Card Denies chest pain, Denies lightheadedness and Denies dyspnea Resp Denies dyspnea GI Denies abdominal pain, Denies nausea and Denies vomiting Reports no additional complaints Musc Reports no additional complaints and Denies abnormal gait Skin/Breast Reports system reviewed and no additional complaints, except as documented Neuro Denies abnormal gait, Denies dizziness and Denies headache(s) Psych Reports no additional complaints Physical exam (Primary Care) Vital Signs: Last Vital Signs Pulse 64 04/27/25 08:33 BP 118/74 04/27/25 08:33 Pulse Ox 97 04/27/25 08:33 Oxygen Delivery Method Room Air 04/27/25 08:33 BMI result Body Mass Index 38.7 Tobacco/Smoking Status: Tobacco use Status Tobacco use date assessed 04/27/25 04/27/25 08:40 Patient Tobacco Use Status Never used Tobacco 04/27/25 08:40 e-Cigarette/Vaping Use Never Used 04/27/25 08:40 PHQ-9: PHQ-9 Score PHQ-9: Total score 9 04/27/25 08:40 Thrive Assessment: Date of Thrive Assessment Date Thrive assessed 04/27/25 12 08:40 Currently or been in a relationship where the following occur: No concerns reported Const General: cooperative, healthy appearing, comfortable and no acute distress Orientation/consciousness: patient oriented x3 HENMT Head: Yes normocephalic Ears: hearing grossly normal bilaterally General nose exam: Normal external nose present Eyes General: appearance normal, both eyes and all related structures Conjunctivae: conjunctivae normal Neck Neck: Yes full ROM and Yes no lymphadenopathy Resp Effort & Inspection: normal respiratory effort Auscultation: clear to auscultation bilaterally, no crackles, no rales, no rhonchi and no wheezes Cardio Rate: regular rate Rhythm: regular rhythm Back/Spine/Pelvis Other: Pain to palpation over right hip no pain to lumbar spine or paraspinal muscles. Pain elicited with extension of the right hip Skin General skin exam: no rashes or lesions noted Neuro General: patient oriented x3 Gait exam (Neuro): Normal gait present Extrem General: Yes normal to inspection, Yes full ROM and No edema Psych Affect: normal affect Attitude: cooperative Insight: Good insight present (Psych) Judgement: Good judgement present (Psych) Coding Level of Care Code Est Pt Level 4 (31649) Diagnoses Right hip pain M25.551 Major depressive disorder F32.9 Obesity (BMI 30-39.9) E66.9 Hair loss L65.9 Additional Codes ERNESTO-7 Assessment Billing - ERNESTO-7 Assessment Tool: ERNESTO-7 Assessment 30144 ([id number]) Assessment & Plan Assessment & Plan (1) Right hip pain: Code(s): M25.551 - Pain in right hip Category: Medical Plan: The assessment suggests the pain is likely muscular, though arthritis has not been ruled out. An X-ray of the right hip and pelvis will be ordered to further evaluate. Prescription-strength lidocaine patches will be prescribed. The patient is advised to continue Tylenol as needed and perform gentle stretching and range of motion exercises. Physical therapy will be considered as a next step. (2) Major depressive disorder: Code(s): F32.9 - Major depressive disorder, single episode, unspecified Category: Medical Plan: The patient reports significant stress and experiences panic attacks, particularly related to medical appointments. She declined to restart psychotropic medication at this time. A referral will be placed for counseling, with virtual options highlighted for convenience. It was suggested she try taking magnesium at bedtime to help with anxiety. (3) Obesity (BMI 30-39.9): Code(s): E66.9 - Obesity, unspecified Category: Medical Plan: The plan is to address the significant weight regain post-gastric sleeve surgery. Fasting blood work will be ordered to check liver function and for other supporting evidence. A prior authorization will be submitted for a GLP-1 agonist injection (e.g., Wegovy, Ozempic) to help with appetite control and cravings. The patient was counseled that insurance coverage may be an issue, and if it is not approved, a referral to a weight resource management planner will be considered. A follow-up visit is scheduled for three months to monitor progress if the medication is started. (4) Hair loss: Code(s): L65.9 - Nonscarring hair loss, unspecified Category: Medical Plan: The hair loss is suspected to be from a vitamin deficiency. Fasting blood work is ordered to investigate underlying causes. A hair, skin, and nails gummy vitamin supplement will be prescribed. A referral to dermatology will be considered if blood work is unrevealing. Plan This note was constructed using voice recognition software. While every effort has been made to ensure accuracy and oyster farmer, still areas may have been included sometimes these areas may affect the content or meeting of the given symptoms. Total time spent caring for the patient today was 30 minutes. This includes time spent before the visit reviewing the chart, time spent during the visit, and time spent after the visit and documentation. Patient was informed and verbally consented to the use of an ambient scribe for clinic note documentation during this visit. Orders: Orders Comprehensive Met. Panel Today Z00.00 - Encounter for general adult medical examination without abnormal findings, Z13.1 - Encounter for screening for diabetes mellitus Lipid Panel Today Z13.220 - Encounter for screening for lipoid disorders Complete Blood Count Auto Diff Today Z13.0 - Encounter for screening for diseases of the blood and blood-forming organs and certain disorders involving the immune mechanism, Z13.1 - Encounter for screening for diabetes mellitus Vitamin B12 and Folate Today Z13.21 - Encounter for screening for nutritional disorder Vitamin D 25-OH Total Today Z13.21 - Encounter for screening for nutritional disorder Hemoglobin A1c Today Z13.1 - Encounter for screening for diabetes mellitus TSH reflex Free T4 Today Z13.29 - Encounter for screening for other suspected endocrine disorder IRON PROFILE Today L65.9 - Nonscarring hair loss, unspecified XR hip RT w PEL1V Today M25.551 - Pain in right hip Referrals Counseling Referral F32.9 - Major depressive disorder, single episode, unspecified, F41.1 - Generalized anxiety disorder Medications: New tirzepatide (weight loss) (Zepbound) for 4 weeks 2.5 mg (0.5 mL) subcut QWEEK 2 mL 0RF E66.9 - Obesity, unspecified, G47.33 - Obstructive sleep apnea (adult) (pediatric) biotin (Hair, Skin and Nails (biotin)) orally;take on tablet daily 90 tabs 0RF lidocaine 5% leave on most painful area for up to 12 hrs 1 patch topical DAILY 30 ea 0RF Refilled cholecalciferol (vitamin D3) 50 mcg PO DAILY 30 caps 3RF Discontinued paroxetine HCl Discontinued Reason: Patient no longer taking 20 mg PO BEDTIME 90 tabs 2RF depressive disorder
== END 2025-04-27 09:20 | disposition home or self-care (01) ==
LOC: HO.HMCH 08:28
DX: M25.551 Pain in right hip (principal); F32.9 Major depressive disorder, single episode, unspecified; E66.9 Obesity, unspecified; Z68.38 Body mass index [BMI] 38.0-38.9, adult; L65.9 Nonscarring hair loss, unspecified

== ENCOUNTER → 2025-04-27 08:28 | Outpatient (BNVA) | payer OTHER, SELFPAY | DX: M25.551 Pain in right hip (principal); F32.9 Major depressive disorder, single episode, unspecified; E66.9 Obesity, unspecified; L65.9 Nonscarring hair loss, unspecified; Z68.38 Body mass index [BMI] 38.0-38.9, adult | CPT/HCPCS: 96127 ==